=== PATIENT | female | born 1965 | race Caucasian/White ===

== ENCOUNTER 2018-09-16 21:00 | Outpatient (REF) | payer OTHER, MEDICAID, SELFPAY ==
[2018-09-16 22:08] LABS: Cholesterol 158 mg/dL (50-200); HDL Cholesterol 50 mg/dL (40-60); LDL CHOLESTEROL 73 mg/dL (<100); TSH 0.13 uIU/mL (0.358-3.74); Triglyceride 88 mg/dL (30-150)
== END 2018-09-16 21:20 ==
LOC: NCHCN 21:00
PROVIDERS: Visit Provider Nurse Practitioner Family
DX: M75.110 Incomplete rotator cuff tear or rupture of unspecified shoulder, not specified as traumatic (principal); E11.65 Type 2 diabetes mellitus with hyperglycemia; E03.9 Hypothyroidism, unspecified
CPT/HCPCS: 80061; 83721; 84443

== ENCOUNTER 2018-11-01 12:07 | Outpatient (REF) | payer OTHER, MEDICAID, SELFPAY ==
--- NOTE | 2018-11-01 10:15 | PAPFT_PTH ---
PATIENT: Karoline Moseley LOC: [facility] U#:[id number] AGE/SX: 53/F ROOM: RE11/01/[address]: Anusha [place] : 1965 BED: DIS: 11/01/2018 SPEC #: [id number] RECD: 11/02/18 12:53 STATUS: FRANCO REQ #: [id number] KENROY: 11/01/18 10:[address]: Anusha [place] DEPT: [facility] Cytology RECD BY: Elly Hoffman Tissues: 1 - CX/ENDOCX FOR PAP SMEARS Procedures: PAP THIN PREP/UVM Screening HPV DNA PROBE Comments: [id number]
[2018-11-01 21:28] LABS: TSH (W/Ref FT4) 9.05 uIU/mL (0.358-3.74)
[2018-11-01 21:55] LABS: FREE T4 0.76 ng/dL (0.76-1.46)
== END 2018-11-01 12:27 ==
LOC: NCHCN 12:07
PROVIDERS: PCP Nurse Practitioner Family; Visit Provider Nurse Practitioner Family
DX: Z00.00 Encounter for general adult medical examination without abnormal findings (principal); Z12.4 Encounter for screening for malignant neoplasm of cervix; Z11.51 Encounter for screening for human papillomavirus (HPV); Z01.419 Encounter for gynecological examination (general) (routine) without abnormal findings
CPT/HCPCS: 88142; 84439; 84443; 87624

== ENCOUNTER 2019-01-04 10:10 | Outpatient (REF) | payer OTHER, MEDICAID, SELFPAY ==
[2019-01-04 23:09] LABS: TSH (W/Ref FT4) 0.11 uIU/mL (0.358-3.74)
[2019-01-04 23:28] LABS: FREE T4 1.55 ng/dL (0.76-1.46)
== END 2019-01-04 10:30 ==
LOC: NCHCN 10:10
PROVIDERS: PCP Nurse Practitioner Family; Visit Provider Nurse Practitioner Family
DX: E03.9 Hypothyroidism, unspecified (principal); F43.10 Post-traumatic stress disorder, unspecified; J45.991 Cough variant asthma; M54.5 Low back pain
CPT/HCPCS: 84439; 84443

== ENCOUNTER 2019-02-06 03:59 | Emergency (ER) | payer OTHER, MEDICAID, SELFPAY ==
[2019-02-06 04:03] VITALS: BP 153/86; PULSE 101; RESP 22; TEMP 38; O2SAT 99
--- NOTE | 2019-02-06 04:16 | W.ED.GENAD ---
Discharge Plan Disposition Patient Disposition: HOME Condition: Improving Discharge Details Chief Complaint: EarProblem Clinical Impression: Acute swimmer's ear Primary Care Provider: Anusha [place] ED Provider: Jordon Talavera Home Meds and New Rx's Prescriptions: Continued multivitamin [Daily Multi-Vitamin] 1 EACH tablet 1 ea PO DAILY RF: 0 polyethylene glycol 3350 17 GM powder in packet 17 gm PO DAILY PRN PRNRF: 0 ibuprofen 800 MG tablet 800 mg PO PRN PRNRF: 0 levothyroxine [Levoxyl] 125 MCG tablet 150 mcg PO DAILY RF: 0 epinephrine 0.3 MG/SYR auto-injector 0.3 mg IJ PRN PRNRF: 0 tramadol 50 MG tablet 50 mg PO PRN PRNRF: 0 montelukast [Singulair] 10 MG tablet 10 mg PO HS PRN PRNRF: 0 furosemide 20 MG tablet 20 mg PO PRN PRNRF: 0 ergocalciferol (vitamin D2) [Vitamin D2] 50,000 UNIT capsule 50,000 unit PO DIRECTED RF: 0 Discharge Instructions Instructions: Otitis Externa (ED) Additional Instructions: Please use Ciprodex otic drops twice daily for 5 to 7 days time. Follow-up with Anusha [place] if not improving in 5 days. May use Tylenol and/or ibuprofen as needed for pain. Continue regular medications. Return for any acute concern Medical Decision Making 53-year-old female with right otitis externa, question of early onset of left otitis externa. No other acute findings on exam. Will treat with some Ciprodex otic drops twice daily. She understands homecare and return precautions. HPI General Mode of arrival: ambulatory. Date/Time Provider Initiated Documentation: 02/06/19 04:13. Limitations to Documentation: no limitations. Information obtained by: patient. History of Present Illness 53 year old F presents to the emergency department with the chief complaint of Right greater than left ear pain, described as moderate, Quality is described as dull and constant, and is localized to the head and right. Patient started experiencing this hour(s) and it has been constant. No relieving factors improve symptom(s), No exacerbating factors reported . Patient notes no other symptoms.. Patient did receive the following treatments prior to arrival, none Related Data Home Medications Medication Instructions Recorded Confirmed epinephrine 0.3 mg IJ PRN PRN 01/11/13 05/30/17 ibuprofen 800 mg PO PRN PRN 01/11/13 05/30/17 levothyroxine [Levoxyl] 150 mcg PO DAILY 01/11/13 05/30/17 multivitamin [Daily Multi-Vitamin] 1 ea PO DAILY 01/11/13 05/30/17 polyethylene glycol 3350 17 gm PO DAILY PRN PRN 01/11/13 05/30/17 ergocalciferol (vitamin D2) 50,000 unit PO DIRECTED 03/27/15 05/30/17 [Vitamin D2] furosemide 20 mg PO PRN PRN 03/27/15 05/30/17 montelukast [Singulair] 10 mg PO HS PRN PRN 03/27/15 05/30/17 tramadol 50 mg PO PRN PRN 03/27/15 05/30/17 Allergies Allergy/AdvReac Type Severity Reaction Status Date / Time Insulins AdvReac Unverified 02/06/19 04:07 metformin AdvReac LEG Unverified 02/06/19 04:07 SWELLING MOST FOODS AdvReac Uncoded 02/06/19 04:07 DECONGESTANTS AdvReac Uncoded 02/06/19 04:07 General Stated Complaint: EarProblem LULU: 4 Review of Systems Review of Systems No fall. She is otherwise been well. Has had similar infections in the past. 6 systems reviewed and otherwise neg [facility] Social History Smoking/Tobacco Use Status: Former Tobacco Use Drug use: Never Do you feel safe in your relationship?: Yes Exam Narrative Exam Narrative: GEN: awake, alert, oriented 3. Pleasant, well groomed, interactive. HEAD: Normocephalic, atraumatic ENT: Mucous membranes moist, oropharynx unremarkable, the right external ear canal is swollen, cobblestoned with 6 white white exudate. There is discrete erythema and cobblestoning of the left external ear canal EYES: PERRL, EOMI NECK: Full ROM, no WILL, no menigismus CHEST/RESP: Nontender, clear to auscultation bilateral, no wheeze/rhonchi/rales CARDIOVASCULAR: RRR, no murmur, rub marlyou. 2+ Rad pulse bilateral EXT: Full ROM, no edema, no rash Neuro: Grossly normal neurologic exam, conversant, interactive. Psych: Speech fluent, thoughts congruent, affect normal M Course Vital Signs Temperature 38.0 C H 02/06/19 04:03 Pulse 101 H 02/06/19 04:03 Respiratory Rate 22 02/06/19 04:03 Blood Pressure 153/86 H 02/06/19 04:03 Pulse Oximetry 99 02/06/19 04:03 Temperature 38.0 C H 02/06/19 04:03 Temperature Source Temporal Artery Scan 02/06/19 04:03 Pulse 101 H 02/06/19 04:03 Respiratory Rate 22 02/06/19 04:03 Respiratory Effort Non-Labored 02/06/19 04:03 Blood Pressure 153/86 H 02/06/19 04:03 Blood Pressure Position Sitting 02/06/19 04:03 Pulse Oximetry 99 02/06/19 04:03 Oxygen Delivery Method Room Air 02/06/19 04:03 Oxygen Flow Rate 0 02/06/19 04:03 Pain Level 8 02/06/19 04:07
--- NOTE | 2019-02-06 04:19 | ED.GENADUL_ITS ---
Discharge Plan Disposition Patient Disposition: HOME Condition: Improving Discharge Details Chief Complaint: EarProblem Clinical Impression: Acute swimmer's ear Primary Care Provider: Anusha [place] ED Provider: Jordon Talavera Home Meds and New Rx's Prescriptions: Continued multivitamin [Daily Multi-Vitamin] 1 EACH tablet 1 ea PO DAILY RF: 0 polyethylene glycol 3350 17 GM powder in packet 17 gm PO DAILY PRN PRNRF: 0 ibuprofen 800 MG tablet 800 mg PO PRN PRNRF: 0 levothyroxine [Levoxyl] 125 MCG tablet 150 mcg PO DAILY RF: 0 epinephrine 0.3 MG/SYR auto-injector 0.3 mg IJ PRN PRNRF: 0 tramadol 50 MG tablet 50 mg PO PRN PRNRF: 0 montelukast [Singulair] 10 MG tablet 10 mg PO HS PRN PRNRF: 0 furosemide 20 MG tablet 20 mg PO PRN PRNRF: 0 ergocalciferol (vitamin D2) [Vitamin D2] 50,000 UNIT capsule 50,000 unit PO DIRECTED RF: 0 Discharge Instructions Instructions: Otitis Externa (ED) Additional Instructions: Please use Ciprodex otic drops twice daily for 5 to 7 days time. Follow-up with Anusha [place] if not improving in 5 days. May use Tylenol and/or ibuprofen as needed for pain. Continue regular medications. Return for any acute concern Medical Decision Making 53-year-old female with right otitis externa, question of early onset of left otitis externa. No other acute findings on exam. Will treat with some Ciprodex otic drops twice daily. She understands homecare and return precautions. HPI General Mode of arrival: ambulatory . Date/Time Provider Initiated Documentation: 02/06/19 04:13 . Limitations to Documentation: no limitations . Information obtained by: patient . History of Present Illness 53 year old F presents to the emergency department with the chief complaint of Right greater than left ear pain, described as moderate, Quality is described as dull and constant, and is localized to the head and right. Patient started experiencing this hour(s) and it has been constant. No relieving factors improve symptom(s), No exacerbating factors reported . Patient notes no other symptoms.. Patient did receive the following treatments prior to arrival, none Related Data Home Medications Medication Instructions Recorded Confirmed epinephrine 0.3 mg IJ PRN PRN 01/11/13 05/30/17 ibuprofen 800 mg PO PRN PRN 01/11/13 05/30/17 levothyroxine [Levoxyl] 150 mcg PO DAILY 01/11/13 05/30/17 multivitamin [Daily Multi-Vitamin] 1 ea PO DAILY 01/11/13 05/30/17 polyethylene glycol 3350 17 gm PO DAILY PRN PRN 01/11/13 05/30/17 ergocalciferol (vitamin D2) 50,000 unit PO DIRECTED 03/27/15 05/30/17 [Vitamin D2] furosemide 20 mg PO PRN PRN 03/27/15 05/30/17 montelukast [Singulair] 10 mg PO HS PRN PRN 03/27/15 05/30/17 tramadol 50 mg PO PRN PRN 03/27/15 05/30/17 Allergies Allergy/AdvReac Type Severity Reaction Status Date / Time Insulins AdvReac Unverified 02/06/19 04:07 metformin AdvReac LEG Unverified 02/06/19 04:07 SWELLING MOST FOODS AdvReac Uncoded 02/06/19 04:07 DECONGESTANTS AdvReac Uncoded 02/06/19 04:07 General Stated Complaint: EarProblem LULU: 4 Review of Systems Review of Systems No fall. She is otherwise been well. Has had similar infections in the past. 6 systems reviewed and otherwise neg [facility] Social History Smoking/Tobacco Use Status: Former Tobacco Use Drug use: Never Do you feel safe in your relationship?: Yes Exam Narrative Exam Narrative: GEN: awake, alert, oriented 3. Pleasant, well groomed, intera ctive. HEAD: Normocephalic, atraumatic ENT: Mucous membranes moist, oropharynx unremarkable, the right external ear canal is swollen, cobblestoned with 6 white white exudate. There is discrete erythema and cobblestoning of the left external ear canal EYES: PERRL, EOMI NECK: Full ROM, no WILL, no menigismus CHEST/RESP: Nontender, clear to auscultation bilateral, no wheeze/rhonchi/rales CARDIOVASCULAR: RRR, no murmur, rub marylou. 2+ Rad pulse bilateral EXT: Full ROM, no edema, no rash Neuro: Grossly normal neurologic exam, conversant, interactive. Psych: Speech fluent, thoughts congruent, affect normal M Course Vital Signs Temperature 38.0 C H 02/06/19 04:03 Pulse 101 H 02/06/19 04:03 Respiratory Rate 22 02/06/19 04:03 Blood Pressure 153/86 H 02/06/19 04:03 Pulse Oximetry 99 02/06/19 04:03 Temperature 38.0 C H 02/06/19 04:03 Temperature Source Temporal Artery Scan 02/06/19 04:03 Pulse 101 H 02/06/19 04:03 Respiratory Rate 22 02/06/19 04:03 Respiratory Effort Non-Labored 02/06/19 04:03 Blood Pressure 153/86 H 02/06/19 04:03 Blood Pressure Position Sitting 02/06/19 04:03 Pulse Oximetry 99 02/06/19 04:03 Oxygen Delivery Method Room Air 02/06/19 04:03 Oxygen Flow Rate 0 02/06/19 04:03 Pain Level 8 02/06/19 04:07
[2019-02-06] MEDS: Ciprofloxacin/Dexameth. 7.5 ML BTL AU (04:27)
== END 2019-02-06 04:34 | disposition home or self-care (01) ==
PROVIDERS: Emergency Provider Emergency Medicine; PCP Nurse Practitioner Family
DX: H60.332 Swimmer's ear, left ear (principal)
CPT/HCPCS: 99283

== ENCOUNTER 2019-02-09 10:56 | Outpatient (REF) | payer OTHER, MEDICAID, SELFPAY ==
[2019-02-11 10:55] LABS: Lyme Ab w Rflx to Lyme Confirm Negative
== END 2019-02-09 11:16 ==
LOC: NCHCN 10:56
PROVIDERS: PCP Nurse Practitioner Family; Visit Provider Nurse Practitioner Family
DX: H92.03 Otalgia, bilateral (principal); W57.XXXA Bitten or stung by nonvenomous insect and other nonvenomous arthropods, initial encounter
CPT/HCPCS: 86618

== ENCOUNTER 2019-04-20 01:00 | Outpatient (CLI) | payer OTHER, MEDICAID, SELFPAY ==
--- NOTE | 2019-04-20 11:07 | DI.MRI_ITS ---
EXAM: MR LUMBAR SPINE WO CLINICAL HISTORY: LOW BACK PAIN, M54.5, WORSENING W/ RADICULOPATHY, PT MADE SYMPTOMS WORSE. TECHNIQUE: Multiplanar multisequence MRI was performed. MRI of the lumbar spine was performed accor ding to the usual protocol. COMPARISON: No exams were available for comparison FINDINGS: There are multiple of high-signal vertebral body rounded masses seen on T1 and T2 weighted imaging co nsistent with multiple vertebral hemangiomas, the largest in L2 vertebra. No other significant bony abnormality seen. The conus medullaris appears intact. There is very prominent hypertrophic degenerative facet change particularly at L4-5 bilaterally. There is a moderate to severe central canal spinal stenosis at L4- 5. No central canal spinal stenosis identified at the other levels examined. Mild bilateral neural foraminal narrowing also noted at L4-5. There is moderate-sized predominantly central broad-based disc herniation at L5-S1. Right S1 nerve r oot may be impinged by this disc herniation. No additional disc herniation identified in the lumbar region. IMPRESSION: 1. Moderate to severe central canal spinal stenosis and mild bilateral neural foraminal stenosis at L4-5 secondary to facet hypertrophy. 2. Moderate-sized predominantly central disc herniation slightly more prominent to the right at L5-S1 , question right S1 nerve root impingement.
== END 2019-04-20 01:20 ==
PROVIDERS: PCP Nurse Practitioner Family; Visit Provider Nurse Practitioner Family
DX: M54.5 Low back pain (principal); M54.16 Radiculopathy, lumbar region; M48.061 Spinal stenosis, lumbar region without neurogenic claudication; M51.17 Intervertebral disc disorders with radiculopathy, lumbosacral region; M47.26 Other spondylosis with radiculopathy, lumbar region
CPT/HCPCS: 72148

== ENCOUNTER 2019-05-25 14:41 | Outpatient (REF) | payer OTHER, MEDICAID, SELFPAY ==
[2019-05-25 20:14] LABS: HCT 41.7 % (36.0-46.0); Mean Corp. HGB Concentration 33.6 g/dL (32.0-36.0); Mean Corpuscular Hemoglobin 28.7 pg (27.0-33.0); Mean Corpuscular Volume 85.5 fL (80-95); Mean Platelet Volume 11.6 fL (8.0-11.0); Platelet Count 282 x1000/uL (130-400); RBC 4.88 m/cumm (4.00-5.20); RBC Distribution Width 14.6 % (11.7-14.6); White Blood Cell Count 8.45 k/cumm (4.4-10.8)
[2019-05-25 20:25] LABS: ALT 28 U/L (14-59); AST 19 U/L (15-37); Albumin 3.8 g/dL (3.4-5.0); Alkaline Phosphatase 108 U/L (46-116); Anion Gap 9.6 mmol/L (3-11); BUN 18 mg/dL (7-18); Bilirubin, Direct 0.15 mg/dL (0.00-0.20); Bilirubin, Total 0.9 mg/dL (0.2-1.0); CO2 27.4 mmol/L (21.0-32.0); CREATININE 0.85 mg/dL (0.55-1.02); Calcium 9.3 mg/dL (8.5-10.1); Chloride 103 mmol/L (98-107); Glucose 127 mg/dL (70-100); Potassium 4.3 mmol/L (3.5-5.1); Sodium 140 mmol/L (136-145); Total Protein 7.2 g/dL (6.4-8.2)
== END 2019-05-25 15:01 ==
LOC: NCHCN 14:41
PROVIDERS: PCP Nurse Practitioner Family; Visit Provider Nurse Practitioner Family
DX: M51.16 Intervertebral disc disorders with radiculopathy, lumbar region (principal); Z01.818 Encounter for other preprocedural examination
CPT/HCPCS: 80053; 80076; 85027

== ENCOUNTER 2020-03-20 11:28 | Outpatient (REF) | payer OTHER, MEDICAID, SELFPAY ==
[2020-03-20 20:32] LABS: TSH (W/Ref FT4) 1.15 uIU/mL (0.36-3.74)
== END 2020-03-20 11:48 ==
LOC: NCHCN 11:28
PROVIDERS: PCP Nurse Practitioner Family; Visit Provider Nurse Practitioner Family
DX: E03.9 Hypothyroidism, unspecified (principal)
CPT/HCPCS: 84443

== ENCOUNTER 2020-05-14 10:52 | Outpatient (CLI) | payer OTHER, MEDICAID, SELFPAY ==
--- NOTE | 2020-05-14 | DI.RAD_ITS ---
EXAM: XR FOOT LT COMPLETE CLINICAL HISTORY: LT FOOT PAIN, M79.672. TECHNIQUE: 2D digital imaging was performed. COMPARISON: No exams were available for comparison FINDINGS: BONES: There is an acute nondisplaced fracture of the midshaft of the 1st metatarsal. No bony destru ctive lesion is seen. There is a small calcaneal spur. There is an enthesophyte at the Achilles inse rtion site. JOINTS: No dislocation present. SOFT TISSUE: There is soft tissue swelling associated with the fracture. IMPRESSION: Nondisplaced fracture of the midshaft of the 1st metatarsal with associated soft tissue swelling of t he forefoot. DATA REPOSITORY: RADIATION DOSE DELIVERED:
== END 2020-05-14 11:12 ==
PROVIDERS: PCP Nurse Practitioner Family; Visit Provider Nurse Practitioner Family
DX: S92.315A Nondisplaced fracture of first metatarsal bone, left foot, initial encounter for closed fracture (principal)
CPT/HCPCS: 73630

== ENCOUNTER 2020-05-25 04:07 | Outpatient (CLI) | payer OTHER, MEDICAID, SELFPAY ==
--- NOTE | 2020-05-25 | DI.RAD_ITS ---
EXAM: XR LUMBAR SPINE COMPLETE CLINICAL HISTORY: 1 YEAR S/P LUMBAR FUSION,Z98.1. TECHNIQUE: 2D digital imaging was performed. COMPARISON: No exams were available for comparison FINDINGS: Posterior fusion hardware is noted at L4-5. A disc spacer is present at this level. There are endpl ate osteophytes, greatest in the lower thoracic spine. The disc spaces are well maintained. Flexion and extension lateral views were performed in addition to the neutral lateral view. There is no sub luxation with flexion or extension. There is no scoliosis. There is mild spurring at the SI joints. Surgical clips are seen in the right upper quadrant. IMPRESSION: Status post posterior fusion at L4-5. Mild degenerative disc changes are seen. DATA REPOSITORY: RADIATION DOSE DELIVERED:
== END 2020-05-25 04:27 ==
PROVIDERS: PCP Nurse Practitioner Family; Visit Provider Nurse Practitioner Family
DX: Z98.1 Arthrodesis status (principal); M47.816 Spondylosis without myelopathy or radiculopathy, lumbar region
CPT/HCPCS: 72110

== ENCOUNTER 2020-06-05 12:02 | Outpatient (CLI) | payer OTHER, MEDICAID, SELFPAY ==
--- NOTE | 2020-06-05 11:45 | DI.RAD_ITS ---
EXAM: XR FOOT LT LIMITED CLINICAL HISTORY: f/u fx. TECHNIQUE: 2D digital imaging was performed. COMPARISON: CR XR FOOT LT COMPLETE from 05/14/2020 FINDINGS: BONES: There is no change in alignment of the fracture involving the 1st metatarsal. No new fracture or dislocation is present. No bony destructive lesion is seen. JOINTS: No dislocation present. SOFT TISSUE: Normal. IMPRESSION: Stable 1st metatarsal fracture. DATA REPOSITORY: RADIATION DOSE DELIVERED:
== END 2020-06-05 12:22 ==
PROVIDERS: PCP Nurse Practitioner Family; Referring Provider Nurse Practitioner Family; Visit Provider Orthopaedic Surgery
DX: S92.312A Displaced fracture of first metatarsal bone, left foot, initial encounter for closed fracture (principal); W20.8XXA Other cause of strike by thrown, projected or falling object, initial encounter
CPT/HCPCS: 99203; 99214; 73620

== ENCOUNTER 2020-07-03 11:23 | Outpatient (CLI) | payer OTHER, MEDICAID, SELFPAY ==
--- NOTE | 2020-07-03 09:15 | DI.RAD_ITS ---
EXAM: XR FOOT LT LIMITED CLINICAL HISTORY: f/u fracture TECHNIQUE: COMPARISON: CR XR FOOT LT LIMITED from 06/05/2020 FINDINGS: Two views were obtained. Previously described fracture of the 1st metatarsal is again noted no inter hue change in alignment of the fracture fragments comparison previous examination June 05. IMPRESSION: RADIATION DOSE DELIVERED: Total DLP Total DLP
== END 2020-07-03 11:43 ==
PROVIDERS: PCP Nurse Practitioner Family; Referring Provider Nurse Practitioner Family; Visit Provider Orthopaedic Surgery
DX: S92.312D Displaced fracture of first metatarsal bone, left foot, subsequent encounter for fracture with routine healing (principal); W20.8XXD Other cause of strike by thrown, projected or falling object, subsequent encounter
CPT/HCPCS: 99213; 73620

== ENCOUNTER 2020-07-16 00:49 | Outpatient (CLI) | payer OTHER, MEDICAID, SELFPAY ==
--- NOTE | 2020-07-16 07:00 | DI.MRI_ITS ---
EXAM: MR LOWER EXTREMITY LT WO CLINICAL HISTORY: PAIN,FX 1ST METATARSAL,S92.313A TECHNIQUE: Multiplanar multisequence MRI was performed without intravenous contrast. COMPARISON: MR MR LUMBAR SPINE WO from 04/20/2019 CR XR FOOT LT LIMITED from 07/03/2020 FINDINGS: SKIN: No evidence of ulcer nor subcutaneous tract. BONES/JOINTS: There is an incompletely healed nondisplaced transverse fracture at the midshaft level of the great toe metatarsal. Intraosseous bone edema extends throughout the diaphysis of the great t oe metatarsal. There is no significant joint effusion at the metatarsophalangeal joint but there is abnormal signal seen within the more medial of the 2 sesamoid bones subjacent to the great toe metata rsal head. This sesamoid appears fractured. The more lateral of the 2 sesamoids exhibits normal sig nal. No flexor tendon tear nor prominent tenosynovitis at this level. The other metatarsal bones appear unremarkable with the exception of some degenerative changes at the articulation between the base of the 3rd metatarsal and the lateral cuneiform bone. LISFRANC JOINT: Some increased signal is seen within the main Lisfranc ligament but no cortical offse t. Probable partial tearing. LIGAMENTS: No obvious tears evident. MUSCULOTENDINOUS STRUCTURES: On the dorsal aspect of the foot above the 2nd metatarsal midshaft level there is an abnormal 1.2 by 1.0 by 0.9 centimeter T2 bright well-defined collection which is not in proximity to a joint and appears to be within extensor or musculature-tendon at this level. This is probably posttraumatic. There is no abnormal intraosseous signal in the subjacent 2nd metatarsal. T here are no septations evident within this finding. SOFT TISSUES: As above OTHER FINDINGS: None. IMPRESSION: 1. Partial healing of nondisplaced transverse fracture of the midshaft of the great toe metatarsal. Still prominent bone edema extending throughout the length of the diaphysis but not into the head of the great toe metatarsal. 2. There is a fracture of the more medial of the 2 sesamoid bones subjacent to the great toe metatars al head. No displacement. No joint joint effusion in the great toe metatarsophalangeal joint. 3. Some attenuation of the main Lisfranc ligament is noted but without complete tear. Also no cortic al offset at this level. 4. There is a 12 x 10 x 9 millimeter abnormal focal finding within the soft tissues just dorsal to t he midshaft of the 2nd metatarsal which exhibits increased signal on both T1 and T2 weighted images a nd is probably posttraumatic hematoma within the extensor musculature at this level. Correlation wit h mechanism of injury is recommended. DATA REPOSITORY:
== END 2020-07-16 01:09 ==
PROVIDERS: PCP Nurse Practitioner Family; Visit Provider Orthopaedic Surgery
DX: S92.315A Nondisplaced fracture of first metatarsal bone, left foot, initial encounter for closed fracture (principal); S92.812A Other fracture of left foot, initial encounter for closed fracture; M79.89 Other specified soft tissue disorders
CPT/HCPCS: 73718

== ENCOUNTER → 2020-07-23 08:48 | Outpatient (BNVA) | payer OTHER, MEDICAID, SELFPAY | PROVIDERS: PCP Nurse Practitioner Family; Referring Provider Nurse Practitioner Family; Visit Provider Student in an Organized Health Care Education/Training Program | DX: S92.312D Displaced fracture of first metatarsal bone, left foot, subsequent encounter for fracture with routine healing (principal); W20.8XXD Other cause of strike by thrown, projected or falling object, subsequent encounter | CPT/HCPCS: 99213; L3260 ==

== ENCOUNTER 2020-08-20 11:29 | Outpatient (CLI) | payer OTHER, MEDICAID, SELFPAY ==
--- NOTE | 2020-08-20 11:15 | DI.RAD_ITS ---
EXAM: XR FOOT LT COMPLETE CLINICAL HISTORY: L foot fx. TECHNIQUE: 2D digital imaging was performed. COMPARISON: CR XR FOOT LT COMPLETE from 05/14/2020 CR XR FOOT LT LIMITED from 07/03/2020 MR MR LOWER EXTREMITY LT WO from 07/16/2020 FINDINGS: BONES: There has been continued healing of the 1st metatarsal fracture. No bony destructive lesion i s seen. No new fracture or dislocation. JOINTS: No dislocation present. SOFT TISSUE: Normal. IMPRESSION: Healing 1st metatarsal fracture. DATA REPOSITORY: RADIATION DOSE DELIVERED:
== END 2020-08-20 11:49 ==
PROVIDERS: PCP Nurse Practitioner Family; Referring Provider Nurse Practitioner Family; Visit Provider Student in an Organized Health Care Education/Training Program
DX: S92.312D Displaced fracture of first metatarsal bone, left foot, subsequent encounter for fracture with routine healing (principal); X58.XXXD Exposure to other specified factors, subsequent encounter
CPT/HCPCS: 99213; 99214; 73630

== ENCOUNTER → 2020-09-17 10:14 | Outpatient (BNVA) | payer OTHER, MEDICAID, SELFPAY | PROVIDERS: PCP Nurse Practitioner Family; Referring Provider Nurse Practitioner Family; Visit Provider Physician Assistant | DX: S92.312D Displaced fracture of first metatarsal bone, left foot, subsequent encounter for fracture with routine healing (principal); X58.XXXD Exposure to other specified factors, subsequent encounter | CPT/HCPCS: 99212; 99213 ==

== ENCOUNTER 2020-11-12 10:02 | Outpatient (CLI) | payer OTHER, MEDICAID, SELFPAY ==
--- NOTE | 2020-11-12 10:00 | DI.RAD_ITS ---
EXAM: XR FOOT LT COMPLETE CLINICAL HISTORY: pain at fracture site. TECHNIQUE: 2D digital imaging was performed. COMPARISON: CR XR FOOT LT COMPLETE from 08/20/2020 FINDINGS: Healing fracture site at the midshaft level of the great toe metatarsal is again noted. There has be en from further healing. Fracture line is still faintly visible. No displacement. No new additiona l fractures identified. No widening of the Lisfranc joint. Moderate size inferior calcaneal spur is noted. Also calcification at the insertion of the Achilles on the posterior calcaneus. IMPRESSION: Healing nondisplaced midshaft fracture of the great toe metatarsal. DATA REPOSITORY: RADIATION DOSE DELIVERED:
== END 2020-11-12 10:03 | disposition home or self-care (01) ==
LOC: DIORS 10:02
PROVIDERS: PCP Nurse Practitioner Family; Referring Provider Nurse Practitioner Family; Visit Provider Student in an Organized Health Care Education/Training Program
DX: S92.315D Nondisplaced fracture of first metatarsal bone, left foot, subsequent encounter for fracture with routine healing (principal)
CPT/HCPCS: 99213; 73630

== ENCOUNTER 2020-11-21 10:59 | Outpatient (REF) | payer OTHER, MEDICAID, SELFPAY ==
[2020-11-21 16:37] LABS: Anion Gap 12.6 mmol/L (3-11); BUN 16 mg/dL (7-18); CO2 23.4 mmol/L (21.0-32.0); CREATININE 0.9 mg/dL (0.55-1.02); Calcium 9.7 mg/dL (8.5-10.1); Calculated LDL 168 mg/dL (<100); Chloride 103 mmol/L (98-107); Cholesterol 281 mg/dL (<200); Glucose 333 mg/dL (74-106); HDL Cholesterol 59 mg/dL (40-60); Potassium 4.7 mmol/L (3.5-5.1); Sodium 139 mmol/L (136-145); TSH 0.86 uIU/mL (0.36-3.74); Triglyceride 271 mg/dL (<150)
[2020-11-21 17:41] LABS: FREE T4 1.44 ng/dL (0.76-1.46)
[2020-11-22 04:55] LABS: Vitamin D 25 Total 63.1 ng/mL (30-100)
== END 2020-11-21 11:00 | disposition home or self-care (01) ==
LOC: NCHCN 10:59
PROVIDERS: PCP Nurse Practitioner Family; Visit Provider Nurse Practitioner Family
DX: E11.65 Type 2 diabetes mellitus with hyperglycemia (principal); E03.9 Hypothyroidism, unspecified; N28.9 Disorder of kidney and ureter, unspecified
CPT/HCPCS: 80048; 80061; 82306; 84439; 84443

== ENCOUNTER 2021-01-14 09:48 | Outpatient (CLI) | payer OTHER, MEDICAID, SELFPAY ==
--- NOTE | 2021-01-14 09:30 | DI.RAD_ITS ---
Exam(s) XR FOOT LT COMPLETE EXAM: XR FOOT LT COMPLETE CLINICAL HISTORY: eval L 2nd MT pain, h/o 1st frx. TECHNIQUE: 2D digital imaging was performed. COMPARISON: CR XR FOOT LT COMPLETE from 11/12/2020 FINDINGS: There is some further healing at the midshaft transverse fracture site of the great toe. Fracture li ne is still visible but there is no displacement. No new fractures identified. Lisfranc joint is no t widened. No other fractures identified. Moderate size inferior calcaneal spur is again noted as is calcification at the insertion of the Achi lles tendon on the posterior calcaneus. IMPRESSION: Further healing nondisplaced midshaft fracture of the great toe metatarsal. Fracture line is still v isible. DATA REPOSITORY: RADIATION DOSE DELIVERED:
== END 2021-01-14 09:49 | disposition home or self-care (01) ==
LOC: DIORS 09:50
PROVIDERS: PCP Nurse Practitioner Family; Referring Provider Nurse Practitioner Family; Visit Provider Student in an Organized Health Care Education/Training Program
DX: S97.82XD Crushing injury of left foot, subsequent encounter (principal); S92.312D Displaced fracture of first metatarsal bone, left foot, subsequent encounter for fracture with routine healing; X58.XXXD Exposure to other specified factors, subsequent encounter
CPT/HCPCS: 99213; 73630

== ENCOUNTER 2021-02-07 15:06 | Outpatient (REF) | payer OTHER, MEDICAID, SELFPAY ==
[2021-02-07 19:59] LABS: Calcium 9.6 mg/dL (8.5-10.1); PHOSPHORUS 4.4 mg/dL (2.6-4.7)
[2021-02-07 20:15] LABS: Vitamin D 25 Total 64.1 ng/mL (30-100)
== END 2021-02-07 15:07 | disposition home or self-care (01) ==
LOC: NCHCN 15:06
PROVIDERS: PCP Nurse Practitioner Family; Visit Provider Nurse Practitioner Family
DX: E55.9 Vitamin D deficiency, unspecified (principal)
CPT/HCPCS: 82306; 82310; 84100

== ENCOUNTER 2022-02-11 16:51 | Outpatient (REF) | payer OTHER, MEDICAID, SELFPAY ==
[2022-02-11 16:50] LABS: Anion Gap 13.4 mmol/L (3-11); BUN 26 mg/dL (7-18); CO2 24.6 mmol/L (21.0-32.0); Chloride 100 mmol/L (98-107); Estimated GFR 57.15 (mL/min/1.73m2); Glucose 314 mg/dL (74-106); HDL Cholesterol 56 mg/dL (40-60); LDL CHOLESTEROL 116 mg/dL (<100); Potassium 4.2 mmol/L (3.5-5.1); Sodium 138 mmol/L (136-145); TSH 7.88 uIU/mL (0.36-3.74)
--- OUTSIDE RECORDS SUMMARY | 2022-02-11 16:55 | XMS_ITS | Encounter Summary ---
:1965 Author Organization [facility] Address [address] [place] [address] Care Team Providers Name Role Phone Unavailable Primary Care Provider Unavailable Encounter Details Date Type Department Care Team Description 06/05/2005 Results Only [facility] Teja Lowe MD conversion [address] [place] [id number] Social History Tobacco Use Types Packs/Day Years Used Date Never Assessed Sex Assigned at Date Recorded Not on file documented as of this encounter Plan of Treatment Not on filedocumented as of this encounter Procedures Procedure Name Priority Date/Time Associated Diagnosis Comme [facility] SURGICAL PATHOLOGY Routine 06/05/2005 0:00 EST Re sults for this procedure are i n the results section. documented in this encounter Results SURGICAL PATHOLOGY (06/05/2005 0:00 EST) Pathology Report: SURGICAL PATHOLOGY REPORT GIBSON A DAVICARLOS Reports generated via electronic interface contain jennifer ginal data; LAB however they are lacking the format of the original re port. Caution should be taken when reading/interpreting unfo rmatted reports. Name: ? KAROLINE MOSELEY ? Accession #: ? [id number] ? : ? 1965 (Age: 40) ??F ? Collect Date: ? 06/05/2005 ? Location: ? [facility] ? Receive Date: ? 005 ? Provider: JERE MUNOZ MD Copy to: TAY PIPER CAMPAIGN MANAGER ? Final Pathologic Diagnosis: ? Stomach, body, biopsies: 1. ?No specific pathologic features. 2. ?No Helicoba cter pylori-like organisms identified on H&E stain. ?? Document reviewed and electronically signed by: FABI OLIVEIRA MD Report ??Date: 06/10/2005 11:11 By the signature above, the attending physician certif ies that he/she has personally conducted a gross and/or microscopic examin ation of the described specimens and rendered or confirmed the above diagnosi s. Specimen(s) Received: ? Bx body of stomach Clinical History: ? Heartburn, RUQ pain, change in bowel habits; ga stritis Gross Description: ? Received in Hollande's fixative labelled Drown and 1 ??bx body of stomach are two pieces of tissue each of which measur e 0.2 x 0.2 x 0.2 cm. Submitted intact in one cassette. ??[facility] End of Report Specimen Performing Organization Address City/State/ZIP Code Phon e Number [facility] [address] [place] [address] SERVICES [facility] [address] [place] [address] documented in this encounter Visit Diagnoses Not on filedocumented in this encounter
--- OUTSIDE RECORDS SUMMARY | 2022-02-11 16:55 | XMS_ITS | Encounter Summary ---
:1965 Author Organization [facility] Address [address] [place] [address] Care Team Providers Name Role Phone None Primary Care Provider Unavailable Encounter Details Date Type Department Care Team Description 05/25/2020 Ancillary Procedure Radiology at [facility] Annamarie Jennings [address] [place] [phone] [address] [phone] [facility] [place], [place] [address] Social History Tobacco Use Types Packs/Day Years Used Date Former Smoker Cigarettes 1.5 10 Quit: 02/11/19 86 Smokeless Tobacco: Never Used Alcohol Use Standard Drinks/Week Comments No 0 (1 standard drink = 0.6 oz pure alcoho l) 1-2 year Alcohol Habits Answer Date Recorded How often do you have a drink containing alcohol? Not asked How many drinks containing alcohol do you have on a typical Not asked day when you are drinking? How often do you have six or more drinks on one occasion? No t asked Comment: 1-2 year 02/14/2011 Sex Assigned at Date Recorded Not on file documented as of this encounter Plan of Treatment Not on filedocumented as of this encounter Procedures Procedure Name Priority Date/Time Associated Diagnosis Comme nts FILM LIBRARY Routine 05/25/2020 12:00 AM Results for this STORAGE ONLY DX EDT procedure ar e in SPINE the results section. documented in this encounter Results Film Library- Storage Only DX Spine (05/25/2020 12:00 AM EDT) Specimen (Source) Anatomical Location Collection Method / Collectio n Time Received Time / Laterality Volume Narrative RAD - 05/28/2020 2:01 PM EDT This exam is auto-finalizing. It's purpo se is for storage only. Annamarie Jennings MD IMG FILM LIBRARY ORDERABLES Performing Organization Address City/State/ZIP Code Phon e Number [facility] [place], [place] documented in this encounter Visit Diagnoses Not on filedocumented in this encounter Care Teams Backup Operator Relationship Specialty Start Date End Date None PCP - General 05/31/19 02/17/21 None documented as of this encounter
--- OUTSIDE RECORDS SUMMARY | 2022-02-11 16:55 | XMS_ITS | Encounter Summary ---
:1965 Author Organization [facility] [place] [address] Care Team Providers Name Role Phone Sejal Piper Katerina SMITH Primary Care Provider Reason for Visit Reason Comments Hypothyroidism Encounter Details Date Type Department Care Team Description 03/12/2015 Office Visit Endocrinology at [facility] Elaine Alves, Osteopenia; [facility] Raj Burroughs MD Other abnormal glucose; Drive [facility] [place]specified [place] [phone] [place] [address] END[address] DEPT[address] [place] [address] Social History Tobacco Use Types Packs/Day Years [...] on file documented as of this encounter Last Filed Vital Signs Vital Sign Reading Time Taken Comments Blood Pressure 187/113 03/12/2015 11:28 AM has coffee, white EDT coat syndrome. Pulse 74 03/12/2015 11:28 AM EDT Temperature - - Respiratory Rate - - Oxygen Saturation - - Inhaled Oxygen - - Concentration Weight 126.6 kg (279 lb) 03/12/2015 11:28 AM EDT Height 165.1 cm (5' 5) 03/12/2015 11:28 AM EDT Body Mass Index 46.43 03/12/2015 11:28 AM EDT documented in this encounter Patient Instructions Patient InstructionsRaj Alves MD - 03/12/2015 12:08 PM EDT Plan: 1. Medication: Pt will cont to take LT4 137 mcg Thu-Thu and 1.5 tab on Thursday, vitamin D 50,000 iu weekly and MVI (plus pain med p.r.n). To start lisinopril 10 mg daily plus furosemide 10-20 mg daily for severe HTN. Target BP <140/90 & will monitor BP 1-2x/day at home. To try low dose allopurinol 100 mg qd for high uric & cut back on red meats or egg yolk (could not tolerate high dose allopurinol Info on possible side effects and how to take the medication properly was discussed at visit today. To continue all other medications, low fat/controlled car and low uric diet & exercise as tolerated to keep weight down or at least stable. 2. Lab: Already checked lab today and will let pt know all test results soon for 25- vitamin D. 3. RTC: Next visit in 6 months or earlier if needed. Will check TSH, A1c, uric, BMP at the time (Quick draw lab before visit with us on the same day). documented in this encounter Progress Notes Raj Alves MD - 03/12/2015 11:57 AM EDT Endocrine Clinic Name: Karoline Moseley : 1965 PCP: SEJAL PIPER APRN (General) Provided by: Raj Alves MD, PhD, FACE Date: 03/12/2015 Reason for visit: Endocrine visit for the following problem list: Patient Active Problem List Diagnosis Code ??? Asthma 493.90 ??? Diabetes mellitus type II 250.00 ??? Fibromyalgia 729.1 ??? HTN (hypertension) 401.9 ??? Adam's thyroiditis 244.9 ??? IBS (irritable bowel syndrome) 564.1 ??? PCOS (polycystic ovarian syndrome) 256.4 ??? Hypothyroidism, acquired, autoimmune 244.8 ??? Hyperuricemia 790.6 ??? Vitamin D deficiency with chronic fatigue and fibromyalgia 268.9 Recent Results (from the past 72 hour(s)) Hemoglobin A1c Result Value Ref Range Hemoglobin A1C 7.4 (H) 4.3 - 5.6 % Est Avg Gluc 166 mg/dL TSH Result Value Ref Range TSH 0.49 0.27 - 4.20 mcIU/mL Uric acid Result Value Ref Range Uric Acid 9.9 (H) 2.5 - 6.5 mg/dL Karoline Moseley is not doing well during the interim, still having lots of body aches and pain all over, and also DOWD with some chronic blurry vision. She could not tolerate allopurinol in the past and used to get uric acid down by taking baking soda but did not do it lately. Also, stress and busy with her 16 yo daughter with Sz (h/o encephalitis at age 5). We noted high BP 187/113 today and on repeat still high at 162/119 with normal HR 81. She is not on any HTN meds and used to take lasix p.r.n. We will start her on lisinopril 10 mg qd plus lasix 10-20 mg qd from today and she will supervisor opening and picking lisinopril from our pharmacy and take one right away. Her weight has been fluctuating between 275-279 lbs. No palpitations, CP, SOB, GI issues, changes ofskin or hairs and no heat or cold intolerance. + DOWD and visual changes with mild swelling in LEs ROS: Please see HPI, all others negative Patient Active Problem List Diagnosis Code ??? Asthma 493.90 ??? Diabetes mellitus type II 250.00 ??? Fibromyalgia 729.1 ??? HTN (hypertension) 401.9 ??? Adam's thyroiditis 244.9 ??? IBS (irritable bowel syndrome) 564.1 ??? PCOS (polycystic ovarian syndrome) 256.4 ??? Hypothyroidism, acquired, autoimmune 244.8 ??? Hyperuricemia 790.6 ??? Vitamin D deficiency with chronic fatigue and fibromyalgia 268.9 Current Outpatient Prescriptions on File Prior to Visit Medication Sig Dispense Refill ??? ergocalciferol (ERGOCALCIFEROL) 50,000 unit Capsule take 1 capsule by mouth every week 12 capsule 3 ??? levothyroxine (LEVOTHROID) 137 mcg tablet 1 tablet mon-sat 1.5 tablet on sun 96 tablet 4 ??? MULTIVITAMIN ORAL Take by mouth. ??? traMADol (ULTRAM) 50 mg tablet Take 50 mg by mouth every 6 hours as needed. ??? hydroCODone-acetaminophen (VICODIN) 5-500 mg per tablet Take 1 tablet by mouth every 6 hours as needed. ??? NEBULIZER ACCESSORIES (NEBULIZER MISC) by [facility].(Non-Drug; Combo Route) route. ??? OXYcodone 10 mg Tab Take 10 mg by mouth every 4 hours. ??? allopurinol (ZYLOPRIM) 100 mg tablet Take 1 tablet by mouth daily. 90 tablet 4 ??? ALBUTEROL INHL Inhale into the lungs as needed. No current facility-administered medications on file prior to visit. Allergies Allergen Reactions ??? [place] Other (See Comments) pain ??? Wheat Other (See Comments) Pain History Social History ??? Marital Status: Spouse Name: N/A Number of Children: N/A ??? Years of Education: N/A Social History Main Topics ??? Smoking status: Former Smoker -- 1.50 packs/day for 10 years Types: Cigarettes Quit date: 02/11/1986 ??? Smokeless tobacco: Never Used ??? Alcohol Use: No Comment: 1-2 year ??? Drug Use: 7.00 per week Special: Pain Pills (oxycontin, oxycodone, morphine, etc) ??? Sexual Activity: Partners: Male Control/ Protection: Surgical, Abstinence Comment: Last sexual encounter years ago Other Topics Concern ??? None Social History Narrative FAMILY HISTORY Family History Problem Relation Age of Onset ??? Colorectal Cancer Mother 58 of colon ca ??? Bipolar Disorder Mother Physical exam BP 187/113 mmHg Pulse 74 Ht 165.1 cm (5' 5) Wt 126.554 kg (279 lb) BMI 46.43 kg/m2 Appearance: [] Obese, pleasant, NAD HEENT: PERRLA, EOMI, no lid lag or exophthalmos Neck: supple, no goiter or lymphadenopathy Chest: CTA bilaterally, no wheeze or crackles Heart: normal S1, S2, no murmur Abd: benign, ND, NT Ext: normal skin texture and temperature no pitting edema Neuro: no weakness, normal reflexes Assessment: Reasonable control of hypothyroid due to Adam's thyroiditis on LT4 replacement with good TSH 0.5-3.1 over the past years with mild fluctuation. Her weight has been stable over the past year on diet control. Her uric acid is high 9.9 today and she lately has not been taking baking soda (1tsp 1-2x/week for urine alkalinization for hyperuricemia, which in the past seemed to help her body aches and depressed mood from fibromyalgia and neuropathy). She also has PCOS, mild diabetes type 2 with metabolic syndrome (obesity, HTN, high TG and high uricacid) but could not tolerate metformin even at a low dose and had to quit it during the interim causing higher A1c at 7.3->7.4% today, not too far off. She has improvement of vitamin D deficiency after taking vitamin-D 50,000 iu weekly replacement chronically with stable 25vitamin D in 40s range. Plan: 1. Medication: Pt will cont to take LT4 137 mcg Thu-Thu and 1.5 tab on Thursday, vitamin D 50,000 iu weekly and MVI (plus pain med p.r.n). To start lisinopril 10 mg daily plus furosemide 10-20 mg daily for severe HTN. Target BP <140/90 & will monitor BP 1-2x/day at home. To try low dose allopurinol 100 mg qd for high uric & cut back on red meats or egg yolk (could not tolerate high dose allopurinol Info on possible side effects and how to take the medication properly was discussed at visit today. To continue all other medications, low fat/controlled car and low uric diet & exercise as tolerated to keep weight down or at least stable. 2. Lab: Already checked lab today and will let pt know all test results soon for 25- vitamin D. 3. RTC: Next visit in 6 months or earlier if needed. Will check TSH, A1c, uric, BMP at the time (Quick draw lab before visit with us on the same day). We have reviewed our plan outlined above with the patient and patient verbalized understanding. All questions were answered and most of the time was spent on counseling about medication adjustment, thediagnostic and therapeutic decisions, and coordination of care. Raj Alves MD, PhD, FACE CC: SEJAL PIPER APRN (General) Raj Alves MD - 03/12/2015 11:56 AM EDT documented in this encounter Plan of Treatment Not on filedocumented as of this encounter Procedures Procedure Name Priority Date/Time Associated Comments Diagnosis VITAMIN D, Routine 03/12/2015 10:42 AM Osteopenia Results for this 25-HYDROXY EDT Other abnormal procedure are in glucose the results Unspecified vitamin section. D deficiency URIC ACID Routine 03/12/2015 10:42 AM Osteopenia Results for this EDT Other abnormal procedure are in glucose the results Unspecified vitamin section. D deficiency TSH STAT 03/12/2015 10:42 AM Osteopenia Results for this EDT Other abnormal procedure are in glucose the results Unspecified vitamin section. D deficiency HEMOGLOBIN A1C STAT 03/12/2015 10:42 AM Osteopenia Results for this EDT Other abnormal procedure are in glucose the results Unspecified vitamin section. D deficiency documented in this encounter Results (ABNORMAL) Uric acid (03/12/2015 10:42 AM EDT) P athologist Signature Uric Acid 9.9 (H) 2.5 - 6.5 [facility] mg/dL [facility] Specimen Anatomical Collection Method Collection Time Receive d Time (Source) Location / / Volume Laterality Blood specimen 03/12/2015 10:42 5 (specimen) AM EDT 10:49 AM EDT Resulting Agency Comment Spec In Lab Raj Alves MD CHEMISTRY ORDERABLES Performing Organization Address City/State/ZIP Code Phon e Number [place] [id number] [facility] VIT D Total Evaluation (03/12/2015 10:42 AM EDT) P athologist Signature 25-OH Vit D 50 30 - 100 C[facility]ER Total ng/mL [facility] Comment: Deficient <10 ng/mL Insufficient 10 to 29 ng/mL Sufficient 30 to 100 ng/mL Potential Intoxication >100 ng/mL According to the [place] National Osteoporosi s Foundation, Vitamin D concentrations >30 ng/mL are sufficient to protect bone health. ??The National Kidney Foundation has similarly stated that pat ients with Vitamin D concentrations <30ng/mL should be considered to be insu fficient or deficient. http://[employer]DHMCnatlkidneyfoundat ion http://[employer]DHMCVitD The [employer] Vitamin D Immunoassay detec ts both 25-OH Vitamin D2 and 25-OH Vitamin D3, but only a total Vitamin D c oncentration is reported. Specimen Anatomical Collection Method Collection Time Receive d Time (Source) Location / / Volume Laterality Blood specimen 03/12/2015 10:42 5 (specimen) AM EDT 10:49 AM EDT Resulting Agency Comment Spec In Lab Raj Alves MD CHEMISTRY ORDERABLES Performing Organization Address City/State/ZIP Code Phon e Number [address] [facility] TSH (03/12/2015 10:42 AM EDT) athologist Signature TSH 0.49 0.27 - 4.20 [facility] mcIU/mL [facility] Specimen Anatomical Collection Method Collection Time Receive d Time (Source) Location / / Volume Laterality Blood specimen 03/12/2015 10:42 5 (specimen) AM EDT 10:49 AM EDT Resulting Agency Comment Spec In Lab Raj Alves MD CHEMISTRY ORDERABLES Performing Organization Address City/[facility]/ZIP Code Phon e Number [address] [facility] (ABNORMAL) Hemoglobin A1c (03/12/2015 10:42 AM EDT) Analysis Performed At Patho logist Time Signature Hemoglobin A1C 7.4 (H) 4.3 - 5.6 C[facility] % [facility] Comment: Reference Range: 4.3 - 5.6% 5.7 - 6.4% - Increased Risk of Developin g Diabetes Mellitus >= 6.5% - Consistent with diagnosis of D iabetes Mellitus In the absence of hyperglycemia (i.e. pl asma glucose > 200 mg/dL) or classic symptoms of hyperglycemia a repeat measu rement of HbA1c should be performed on a separate sample to confirm the diagnos is. Diagnosis and Classification of Diabetes Mellitus, Diabetes Care 2013; 36: Suppl. 1, S67-74 Est Avg Gluc 166 mg/dL [facility] Comment: eAG equivalents for HbA1c percentages: HbA1c(%) ?eAG(mg/dL) 6.0 ?126 6.5 ?140 7.0 ?154 7.5 ?169 8.0 ?183 8.5 ?197 9.0 ?212 9.5 ?226 10.0 ? 240 Limitations: The eAG calculation has not been validated on women, individuals below 18 years old and above 70 years old, and individuals with hemoglobinopathies. Additional resources are available on [facility] ADA website: [email or web address]/DHMCadacalc Bret RIVER, Heike J, Promise R, et al. ??Tr anslating the A1C assay into estimated average glucose values. ??Diabetes Care 2008:31(8):5597-5223. Specimen Anatomical Collection Method Collection Time Receive d Time (Source) Location / / Volume Laterality Blood specimen 03/12/2015 10:42 5 (specimen) AM EDT 10:49 AM EDT Resulting Agency Comment Spec In Lab Raj Alves MD CHEMISTRY ORDERABLES Performing Organization Address City/State/[place] [address] [facility] documented in this encounter Visit Diagnoses Diagnosis Osteopenia Disorder of bone and cartilage, unspecif ied Other abnormal glucose Unspecified vitamin D deficiency documented in this encounter Care Teams Manager Financial Relationship Specialty Start Date End Date Sejal Piper, SARAH PCP - General 08/10/14 05/30/19 [address] [place] [address] documented as of this encounter
--- OUTSIDE RECORDS SUMMARY | 2022-02-11 16:55 | XMS_ITS | Encounter Summary ---
:1965 Author Organization [facility] [place] [address] Care Team Providers Name Role Phone Sejal Davis APRN Primary Care Provider Encounter Details Date Type Department Care Team Description 03/13/2015 Telephone Endocrinology at [facility] [place] [phone] Social History Tobacco Use Types Packs/Day Years [...] on file documented as of this encounter Miscellaneous Notes Telephone Encounter - Tomasa Santos LPN - 03/13/2015 3:07 PM EDT Called patient at which time following message from Dr Alves was read to her. Patient agrees with plan of care. Karoline Moseley - 03/12/15 - Good vit D >','<< Less Detail',event) href=javascript:;><< Less Detail Good Raj Van MD Sent: ThuMarch 13, 2015 8:22 AM To: Lakeisha Vera Endocrinology Nurse Message Bijan Randolph, please tell pt that the pending lab for vitamin D at recent visit was entirely normal at 50, was 44-48 range after Rx (normal 30-100). So, pt should cont to take vitamin-D weekly as prescribed. Thanks, Raj documented in this encounter Plan of Treatment Not on filedocumented as of this encounter Visit Diagnoses Not on filedocumented in this encounter Care Teams Manager Inventory Management Relationship Specialty Start Date End Date Sejal Davis APRN PCP - General 08/10/14 05/30/19 [address] [place] [address] documented as of this encounter
--- OUTSIDE RECORDS SUMMARY | 2022-02-11 16:55 | XMS_ITS | Encounter Summary ---
:1965 Author Organization [facility] [place] [address] Care Team Providers Name Role Phone None Primary Care Provider Unavailable Encounter Details Date Type Department Care Team Description 07/08/2019 Ancillary Procedure Radiology XRay at [facility], S/P lumbar spinal the [facility] at [address] [phone] Social History Tobacco Use Types Packs/Day Years [...] Name Priority Date/Time Associated Diagnosis Comme nts XR LUMBAR SPINE 2 Routine 07/08/2019 9:40 AM S/P lumbar spinal Results for this OR 3 VIEWS EST fusion procedure are i n the results section. documented in this encounter Results XR Lumbar Spine 2 Or 3 Views (Generic) (07/08/2019 9:40 AM EST) Anatomical Region Laterality Modality L-spine N/A Digital Radiography Specimen (Source) Anatomical Location Collection Method / Collectio n Time Received Time / Laterality Volume Impressions 07/08/2019 10:11 AM EST Status post PLIF at L4/L5. No movement with flexion or extension. Thank you for letting us participate in the care of this patient. For questions regarding this report, please contact e number below. ? Narrative 07/08/2019 10:11 AM EST EXAMINATION: XR LUMBAR SPINE 2 OR 3 VIEWS (GENERIC) CLINICAL HISTORY: s/p lumbar fusion, on 06/02 L 4-5 PLIF, Lumbar w/ Flexion Ext. TECHNIQUE: 3 views of the lumbar spine COMPARISON: None FINDINGS: Status post PLIF at L4/L5 with pedicle s crews, posterior fixation rods and a metallic interbody spacer at the disc sp tevin. There is no movement with flexion or extension. There is no evidence of jose rdware complication. Degenerative spondylosis with subchondra l sclerosis and bridging osteophytes are identified at T11/T12, T12/L1 and L1/L2. Procedure Note Juan Khan MD - 07/08/2019Forma tting of this note might be different from the original. EXAMINATION: XR LUMBAR SPINE 2 OR 3 VIEW S (GENERIC) CLINICAL HISTORY: s/p lumbar fusion, on 06/02 L 4-5 PLIF, Lumbar w/ Flexion Ext. TECHNIQUE: 3 views of the lumbar spine COMPARISON: None FINDINGS: Status post PLIF at L4/L5 with pedicle s crews, posterior fixation rods and a metallic interbody spacer at the disc sp tevin. There is no movement with flexion or extension. There is no evidence of jose rdware complication. Degenerative spondylosis with subchondra l sclerosis and bridging osteophytes are identified at T11/T12, T12/L1 and L1/L2. IMPRESSION Status post PLIF at L4/L5. No movement w ith flexion or extension. Thank you for letting us participate in the care of this patient. For questions regarding this report, please contact e number below. Annamarie Jennings MD IMG DX ORDERABLES documented in this encounter Visit Diagnoses Diagnosis S/P lumbar spinal fusion Arthrodesis status documented in this encounter Care Teams [employer] Relationship Specialty Start Date End Date None PCP - General 05/31/19 02/17/21 None documented as of this encounter
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
--- OUTSIDE RECORDS SUMMARY | 2022-02-11 16:55 | XMS_ITS | Encounter Summary ---
:1965 Author Organization [facility] [place] [address] Care Team Providers Name Role Phone Beth Golden MD Primary Care Provider Reason for Visit Reason Onset Date Comments Medication Refill 05/05/2013 Encounter Details Date Type Department Care Team Description 05/05/2013 Refill Endocrinology at [facility] Raj Yancey MD [place] [address] ENDOCRINOLOGY DEPT. [phone] [place] [address] (Wo rk) Social History Tobacco Use Types Packs/Day Years [...] on filedocumented in this encounter Care Teams Litigation Support Analyst Relationship Specialty Start Date End Date Beth Golden MD PCP - General 06/25/10 08/09/14 [address] [place] [address] documented as of this encounter
--- OUTSIDE RECORDS SUMMARY | 2022-02-11 16:55 | XMS_ITS | Encounter Summary ---
:1965 [place] [address] Care Team Providers Name Role Phone Sejal Davis APRN Primary Care Provider Reason for Visit Reason Comments Medication Refill Encounter Details Date Type Department Care Team Description 12/19/2015 Refill Endocrinology at [facility] aRj Yancey MD [facility] [place] [address] ENDOCRINOLOGY DEPT. [phone] [place] [address] (Wo rk) Social History Tobacco Use Types [...] on filedocumented in this encounter Care Teams Senior Principal Relationship Specialty Start Date End Date Sejal Davis APRN PCP - General 08/10/14 05/30/19 [address] [place] [address] documented as of this encounter
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
--- OUTSIDE RECORDS SUMMARY | 2022-02-11 16:55 | XMS_ITS | Encounter Summary ---
:1965 Author Organization [facility] Address [address] [place] [address] Care Team Providers Name Role Phone Unavailable Primary Care Provider Unavailable Encounter Details Date Type Department Care Team Description 02/27/2004 Results Only [facility] - Fernie Schuler MD conversion [address] [place] [address] Social History Tobacco Use Types Packs/Day Years Used Date Never Assessed Sex Assigned at Date Recorded Not on file documented as of this encounter Plan of Treatment Not on filedocumented as of this encounter Procedures Procedure Name Priority Date/Time Associated Diagnosis Comme nts CYTOPATHOLOGY Routine 02/27/2004 0:00 EDT Results for this procedure are i n the results section . documented in this encounter Results CYTOPATHOLOGY (02/27/2004 0:00 EDT) Pathology Report: CYTOPATHOLOGY REPORT [facility] Reports generated via electronic interface contain jennifer ginal data; however they are lacking the format of the original re port. Caution should be taken when reading/interpreting unfo rmatted reports. Name: ? KAROLINE MOSELEY ? Accession #: ? [id number] : ? 1965 (Age: 38) ??F ?Collect Date: ? 02/01 Location: ? [facility] ? Receive Date : ? 02/28/2004 Provider: ?FERNIE MARTINO MD Copy to: ? Specimen/Source: ?ThinPrep Pap Test, Cervix/ Endocervix Last Menstrual Period: ? 02/19/04 Previous Gynecologic Pathology: ? PRICILLA: 1985 Treatment History: ? Cryotherapy: 1985 ? SPECIMEN ADEQUACY ? Satisfactory for Evaluation - transformation zone component present GENERAL CATEGORIZATION ? Negative for Intraepithelial Lesion or Malignan cy ? Document reviewed and electronically signed by: ? HA Fung(ASCP) ? Report Date: ??03/05/2004 12:13 End of Report Specimen Performing Organization Address City/State/ZIP Code Phon e Number [facility] [address] [place] [address] SERVICES [facility] [address] [place] [address] documented in this encounter Visit Diagnoses Not on filedocumented in this encounter
--- OUTSIDE RECORDS SUMMARY | 2022-02-11 16:55 | XMS_ITS | Encounter Summary ---
:1965 Author Organization [facility] Address [address] [place] [address] Care Team Providers Name Role Phone Unavailable Primary Care Provider Unavailable Encounter Details Date Type Department Care Team Description 12/31/2001 Results Only [facility] - Sejal Solorzano, [place] conversion [facility] [address] [place] [address] [place], [place] [id number] [phone] Social History Tobacco Use Types Packs/Day Years Used Date Never Assessed Sex Assigned at Date Recorded Not on file documented as of this encounter Plan of Treatment Not on filedocumented as of this encounter Procedures Procedure Name Priority Date/Time Associated Comments Diagnosis HPV DETECTION, HIGH Routine 12/31/2001 13:17 Resu lts for this RISK TYPES EDT procedure are i n the results section. CYTOPATHOLOGY Routine 12/31/2001 0:00 Results for this EDT procedure are i n the results section. documented in this encounter Results HUMAN PAPILLOMA VIRUS DNA TEST (12/31/2001 13:17 EDT) Specimen Description Cervix, ThinPrep [facility] vial Result Negative for HPV [facility] types 16, 18, 31, 33, 35, 39, 45, 51, 52, 56, 58, 59, and 68. Report Status Final [facility] [id number] Specimen Performing Organization Address City/State/ZIP Code Phon e Number [facility] [address] [place] [address] SERVICES [facility] [address] [place] [address] CYTOPATHOLOGY (12/31/2001 0:00 EDT) Pathology Report: CYTOPATHOLOGY REPORT [facility] Reports generated via electronic interface contain jennifer ginal data; however they are lacking the format of the original re port. Caution should be taken when reading/interpreting unfo rmatted reports. Name: ? KAROLINE MOSELEY ? Accession #: ? [id number] : ? 1965 (Age: 36) ??F ?Collect Date: ? 12/03 Location: ? [facility] ? Receive Date : ? 01/04/2002 Provider: ?SEJAL PIPER CAN FILLING MACHINE OPERATOR Copy to: ? Specimen/Source: ?ThinPrep Pap Test, Cervix/ Endocervix Last Menstrual Period: ? Previous Gynecologic Pathology: ? Yes: (Class IV) Treatment History: ? Cryotherapy Other: ? HPVDX - HPV testing requested regardless of diag nosis on current ThinPrep Pap test. Additional clinical information: told warts on genita ls ? SPECIMEN ADEQUACY ? Satisfactory for Evaluation - transformation zone component present - scant squamous epithelial component secondary to exc essive blood GENERAL CATEGORIZATION ? Negative for Intraepithelial Lesion or Malignan cy ? Document reviewed and electronically signed by: ? HA Woodward(ASCP) ? Report Date: ??01/05/2002 10:44 End of Report Specimen Performing Organization Address City/State/ZIP Code Phon e Number [facility] [address] [place] [address] SERVICES [facility] [address] [place] [address] documented in this encounter Visit Diagnoses Not on filedocumented in this encounter
--- OUTSIDE RECORDS SUMMARY | 2022-02-11 16:55 | XMS_ITS | Encounter Summary ---
:1965 Author Organization [facility] [place] [address] [place] [address] Care Team Providers Name Role Phone Izabela Piperbarney Borges APRN Primary Care Provider Reason for Visit Reason Comments Hypothyroidism Encounter Details Date Type Department Care Team Description 08/28/2014 Office Visit Endocrinology at [facility] Elaine Alves, Osteopenia; [facility] Raj Burroughs MD Other abnormal glucose; Drive [facility] [place] [address] [place] [address] ENDOCRINOLOGY DEPT. [place] [address] Social History Tobacco Use Types Packs/Day Years [...] Sign Reading Time Taken Comments Blood Pressure 136/78 08/28/2014 11:24 AM EST Pulse 74 08/28/2014 11:24 AM EST Temperature - - Respiratory Rate - - Oxygen Saturation - - Inhaled Oxygen Concentration - - Weight 125 kg (275 lb 9.6 oz) 08/28/2014 11:24 AM EST Height 165.1 cm (5' 5) 08/28/2014 11:24 AM EST Body Mass Index 45.86 08/28/2014 11:24 AM EST documented in this encounter Patient Instructions Patient InstructionsRaj Alves MD - 08/28/2014 12:01 PM EST Recent Results (from the past 24 hour(s)) HEMOGLOBIN A1C Result Value Ref Range Hemoglobin A1C 7.3 (*) <=5.6 % Est Avg Gluc 163 TSH Result Value Ref Range TSH 0.52 0.27 - 4.20 mcIU/mL URIC ACID Result Value Ref Range Uric Acid 9.1 (*) 2.5 - 6.5 mg/dL BASIC METABOLIC PANEL (NON-FASTING) Result Value Ref Range Glucose Lvl 171 60 - 199 mg/dL BUN 19 (*) 8 - 18 mg/dL Creatinine 1.02 0.70 - 1.20 mg/dL Sodium 142 135 - 145 mmol/L Potassium 4.2 3.5 - 5.0 mmol/L Chloride 99 98 - 107 mmol/L CO2 27 22 - 31 mmol/L Anion Gap 16 (*) 5 - 15 mmol/L Calcium 10.0 8.5 - 10.5 mg/dL Estimated GFR 57 (*) >=60 Assessment: Reasonable control of 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 Her weight has been down 6 lbs over the past year on diet and additional baking soda 1tsp 1-2x/week for urine alkalinization for hyperuricemia (which seems to help her body aches and depressed mood from fibromyalgia and neuropathy). She also has PCOS, mild diabetes type 2 with metabolic syndrome (obesity, HTN, high TG and high uricacid) but lately could not tolerate metformin any more even at a low dose and had to quit it during the interim causing higher A1c at 7.3% today. She has improvement of vitamin D deficiency after taking vitamin-D 50,000 iu weekly replacement. She is still having no periods and stated that she had severe post- hemorrhage after her 2nd delivery in 2002 but had normal breast feeding for 6 mo. Initial labs at our clinic on 11/14/09 showed normal cortisol, ACTH, FT4, PRL, FSH without evidence of hypopituitarism and lab in 2012 showed that she was in menopause with higher FSH at 27.7 and low estradiol at 21 (no periods for 2 yrs). Plan: 1. Medication: Pt will cont to take LT4 137 mcg daily (no need to take extra 1.5 tab on Thursday), vitamin D 50,000 iu weekly and MVI (plus pain med p.r.n). To cont vitamin D 50,000 iu weekly to keep the level in mid range To cut back on red meat and egg yolk for her high uric acid (could not tolerate allopurinol) Info on possible side effects and how [...] earlier if needed. Will check TSH, A1c, uric and 25-vitamin D at the time (Quick draw lab before visit with us on the same day). documented in this encounter Progress Notes Raj Alves MD - 08/28/2014 10:50 AM EST Endocrine Clinic Name: Karoline Goetzstaci : 1965 PCP: SEJAL PIPER APRN Provided by: Raj Alves MD, PhD, FACE Date: 08/28/2014 Reason for visit: Endocrine visit for the [...] deficiency with chronic fatigue and fibromyalgia 268.9 Karoline Moseley is not doing well during the interim with pain in the Rt hip without any injury, likely due to DJD. She had cardiac check-up with no abnormalities. Still feels fatigue same as before. She is having bad cold along with the whole family with low grade fever, diarrhea, DOWD and sore throat. Her daughters also started to have body pain and GI issues nicole her. She could not tolerate lots ofmedications even a lowered dose of metformin, Lyrica, allopurinol, estradiol, so she stopped all meds except for LT4 137 mcg Thu-Thu and 1/5 tab on Thursday, vitamin D 50,000 iu weekly and MVI (plus painmed p.r.n). Her weight has been stable (down 6 lb since last year). No palpitations, CP, SOB, GI issues, changesof skin or hairs and having both heat and cold intolerance. No DOWD or visual changes but sometimes hearing some noise inside her head. Still having no periods and her mood is low with some depression and anxiety. ROS: Please see HPI, all others negative [...] to Visit Medication Sig Dispense Refill ??? VITAMIN D 50,000 unit capsule take 1 capsule by mouth every week 12 capsule 3 ??? levothyroxine (LEVOTHROID) 137 mcg tablet 1 tablet mon-thu 1.5 tablet on sun 96 tablet 4 ??? hydroCODone-acetaminophen (VICODIN) 5-500 mg per tablet Take 1 tablet by mouth every 6 hours as needed. ??? NEBULIZER ACCESSORIES (NEBULIZER MISC) by [facility].(Non-Drug; Combo Route) route. ??? MULTIVITAMIN ORAL Take by mouth. ??? OXYcodone 10 mg Tab Take 10 mg by mouth every 4 hours. ??? traMADol (ULTRAM) 50 mg tablet Take 50 mg by mouth every 6 hours as needed. ??? allopurinol (ZYLOPRIM) 100 mg tablet Take 1 tablet by mouth daily. 90 tablet 4 ??? ALBUTEROL INHL Inhale into the lungs as needed. No current facility-administered medications on file prior to visit. Allergies Allergen Reactions ??? [place] Other (See Comments) pain ??? Wheat Other [...] ??? Bipolar Disorder Mother Physical exam BP 136/78 Pulse 74 Ht 165.1 cm (5' 5) Wt 125.011 kg (275 lb 9.6 oz) BMI 45.86 kg/m2 Appearance: Obese, pleasant, NAD HEENT: PERRLA, EOMI, no lid lag or exophthalmos Neck: supple, no goiter or lymphadenopathy Chest: CTA bilaterally, no wheeze or crackles Heart: normal S1, S2, no murmur Abd: benign, ND, NT Ext: normal skin texture and temperature no pitting edema Neuro: no weakness, normal reflexes Recent Results (from the past 24 hour(s)) HEMOGLOBIN A1C Result Value Ref Range Hemoglobin A1C 7.3 (*) <=5.6 % Est Avg Gluc 163 TSH Result Value Ref Range TSH 0.52 0.27 - 4.20 mcIU/mL URIC ACID Result Value Ref Range Uric Acid 9.1 (*) 2.5 - 6.5 mg/dL BASIC METABOLIC PANEL (NON-FASTING) Result Value Ref Range Glucose Lvl 171 60 - 199 mg/dL BUN 19 (*) 8 - 18 mg/dL Creatinine 1.02 0.70 - 1.20 mg/dL Sodium 142 135 - 145 mmol/L Potassium 4.2 3.5 - 5.0 mmol/L Chloride 99 98 - 107 mmol/L CO2 27 22 - 31 mmol/L Anion Gap 16 (*) 5 - 15 mmol/L Calcium 10.0 8.5 - 10.5 mg/dL Estimated GFR 57 (*) >=60 Assessment: Reasonable control of 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 Her weight has been down 6 lbs over the past year on diet and additional baking soda 1tsp 1-2x/week for urine alkalinization for hyperuricemia (which seems to help her body aches and depressed mood from fibromyalgia and neuropathy). She also has PCOS, mild diabetes type 2 with metabolic syndrome (obesity, HTN, high TG and high uricacid) but lately could not tolerate metformin any more even at a low dose and had to quit it during the interim causing higher A1c at 7.3% today. She has improvement of vitamin D deficiency after taking vitamin-D 50,000 iu weekly replacement. She is still having no periods and stated that she had severe post- hemorrhage after her 2nd delivery in 2002 but had normal breast feeding for 6 mo. Initial labs at our clinic on 11/14/09 showed normal cortisol, ACTH, FT4, PRL, FSH without evidence of hypopituitarism and lab in 2012 showed that she was in menopause with higher FSH at 27.7 and low estradiol at 21 (no periods for 2 yrs). Plan: 1. Medication: Pt will cont to take LT4 137 mcg daily (no need to take extra 1.5 tab on Thursday), vitamin D 50,000 iu weekly and MVI (plus pain med p.r.n). To cont vitamin D 50,000 iu weekly to keep the level in mid range To cut back on red meat and egg yolk for her high uric acid (could not tolerate allopurinol) Info on possible side effects and how [...] earlier if needed. Will check TSH, A1c, uric and 25-vitamin D at the time (Quick draw lab before [...] Date/Time Associated Comments Diagnosis VITAMIN D, Routine 08/28/2014 10:40 AM Osteopenia Results for this 25-HYDROXY EST Other abnormal procedure are in glucose the results Unspecified vitamin section. D deficiency URIC ACID Routine 08/28/2014 10:40 AM Osteopenia Results for this EST Other abnormal procedure are in glucose the results Unspecified vitamin section. D deficiency TSH Routine 08/28/2014 10:40 AM Osteopenia Results for this EST Other abnormal procedure are in glucose the results Unspecified vitamin section. D deficiency HEMOGLOBIN A1C Routine 08/28/2014 10:40 AM Osteopenia Results for this EST Other abnormal procedure are in glucose the results Unspecified vitamin section. D deficiency BASIC METABOLIC Routine 08/28/2014 10:40 AM Osteopenia Results for this PANEL (NON-FASTING) EST Other abnormal proced ure are in glucose the results Unspecified vitamin section. D deficiency documented in this encounter Results (ABNORMAL) Uric acid (03/12/2015 10:42 AM EDT) P athologist Signature Uric Acid 9.9 (H) 2.5 - 6.5 CERNER mg/dL [facility] Specimen Anatomical Collection Method Collection Time Receive d Time (Source) Location / / Volume Laterality Blood specimen 03/12/2015 10:42 5 (specimen) AM EDT 10:49 AM EDT Resulting Agency Comment Spec In Lab Raj Alves MD CHEMISTRY ORDERABLES Performing Organization Address City/State/ZIP Code Phon e Number [address] CERNER MILLENNIUM VIT D Total Evaluation (03/12/2015 10:42 AM EDT) P athologist Signature 25-OH Vit D 50 30 - 100 CERNER Total ng/mL [facility] Comment: Deficient <10 ng/mL Insufficient 10 to 29 ng/mL Sufficient 30 to 100 ng/mL Potential Intoxication >100 ng/mL According to the US National Osteoporosi s Foundation, Vitamin D concentrations >30 ng/mL are sufficient to protect bone health. ??The National Kidney Foundation has similarly stated that pat ients with Vitamin D concentrations <30ng/mL should be considered to be insu fficient or deficient. http://Atmosferiq/DHMCnatlkidneyfoundat ion http://Atmosferiq/DHMCVitD The IDS iSYS Vitamin D Immunoassay detec [...] Alves MD CHEMISTRY ORDERABLES Performing Organization Address City/[facility] [address]/ZIP Code Phon e Number [address] CERNER MILLENNIUM TSH (03/12/2015 10:42 AM EDT) P athologist Signature TSH 0.49 0.27 - 4.20 C[facility] mcIU/mL [facility] Specimen Anatomical Collection Method Collection Time Receive d Time (Source) Location / / Volume Laterality Blood specimen 03/12/2015 10:42 5 (specimen) AM EDT 10:49 AM EDT Resulting Agency Comment Spec In Lab Raj Alves MD CHEMISTRY ORDERABLES Performing Organization Address City/State/ZIP Code Phon e Number [address] [facility] (ABNORMAL) Hemoglobin A1c (03/12/2015 10:42 AM EDT) Analysis Performed At [facility] Time Signature Hemoglobin A1C 7.4 (H) 4.3 - 5.6 [facility] Comment: Reference Range: 4.3 - 5.6% 5.7 [...] 1, S67-74 Est Avg Gluc 166 mg/dL [facility] Comment: eAG equivalents for HbA1c percentages: HbA1c(%) ?eAG(mg/dL) 6.0 ?126 6.5 ?140 7.0 ?154 7.5 ?169 8.0 ?183 8.5 ?197 9.0 ?212 9.5 ?226 10.0 ? 240 Limitations: The eAG calculation has not been validated on women, individuals below 18 years old and above 70 years old, and individuals with hemoglobinopathies. Additional resources are available on e [place] website: http://Imperator.ScribeStorm/DHMCadacalc Bret RIVER, Heike J, Promise R, et al. ??Tr anslating the A1C assay into estimated average glucose values. ??Diabetes Care 2008:31(8):9919-5822. Specimen Anatomical Collection Method Collection Time Receive d Time (Source) Location / / Volume Laterality Blood specimen 03/12/2015 10:42 5 (specimen) AM EDT 10:49 AM EDT Resulting Agency Comment Spec In Lab Raj Alves MD CHEMISTRY ORDERABLES Performing Organization Address City/State/ZIP Code Phon e Number [place] [id number] CERNER MILLENNIUM (ABNORMAL) Basic Metabolic Panel (non-fasting) (08/28/2014 10:40 AM EST) athologist Signature Glucose Lvl 171 60 - 199 CERNER mg/dL [facility] Comment: Diabetes: >=200 mg/dL plus symp toms BUN 19 (H) 8 - 18 mg/dL CERNER MILLENNIUM Creatinine 1.02 0.70 - 1.20 mg/dL CERNER MILL ENNI[facility] Comment: Please note that the pediatric reference intervals supplied above were not validated at [facility]. Results from pediatri c patients should be interpreted in conjunction to the patient's age, height and muscle mass. Sodium 142 135 - 145 mmol/L CERNER JEFF NIUM Potassium 4.2 3.5 - 5.0 mmol/L C[facility] JEFF NIUM Comment: Please note: ??Patients with WBC >100,00 0 may have falsely elevated Potassium levels. ??For accurate Potassium quantif ication in these patients send serum separator tube (gold top) for subsequent determinations. ??Contact the Clinical Chemistry Laboratory if there are any qu estions. Chloride 99 98 - 107 mmol/L CERNER MILLENN IUM CO2 27 22 - 31 mmol/L CERNER MILLENNI UM Anion Gap 16 (H) 5 - 15 mmol/L CERNER MILLENNIU M Calcium 10.0 8.5 - 10.5 mg/dL CERNER JEFF NIUM Estimated GFR 57 (L) >=60 CERNER MILLENNIU M Comment: This estimated GFR (eGFR) value was calc ulated using the MDRD equation which has been validated on patients between t he ages of 18 and 70. The MDRD should not be used to assess kidney function in patients < 18 years of age or in patients with extremes of body mass, or in patients with acute kidney failure. This value should be multiplied by 1.2 f or patients. For further information please copy and past e the following links into your internet browser. http://Atmosferiq/DHnkdep http://Atmosferiq/DHMCnkf Specimen Anatomical Collection Method Collection Time Receive d Time (Source) Location / / Volume Laterality Blood specimen 08/28/2014 10:40 5 (specimen) AM EST 10:57 AM EST Resulting Agency Comment Spec In Lab Raj Alves MD CHEMISTRY ORDERABLES Performing Organization Address City/[facility] [address]/ZIP Code Phon e Number [address] CERNER MILLENNIUM (ABNORMAL) Uric acid (08/28/2014 10:40 AM EST) P athologist Signature Uric Acid 9.1 (H) 2.5 - 6.5 CERNER mg/dL [facility] Specimen Anatomical Collection Method Collection Time Receive d Time (Source) Location / / Volume Laterality Blood specimen 08/28/2014 10:40 5 (specimen) AM EST 10:57 AM EST Resulting Agency Comment Spec In Lab Raj Alves MD CHEMISTRY ORDERABLES Performing Organization Address City/[facility] [address]/ZIP Code Phon e Number [address] CERNER MILLENNIUM VIT D Total Evaluation (08/28/2014 10:40 AM EST) P athologist Signature 25-OH Vit D 48 30 - 100 CERNER Total ng/mL [facility] Comment: Deficient <10 ng/mL Insufficient 10 to 29 ng/mL Sufficient 30 to 100 ng/mL Potential Intoxication >100 ng/mL According to the US National Osteoporosi s Foundation, Vitamin D concentrations >30 ng/mL are sufficient to protect bone health. ??The National Kidney Foundation has similarly stated that pat ients with Vitamin D concentrations <30ng/mL should be considered to be insu fficient or deficient. http://Atmosferiq/DHMCnatlkidneyfoundat ion http://Atmosferiq/DHMCVitD The IDS i[employer] Vitamin D Immunoassay detec ts both 25-OH Vitamin D2 and 25-OH Vitamin D3, but only a total Vitamin D c oncentration is reported. Specimen Anatomical Collection Method Collection Time Receive d Time (Source) Location / / Volume Laterality Blood specimen 08/28/2014 10:40 5 (specimen) AM EST 10:57 AM EST Resulting Agency Comment Spec In Lab Raj Alves MD CHEMISTRY ORDERABLES Performing Organization Address City/[facility] [address]/ZIP Code Phon e Number [address] [facility] TSH (08/28/2014 10:40 AM EST) P athologist Signature TSH 0.52 0.27 - 4.20 [facility] mcIU/mL [facility] Specimen Anatomical Collection Method Collection Time Receive d Time (Source) Location / / Volume Laterality Blood specimen 08/28/2014 10:40 5 (specimen) AM EST 10:57 AM EST Resulting Agency Comment Spec In Lab Raj Alves MD CHEMISTRY ORDERABLES Performing Organization Address City/[facility] [address]/ZIP Code Phon e Number [address] [facility] (ABNORMAL) Hemoglobin A1c (08/28/2014 10:40 AM EST) Analysis Performed At Patho logist Time Signature Hemoglobin A1C 7.3 (H) <=5.6 % [facility] Comment: Reference Range: 4.3 - 5.6% 5.7 [...] 36: Suppl. 1, S67-74 Est Avg Gluc 163 mg/dL [facility] Comment: eAG equivalents for HbA1c percentages: HbA1c(%) ?eAG(mg/dL) 6.0 ?126 6.5 ?140 7.0 ?154 7.5 ?169 8.0 ?183 8.5 ?197 9.0 ?212 9.5 ?226 10.0 ? 240 Limitations: The eAG calculation has not been validated on women, individuals below 18 years old and above 70 years old, and individuals with hemoglobinopathies. Additional resources are available on [facility] website: http://Atmosferiq/Spotlight At Nightadacalc Bret RIVER, Heike J, Promise R, et al. ??Tr anslating the A1C assay into estimated average glucose values. ??Diabetes Care 2008:31(8):9576-7812. Specimen Anatomical Collection Method Collection Time Receive d Time (Source) Location / / Volume Laterality Blood specimen 08/28/2014 10:40 5 (specimen) AM EST 10:57 AM EST Resulting Agency Comment Spec In Lab Raj Alves MD CHEMISTRY ORDERABLES Performing Organization Address City/State/[place] [address] HOSPITAL LABORATORY [facility] documented in this encounter Visit Diagnoses Diagnosis Osteopenia Disorder of bone and cartilage, unspecif ied Other abnormal glucose Unspecified vitamin D deficiency documented in this encounter Care Teams Senior Design Engineering Specialist Relationship Specialty Start Date End Date Sejal Piper APRN PCP - General 08/10/14 05/30/19 [address] [place] [address] documented as of this encounter
--- OUTSIDE RECORDS SUMMARY | 2022-02-11 16:55 | XMS_ITS | Encounter Summary ---
:1965 Author Organization [facility] [place] [address] Care Team Providers Name Role Phone None Primary Care Provider Unavailable Reason for Visit Auth/Cert Specialty Diagnoses / Procedures Referred By Contact Refer red To Contact Diagnoses STENOSIS WITH CLAUDICATION Procedures PRO LUMBAR SPINE FUSN, POST INTRBDY PRO POSTERIOR NON-SEGMENTAL INSTRUMENTATION PRO INSERT BIOMCHN DEV INTERVERTEBRAL DSC SPC W/ARTHRD PRO AUTOGRAFT SPINE SURGERY LOCAL FROM SAME INCISION @ARTHRODESIS, POST. LUMBAR, SINGLE INTERSPACE (WRVU 22.09) POSTERIOR SPINAL NON-SEGMENTAL INST.(ONE SPACE) (WRVU 12.52) INSERTION INTERBODY BIOMECH DEV TO INTERVEBRAL DISC SPACE, EA INTERSPACE (WRVU 4.25) AUTOGRAFT FOR SPINE SURGERY ONLY, SAME INCISION (WRVU *) MODIFIER [employer] - SOLERA MODIFIER K2 [employer] - MOJAVE MODIFIER [employer] - NAVIGATION / STEALTH Referral ID Status Reason Start Date Expiration Date Visits Requ ested Visits Authorized [id number] 1 1 Encounter Details Date Type Department Care Team Description 06/02/2019 Ancillary Procedure Radiology Xray at [facility] [place] [address] Social History Tobacco Use Types Packs/Day Years [...] Priority Date/Time Associated Diagnosis Comme nts XR FLUORO NO RAD Routine 06/02/2019 3:58 PM Resul ts for this <1HR - OR USE EDT procedure are in the results section. XR O-ARM NO RAD - Routine 06/02/2019 3:58 PM Resu lts for this OR USE EDT procedure are i n the results section. documented in this encounter Results XR Fluoro No Rad <1Hr - OR Use (06/02/2019 3:58 PM EDT) Specimen (Source) Anatomical Location Collection Method / Collectio n Time Received Time / Laterality Volume Narrative RAD - 06/02/2019 4:00 PM EDT This exam is auto-finalizing. No interpr etation was done. Annamarie Jennings MD IMG FLUORO ORDERABLES Performing Organization Address City/State/ZIP Code Phon e Number [place], [place] XR O-Arm No Rad <1Hr - OR Use (06/02/2019 3:58 PM EDT) Anatomical Region Laterality Modality N/A Radio Fluoroscopy Specimen (Source) Anatomical Location Collection Method / Collectio n Time Received Time / Laterality Volume Impressions 06/02/2019 4:17 PM EDT Intraoperative images show a clamp along the L3 spinous process and evidence of initial stages of instrumented fusion at L4-5 This study was interpreted and the final report dictated in SHARON Mckeon. Thank you for letting us participate in the care of this patient. For questions regarding this report, please contact e number below. ? Narrative 06/02/2019 4:17 PM EDT EXAMINATION: XR O-ARM NO RAD - OR USE CLINICAL HISTORY: surgery TECHNIQUE: Series: The submitted images consist of axial CT like images through the area of surgery in the lumbar spine Total dose: 54 ??mGy Procedure Note David Napoles MD - 06/02/2019Format ting of this note might be different from the original. EXAMINATION: XR O-ARM NO RAD - OR USE CLINICAL HISTORY: surgery TECHNIQUE: Series: The submitted images consist of axial CT like images through the area of surgery in the lumbar spine Total dose: 54 mGy IMPRESSION Intraoperative images show a clamp along the L3 spinous process and evidence of initial stages of instrumented fusion at L4-5 This study was interpreted and the final report dictated in SHARON Mckeon. Thank you for letting us participate in the care of this patient. For questions regarding this report, please contact e number below. Annamarie Jennings MD IMG FLUORO ORDERABLES documented in this encounter Visit Diagnoses Not on filedocumented in this encounter Care Teams Teleprinter Installer Relationship Specialty Start Date End Date None PCP - General 05/31/19 02/17/21 None documented as of this encounter
--- OUTSIDE RECORDS SUMMARY | 2022-02-11 16:55 | XMS_ITS | Encounter Summary ---
:1965 Author Organization [facility] Address [address] [place] [address] Care Team Providers Name Role Phone Unknown, Provider Primary Care Provider Encounter Details Date Type Department Care Team Description 11/01/2018 Results Only [facility] Anusha Peralta NP [phone] [address] [place] [address] (Wo rk) Social History Tobacco Use Types Packs/Day Years Used Date Never Assessed Sex Assigned at Date Recorded Not on file documented as of this encounter Plan of Treatment Not on filedocumented as of this encounter Procedures Procedure Name Priority Date/Time Associated Diagnosis Comme nts PAP TEST- RESULT Routine 11/01/2018 0:00 EDT Resu lts for this ONLY procedure are i n the results section. documented in this encounter Results PAP TEST- RESULT ONLY (11/01/2018 0:00 EDT) Pathology Report: CYTOPATHOLOGY REPORT [facility] Reports generated via electronic interface contain jennifer ginal data; SERVICES however they are lacking the format of the original re port. Caution should be taken when reading/interpreting unfo rmatted reports. Name: ? KAROLINE MOSELEY ? Accession #: ? [id number] ? : ? 1965 (Age: 53 ) ??F ?Collect Date: ? 2018 ? Location: ? [facility] ? Receive Date: ? 9 ? Provider: ANUSHA PERALTA COIL FORMER Copy to: ? Final Report SPECIMEN ADEQUACY ? Satisfactory for Evaluation - transformation zone component present GENERAL CATEGORIZATION ? Negative for Intraepithelial Lesion or Malignan cy ?? Last Menstrual Period: 5YRS Other: Additional clinical information: Z01.419 Additional clinical information: 1 Ovary removed 15yrs ago Specimen/Source: ??Pap Test, Cervix/Endocervix, ThinPr ep Imaging System with manual evaluation Document reviewed and electronically signed by: ? Torri Peterson, CT(ASCP)(IAC) ? Report ??Date: 11/05/2018 14:19 HPV with Pap Test ? Date Ordered: ? 11/05/2018 ? Status: ?? S igned Out ?Date Complete: ? 11/09/2018 ? By: ??Sys tem Interface ? Date Reported: ? 11/09/2018 ? Interpretation RESULT: Negative for HPV. No E6 or E7 mRNA is detected from HPV types 16,18,31,3 3,35, 39,45,51,52,56,58,59,66, and 68 by dividing machine operator media eduardo amplification. Comments Document reviewed and electronically signed by: ? System Interface ? Report date: 11/09/2018 By the signature above, the attending physician certif ies that he/she has personally conducted a gross and/or microscopic examin ation of the described specimens and rendered or confirmed the above diagnosi s. End of Report Specimen Performing Organization Address City/State/ZIP Code Phon e Number [facility] [address] [place] [address] SERVICES documented in this encounter Visit Diagnoses Not on filedocumented in this encounter Care Teams Analytics Analyst Relationship Specialty Start Date End Date Unknown, Provider, PCP - General 03/27/11 documented as of this encounter
--- OUTSIDE RECORDS SUMMARY | 2022-02-11 16:55 | XMS_ITS | Encounter Summary ---
:1965 Author Organization [facility] [place] [address] Care Team Providers Name Role Phone None [...] Expiration Date Visits Requ ested Visits Authorized [id number] 1 1 Encounter Details Date Type Department Care Team Description 06/02/2019 Surgery Operating Room Annamarie Horton RTHRODESIS, POST. Govea Day MD Silvestre LUMBAR, SINGLE 10 Yaritza Govea Day 10 YARITZA GOVEA DAY INTERSPACE (WRVU 22.09) [place] [address] NEUROSURGERY-[facility] [place], [place] [address] Social History Tobacco Use Types [...] Sign Reading Time Taken Comments Blood Pressure 156/82 06/02/2019 4:34 PM EDT Pulse 86 06/02/2019 4:34 PM EDT Temperature 36.5 ??C (97.7 ??F) 06/02/2019 4:14 PM EDT Respiratory Rate 11 06/02/2019 4:34 PM EDT Oxygen Saturation 98% 06/02/2019 4:34 PM EDT Inhaled Oxygen Concentration - - Weight 103 kg (227 lb) 06/02/2019 11:50 AM EDT Height - - Body Mass Index 37.82 06/02/2019 6:10 PM EDT documented in this encounter Discharge Instructions Patient InstructionsJennifer Jack PA - 06/02/2019 1:01 PM EDT Full recovery will depend on your having a strong, positive attitude, setting small goals for improvement and working steadily to accomplish each goal. FOLLOW UP APPOINTMENTS: You will be scheduled for a follow-up appointment four to six weeks after surgery with a Physician???s Order Entry at the surgeon???s office. You will have a follow up appointment with the neurosurgeon in three months. If you have sutures that need to be removed, a suture removal appointment will be made for 10-14 days after surgery. MEDICATIONS: ??? Take your medicine at the time your doctor ordered. ??? Keep a list of your medicines, vitamins, and herbal supplement you take. Keep this list with youat all times. Show it to your caregiver at every visit. Keep the list up-to-date. ??? Ask your caregiver or pharmacist to write an explanation of each medicine you are taking. This should include: why you are taking it, possible side effects, best time of day to take it, what foods to take the medication with or foods to avoid, and when to stop taking it. ??? Only take uqlt-lne-[id number] or prescription medicine for pain, discomfort or fever as directed byyour caregiver. ??? Consult your doctor or pharmacist with any questions. NEW MEDICATIONS AT DISCHARGE: []None []Given prescriptions in office preoperatively OR: Medication Dose/Route/ Frequency Prescription given? Reason for medication Medscape monograph discussed []Yes []No []Yes []No []Yes []No []Yes []No []Yes []No []Yes []No PAIN: ??? It is normal to have pain after your surgery; especially in the lower back. ??? This does not mean that the procedure was unsuccessful or that your recovery will be delayed. ??? Leg aching is also not uncommon. o This is primarily caused by inflammation of the previously compressed nerve. o The discomfort will gradually decrease as the nerve continues to heal. ??? You may also experience muscle spasms across your back and into your legs. ??? Medications will be given to control pain and decrease spasm intensity. ??? Moist heat and/or ice and frequent repositioning may also be helpful. DIET: ??? You may adjust your diet back to normal as your appetite returns. ??? Be sure to drink plenty of fluids, particularly water, and eat whole grain cereals, fruits and fruit juices to combat constipation that is sometimes caused by pain medications. ??? If constipation does occur, an over the counter laxative is acceptable. ??? Call your surgeon if you experience persistent nausea and vomiting. ACTIVITY: ??? Increase your activity slowly. Daily walking is the best exercise. Try to increase your distancea little each day. Go at a pace that doesn???t make you too tired or cause too much pain. ??? It is normal to tire easily for the first week or so after you return home. ??? Swimming after ten to fourteen days is encouraged, if feasible. ??? DO NOT sit for prolonged periods of time for six weeks following your surgery. o Brief periods of time, not to exceed thirty minutes are acceptable (meals or using the bathroom). o Change positions frequently to help eliminate muscle spasm and aching. o When sitting, choose a firm chair that will provide plenty of support. ??? DO NOT lift anything over five pounds. Keep in mind a gallon of milk weighs eight pounds. Do notlift anything that you cannot easily lift with one hand. ??? If you drop something on the floor, pick it up by bending at the knees to lower yourself. DO NOTbend at the waist. ACTIVITY (continued): ??? Sexual relations may be resumed during the recovery period, but positions that strain the back or cause pain should be avoided. ??? Consult your surgeon in regards to your driving status. There are no set time restrictions. Use common sense and do not attempt to resume driving until you feel completely comfortable to drive in an uninhibited manner. ??? It is recommended that you do not drive for the first 1-2 weeks or while taking narcotic pain relievers. ??? You may resume other physical activities including work only after consulting with your treatingphysician. POST ANESTHESIA/SEDATION: ??? You have received medication for sedation and comfort during your procedure. Because these have not completely left your system, please observe the following precautions: o Plan to relax for the next several hours. o DO NOT drive or operate machinery until the day after your procedure, longer as recommended by your surgeon. o Avoid alcohol for the next 24 hours. o Do not make any important personal or business decisions today. BANDAGE/SHOWERING: ??? You will have Dermabond over the incision (typically a purple glue like substance), with inner sutures that do not need to be removed. The Dermabond will gradually fall off. ??? You may have sutures that require removal. If these are used you will be scheduled for a suture removal appointment within 10 to 14 days of the procedure. ??? You may shower after three to five days. ??? Do NOT scrub the incision. ??? Pat the area dry with a towel after showering. ??? Avoid soaking (baths, hot tubs, swimming, etc) until approximately two weeks after your surgery,when your wound is all the way healed. SEEK IMMEDIATE MEDICAL CARE/CALL YOUR SURGEON IF: ??? There is redness, swelling or increasing pain at the wound. SEEK IMMEDIATE MEDICAL CARE/CALL YOUR SURGEON IF (continued): ??? You notice purulent (colored, pus-like) drainage coming from the wound. ??? You notice a foul smell coming from the wound or bandage. ??? You experience urinary problems. ??? You experience any NEW weakness or numbness in your arms or legs. ??? You develop an oral temperature above 101 degrees F. ??? There is a breaking open of the wound. The edges do not stay together after the sutures or tape has been removed. ??? There is persistent bleeding from an incision. If you have any questions, please call [facility] Neurology and Neurosurgery at [phone], during business hours of Thursday through Thursday from 8:00 a.m. until 4:00 p.m. In case of emergency duringnon-business hours, please call the same main number and follow the prompts to page the neurosurgeonon call. SMOKING CESSATION INFORMATION: ??? [place] QUITLINE: ??? [place] QUITLINE: ??? [email or web address] If you smoke, stop now! Smoking may impede healing. MAKE SURE YOU: ??? Understand these instructions. ??? Will seek medical care if you are feeling poor, or get worse. ??? Will call the surgeon???s office with any questions or concerns at : [phone] The above information has been presented or demonstrated. I/we have had the opportunity to ask questions. I/we fully understand the instructions given. I/we have received a copy of this form. AttachmentsThe following attachments cannot be sent through Care Everywhere. Lumbar Laminectomy: Post-op (Croatian)Post-op Infection (Croatian)documented in this encounter Medications at Time of Discharge Medication Sig Dispensed Refills Start Date End Date cyclobenzaprine (FLEXERIL) Take 0.5 tablets by 20 tablet 0 06/03/2019 10 mg Tablet mouth 3 times daily as needed for Muscle spasms. cholecalciferol, Vitamin TAKE 1 CAPSULE BY 2 05/04 D3, 50,000 unit Capsule MOUTH ONCE A WEEK albuterol 90 mcg/actuation Inhale 2 puffs into 0 HFA Aerosol Inhaler the lungs every 4 hours as needed for Wheezing. Use with spacer lancets (FREESTYLE FreeStyle Lancets MISC 0 LANCETS) 28 gauge Misc Active ibuprofen (ADVIL;MOTRIN) Take 1 tablet by 0 05/10 800 mg Tablet mouth 3 times daily as needed for Pain. levothyroxine (SYNTHROID) Take 1 tablet by 0 01/02 137 mcg Tablet mouth daily. atenolol (TENORMIN) 25 mg Take by mouth. 0 Tablet EPINEPHrine 0.3 mg/0.3 mL EpiPen 0.3 MG/0.3ML EDEN 0 Auto-Injector Active nystatin (MYCOSTATIN) Indications: PT 0 CreamIndications: PT TAKES TAKES PRN PRN furosemide (LASIX) 20 mg Take 1 tablet by 180 tablet 3 08/22 Tablet mouth 2 times daily. montelukast (SINGULAIR) 10 Take 10 mg by mouth 0 02/19/2015 mg TabletIndications: PT nightly. TAKES PRN ONLY Indications: PT TAKES PRN ONLY MULTIVITAMIN ORAL Take 1 tablet by 0 mouth daily. traMADol (ULTRAM) 50 mg Take 50 mg by mouth 0 tablet every 6 hours as needed. ALBUTEROL INHL Inhale 1 ampule into 0 02/11/2011 the lungs every 4 hours as needed (WHEEZING). documented as of this encounter Progress Notes Silvana Echeverria RN - 06/03/2019 5:36 PM EDT Karoline Moseley discharged per provider order to home. All IV???s removed. Discharge instructions reviewed with patient. All questions or concerns answered at this time. Patient encouraged to call with any further questions or concerns. Copy of After Visit Summary given to patient at time of discharge.All personal belongings returned to patient, including prescription medications. Patient assisted topersonal vehicle via staff member and wheelchair. Silvana Echeverria RN, 06/03/[address] - 06/03/2019 11:52 AM EDT Nutritional intervention;I visited patient who has many food intolerances; she has a gluten free menu for wheat intolerance; she is unsure if has celiac DZ. She has been doing keto diet and intermittent fasting and she sees a dietitian. She has brought her weight from 275 6 months ago and is now 227#.FS yesterday was 138. She is encouraged to consume adequate nutrition for wound healing. Will continue to follow . 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 She declined any information for food intolerances.Tawny Hughes RDN,LD Sejal Rebollar RN - 06/03/2019 5:00 AM EDT Medicated with morphine for 05/12pain and when asked what her pain goal is she refused to answer, this nurse questioned her 3 times about her pain goal and she just refused to answer and after the third query she said she was mad but would not respond beyond that statement. Sejal Rebollar RN - 06/03/2019 2:30 AM EDT Medicated with tramadol per pt request for 05/12 pain, she continues to practice her breathing exercises to help with her pain. Sejal Rebollar RN - 06/02/2019 11:50 PM EDT The pt continues to have seizures and spasms, medicated with valium 5mg po. No LOC with any seizures, no post ictal phase noted, no incontinence and the pt is able to converse with this nurse during her seizures. SEAT Sejal Rebollar RN - 06/02/2019 11:[address] Jennings notified of the pt's seizures and refusal to take norco for pain. New orders received for tramadol for pain and valium for spasms. Sejal Rebollar RN - 06/02/2019 10:15 PM EDT The pt called this nurse to inform of a seizure that she just had. The pt proceeded to have another seizure witnessed by this nurse; the pt turned her head to the left side, pulled up the upper corner of her lip and proceeded to make loud grunting noises and had full body tremors. The pt was able tospeak with this nurse during any of the seizures she had. The pt also refused o take any more norco because she feels the med is what brought on the seizures. The pt is also c/o 9/10 back pain and the seizures caused her to have spasms. The pt was medicated with morphine 5mg IV. Sejal Rebollar RN - 06/02/2019 9:30 PM EDT The pt is c/o 7/10 back pain with some spasms but is hesitant to take painn medication due to reactions she has had in the past. The pt was medicated with 1 norco for pain and is doing her breathing exercises. 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 Patient is alert and oriented x 4. See Adult Patient Care Summary for focused assessment upon admission. . Patient rates their pain as 3/10 at this time. Patient oriented to room and the units practice of purposeful rounding. Call dillard within reach and all questions/concerns answered at this time.Will continue to monitor patient as necessary. Silvana Echeverria RN, 06/02/2019 documented in this encounter H&P Notes Jennifer Jack PA - 06/02/2019 1:01 PM EDT Patient Name: Karoline Moseley Patient Age: 54 y.o. Birthdate: 1965 Admit date: 06/02/2019 Attending Physician: Annamarie Jennings MD The patient's history and physical exam have been reviewed and completed. There has been no intervalchange from that of the pre-operative history and physical exam done within the last 30 days. documented in this encounter Miscellaneous Notes Care Management - Akbar Centeno - 06/03/2019 4:25 PM EDT Chart reviewed, attmepted to meet with pt to complete Intake, pt receiving care or sleeping, will follow on Thursday. Op Note - Annamarie Jennings MD - 06/02/2019 1:40 PM EDT [facility] [address] Patient Name: Karoline Moseley : [id number] MR#: [id number] Case Date: 06/02/2019 Case Scheduled Time: 1329 Surgeon: Surgeon(s) and Role: * Annamarie Jennings MD - Primary * Jennifer Jack PA - Physician Order Entry Preoperative diagnosis: STENOSIS WITH CLAUDICATION Postoperative diagnosis: * No post-op diagnosis entered * Procedure(s) (LRB): @ARTHRODESIS, POST. LUMBAR, SINGLE INTERSPACE (WRVU 22.09) (N/A) POSTERIOR SPINAL NON-SEGMENTAL INST.(ONE SPACE) (WRVU 12.52) (N/A) INSERTION INTERBODY BIOMECH DEV TO INTERVEBRAL DISC SPACE, EA INTERSPACE (WRVU 4.25) (N/A) AUTOGRAFT FOR SPINE SURGERY ONLY, SAME INCISION (WRVU *) (N/A) MODIFIER MEDTRONIC - SOLERA (N/A) MODIFIER MEDICAL - MOJAVE (N/A) MODIFIER MEDTRONIC - NAVIGATION / STEALTH (N/A) Bilateral L4-5 decompression microscopic. L4-5 Posterior Lumbar Interbody Fusion Device autograft segmental instrumented fusion O arm neuro navigation. Anesthesia: General Findings: Severe stenosis at the L4-5 level especially severe lateral recess stenosis bilaterally. There was significant facet hypertrophy some ligamentous hypertrophy. The grade 1 anterolisthesis was noted and was partially reduced. A 9 mm Williamson Posterior Lumbar Interbody Fusion Device was placed elevated accordingly. Copious amounts of autograft placed into the disc space. No CSF leak nerves intact. At 80 cc blood loss for 4.5 x 35 mm Solera screws were placed in the to the cortical trajectory 35mm nan on the right 30 mm nan on the left secured with set screws Complications: None Intake: Intraprocedure Crystalloid Total None Transfusion No data found in the last 1 encounters. Output: Estimated Blood Loss: * No values recorded between 06/02/2019 12:00 AM and 06/02/2019 1:41 PM * Urine Output:: (no urine output recorded) Other Output: (no other output recorded) Drains: None Specimens removed during surgery: None Disposition: awakened from anesthesia, extubated and taken to the recovery room in a stable condition, having suffered no apparent untoward event. Condition: doing well without problems Indications: Karoline Moseley is a 54 y.o. female with a severe leg pain and progressive spinal claudicatory symptoms into both lower extremities her MRI scan has shown an anterolisthesis of the L4-5 level with severe facet hypertrophy central lateral recess stenosis. Risks of surgery were discussed in detail including but not excluding infection, bleeding, spinal fluid leak, failure to improve, recurrence, hardware failure, failure to fuse or adjacent segment degeneration. Description of procedure: Patient was taken to the operating room and underwent general endotracheal anesthesia. Rotated to the prone position on the Sammy frame. Care is taken to maintain the patient in a lordotic position. At the posterior lumbar region is prepped and draped in usual sterile fashion and injected with a 10 cc of local anesthetic over the proposed incision area. Fluoroscopic guidance is used for correct position. An incision was made sharply with a 10 blade approximately 6 long taken down to the dorsal muscle fascia. The dorsal muscle fascia is opened bilaterally and subperiosteal dissection is carried outalong the spinous processes and laminas of L4-5. Cerebellar retractors are placed and fluoroscopic guidance again used. The microscope is taken into the field. The microscopic decompression is then performed of the L4-5 levels using Leksell rongeurs, Kerrison rongeurs and the high-speed drill, in thisfashion decompressing the central canal and lateral recesses generously. Partial facetectomy of the L4-5 level performed for further decompression and placement of the Posterior Lumbar Interbody FusionDevice. The disc space is identified and the disc is entered with a 15 blade and root retraction of obtained. The disc was removed with pituitary rongeurs of various disc scrapers and curettes preparing the endplates. Copious amounts of autograft that had been harvested from the decompression are run through bone mill and tapped into the disc space through a funnel. The Williamson Posterior Lumbar Interbody Fusion Device is then tapped into the disc space under fluoroscopic guidance and to elevated accordingly. The O arm is then taken into use and under live navigation guidance the cortical trajectory is chosen and holes are drilled felt tapped felt again and screws placed into the pedicles in a cortical trajectory under live navigation. Four 4.5 x 35 mm screws screws are placed in this fashion. The O arm was then spun again confirming good position of the PLIF and screws. The rods are then placed across the tulip heads and secured accordingly with set screws. Further bone graft is placed over the facets. Copious irrigation using saline containing bacitracin, bipolar cautery was used for hemostasis of muscular veins. Full hemostasis was obtained prior to closure. Closure was then performed with 2-0 Vicryl and dorsal muscle fascia, inverted 3-0 vicryl in the and subcutaneous tissue and Dermabond was used to seal the skin. The patient was then awakened from anesthesia and taken in stable condition to the PACU unit having tolerated the procedure well. Counts were correct at the end of the procedure. The surgical tech, Jennifer Jack (), worked under my direction for the duration of the operativesession. The chef's assistant adequately prepped the operative site and maintained the best possible exposure of anatomy incident to the procedure. (Please see the Surgical Encounter Summary for any Implant and Specimen details pertinent to this patient.) () Jennifer Jack worked under my direction for the duration of the operative session. The chef's assistant adequately prepped the operative site and maintained the best possible exposure of anatomy incident to the procedure. Annamarie Jennings MD 06/02/2019 documented in this encounter Plan of Treatment Not on filedocumented as of this encounter Procedures Procedure Name Priority Date/Time Associated Diagnosis Comme nts POCT GLUCOSE Routine 06/02/2019 4:52 PM Results f or this EDT procedure are i n the results section. XR O-ARM NO RAD - OR Routine 06/02/2019 3:58 PM R esults for this USE EDT procedure are i n the results section. XR FLUORO NO RAD Routine 06/02/2019 3:58 PM Resul ts for this <1HR - OR USE EDT procedure are in the results section. MODIFIER MEDTRONIC - 06/02/2019 1:37 PM STENOSIS WITH NAVIGATION / STEALTH EDT CLAUDICATION MODIFIER K2 MEDICAL 06/02/2019 1:37 PM STENOSIS WITH - MOJAVE EDT CLAUDICATION MODIFIER MEDTRONIC - 06/02/2019 1:37 PM STENOSIS WITH SOLERA EDT CLAUDICATION AUTOGRAFT FOR SPINE 06/02/2019 1:37 PM STENOSIS WITH SURGERY ONLY, SAME EDT CLAUDICATION INCISION (WRVU *) INSERTION INTERBODY 06/02/2019 1:37 PM STENOSIS WITH BIOMECH DEV TO EDT CLAUDICATION INTERVEBRAL DISC SPACE, EA INTERSPACE (WRVU 4.25) POSTERIOR SPINAL 06/02/2019 1:37 PM STENOSIS WITH NON-SEGMENTAL EDT CLAUDICATION INST.(ONE SPACE) (WRVU 12.52) ARTHRODESIS, POST. 06/02/2019 1:37 PM STENOSIS WITH LUMBAR, SINGLE EDT CLAUDICATION INTERSPACE (WRVU 22.09) documented in this encounter Results POCT Glucose (06/02/2019 4:52 PM EDT) P athologist Signature POC Glucose 130 65 - 199 YARITZA GOVEA DAY mg/dL LABORATORY Comment: Supplemental ranges: <140 mg/dL before meals <180 mg/dL all other times of the day Specimen Anatomical Collection Method Collection Time Receive d Time (Source) Location / / Volume Laterality Blood specimen 06/02/2019 4:52 PM 019 4:52 (specimen) EDT PM EDT Resulting Agency Comment Spec In Lab / APD Annamarie Jennings MD POINT OF CARE TEST ORDERABLE S Performing Organization Address City/[facility]/ZIP [facility] [place] [facility] [address] [place], [place] [address] XR Fluoro No Rad <1Hr - OR Use (06/02/2019 3:58 PM EDT) Specimen (Source) Anatomical Location Collection Method / Collectio n Time Received Time / Laterality Volume Narrative RAD - 06/02/2019 4:00 PM EDT This exam is auto-finalizing. No interpr etation was done. Annamarie Jennings MD IMG FLUORO ORDERABLES Performing Organization Address [facility] Phon e Number RAD [place], [place] XR O-Arm No Rad <1Hr - [...] report, please contact e number below. ? Electronically signed by: David Napoles [facility] ([phone]), at 06/02/2019 4:17 PM Narrative 06/02/2019 4:17 PM EDT EXAMINATION: XR [...] For questions regarding this report, please contact [facility] number below. Electronically signed by: DIANA Belcher [facility] ([phone]), at 06/02/2019 4:17 PM Annamarie Jennings MD IMG FLUORO ORDERABLES documented in this encounter Visit Diagnoses Not on filedocumented in this encounter Admitting Diagnoses Diagnosis Pseudoclaudication syndrome Spinal stenosis, lumbar region, with herbert rogenic claudication documented in this encounter Administered Medications Inactive Administered Medications - up to 3 most recent administrations Medication Order MAR Action Action Date Dose Rate Site bacitracin injection Given 06/02/2019 2:14 50,000 Units 19- Surgical Site ONCE PRN, Starting on PM EDT Bonny 06/02/19 at 1414, Until Bonny 06/02/19 at 1749, Intra-Operative (Intra-Procedure), Routine BUpivacaine (PF) (MARCAINE) 0.5 Given 06/02/2019 2:14 PM EDT 5 m Ls 19- Surgical Site % (5 mg/mL) injection ONCE PRN, Starting on Bonny 06/02/19 at 1414, Until Bonny 06/02/19 at 1749, Intra-Operative (Intra-Procedure), Routine BUpivacaine liposome (PF) Given 06/02/2019 2:15 PM EDT 20 mLs 19- Surgical Site (EXPAREL) 1.3 % (13.3 mg/mL) injection for infiltration ONCE PRN, Starting on Bonny 06/02/19 at 1415, Until Bonny 06/02/19 at 1749, Intra-Operative (Intra-Procedure) cyclobenzaprine (FLEXERIL) tablet 10 mg Given 06/03/2019 11:39 AM EDT 10 mg 10 mg, Oral, 3 TIMES DAILY PRN, Starting on Thu06/03/19 at 0814, Until Thu06/03/19 at 1950, Muscle spasms, Routine diazePAM (VALIUM) tablet 5 mg Given 06/03/2019 4:35 PM EDT 5 mg 5 mg, Oral, EVERY 8 HOURS PRN, Starting on Thu06/02/19 at 2313, Until Thu06/03/19 at 1950, Anxiety, spsms, tremors, Routine Given 06/02/2019 11:48 PM EDT 5 mg HYDROcodone-acetaminophen (NORCO) 5-325 mg Given 06/02 9:28 PM EDT 1 tablet per tablet 1 tablet 1 tablet, Oral, EVERY 4 HOURS PRN, Starting on Thu06/02/19 at 1746, Until Thu06/03/19 at 1950, Pain, for MILD pain (1 - 3), Routine HYDROcodone-acetaminophen (NORCO) 5-325 mg per tablet 2 tablet 2 tablet, Oral, EVERY 4 HOURS PRN, Starting on Thu at 1746, Until Thu06/03/19 at 1950, Pain, For MODERATE Pain (4 - 6), Rout ine levothyroxine (SYNTHROID) tablet 137 mcg Given 06/03/2019 5:58 AM EDT 137 mcg 137 mcg, Oral, DAILY, First dose on Thu06/03/19 at 0630, Until Discontinued, Routine lidocaine-EPINEPHrine 2 Given 06/02/2019 2:15 PM 5 mLs 19- Surgical Site %-1:200,000 injection EDT ONCE PRN, Starting on Thu06/02/19 at 1415, Until Thu06/02/19 at 1749, Intra-Operative (Intra-Procedure), Routine ondansetron (ZOFRAN) injection 4-8 mg 4-8 mg, Intravenous, EVERY 8 HOURS PRN, Starting on Thu06/02/19 at 1746, Until Thu06/03/19 at 1950, Nausea, Vomiting, 4 mg, Oral, EVERY 8 HOURS PRN, Nausea, Vomiting If multiple antiemetics are ordered, use ondansetron first. Start with 4mg and if ineffective in 30 minutes, give an additional 4mg., Routine ondansetron (ZOFRAN) tablet 4-8 mg 4-8 mg, Oral, EVERY 8 HOURS PRN, Starting on Bonny 06/02 at 1746, Until Thu06/03/19 at 1950, Nausea, Vomiting, If multiple antie metics are ordered, use ondansetron first. PO Preferred. If patient unable t o take PO, may give IV if ordered. Start with 4mg and if ineffecti ve in 45 minutes, give an additional 4mg. If unable to take PO, may give IV., Routine sodium chloride 0.9 % (flush) flush 3 mL Given 06/03/2019 9:18 AM EDT 3 mLs 3 mL, Intravenous, EVERY 12 HOURS SCHEDULED (2 times per day), First dose on Bonny 06/02/19 at 2100, Until Discontinued, Routine traMADol (ULTRAM) tablet 50 mg Given 06/03/2019 1:50 PM EDT 50 mg 50 mg, Oral, EVERY 6 HOURS PRN, Starting on Bonny 06/02/19 at 2316, Until Thu06/03/19 at 1950, Pain, Routine Given 06/03/2019 2:36 AM EDT 50 mg documented in this encounter Active and Recently Administered Medications Times are shown in EDT. Scheduled Medication Order 06/01/2019 06/02/2019 06/03/2019 atenolol (TENORMIN) tablet 25 mg 1815 (N ot Given - Provider: Silvana Echeverria RN - Reason: Patient/family refused) 0900 (Not Given - Provider: Silvana Echeverria RN - Reason: Patient/family refused - Comment: patient reports she had an allergic reaction to it) 25 mg, Oral, DAILY, First dose on Bonny at 1815, Until Discontinued, Routine furosemide (LASIX) tablet 20 mg 1815 (No t Given - Provider: Silvana Echeverria RN - Reason: Patient/family refused) 0900 (Not Given - Provider: Silvana Echeverria RN - Reason: Patient/family refused - Comment: patient states I haven't taken that in a while)1600 (Not Given - Provider: Silvana Echeverria RN - Reason: Patient/family refused) 20 mg, Oral, 2 TIMES DAILY, First dose o n Bonny 06/02/19 at 1815, Until Discontinued, Routine levothyroxine (SYNTHROID) tablet 137 mcg 0558 (Given - Provider: Sejal Rebollar, TESHA) 137 mcg, Oral, DAILY, First dose on Thu06/03/19 at 0630, Until Discontinued, Routine montelukast (SINGULAIR) tablet 10 mg 210 0 (Not Given - Provider: Sejal Rebollar, TESHA - Reason: Patient/family refused) 10 mg, Oral, NIGHTLY, First dose on Thu06/02/19 at 2100, Until Discontinued, Routine sodium chloride 0.9 % (flush) flush 3 mL 2100 (Not Given - Provider: Sejal Rebollar, TESHA - Reason: See comment - Comment: continuous IVF) 0918 (Given - Provider: Silvana Echeverria RN) 3 mL, Intravenous, EVERY 12 HOURS SCHEDU LED (2 times per day), First dose on Thu06/02/19 at 2100, Until Discontinued, Routine Continuous Medication Order 06/01/2019 06/02/2019 06/03/2019 sodium chloride 0.9% infusion 1815 (Due) 1,000 mL, at 100 mL/hr, Intravenous, CON TINUOUS, Starting Bonny 06/02/19 at 1815, Until Thu06/03/19 at 1950 PRN Medication Order 06/01/2019 06/02/2019 06/03/2019 albuterol 90 mcg/actuation inhaler 2 puff 2 puff, Inhalation, EVERY 4 HOURS PRN, S tarting Bonny 06/02/19 at 1746, Until Thu06/03/19 at 1950, Wheezing, Routine bacitracin injection (CANCELED) 1414 (Gi amalia - Provider: Annamarie Jennings MD) ONCE PRN, Starting Bonny 06/02/19 at 1414, Until Bonny 06/02/19 at 1749, Intra- Operative (Intra-Procedure), Routine BUpivacaine (PF) (MARCAINE) 0.5 % (5 mg/mL) injection (CANCE LED) 1414 (Given - Provider: Annamarie Jennings MD) ONCE PRN, Starting Bonny 06/02/19 at 1414, Until Bonny 06/02/19 at 1749, Intra- Operative (Intra-Procedure), Routine BUpivacaine liposome (PF) (EXPAREL) 1.3 % (13.3 mg/mL) injection for infiltration (CANCELED) 1415 (Given - Provider: Annamarie augustin MD) ONCE PRN, Starting Bonny 06/02/19 at 1415, Until Thu06/02/19 at 1749, Intra- Operative (Intra-Procedure), Routine cyclobenzaprine (FLEXERIL) tablet 10 mg 1139 (Given - Provider: Silvana Echeverria RN) 10 mg, Oral, 3 TIMES DAILY PRN, Starting Thu06/03/19 at 0814, Until Thu06/03/19 at 1950, Muscle spasms, Routine diazePAM (VALIUM) tablet 5 mg 2348 (Given - Prov ider: Sejal Rebollar RN) 163 (Given - Provider: Silvana Echeverria RN) 5 mg, Oral, EVERY 8 HOURS PRN, Starting Bonny 06/02/19 at 2313, Until Thu06/03/19 at 1950, Anxiety, spsms, tremors, Routine fentaNYL 50 mcg/mL multi-dose injection (CANCELED) 163 (Given - Provider: Maureen Sebastian RN)1645 (Given - Provider: Maureen Sebastian RN) 12.5-25 mcg, Intravenous, EVERY 5 MIN RI N, Starting Bonny 06/02/19 at 1625, Until Bonny 06/02/19 at 1737, Pain, Give 12.5 mcg every 5 minutes PRN for mild to moderate pain (1-5) Give 25 mcg every 5 minutes PRN for moderate to severe pain (6-10). Hold for respiratory rate less than 10 per minute. Maximum dose 250 mcg over one hour. If ordered with hydromorphone or morphine, give hydromorphone or morphine f irst and use fentanyl for breakthrough pain., PACU Recovery, Rou aleksey HYDROcodone-acetaminophen (NORCO) 5-325 mg per tablet 1 tabl et(Linked Group 1) 2127 (Given - Provider: Sejal Rebollar, TESHA) 1 tablet, Oral, EVERY 4 HOURS PRN, Start ing Thu06/02/19 at 1746, Until Thu06/03/19 at 1950, Pain, for MILD pain (1 - 3), Routine HYDROcodone-acetaminophen (NORCO) 5-325 mg per tablet 2 tabl et(Linked Group 1) 2128 (See Alternative - Provider: Sejal Rebollar RN) 2 tablet, Oral, EVERY 4 HOURS PRN, Start ing Bonny 06/02/19 at 1746, Until Thu06/03/19 at 1950, Pain, For MODERATE Pain (4 - 6), Routine HYDROmorphone (DILAUDID) injection 0.2-0.4 mg (CANCELED) 1631 (Given - Provider: Maureen Sebastian, TESHA)1644 (Given - Provider: Maureen Sebastian, TESHA) 0.2-0.4 mg, Intravenous, EVERY 5 MIN PRN , Starting Bonny 06/02/19 at 1625, Until Bonny 06/02/19 at 1737, Pain, Give 0.2 mg every 5 minutes PRN for mild to moderate pain (1-5) Give 0.4 mg every 5 minutes PRN for moderate to severe pain (6-10). Hol d for respiratory rate less than 10 per minute. Maximum dose 4 mg over one hour. If multiple pain medications are ordered, start with hydromorphone or morphine an d use fentanyl for breakthrough pain., PACU Recovery, Routine lidocaine-EPINEPHrine 2 %-1:200,000 injection (CANCELED) 1415 (Given - Provider: Annamarie Jennings MD) ONCE PRN, Starting Bonny 06/02/19 at 1415, Until Bonny 06/02/19 at 1749, Intra- Operative (Intra-Procedure), Routine morphine 10 mg/mL injection 5 mg (CANCELED) 2223 (Given - Provider: Sejal Rebollar, TESHA) 0031 (Given - Provider: Sejal Rebollar, TESHA)0455 (Given - Provider: Sejal Rebollar, TESHA)0730 (Given - Provider: Silvana Echeverria RN) 5 mg, Intravenous, EVERY 2 HOURS PRN, St arting Bonny 06/02/19 at 1746, Until Thu06/03/19 at 0814, Pain, For SEVERE pain (7 - 10), Routine ondansetron (ZOFRAN) injection 4 mg (CANCELED) 165 (Given - Provider: Maureen Sebastian, TESHA) 4 mg, Intravenous, EVERY 30 MIN PRN, Sta rting Bonny 06/02/19 at 1625, Until Bonny 06/02/19 at 1737, Nausea, May repeat 4 mg once in 30 minutes. If multiple antiemetics ordered, use ondansetron first and i f ineffective use prochlorperazine secon d and if ineffective use promethazine, PACU Recovery, Routine ondansetron (ZOFRAN) injection 4-8 mg(Linked Group 2) 4-8 mg, Intravenous, EVERY 8 HOURS PRN, Starting Bonny 06/02/19 at 1746, Until Thu06/03/19 at 1950, Nausea, Vomiting, 4 mg, Oral, EVERY 8 HOURS PRN, Nausea, Vomiting If multiple antiemetics are ordered , use ondansetron first. Start with 4m g and if ineffective in 30 minutes, give an additional 4mg., Routine ondansetron (ZOFRAN) tablet 4-8 mg(Linked Group 2) 4-8 mg, Oral, EVERY 8 HOURS PRN, Startin g Bonny 06/02/19 at 1746, Until Thu06/03/19 at 1950, Nausea, Vomiting, If multiple antiemetics are ordered, use ondansetron first. PO Preferred. If patient unab le to take PO, may give IV if ordered. S tart with 4mg and if ineffective in 45 minutes, give an additional 4mg. If unable to take PO, may give IV., Routine sodium chloride 0.9 % (flush) flush 5-20 mL 5-20 mL, Intravenous, EVERY 1 MIN PRN, S tarting Bonny 06/02/19 at 1745, Until Thu06/03/19 at 1950, flush, Flush pertains to all indwelling lines. Flush per protocol found in the job aid using the link provided on this medication record., Routine traMADol (ULTRAM) tablet 50 mg 0 236 (Given - Provider: Sejal Rebollar, TESHA)1350 (Given - Provider: Silvana Echeverria RN) 50 mg, Oral, EVERY 6 HOURS PRN, Starting Bonny 06/02/19 at 2316, Until Thu06/03/19 at 1950, Pain, Routine Linked Groups Order Group 1: HYDROcodone-acetaminophen (NORCO) 5-325 mg per tablet 1 tabletJump to med 1 tablet, Oral, EVERY 4 HOURS PRN, Start ing Bonny 06/02/19 at 1746, Until Thu06/03/19 at 1950, Pain
for MILD pain (1 - 3)
Routine Or HYDROcodone-acetaminophen (NORCO) 5-325 mg per tablet 2 tabletJump to med 2 tablet, Oral, EVERY 4 HOURS PRN, Start ing Bonny 06/02/19 at 1746, Until Thu06/03/19 at 1950, Pain
For MODERATE Pain (4 - 6)
Routine Group 2: ondansetron (ZOFRAN) tablet 4-8 mgJump to med 4-8 mg, Oral, EVERY 8 HOURS PRN, Startin g Bonny 06/02/19 at 1746, Until Thu06/03/19 at 1950, Nausea, Vomiting
If multiple antiemetics are ordered, use ondansetron first. PO Preferred. If kevon ent unable to take PO, may give IV if or dered. Start with 4mg and if ineffective in 45 minutes, give an additional 4mg. If unable to take PO, may give IV.
Routine Or ondansetron (ZOFRAN) injection 4-8 mgJump to med 4-8 mg, Intravenous, EVERY 8 HOURS PRN, Starting Bonny 06/02/19 at 1746, Until Thu06/03/19 at 1950, Nausea, Vomiting
4 mg, Oral, EVERY 8 HOURS PRN, Nausea, Vomiting If multiple antie metics are ordered, use ondansetron firs t. Start with 4mg and if ineffective in 30 minutes, give an additional 4mg.
Routine documented in this encounter Care Teams Machine Assembler For Puller Over Relationship Specialty Start Date End Date None PCP - General 05/31/19 02/17/21 None documented as of this encounter
--- OUTSIDE RECORDS SUMMARY | 2022-02-11 16:55 | XMS_ITS | Encounter Summary ---
:1965 [place] [address] Care Team Providers Name Role Phone Sejal Davis APRN Primary Care Provider Reason for Visit Reason Comments Medication Refill Encounter Details Date Type Department Care Team Description 08/11/2015 Refill Endocrinology at [facility] Raj Yancey MD [facility] [place] [address] ENDOCRINOLOGY DEPT. [phone] [place] [address] (Wo rk) Social History Tobacco Use Types [...] on filedocumented in this encounter Care Teams Underground Production Foreperson Relationship Specialty Start Date End Date Sejal Davis APRN PCP - General 08/10/14 05/30/19 [address] [place] [address] documented as of this encounter
--- OUTSIDE RECORDS SUMMARY | 2022-02-11 16:55 | XMS_ITS | Encounter Summary ---
:1965 Author Organization Address [address] [place] [address] Care Team Providers Name Role Phone Unavailable Primary Care Provider Unavailable Encounter Details Date Type Department Care Team Description 03/24/2011 Results Only [facility] Medardo Jenkins MD Laboratory Services - [address] [facility] [address] [place] [phone] (Wo rk) Social History Tobacco Use Types Packs/Day Years Used Date Never Assessed Sex Assigned at Date Recorded Not on file documented as of this encounter Plan of Treatment Not on filedocumented as of this encounter Procedures Procedure Name Priority Date/Time Associated Diagnosis Comme nts PAP TEST- RESULT Routine 03/24/2011 0:00 EDT Resu lts for this ONLY procedure are i n the results section. SURGICAL PATHOLOGY Routine 03/24/2011 0:00 EDT Re sults for this procedure are i n the results section. documented in this encounter Results PAP TEST- RESULT ONLY (03/24/2011 0:00 EDT) Pathology Report: CYTOPATHOLOGY REPORT ? [facility] ? LAB Reports generated via electr onic interface contain original data; ? however they are lacking the format of the original report. ? Caution should be taken when reading/interpreting unformatted reports. ? Name: ? KAROLINE MOSELEY ? Accession #: ? [id number] ? : ? 1965 (Age: 46) ??F ?Collect Date: ? 03/24/2011 ? Location: ? [facility] ? Receive Date: ? 03/25/2011 ? Provider: ?JEAN MARIE B T KENN MD ? Copy to: ? Specimen/Source: ? Pap Test, Cervix/Endocervix, ThinPrep Imaging System ? with manual evaluation ? Last Menstrual Period: ? 03/04/2011 ? Treatment History: ? Miscellaneous treatment: Hx of crysurgery for class 4 pap ? SPECIMEN ADEQUACY ? Satisfactory for Eval uation ? - transformation zone compon ent present ? GENERAL CATEGORIZATION ? Negative for Intraepi thelial Lesion or Malignancy ? Document reviewed and electr onically signed by: ? [place], [place]( CP) ? Report Date: ??08/30/ 2011 08:39 ? End of Report ? Specimen Performing Organization Address City/State/ZIP Code Phon e Number [facility] [address] [place] [address] SERVICES [facility] [address] [place] [address] SURGICAL PATHOLOGY (03/24/2011 0:00 EDT) Pathology Report: SURGICAL PATHOLOGY REPORT ? [facility] Reports generated via electr meQuilibrium interface contain original data; ? LAB however they are lacking the format of the original report. ? Caution should be taken when reading/interpreting unformatted reports. ? Name: ? DROWN, KAROLINE ? Accession #: ? [id number] ? : ? 1965 (Age: 46) ??F ? Collec t Date: ? 03/24/2011 ? Location: ? [facility] ? R eceive Date: ? 03/24/2011 ? Provider: GAILYN B SEBAS MD ? Copy to: TAY G TANEY SWEDGER ? Final Pathologic Diagnosis: ? Endometrium, biopsy: ? 1. ??Fragments of proliferat javier endometrium with disordered growth pattern. ?- Negative fo r cytologic atypia. ? 2. ?? Tubal metaplasi a. ? Document reviewed and electr onically signed by: ? HE WOLF MD ? Report ??Date: 03/28/2011 11 :48 ? By the signature above, the attending physician certifies that he/she has ? personally conducted a gross and/or microscopic examination of the described ? specimens and rendered or co nfirmed the above diagnosis. ? Specimen(s) Received: ? Endometrial biopsy ? Clinical History: ? DUB; LMP: 03/04/2011 ? Gross Description: ? Received in formalin labelled Drown, Karoline and endometrium is 1 cc of light israel and red-brown tiss ue fragments. ??The specimen is submitted entirely in one cassette following filtr ation. ??(ABRIL Tessitore)/ljn ? End of Report ? Specimen Performing Organization Address City/State/ZIP Code Phon e Number [facility] [address] [place] [address] [facility] [address] [place] [address] documented in this encounter Visit Diagnoses Not on filedocumented in this encounter
--- OUTSIDE RECORDS SUMMARY | 2022-02-11 16:55 | XMS_ITS | Encounter Summary ---
:1965 Author Organization [facility] Address [address] [place] [address] Care Team Providers Name Role Phone Unavailable Primary Care Provider Unavailable Encounter Details Date Type Department Care Team Description 08/28/2006 Results Only [facility] - Florina Roberto od, Consuelo Doll, FUSE SPOOLER conversion [address] [place] [phone] (Wo rk) Social History Tobacco Use Types Packs/Day Years Used Date Never Assessed Sex Assigned at Date Recorded Not on file documented as of this encounter Plan of Treatment Not on filedocumented as of this encounter Procedures Procedure Name Priority Date/Time Associated Diagnosis Comme nts CYTOPATHOLOGY Routine 08/28/2006 0:00 EST Results for this procedure are i n the results section . documented in this encounter Results CYTOPATHOLOGY (08/28/2006 0:00 EST) Pathology Report: CYTOPATHOLOGY REPORT [facility] Reports generated via electronic interface contain jennifer ginal data; however they are lacking the format of the original re port. Caution should be taken when reading/interpreting unfo rmatted reports. Name: ? KAROLINE MOSELEY ? Accession #: ? [id number] : ? 1965 (Age: 41) ??F ?Collect Date: ? 08/04 Location: ? [facility] ? Receive Date : ? 08/31/2006 Provider: ?CONSUELO MCDONALD FUSE SPOOLER Copy to: ? Specimen/Source: ? ThinPrep Pap Test, Cervix/Endocervix, processed on [employer]ium ThinPrep Imaging System, with manual evaluation Last Menstrual Period: ? 08/14/06 Hormonal/Contraceptive Status: ? Oral contraceptives Previous Gynecologic Pathology: ? PRICILLA: 1985 Treatment History: ? Cryotherapy: 1985 Other: ? HPVA - HPV testing requested if ASC-US on the current ThinPrep Pap test. ? SPECIMEN ADEQUACY ? Satisfactory for Evaluation - transformation zone component present GENERAL CATEGORIZATION ? Negative for Intraepithelial Lesion or Malignan cy ? Document reviewed and electronically signed by: ? HA Doe(ASCP) ? Report Date: ??09/01/2006 13:19 End of Report Specimen Performing Organization Address City/State/ZIP Code Phon e Number [facility] [address] [place] [address] SERVICES [facility] [address] [place] [address] documented in this encounter Visit Diagnoses Not on filedocumented in this encounter
--- OUTSIDE RECORDS SUMMARY | 2022-02-11 16:55 | XMS_ITS | Encounter Summary ---
:1965 [place] [address] Care Team Providers Name Role Phone Sejal Davis APRN Primary Care Provider Reason for Visit Reason Comments Medication Refill Encounter Details Date Type Department Care Team Description 11/03/2014 Refill Endocrinology at [facility] Raj Yancey MD [facility] [place] [address] ENDOCRINOLOGY DEPT. [phone] [place] [phone] (Wo rk) Social History Tobacco Use Types [...] on filedocumented in this encounter Care Teams Hooker On Relationship Specialty Start Date End Date Sejal Davis APRN PCP - General 08/10/14 05/30/19 [address] [place] [address] documented as of this encounter
--- OUTSIDE RECORDS SUMMARY | 2022-02-11 16:55 | XMS_ITS | Encounter Summary ---
:1965 Author Organization [facility] [address] Care Team Providers Name Role Phone None Primary Care Provider Unavailable Encounter Details Date Type Department Care Team Description 05/31/2019 Telephone Pre-Admission Sam [place]z [place] [place] [address] Social History Tobacco Use Types Packs/Day [...] on filedocumented in this encounter Care Teams Conductor Sleeping Car Relationship Specialty Start Date End Date None PCP - General 05/31/19 02/17/21 None documented as of this encounter
--- OUTSIDE RECORDS SUMMARY | 2022-02-11 16:55 | XMS_ITS | Encounter Summary ---
:1965 Author Organization [facility] Address [address] [place] [address] Care Team Providers Name Role Phone None [...] Expiration Date Visits Requ ested Visits Authorized [id number] 1 1 Encounter Details Date Type Department Care Team Description 06/02/2019 - Hospital Encounter Med Surg Unit at [facility], Spina l stenosis, 06/03/2019 CAROLA Rivers MD lumbar region, with [address] neurogenic [place] claudication [id number] NEUROSURGERY- [phone] [place] [address] Social History Tobacco Use Types Packs/Day Years [...] Sign Reading Time Taken Comments Blood Pressure 118/70 06/03/2019 12:48 PM EDT Pulse 91 06/03/2019 12:48 PM EDT Temperature 37.2 ??C (99 ??F) 06/03/2019 12:48 PM EDT Respiratory Rate 18 06/03/2019 12:48 PM EDT Oxygen Saturation 82% 06/03/2019 12:48 PM pt.placed on NC @ 1 EDT lpm; TESHA Alvarado Adv ised Inhaled Oxygen - - Concentration Weight 103 kg (227 lb) 06/02/2019 6:10 PM EDT Height 165 cm (5' 4.96) 06/02/2019 6:10 PM EDT Body Mass Index 37.82 06/02/2019 6:10 PM [...] six weeks after surgery with a Physician???s Chief Green Officer at the surgeon???s office. You will have [...] to stop taking it. ??? Only take qwwp-auu-prrsuic or prescription medicine for pain, discomfort or [...] If you have any questions, please call [facility] Neurology and Neurosurgery at [phone], during business hours of Thursday through Thursday from 8:00 a.m. until 4:00 p.m. In case of emergency duringnon-business hours, please call the same main number and follow the prompts to page the neurosurgeonon call. SMOKING CESSATION INFORMATION: ??? [place] QUITLINE: ??? [place] QUITLINE: ??? [email or web address] If you smoke, stop now! Smoking may impede healing. MAKE SURE YOU: ??? Understand these instructions. ??? Will seek medical care if you are feeling poor, or get worse. ??? Will call the surgeon???s office with any questions or concerns at : [phone] The above information has been presented or demonstrated. I/we have had the opportunity to ask questions. I/we fully understand the instructions given. I/we have received a copy of this form. AttachmentsThe following attachments cannot be sent through Care Everywhere. Lumbar Laminectomy: Post-op (Rwandan)Post-op Infection (Rwandan)documented in this encounter Medications at Time of [...] levothyroxine (SYNTHROID) Take 1 tablet by 0 /01/2019 137 mcg Tablet mouth daily. atenolol (TENORMIN) [...] 5:00 AM EDT Medicated with morphine for 10pain and when asked what her pain goal is she refused to answer, this nurse questioned her 3 times about her pain goal and she just refused to answer and after the third query she said she was mad but would not respond beyond that statement. Sejal Rebollar RN - 06/03/2019 2:30 AM EDT Medicated with tramadol per pt request for 10 pain, she continues to practice her breathing exercises to help with her pain. Sejal Rebollar RN - 06/02/2019 11:50 PM EDT The pt continues to have seizures and spasms, medicated with valium 5mg po. No LOC with any seizures, no post ictal phase noted, no incontinence and the pt is able to converse with this nurse during her seizures. Sejal Duenas RN - 06/02/2019 11:[address] [...] Jennings MD - 06/02/2019 1:40 PM EDT [facility] [place] [address] Patient Name: Karoline Moseley : [id number] MR#: [id number] Case Date: 06/02/2019 Case Scheduled Time: 1329 Surgeon: Surgeon(s) and Role: * Annamarie Jennings MD - Primary * Jennifer Jack PA - Physician Chief Green Officer Preoperative diagnosis: STENOSIS WITH CLAUDICATION Postoperative diagnosis: [...] and was partially reduced. A 9 mm Montgomery Posterior Lumbar Interbody Fusion Device was placed [...] the disc space through a funnel. The Montgomery Posterior Lumbar Interbody Fusion Device is then [...] at the end of the procedure. The medical or surgical instrument maker, Jennifer Jack (), worked under my direction for the duration of the operativesession. The medication assistant adequately prepped the operative site and maintained the best possible exposure of anatomy incident to the procedure. (Please see the Surgical Encounter Summary for any Implant and Specimen details pertinent to this patient.) () Jennifer Jack worked under my direction for the duration of the operative session. The medication assistant adequately prepped the operative site and [...] CARE TEST ORDERABLE S Performing Organization Address City/State/ZIP [facility] Phon e Number [facility] [address] [place], [place] [address] XR Fluoro No Rad <1Hr - OR Use (06/02/2019 3:58 PM EDT) Specimen (Source) Anatomical Location Collection Method / Collectio n Time Received Time / Laterality Volume Narrative RAD - 06/02/2019 4:00 PM EDT This exam is auto-finalizing. No interpr etation was done. Annamarie Jennings MD IMG FLUORO ORDERABLES Performing Organization Address [facility] [address]/[facility] Phon e Number RAD RAD [place], [place] XR O-Arm No Rad <1Hr - [...] For questions regarding this report, please contact [facility] number below. Electronically signed by: David Napoles [facility] ([phone]), at 06/02/2019 4:17 PM Annamarie Jennings MD IMG FLUORO ORDERABLES documented in this encounter Visit Diagnoses Diagnosis Spinal stenosis, lumbar region, with herbert rogenic claudication Pseudoclaudication syndrome Spinal stenosis, lumbar region, with herbert rogenic claudication documented in this encounter Admitting Diagnoses Diagnosis Pseudoclaudication syndrome Spinal stenosis, lumbar region, with herbert rogenic claudication documented in this encounter Administered Medications Inactive Administered Medications - up to 3 most recent administrations Medication Order MAR Action Action Date Dose Rate Site cyclobenzaprine (FLEXERIL) tablet Given 06/03/2019 11:39 AM EDT 10 mg 10 mg 10 mg, Oral, 3 TIMES DAILY PRN, Starting on Thu06/03/19 at 0814, Until Thu06/03/19 at 1950, Muscle spasms, Routine diazePAM (VALIUM) tablet 5 mg Given 06/03/2019 4:35 PM EDT 5 mg 5 mg, Oral, EVERY 8 HOURS PRN, Starting on Bonny 06/02/19 at 2313, Until Thu06/03/19 at 1950, Anxiety, spsms, tremors, Routine Given 06/02/2019 11:48 PM EDT 5 mg fentaNYL 50 mcg/mL multi-dose injection Given 06/02/2019 4:45 PM EDT 25 mcg 12.5-25 mcg, Intravenous, EVERY 5 MIN PRN, Starting on Bonny 06/02/19 at 1625, Until Bonny 06/02/19 at 1737, Pain, Give 12.5 mcg every 5 minutes PRN for mild to moderate pain (1-5) Give 25 mcg every 5 minutes PRN for moderate to severe pain (6-10). Hold for respiratory rate less than 10 per minute. Maximum dose 250 mcg over one hour. If ordered with hydromorphone or morphine, give hydromorphone or morphine first and use fentanyl for breakthrough pain., PACU Recovery, Routine Given 06/02/2019 4:39 PM EDT 25 mcg HYDROcodone-acetaminophen (NORCO) 5-325 mg Given 06/02 9:28 PM EDT 1 tablet per tablet 1 tablet 1 tablet, Oral, EVERY 4 HOURS PRN, Starting on Bonny 06/02/19 at 1746, Until Thu06/03/19 at 1950, Pain, for MILD pain (1 - 3), Routine HYDROcodone-acetaminophen (NORCO) 5-325 mg per tablet 2 tablet 2 tablet, Oral, EVERY 4 HOURS PRN, Starting on Bonny at 1746, Until Thu06/03/19 at 1950, Pain, For MODERATE Pain (4 - 6), Rout ine HYDROmorphone (DILAUDID) 2 mg/mL injecti on 1 dose, Starting on Bonny 06/02/19 at 1631, Until Bonny at 1631, Maureen Sebastian : cabinet override HYDROmorphone (DILAUDID) injection 0.2-0 .4 mg Given 06/02/2019 4:44 PM EDT 0.2 mg 0.2-0.4 mg, Intravenous, EVERY 5 MIN PRN, Starting on Bonny 06/02/19 at 1625, Until Bonny 06/02/19 at 1737, Pain, Give 0.2 mg every 5 minutes PRN for mild to moderate pain (1-5) Give 0.4 mg every 5 minutes PRN for moderate to severe pain (6-10). Hold for respiratory rate less than 10 per minute. Maximum dose 4 mg over one hour. If multiple pain medications are ordered, start with hydromorphone or morphine and use fentanyl for breakthrough pain., PACU Recovery, Routine Given 06/02/2019 4:31 PM EDT 0.4 mg levothyroxine (SYNTHROID) tablet 137 mcg Given 06/03/2019 5:58 AM EDT 137 mcg 137 mcg, Oral, DAILY, First dose on Thu06/03/19 at 0630, Until Discontinued, Routine morphine 10 mg/mL injection 5 mg Given 06/03/2019 7:30 AM EDT 5 mg 5 mg, Intravenous, EVERY 2 HOURS PRN, Starting on Bonny 06/02/19 at 1746, Until Thu06/03/19 at 0814, Pain, For SEVERE pain (7 - 10), Routine Given 06/03/2019 4:55 AM EDT 5 mg Given 06/03/2019 12:31 AM EDT 5 mg ondansetron (ZOFRAN) injection 4 mg Given 06/02/2019 4:52 PM EDT 4 mg 4 mg, Intravenous, EVERY 30 MIN PRN, Starting on Bonny 06/02/19 at 1625, Until Bonny 06/02/19 at 1737, Nausea, May repeat 4 mg once in 30 minutes. If multiple antiemetics ordered, use ondansetron first and if ineffective use prochlorperazine second and if ineffective use promethazine, PACU Recovery, Routine ondansetron (ZOFRAN) injection 4-8 mg 4-8 mg, Intravenous, EVERY 8 HOURS PRN, Starting on Bonny 06/02/19 at 1746, Until Thu06/03/19 at [...] on Thu06/02/19 at 2100, Until Discontinued, Routine traMADol (ULTRAM) tablet 50 mg Given 06/03/2019 1:50 PM EDT 50 mg 50 mg, Oral, EVERY 6 HOURS PRN, Starting on Thu06/02/19 at 2316, Until Thu06/03/19 at 1950, Pain, [...] 25 mg, Oral, DAILY, First dose on Thu at 1815, Until Discontinued, Routine furosemide (LASIX) [...] 2 TIMES DAILY, First dose o n Thu06/02/19 at 1815, Until Discontinued, Routine levothyroxine (SYNTHROID) tablet 137 mcg 0558 (Given - Provider: Sejal Rebollar RN) 137 mcg, Oral, DAILY, First dose on Thu06/03/19 at 0630, Until Discontinued, Routine montelukast (SINGULAIR) tablet 10 mg 210 0 (Not Given - Provider: Sejal Rebollar RN - Reason: Patient/family refused) 10 mg, Oral, NIGHTLY, First dose on Thu06/02/19 at 2100, Until Discontinued, Routine sodium chloride 0.9 % (flush) flush 3 mL 2100 (Not Given - Provider: Sejal Rebollar RN - Reason: See comment - Comment: continuous IVF) 09 (Given - Provider: Silvana Echeverria RN) 3 mL, Intravenous, EVERY 12 HOURS SCHEDU LED (2 times per day), First dose on Bonny 06/02/19 at 2100, Until Discontinued, Routine Continuous Medication Order 06/01/2019 06/02/2019 06/03/2019 sodium chloride 0.9% infusion 181 (Due) 1,000 mL, at 100 mL/hr, Intravenous, CON TINUOUS, Starting Bonny 06/02/19 at 1815, Until Thu06/03/19 at 1950 PRN Medication Order 06/01/2019 06/02/2019 06/03/2019 albuterol 90 mcg/actuation inhaler 2 puff 2 puff, Inhalation, EVERY 4 HOURS PRN, S tarting Bonny 06/02/19 at 1746, Until Thu06/03/19 at 1950, Wheezing, Routine bacitracin injection (CANCELED) 141 (Gi amalia - Provider: Annamarie Jennings MD) [...] 06/02/19 at 1749, Intra- Operative (Intra-Procedure), Routine cyclobenzaprine [...] injection (CANCELED) 163 (Given - Provider: Maureen Sebastian, TESHA)164 (Given - Provider: Maureen Sebastian, TESHA) 12.5-25 mcg, Intravenous, EVERY 5 MIN GA N, Starting Bonny 06/02/19 at 1625, Until Thu06/02/19 at 1737, Pain, Give 12.5 mcg every [...] Group 1) 2127 (Given - Provider: Sejal Rebollar RN) 1 tablet, Oral, EVERY 4 HOURS PRN, Start ing Bonny 06/02/19 at 1746, Until Thu06/03/19 at 1950, Pain, for MILD pain (1 - 3), Routine HYDROcodone-acetaminophen (NORCO) 5-325 mg per tablet 2 tabl et(Linked Group 1) 2127 (See Alternative - Provider: Sejal Rebollar RN) 2 tablet, Oral, EVERY 4 HOURS PRN, Start ing Bonny 06/02/19 at 1746, Until Thu06/03/19 at 1950, Pain, For MODERATE Pain (4 - 6), Routine HYDROmorphone (DILAUDID) injection 0.2-0.4 mg (CANCELED) 1630 (Given - Provider: Maureen Sebastian, TESHA)1644 (Given [...] Sejal Rebollar, TESHA)0455 (Given - Provider: Sejal Rebollar RN)0730 (Given - Provider: Silvana Echeverria RN) 5 mg, Intravenous, EVERY 2 HOURS PRN, St arting Bonny 06/02/19 at 1746, Until Thu06/03/19 at 0814, Pain, For SEVERE pain (7 - 10), Routine ondansetron (ZOFRAN) injection 4 mg (CANCELED) 1651 (Given - Provider: Maureen Sebastian, TESHA) 4 [...] mg 0 236 (Given - Provider: Sejal Rebollar RN)1350 (Given - Provider: Silvana Echeverria RN) 50 [...]
Routine documented in this encounter Care Teams Spinning Supervisor Relationship Specialty Start Date End Date None PCP - General 05/31/19 02/17/21 None documented as of this encounter
--- OUTSIDE RECORDS SUMMARY | 2022-02-11 16:55 | XMS_ITS | Encounter Summary ---
:1965 Author Organization [facility] [place] [address] Care Team Providers Name Role Phone Sejal Davis APRN Primary Care Provider Encounter Details Date Type Department Care Team Description 12/24/2015 Laboratory Lab 3L Edyta Type 2 diabetes , controlled, with neuropathy; Appointment [facility] Hypothyro idism, unspecified type; [facility] Vitamin D deficiency; [facility] [place] [address] Social History Tobacco Use Types Packs/Day Years [...] Name Priority Date/Time Associated Diagnosis Comme nts VITAMIN D, Routine 12/24/2015 9:49 AM Type 2 diabetes, Resul ts for this 25-HYDROXY EDT controlled, with procedure a re in neuropathy the results Hypothyroidism, section. unspecified type Vitamin D defici ency Hyperuricemia URIC ACID Routine 12/24/2015 9:49 AM Type 2 diabetes, Resul ts for this EDT controlled, with procedure a re in neuropathy the results Hypothyroidism, section. unspecified type Vitamin D defici ency Hyperuricemia TSH Routine 12/24/2015 9:49 AM Type 2 diabetes, Resul ts for this EDT controlled, with procedure a re in neuropathy the results Hypothyroidism, section. unspecified type Vitamin D defici ency Hyperuricemia HEMOGLOBIN A1C Routine 12/24/2015 9:49 AM Type 2 diabetes, Res ults for this EDT controlled, with procedure a re in neuropathy the results Hypothyroidism, section. unspecified type Vitamin D defici ency Hyperuricemia documented in this encounter Results (ABNORMAL) VIT D Total Evaluation (12/24/2015 9:49 AM EDT) P athologist Signature 25-OH Vit D 29 (L) 30 - 100 [facility] Total ng/mL [facility] Comment: Deficient <10 ng/mL Insufficient 10 to 29 ng/mL Sufficient 30 to 100 ng/mL Potential Intoxication >100 ng/mL According to the [place] National Osteoporosi s Foundation, Vitamin D concentrations >30 ng/mL are sufficient to protect bone health. ??The National Kidney Foundation has similarly stated that pat ients with Vitamin D concentrations <30ng/mL should be considered to be insu fficient or deficient. http://numberFire/DHnatlkidneyfoundat ion http://[employer]Fire/DHMCVitD The [employer] Vitamin D Immunoassay detec [...] Organization Address City/State/[place] [address] (ABNORMAL) Uric acid (12/24/2015 9:49 AM EDT) P athologist Signature Uric Acid 8.2 (H) 2.5 - 6.5 [facility] mg/dL [facility] Specimen Anatomical Collection Method Collection Time Receive d Time (Source) Location / / Volume Laterality Blood specimen 12/24/2015 9:49 AM 016 9:54 (specimen) EDT AM EDT Resulting Agency Comment Spec In Lab Raj Alves MD CHEMISTRY ORDERABLES Performing Organization Address City/[facility]/ZIP Code Phon e Number [address] TSH (12/24/2015 9:49 AM EDT) P athologist Signature TSH 1.11 0.27 - 4.20 [facility] mcIU/mL [facility] Specimen Anatomical Collection Method Collection Time Receive d Time (Source) Location / / Volume Laterality Blood specimen 12/24/2015 9:49 AM 016 9:54 (specimen) EDT AM EDT Resulting Agency Comment Spec In Lab Raj Alves MD CHEMISTRY ORDERABLES Performing Organization Address City/[facility]/[place] [address] (ABNORMAL) Hemoglobin A1c (12/24/2015 9:49 AM EDT) Analysis Performed At Patho logist Time Signature Hemoglobin A1C 8.3 (H) 4.3 - 5.6 [facility] Comment: Reference Range: 4.3 - [...] Mellitus, Diabetes Care 2013; 36: Suppl. 1, S67-06 Est Avg Gluc 192 mg/dL [facility] Comment: eAG equivalents for HbA1c percentages: HbA1c(%) ?eAG(mg/dL) 6.0 ?126 6.5 ?140 7.0 ?154 7.5 ?169 8.0 ?183 8.5 ?197 9.0 ?212 9.5 ?226 10.0 ? 240 Limitations: The eAG calculation has not been validated on women, individuals below 18 years old and above 70 years old, and individuals with hemoglobinopathies. Additional resources are available on [place] website: http://numberFire/Horizon Studiosadacalc Bret RIVER, Heike J, Promise R, et al. ??Tr anslating the A1C assay into estimated average glucose values. ??Diabetes Care 2008:31(8):9574-0842. Specimen Anatomical Collection Method Collection Time Receive d Time (Source) Location / / Volume Laterality Blood specimen 12/24/2015 9:49 AM 016 9:54 (specimen) EDT AM EDT Resulting Agency Comment Spec In Lab Raj Alves MD CHEMISTRY ORDERABLES Performing Organization Address City/State/[place] [address] documented in this encounter Visit Diagnoses Diagnosis Type 2 diabetes, controlled, with neurop athy Type II or unspecified type diabetes jarvis litus with neurological manifestations, not stated as uncontrolled Hypothyroidism, unspecified type Vitamin D deficiency Unspecified vitamin D deficiency Hyperuricemia Other abnormal blood chemistry documented in this encounter Care Teams Animal Care Technician Relationship Specialty Start Date End Date Sejal Davis APRN PCP - General 08/10/14 05/30/19 [address] [place] [address] documented as of this encounter
--- OUTSIDE RECORDS SUMMARY | 2022-02-11 16:55 | XMS_ITS | Clinical Summary ---
:1965 Author Organization [facility] Address [address] [place] [address] Care Team Providers Name Role Phone Unknown, Provider Primary Care Provider Social History Tobacco Use Types Packs/Day Years Used Date Never Assessed Sex Assigned at Date Recorded Not on file Plan of Treatment Not on file Care Teams Package Delivery Room Service Runner Relationship Specialty Start Date End Date Unknown, Provider, PCP - General 03/27/11
--- OUTSIDE RECORDS SUMMARY | 2022-02-11 16:55 | XMS_ITS | Encounter Summary ---
:1965 Author Organization [facility] Address [address] [place] [address] Care Team Providers Name Role Phone Unknown, Provider Primary Care Provider Encounter Details Date Type Department Care Team Description 03/23/2018 Historical Results [facility] Jen Lezama, Only [facility] [place] us CORRECTIONAL GUARD [address] [phone] [place] [address] Social History Tobacco Use Types Packs/Day Years Used Date Never Assessed Sex Assigned at Date Recorded Not on file documented as of this encounter Plan of Treatment Not on filedocumented as of this encounter Procedures Procedure Name Priority Date/Time Associated Diagnosis Comme nts MICROALBUMIN, URINE Routine 03/23/2018 10:15 Resu lts for this EDT procedure are i n the results section. URINE Routine 03/23/2018 10:15 Results for this [id number] EDT procedur e are in NE RATIO (ACR) the results section. documented in this encounter Results MICROALBUMIN, URINE (03/23/2018 10:15 EDT) Albumin, Urine <0.06 <1.7 mg/dL [facility] Lab Urine Albumin TNPComment: Unable ug/mg [facility] to Creatinine Ratio to calculate ug/mg [facility] Crea result. Creatinine, Urine 169.90 mg/dL [facility] Specimen Performing Organization Address City/State/ZIP Code Phon e Number [facility] [address] [place], [place] [id number] [place] [address] LAB ALBUMIN, URINE (03/23/2018 10:15 EDT) Albumin, Urine <0.06 <1.7 mg/dL [facility] Lab Urine Albumin TNPComment: Unable ug/mg [facility] to Creatinine Ratio to calculate ug/mg [facility] Crea result. Creatinine, Urine 169.90 mg/dL [facility] Specimen Performing Organization Address City/State/ZIP Code Phon e Number [facility] [address] LAB documented in this encounter Visit Diagnoses Not on filedocumented in this encounter Care Teams Sanitary Engineering Teacher Relationship Specialty Start Date End Date Unknown, Provider, PCP - General 03/27/11 documented as of this encounter
--- OUTSIDE RECORDS SUMMARY | 2022-02-11 16:55 | XMS_ITS | Encounter Summary ---
:1965 [place] [address] Care Team Providers Name Role Phone Beth Golden MD Primary Care Provider Reason for Visit Reason Comments Medication Refill Encounter Details Date Type Department Care Team Description 10/13/2013 Refill Endocrinology at [facility] Raj Yancey MD [facility] [place] [address] ENDOCRINOLOGY DEPT. [phone] [place] [address] (Wo rk) Social History Tobacco Use Types [...] filedocumented in this encounter Care Teams Senior Staff Accountant Relationship Specialty Start Date End Date Beth Golden MD PCP - General 06/25/10 08/09/14 [address] [place], [place] [id number] documented as of this encounter
--- OUTSIDE RECORDS SUMMARY | 2022-02-11 16:55 | XMS_ITS | Encounter Summary ---
:1965 Author Organization [facility] Address [address] [place] [address] Care Team Providers Name Role Phone Sejal Davis APRN Primary Care Provider Encounter Details Date Type Department Care Team Description 04/20/2019 Ancillary Procedure Radiology at [facility] Annamarie Jennings [address] [place] [address] [address] [phone] NEUROSURGERY[place] [address] Social History Tobacco Use Types [...] Associated Diagnosis Comme nts FILM LIBRARY Routine 04/20/2019 12:00 AM Results for this STORAGE ONLY MR EDT procedure ar e in SPINE the results section. documented in this encounter Results Film Library- Storage Only MR Spine (04/20/2019 12:00 AM EDT) Specimen (Source) Anatomical Location Collection Method / Collectio n Time Received Time / Laterality Volume Narrative RAD - 05/03/2019 4:12 PM EDT This exam is auto-finalizing. It's purpo se is for storage only. Annamarie Jennings MD IMG FILM LIBRARY ORDERABLES Performing Organization Address City/State/ZIP Code Phon e Number [place], [place] documented in this encounter Visit Diagnoses Not on filedocumented in this encounter Care Teams Water Attendant Relationship Specialty Start Date End Date Sejal Davis APRN PCP - General 08/10/14 05/30/19 [address] [place] [address] documented as of this encounter
--- OUTSIDE RECORDS SUMMARY | 2022-02-11 16:55 | XMS_ITS | Encounter Summary ---
:1965 Author Organization [facility] [place] [address] Care Team Providers Name Role Phone None [...] Expiration Date Visits Requ ested Visits Authorized [id number] 1 1 Encounter Details Date Type Department Care Team Description 06/02/2019 Anesthesia Event Operating Room Doris Cleaning, CONTRACT LOADER [address] [place] [address] Lionel Gilliland, CONTRACT LOADER [address] [place] [address] [address] [place] [address] Anesthesia Record Procedure Summary Procedure Name Responsible Anesthesia Start Anesthesia Stop Anesthesiologist Time Time ARTHRODESIS, POST. Nehemias Vickers CRNA 06/02/19 1335 06/02 1616 LUMBAR, SINGLE INTERSPACE (VU 22.09) (N/A Spine Lumbar) Events Date Time Event Comment 06/02/2019 1308 1335 AN Verify 1335 Start 1337 An Start Data 1341 An Induction 1344 An Intubation 1345 Anesthesia Ready 1611 Extubation/LMA Out 1611 an stop data 1615 Recovery or ICU Handoff Patient care was transferred to the destination unit staff after review of the patient's medica l history, current anesthetic/surgi sangita status and plan, according to the Provider Handoff Checklist. 1616 Stop Name Total Midazolam 2 mg fentaNYL 100 mcg IV Lidocaine 50 mg Propofol 200 mg Rocuronium 50 mg Dexamethasone 10 mg ePHEDrine 10 mg ceFAZolin 2 g Lactated Ringers 1,000 mL Agents Name O2 Air N2O Sevoflurane (et) Blood No blood administrations on file. Lines, Drains, and Airways Type Details Placement Removal Incision 06/02/19; 1355; lumbar 06/02/19 1355 by Alli, spine; vertical Brielle Jc, RN PIV 06/02/19; 1216; median 06/02/19 1216 by Jay, 06/03/19 1735 by cubital vein (antecubital TESHA Guy, TESHA Morelos), left; [id number] catheter system; 20 gauge; distraction, tolerated well; 06/03/19; 1735 ETT Mask Ventilation: Easy (1); 06/02/19 1344 by Jaja stahl, 06/02/19 1611 by ETT Type: Cuffed, Oral; ETT CARRIE Alan Matthew D, CARRIE Size: 7 mm; Mac Blade: 3; Notes: Asleep, Pre-O2, Stylette; Attempts: 1; Laryngoscopy Grade: 1; ETT Placement Verified By: Auscultation, Capnometry, Visual; Secured at Teeth: 22 cm; Inserted by: CARRIE Brown PIV 06/02/19; 1354; metacarpal 06/02/19 1354 by Derek or, 06/03/19 1735 by vein (top of hand), left; CARRIE Alan Abigail G, RN [id number] catheter system; 20 gauge; CARRIE Brown; metacarpal vein (top of hand), left; 06/03/19; 1732 documented in this encounter Social History Tobacco Use Types Packs/Day Years [...] on file documented as of this encounter OR Notes Anesthesia Postprocedure Evaluation - Nehemias Vickers CRNA - 06/02/2019 4:17 PM EDT Department of Anesthesiology Post-procedure Note Patient: Karoline Moseley Procedure Summary Date: 06/02/19 Room / Location: [facility] OR MAIN OR Anesthesia Start: 1335 Anesthesia Stop: 1616 Procedures: @ARTHRODESIS, POST. LUMBAR, SINGLE INTERSPACE (WRVU 22.09) (N/A Spine Lumbar) POSTERIOR SPINAL NON-SEGMENTAL INST.(ONE SPACE) (WRVU 12.52) (N/A Spine Lumbar) INSERTION INTERBODY BIOMECH DEV TO INTERVEBRAL DISC SPACE, EA INTERSPACE (WRVU 4.25) (N/A Spine Lumbar) AUTOGRAFT FOR SPINE SURGERY ONLY, SAME INCISION (WRVU *) (N/A Spine Lumbar) MODIFIER MEDTRONIC - SOLERA (N/A Spine Lumbar) MODIFIER K2 MEDICAL - MOJAVE (N/A Spine Lumbar) MODIFIER MEDTRONIC - NAVIGATION / STEALTH (N/A Spine Lumbar) Diagnosis: (STENOSIS WITH CLAUDICATION) Surgeon: Annamarie Jennings MD Responsible Provider: Nehemias Vickers CRNA Anesthesia Type: general ASA Status: 3 All Anesthesia Providers: CARRIE Independent: Nehemias Vickers CRNA; Lionel Brown CRNA Vitals Value Taken Time BP Temp Pulse Resp SpO2 Pain Level Patient Location: PACU Level of Consciousness: Conscious but Sleepy Pain Management: Satisfactory Analgesia PONV: None Cardiovascular Status: At Baseline Respiratory Status: Supplemental O2 (NC or FM) Postoperative Fluid Status: Intravascular EUvolemia Possible Anesthetic Complications: NONE apparent at time of evaluation Final Primary Anesthesia Type: General (The anesthetic type performed was the same as planned.) Comments: vss report and care to RN Anesthesia Preprocedure Evaluation - Lionel Brown CRNA - 06/02/2019 1:08 PM EDT Pre-Anesthesia Evaluation for: Karoline Moseley a 54 y.o. female. Procedure(s): @ARTHRODESIS, POST. LUMBAR, SINGLE INTERSPACE (WRVU 22.09) POSTERIOR SPINAL NON-SEGMENTAL INST.(ONE SPACE) (WRVU 12.52) INSERTION INTERBODY BIOMECH DEV TO INTERVEBRAL DISC SPACE, EA INTERSPACE (WRVU 4.25) AUTOGRAFT FOR SPINE SURGERY ONLY, SAME INCISION (WRVU *) MODIFIER MEDTRONIC - SOLERA MODIFIER K2 MEDICAL - MOJAVE MODIFIER MEDTRONIC - NAVIGATION / STEALTH Patient Active Problem List Diagnosis ??? Hyperuricemia ??? Vitamin D deficiency with chronic fatigue and fibromyalgia ??? Hypothyroidism, acquired, autoimmune ??? Diabetes mellitus type II peripheral neuropathy -well controlled on metformin 1000 mg bid and Lyrica 75 mg tid -07/11: A1c 6.6% (was 6.4% before)->6.7% (11/10)->6.2 (02/14/10)...on higher dose of metformin (11/14/09) 08/12/10: A1c 6.3% ??? PCOS (polycystic ovarian syndrome) -oily skin, acne, hirsutism, off BCPs 6 months 11/14/09: normal DHEAS 94, testosterone 11, free Testos 1.1, cortisol 7.0, ACTH 14 ??? Pseudoclaudication syndrome ??? Asthma ex-tobacco use ??? Fibromyalgia depression ??? HTN (hypertension) high TG, obesity, metabolic syndrome 09/11/08: TG 215, TC 185, LDL 77, HDL 67 ??? IBS (irritable bowel syndrome) food intolerance ??? 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 02/14/10: TSH 2.36->3.05 (06/25/10)-> 2.65 (08/12/10) Past Medical History: Diagnosis Date ??? Asthma ALLERGY AMD ILLNESS INDUCED ??? Autoimmune disorder 1971 ??? Bowel disease IBS ??? CPAP (continuous positive airway pressure) dependence NO LONGER USES FEELS SHE IS RESOLVED SINCE WEIGHT LOSS 05/31/19 ??? Depression ??? Diabetes ??? Endometriosis ??? Fibromyalgia ??? High blood pressure ??? HTN (hypertension) ??? Hypothyroid 08/03/2003 ??? Hypothyroidism, acquired, autoimmune 02/21/2011 ??? IBS (irritable bowel syndrome) ??? Lyme disease 1988 ??? Mental health problem DEPRESSION, PTSD, SEXUALLY AND PHYSICAL ABUSE ??? Obstructive sleep apnea ??? JAD (obstructive sleep apnea) ??? PCOS (polycystic ovarian syndrome) ??? Rupture of bowel 2017 HEALED WITH MEDICAL TREATMENT ??? Type II or unspecified type diabetes mellitus with neurological manifestations, not stated as uncontrolled(250.60) 02/21/2011 controlled with diet, metformin Past Surgical History: Procedure Laterality Date ??? BREAST REDUCTION SURGERY 2003 ??? CARPAL TUNNEL RELEASE [facility] Procedure Date: Jan 2010 ??? CHOLECYSTECTOMY, LAPAROSCOPIC ??? OVARY REMOVAL L-sided; for cyst, endometriosis & pain ??? PELVIC LAPAROSCOPY for endometriosis; 1985 & 2005 ??? PRO COLONOSCOPY, BIOPSY 02/14/2011 COLONOSCOPY FLEXIBLE, WITH BX performed by Ryanne ZARATE at [facility] ENDOSCOPY ??? PRO COLONOSCOPY, REMV LESN, SNARE 02/14/2011 COLONOSCOPY, POLYPECTOMY, REMOVAL LESION BY SNARE performed by Ryanne ZARATE at [facility] ENDOSCOPY ??? TONSILLECTOMY ??? TUBAL LIGATION 2002 Social History Tobacco Use ??? Smoking status: Former Smoker Packs/day: 1.50 Years: 10.00 Pack years: 15.00 Types: Cigarettes Last attempt to quit: 02/11/1986 Years since quittin.3 ??? Smokeless tobacco: Never Used Substance Use Topics ??? Alcohol use: No Comment: 1-2 year Social History Substance and Sexual Activity Drug Use Not Currently Allergies Allergen Reactions ??? Dairy Aid [Lactase] Anaphylaxis INCREASED JOINT PAIN, INCREADED DIARRHEA ??? Levemir [Insulin Detemir] FLU SYMPTOMS, HEADACHES, INABILITY TO WALK ??? Metformin FLU SYMPTOMS, HEADACHES, INABILITY TO WORK ??? Wasp Venom Anaphylaxis HORNETS, BREATHING DIFFICULTY ??? [place] Other (See Comments) Pain, IBS, DEPENDS ON IMMUNE STATUS ??? Egg Nausea And Vomiting SOMETIMES CAN RENATE, DEPENDING ON STATUS OF IMMUNE SYSTEM ??? Wheat Other (See Comments) Pain, IBS SYMPTOMS ??? Lisinopril Other (See Comments) MASSIVE HEADACHE ??? Other [Unclassified Drug] MULTIPLE FOOD INTOLERANCES SECONDARY TO AUTOIMMUNE SYSTEM PROBLEMS ALSO INTOLERANCES TO SOAPS, PERFUMES ETC Medications: MAR and/or home medications have been reviewed. Physical Exam: Most Recent Vitals: 06/02/19 1150 BP: 141/79 Pulse: 76 Resp: 18 Temp: 36.2 ??C (97.2 ??F) SpO2: 99% Body mass index is 37.77 kg/m??. Weight: 103 kg (227 lb) Airway Assessment: Mallampati: II TM distance: <3 FB Neck ROM: full Cardiovascular Assessment: Rhythm: regular Rate: normal cardiovascular exam normal Pulmonary Assessment: breath sounds clear to auscultation pulmonary exam normal Dental Assessment: - normal exam Misc Assessment: Patient is wearing No contact(s). IV access: Peripheral line Anesthesia Plan: ASA 3 general, with a(n) intravenous induction Region - Other Informed Consent: Anesthetic plan and risks discussed with patient. PAT Clinic Note documented in this encounter Plan of Treatment Not on filedocumented as of this encounter Visit Diagnoses Not on filedocumented in this encounter Administered Medications Inactive Administered Medications - up to 3 most recent administrations Medication Order MAR Action Action Date Dose Rate Site ceFAZolin (Ancef) injection Given 06/02/2019 1:45 PM EDT 2 g PRN, Starting on Bonny 06/02/19 at 1345, Until Bonny 06/02/19 at 1616, Anesthesia Intra-op, Routine dexamethasone (DECADRON) injection Given 06/02/2019 1:41 PM EDT 10 mg PRN, Starting on Bonny 06/02/19 at 1341, Until Bonny 06/02/19 at 1616, Anesthesia Intra-op, Routine ePHEDrine injection Given 06/02/2019 2:17 PM EDT 10 mg PRN, Starting on Bonny 06/02/19 at 1417, Until Bonny 06/02/19 at 1616, Anesthesia Intra-op, Routine fentaNYL 50 mcg/mL multi-dose injection Given 06/02/2019 3:25 PM EDT 50 mcg PRN, Starting on Bonny 06/02/19 at 1341, Until Bonny 06/02/19 at 1616, Anesthesia Intra-op, Routine Given 06/02/2019 1:41 PM EDT 50 mcg lactated ringers infusion New Bag 06/02/2019 2:50 PM EDT CONTINUOUS PRN, Starting on Bonny 06/02/19 at 1335, Until Bonny 06/02/19 at 1616, Anesthesia Intra-op New Bag 06/02/2019 1:35 PM EDT lidocaine (PF) (XYLOCAINE) 100 mg/5 mL (2 %) Given 9 1:41 PM EDT 50 mg injection PRN, Starting on Bonny 06/02/19 at 1341, Until Bonny 06/02/19 at 1616, Anesthesia Intra-op, Routine midazolam (PF) (VERSED) multi-dose injec tion Given 06/02/2019 1:35 PM EDT 2 mg PRN, Starting on Bonny 06/02/19 at 1335, Until Bonny 06/02/19 at 1616, Anesthesia Intra-op, Routine propofol (DIPRIVAN) 10 mg/mL bolus injection Given 1:41 PM EDT 200 mg (Anesthesia) PRN, Starting on Bonny 06/02/19 at 1341, Until Bonny 06/02/19 at 1616, Anesthesia Intra-op rocuronium (ZEMURON) injection Given 06/02/2019 1:41 PM EDT 50 mg PRN, Starting on Bonny 06/02/19 at 1341, Until Bonny 06/02/19 at 1616, Anesthesia Intra-op, Routine documented in this encounter Care Teams Thrill Performer Relationship Specialty Start Date End Date None PCP - General 05/31/19 02/17/21 None documented as of this encounter
--- OUTSIDE RECORDS SUMMARY | 2022-02-11 16:55 | XMS_ITS | Encounter Summary ---
:1965 Author Organization [facility] [place] [address] Care Team Providers Name Role Phone Sejla Davis APRN Primary Care Provider Reason for Visit Reason Onset Date Comments Medication Refill 08/22/2015 Encounter Details Date Type Department Care Team Description 08/22/2015 Refill Endocrinology at [facility] Raj Yancey MD [facility] [place] [address] ENDOCRINOLOGY DEPT. [phone] [place] [id number] (Wo rk) Social History Tobacco Use Types [...] on filedocumented in this encounter Care Teams Systems Support Engineer Relationship Specialty Start Date End Date Sejal Davis APRN PCP - General 08/10/14 05/30/19 [address] [id number] [address] documented as of this encounter
--- OUTSIDE RECORDS SUMMARY | 2022-02-11 16:55 | XMS_ITS | Encounter Summary ---
:1965 Author Organization [facility] Address [address] [place] [address] Care Team Providers Name Role Phone Corinne Golden MD Primary Care Provider Reason for Visit Reason Comments Hypothyroidism Diabetes Encounter Details Date Type Department Care Team Description 09/19/2013 Office Visit Endocrinology at [facility] Elaine Alves, Unspecified hypothyroidism; [facility] Raj Burroughs MD Hyperuricemia; Drive [facility] Unspecified vitamin D defici ency; [place] [address] CENTER Type II or unspecified type diabetes jarvis litus without mention of complication, not stated as uncontrolled [phone] ENDOCRINOLOGY DEPT. [place], [place] [address] Social History Tobacco Use Types Packs/Day Years [...] Sign Reading Time Taken Comments Blood Pressure 146/91 09/19/2013 1:24 PM EST Pulse 80 09/19/2013 1:24 PM EST Temperature - - Respiratory Rate - - Oxygen Saturation - - Inhaled Oxygen - - Concentration Weight 129.7 kg (286 lb) 09/19/2013 1:24 PM with shoes ( refused EST to remove shoes) Height 165.1 cm (5' 5) 09/19/2013 1:24 PM EST Body Mass Index 47.59 09/19/2013 1:24 PM EST documented in this encounter Progress Notes Raj Alves MD - 09/19/2013 1:43 PM EST Endocrine Clinic Name: Karoline Moseley : 1965 PCP: CORINNE GOLDEN MD Provided by: Raj Alves MD, PhD, FACE Date: 09/19/2013 Reason for visit: Endocrine visit for the [...] fatigue and fibromyalgia 268.9 Karoline Moseley is doing well during the interim, started to feel better after she used baking soda 1teaspoon tid for urine alkalinization of her hyperuricemia. Still having fibromyalgia as well as neuropathy with electrical pain in her ext but felt better after she used baking soda tid. She noted more pain when she tried to reduce from tid to qd and will plan to increase baking soda to tid again soon. She noted better mood with less pain overall. She could not tolerate lots of medications even a lowered dose of metformin, Lyrica, allopurinol, estradiol, so she stopped all meds except for LT4 137 mcg qd, vitamin D 50,000 iu weekly and MVI (plus pain med p.r.n). Her weight has been stable (down 1 lb since last March) and not using amphetamine any more which isgood for her. BP is now better at 146/91 (was high 159/100 last visit in March). No palpitations, CP, SOB, GI issues, changes of skin or hairs and no heat or cold intolerance. No DOWD or visual changes.Still having no periods and her mood is better overall. ROS: Please see HPI, all others negative [...] to Visit Medication Sig Dispense Refill ??? hydroCODone-acetaminophen (VICODIN) 5-500 mg per tablet Take 1 tablet by mouth every 6 hours as needed. ??? NEBULIZER ACCESSORIES (NEBULIZER MISC) by [facility]Non-Drug; Combo Route) route. ??? MULTIVITAMIN ORAL Take by mouth. ??? OXYcodone 10 mg Tab Take 10 mg by mouth every 4 hours. ??? levothyroxine (LEVOTHROID) 137 mcg tablet Take 137 mcg by mouth daily. 90 tablet 4 ??? traMADol (ULTRAM) 50 mg tablet Take 50 mg by mouth every 6 hours as needed. ??? ergocalciferol (VITAMIN D) 50,000 unit capsule Take 1 capsule by mouth once a week. 13 capsule 4 ??? [DISCONTINUED] dextroamphetamine-amphetamine (ADDERALL) 10 mg tablet Take 1 tablet by mouth daily. 30 tablet 0 ??? allopurinol (ZYLOPRIM) 100 mg tablet Take 1 tablet by mouth daily. 90 tablet 4 ??? ALBUTEROL INHL Inhale into the lungs as needed. Allergies Allergen Reactions ??? Callicoon Other (See Comments) pain ??? Wheat Other (See Comments) Pain History Social History ??? Marital Status: Spouse Name: N/A Number of Children: N/A ??? Years of Education: N/A Social History Main Topics ??? Smoking status: Former Smoker -- 1.5 packs/day for 10 years Types: Cigarettes Quit date: 02/11/1986 ??? Smokeless tobacco: Never Used ??? Alcohol Use: No Comment: 1-2 year ??? Drug Use: 7 per week Special: Pain Pills (oxycontin, oxycodone, morphine, etc) ??? Sexually Active: Not Currently -- Male partner(s) Control/ Protection: Surgical, Abstinence Comment: Last sexual encounter years ago Other Topics Concern ??? None Social History Narrative ??? None FAMILY HISTORY Family History Problem Relation Age of Onset ??? Colorectal Cancer Mother 58 of colon ca ??? Bipolar Disorder Mother Physical exam BP 146/91 Pulse 80 Ht 165.1 cm (5' 5) Wt 129.729 kg (286 lb) BMI 47.59 kg/m2 Appearance: Obese, pleasant, NAD, here with her daughter HEENT: PERRLA, EOMI, no lid lag or exophthalmos Neck: supple, no goiter or lymphadenopathy Chest: CTA bilaterally, no wheeze or crackles Heart: normal S1, S2, no murmur Abd: benign, ND, NT Ext: normal skin texture and temperature no pitting edema Neuro: no weakness, normal reflexes Assessment: Reasonable control of hypothyroid due to Adam's thyroiditis on LT4 replacement with good TSH 1.13 last March and her weight has been stable over the past 6 months without taking any wt loss medication but diet and additional baking soda 1tsp tid for urine alkalinization for hyperuricemia (which seems to help her body aches and depressed mood from fibromyalgia and neuropathy). She also has PCOS,mild diabetes type 2 with metabolic syndrome (obesity, HTN, high TG and high uric acid) but lately could not tolerate metformin any more even at a low dose and had to quit it during the interim causinghigher A1c at 7.0% last March (pending for labs today). She has improvement of vitamin D deficiency after taking vitamin-D 50,000 iu weekly replacement. She is still having no periods and stated that she had severe post- hemorrhage after her 2nd delivery in 2002 but had normal breast feeding for 6 mo. Initial labs at our clinic on 11/14/09 showed normal cortisol, ACTH, FT4, PRL, FSH without evidence of hypopituitarism and lab last March showed that she is getting into stacey- menopause with higher FSH at 27.7 and low estradiol at 21. Plan: 1. Medication: Pt will cont to take LT4 137 mcg qd and will check TSH today To cont vitamin D 50,000 iu weekly to keep the level in mid range Info on possible side effects and how to take the medication properly was discussed at visit today. To continue all other medications, low fat/controlled car and low uric diet & exercise as tolerated to keep weight down or at least stable. 2. Lab: Already checked lab today and will let pt know all test results soon for TSH, 25-vitamin D, A1c, uric acid, and BMP). 3. RTC: Next visit in 6 months [...] care. Raj Alves MD, PhD, FACE CC: CORINNE GOLDEN MD documented in this encounter Miscellaneous Notes Addendum Note - Haleigh Ramírez - 09/19/2013 2:55 PM EST Addended by: HALEIGH RAMÍREZ on: 09/19/2013 02:55 PM Modules accepted: Orders documented in this encounter Plan of Treatment Not on filedocumented as of this encounter Procedures Procedure Name Priority Date/Time Associated Diagnosis Comme nts VITAMIN D, 25-HYDROXY Routine 09/19/2013 3:00 Unspecified kareem min D Results for this PM EST deficiency procedure are i n the results section. URIC ACID Routine 09/19/2013 3:00 Hyperuricemia Results for this PM EST procedure are i n the results section. TSH STAT 09/19/2013 3:00 Unspecified Results for this PM EST hypothyroidism procedure are in the results section. HEMOGLOBIN A1C Routine 09/19/2013 3:00 Type II or unspecified Results for this PM EST type diabetes mellitus proce dure are in without mention of the resul ts complication, not section. stated as uncontrolled COMPREHENSIVE STAT 09/19/2013 3:00 Results for this METABOLIC PANEL PM EST procedure ar e in (NON-FASTING) the results section. documented in this encounter Results (ABNORMAL) Comprehensive metabolic panel (non-fasting) (09/19/2013 3:00 PM EST) P athologist Signature Glucose Lvl 237 (H) 60 - 199 CERNER mg/dL MILLENNIUM Comment: Diabetes: >=200 mg/dL plus symp toms BUN 13 8 - 18 mg/dL CERNER MILLENNIUM Creatinine 1.06 0.70 - 1.20 mg/dL CERNER MILL ENNIUM Comment: Please note that the pediatric reference intervals supplied above were not validated at [facility]. Results from pediatri c patients should be interpreted in conjunction to the patient's age, height and muscle mass. Sodium 143 135 - 145 mmol/L CERNER JEFF NIUM Potassium 3.6 3.5 - 5.0 mmol/L CERNER JEFF NIUM Comment: Please note: ??Patients with WBC >100,00 0 may have falsely elevated Potassium levels. ??For accurate Potassium quantif ication in these patients send serum separator tube (gold top) for subsequent determinations. ??Contact the Clinical Chemistry Laboratory if there are any qu estions. Chloride 103 98 - 107 mmol/L CERNER MILLENN IUM CO2 29 22 - 31 mmol/L CERNER MILLENNI UM Anion Gap 11 5 - 15 mmol/L CERNER MILLENNIU M Calcium 9.5 8.5 - 10.5 mg/dL CERNER JEFF NIUM Total Protein 7.4 6.4 - 8.3 gm/dL CERNER MIL LENNIUM Albumin 4.1 3.2 - 5.2 gm/dL CERNER MILLENN IUM AST 30 0 - 30 unit/L CERNER MILLENNIU M ALT 32 (H) 0 - 30 unit/L CERNER MILLENNIU M Alk Phos 95 40 - 104 unit/L CERNER MILLENN IUM Total Bilirubin 0.7 0.2 - 1.3 mg/dL CERNER M ILLENNIUM Bili, Direct 0.1 0.0 - 0.3 mg/dL CERNER MILL ENNIUM Estimated GFR 55 (L) >=60 CERNER MILLENNIU M Comment: This [...] the following links into your internet browser. http://www.nkdep.nih.gov/lab-evaluation. shtml http://www.kidney.org/professionals/ Specimen Anatomical Collection Method Collection Time Receive d Time (Source) Location / / Volume Laterality Blood specimen 09/19/2013 3:00 PM 014 3:12 (specimen) EST PM EST Resulting Agency Comment Spec In Lab Raj Alves MD CHEMISTRY ORDERABLES Performing Organization Address City/State/Z[place] [address] [facility] [employer] (ABNORMAL) Hemoglobin A1c (09/19/2013 3:00 PM EST) Analysis Performed At [facility] Time Signature Hemoglobin A1C 6.9 (H) <=5.6 % [facility] [employer] Comment: As of 2013 the methodology for Hem oglobin A1c testing has changed. This change is accompanied by a new interpret javier statement and flags. Please review the new interpretive statement and conta ct Dr. Taylor or Dr. Long with questions. Reference Range: 4.3 ? 5.6% 5.7 ? 6.4% - Increased Risk of Developing Diabetes Mellitus 6.5% - Consistent with diagnosis of Diab etes Mellitus In the absence of hyperglycemia (i.e. pl asma glucose > 200 mg/dL) or classic symptoms of hyperglycemia a repeat measu rement of HbA1c should be performed on a separate sample to confirm the diagnos is. Diagnosis and Classification of Diabetes Mellitus, Diabetes Care 2013; 36: Suppl. 1, S67-74 Est Avg Gluc 151 mg/dL [facility] [employer] Comment: eAG equivalents for HbA1c percentages: HbA1c(%) ?eAG(mg/dL) 6.0 ?126 6.5 ?140 7.0 ?154 7.5 ?169 8.0 ?183 8.5 ?197 9.0 ?212 9.5 ?226 10.0 ? 240 Limitations: The eAG calculation has not been validated on women, individuals below 18 years old and above 70 years old, and individuals with hemoglobinopathies. Additional resources are available on [facility] ADA website: ??http://professional.diabetes.org/gluc osecalculator.aspx Bret RIVER, Heike Jeffries, Promise R, et al. ??Tr anslating the A1C assay into estimated average glucose values. ??Diabetes Care 2008:31(8):4541-2420. Specimen Anatomical Collection Method Collection Time Receive d Time (Source) Location / / Volume Laterality Blood specimen 09/19/2013 3:00 PM 014 3:12 (specimen) EST PM EST Resulting Agency Comment Spec In Lab Raj Alves MD CHEMISTRY ORDERABLES Performing Organization Address City/State/[place] [address] [facility] ([facility]NORMAL) Uric acid (09/19/2013 3:00 PM EST) P athologist Signature Uric Acid 8.3 (H) 2.5 - 6.5 CERNER mg/dL [facility] Specimen Anatomical Collection Method Collection Time Receive d Time (Source) Location / / Volume Laterality Blood specimen 09/19/2013 3:00 PM 014 3:12 (specimen) EST PM EST Resulting Agency Comment Spec In Lab Raj Alves MD CHEMISTRY ORDERABLES Performing Organization Address City/State/ZIP [place] [address] [facility] VIT D Total Evaluation (09/19/2013 3:00 PM EST) athologist Signature 25-OH Vit D 45 30 - 100 CERNER Total ng/mL [facility] Comment: Deficient <10 ng/mL Insufficient 10 to 29 ng/mL Sufficient 30 to 100 ng/mL Potential Intoxication >100 ng/mL According to the US National Osteoporosi s Foundation, Vitamin D concentrations >30 ng/mL are sufficient to protect bone health. ??The National Kidney Foundation has similarly stated that pat ients with Vitamin D concentrations <30ng/mL should be considered to be insu fficient or deficient. http://www.kidney.org/professionals/KDOQ I/guidelines_bone/Guide7.htm http://www.nof.org/professionals/clinica l-guidelines The IDS iSYS Vitamin D Immunoassay detec ts both 25-OH Vitamin D2 and 25-OH Vitamin D3, but only a total Vitamin D c oncentration is reported. Specimen Anatomical Collection Method Collection Time Receive d Time (Source) Location / / Volume Laterality Blood specimen 09/19/2013 3:00 PM 014 3:12 (specimen) EST PM EST Resulting Agency Comment Spec In Lab Raj Alves MD CHEMISTRY ORDERABLES Performing Organization Address City/[facility]/ZIP Code Phon e Number [facility] [address] [facility] TSH (09/19/2013 3:00 PM EST) athologist Signature TSH 3.11 0.27 - 4.20 CERNER mcIU/mL [facility] Specimen Anatomical Collection Method Collection Time Receive d Time (Source) Location / / Volume Laterality Blood specimen 09/19/2013 3:00 PM 014 3:12 (specimen) EST PM EST Resulting Agency Comment Spec In Lab Raj Alves MD CHEMISTRY ORDERABLES Performing Organization Address City/[facility]/ZIP [place] [address] [facility] documented in this encounter Visit Diagnoses Diagnosis Unspecified hypothyroidism Hyperuricemia Other abnormal blood chemistry Unspecified vitamin D deficiency Type II or unspecified type diabetes jarvis litus without mention of complication, not stated as uncontrolled documented in this encounter Care Teams Clinical Informatics Spec Relationship Specialty Start Date End Date Corinne Golden MD PCP - General 06/25/10 08/09/14 [address] [place] [address] documented as of this encounter
--- OUTSIDE RECORDS SUMMARY | 2022-02-11 16:55 | XMS_ITS | Encounter Summary ---
:1965 Author Organization [facility] [place] [address] Care Team Providers Name Role Phone None Primary Care Provider Unavailable Encounter Details Date Type Department Care Team Description 05/31/2019 External Results Pre-Admission Testing at [facility] [address] [facility] [place] [address] Social History Tobacco Use Types Packs/Day [...] Name Priority Date/Time Associated Diagnosis Comme nts LAB SCAN Routine 05/25/2019 Results for thi s procedure are in the resu lts section. ECG SCAN Routine 05/25/2019 Results for thi s procedure are in the resu lts section. documented in this encounter Results Scan Doc: Lab (05/25/2019) Narrative This result has an attachment that is no t available. Historical Provider MD FERRARI MGR SCAN EXT ORDR/RSLT Scan Doc: ECG (05/25/2019) Narrative This result has an attachment that is no t available. Historical Provider MD FERRARI MGR SCAN EXT ORDR/RSLT documented in this encounter Visit Diagnoses Not on filedocumented in this encounter Care Teams Fly Winder Relationship Specialty Start Date End Date None PCP - General 05/31/19 02/17/21 None documented as of this encounter
--- OUTSIDE RECORDS SUMMARY | 2022-02-11 16:55 | XMS_ITS | Clinical Summary ---
:1965 Author Organization [facility] [place] [address] Care Team Providers Name Role Phone Anusha Taylor APRN Primary Care Provider Allergies Active Allergy Reactions Severity Noted Date Comments [place] Other (See Comments) Medium Pain, I BS, DEPENDS ON IMMUNE STATUS Lactase Anaphylaxis High 05/31/2019 INCREASED JOINT PAIN, INCREADED DIARR HEA Egg Nausea And Vomiting Medium 05/25/2019 SOMETIME S CAN RENATE, DEPENDING ON ST ATUS OF IMMUNE SYSTEM Insulin Detemir High 05/25/2019 FLU SYMPTOMS , HEADACHES, INABILITY TO WA LK Lisinopril Other (See Comments) 05/31/2019 MASSIVE HEADACHE Metformin High 05/31/2019 FLU SYMPTOMS, H EADACHES, INABILITY TO WO RK Unclassified Drug 05/31/2019 MULTIPLE F OOD INTOLERANCES SECONDARY TO AU TOIMMUNE SYSTEM PROBLEMS ALSO INTOLERANC ES TO SOAPS, PERFUMES ETC Wasp Venom Anaphylaxis High 05/25/2019 HORNETS, BREATH ING DIFFICULTY Wheat Other (See Comments) Medium 02/10/2011 Pain, I BS SYMPTOMS Medications Medication Sig Dispensed Refills Start Date End Date Status ALBUTEROL INHL Inhale 1 ampule 0 02/11/2011 Active into the lungs every 4 hours as needed (WHEEZING). traMADol (ULTRAM) 50 mg Take 50 mg by 0 Active tablet mouth every 6 hours as needed. MULTIVITAMIN ORAL Take 1 tablet by 0 Active mouth daily. montelukast (SINGULAIR) Take 10 mg by 0 02/19/2015 Active 10 mg mouth nightly. TabletIndications: PT Indications: PT TAKES PRN ONLY TAKES PRN ONLY furosemide (LASIX) 20 Take 1 tablet by 180 tablet 3 08/22/2015 Active mg Tablet mouth 2 times daily. Additional Information Patient not taking. Reported on 12/24/2015 atenolol (TENORMIN) 25 mg Take by mouth. 0 Active Tablet EPINEPHrine 0.3 mg/0.3 mL EpiPen 0.3 MG/0.3ML EDEN 0 Active Auto-Injector Active nystatin (MYCOSTATIN) Indications: PT TAKES 0 Active CreamIndications: PT TAKES PRN PRN lancets (FREESTYLE LANCETS) 28 FreeStyle Lancets MISC 0 Active gauge Misc Active ibuprofen (ADVIL;MOTRIN) 800 Take 1 tablet by mouth 0 05/10/2019 Active mg Tablet 3 times daily as needed for Pain. levothyroxine (SYNTHROID) 137 Take 1 tablet by mouth 0 01/27/2019 Active mcg Tablet daily. cholecalciferol, Vitamin D3, TAKE 1 CAPSULE BY MOUTH 2 05/28/2019 Active 50,000 unit Capsule ONCE A WEEK albuterol 90 mcg/actuation HFA Inhale 2 puffs into the 0 Active Aerosol Inhaler lungs every 4 hours as needed for Wheezing. Use with spacer cyclobenzaprine (FLEXERIL) 10 Take 0.5 tablets by 20 tablet 0 06/03/2019 Active mg Tablet mouth 3 times daily as needed for Muscle spasms. 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 02/14/10: TSH 2.36->3.05 (06/25/10)-> 2.6 5 (08/12/10) Asthma Overview: ex-tobacco use Diabetes mellitus type II Overview: peripheral neuropathy -well controlled on metformin 1000 mg bi d and Lyrica 75 mg tid -07/11: A1c 6.6% (was 6.4% before)->6.7% (11/10)->6.2 (02/14/10)...on higher dose of metformin (11/14/09) 08/12/10: A1c 6.3% Fibromyalgia Overview: depression HTN (hypertension) Overview: high TG, obesity, metabolic syndrome 09/11/08: TG 215, TC 185, LDL 77, HDL 67 IBS (irritable bowel syndrome) Overview: food intolerance PCOS (polycystic ovarian syndrome) Overview: -oily skin, acne, hirsutism, off BCPs 6 months 11/14/09: normal DHEAS 94, testosterone 1 1, free Testos 1.1, cortisol 7.0, ACTH 14 Resolved Problems Problem Noted Date Resolved Date Type II or unspecified type diabetes mellitus with 1 09/24/2012 neurological manifestations, not stated as uncontrolled(250.60) Diabetes mellitus 02/11/2011 04/10/2011 Vitamin D deficiency, borderline 11/01/2009 013 Overview: ;) 25vitamin D = 32 (nl 30-80) Family History Medical History Relation Comments Bipolar Disorder Mother Colorectal Cancer Mother of colon ca Relation Status Comments Mother Social History Tobacco Use Types Packs/Day Years [...] Assigned at Date Recorded Not on file Last Filed Vital Signs Vital Sign Reading Time Taken Comments Blood Pressure 118/70 06/03/2019 12:48 PM EDT Pulse 91 06/03/2019 12:48 PM EDT Temperature 37.2 ??C (99 ??F) 06/03/2019 12:48 PM EDT Respiratory Rate 18 06/03/2019 12:48 PM EDT Oxygen Saturation 82% 06/03/2019 12:48 PM pt.placed on NC @ 1 EDT lpm; RN Jenny Adv ised Inhaled Oxygen - - Concentration Weight 103 kg (227 lb) 06/02/2019 6:10 PM EDT Height 165 cm (5' 4.96) 06/02/2019 6:10 PM EDT Body Mass Index 37.82 06/02/2019 6:10 PM EDT Plan of Treatment Health Maintenance Due Date Last Done Comments Covid-19 Vaccine (#1) 1969 Pneumococcal Vaccine: At-Risk 1970 5-64yrs (1 - PCV) DM Opthalmology Exam 1974 HIV screen 1982 Hepatitis C Screening 1982 Tdap adult 1983 Tetanus vaccine 1983 HPV test 1994 PAP Smear 1994 Breast Cancer Share Decision 2004 Needed DM Urine Microalbumin yearly 09/24/2013 09/24/2012 Breast Cancer screening 2014 Zoster vaccine (1 of 2) 2014 DM Creatinine yearly 08/28/2015 08/28/2014, 09/19/2013, 09/24/2012, Additional history exists Colonoscopy 02/15/2016 02/14/2011, 02/14/2011, 02/14/2011 DM Hemoglobin A1c 03/25/2016 12/24/2015, 03/12/2015, 08/28/2014, Additional history exists Lipid Screening 09/24/2017 09/24/2012 Influenza (Flu) vaccine (1 of 1 - 04/03/2022 Influenza standard series) Medical Devices Implanted Type Area Superintendent [employer] Device Shelf Model / Identifier Expiration Serial / Lot Date [employer]ak Titanium Ns 4.75 [facility] ([id number]) (Autoreq) - [id number] IMPLAN TS N/A: [employer] [facility] [id number] / Implanted: Qty: 1 on 06/02/2019 by Annamarie Jennings MD at [facility] Spine [facility] - [employer] / Lumbar Insurance Payer Benefit Plan / Subscriber ID Effective Dates Phone Addre ss Type Group [facility] [id number] 2018-Prese [phone] [address] [place] [address] MEDICAID OR MEDICAID [place] [id number] 2019-Prese [phone] [address] [place] [address] Advance Directives Documents on File Type Date Recorded Patient Product Line Manager Explanati on Advance Directives and Living 10/01/2010 4:20 PM Will Advance Directives and Living 10/01/2010 4:20 PM Will Latest Code Status on File Code Status Date Activated Date Inactivated Comments Full Code 06/02/2019 1:08 PM 06/03/2019 7:50 PM Does patient have capacity to make decision: Yes Care Teams Instructional Aide Relationship Specialty Start Date End Date Anusha Taylor, PATIENT AMBASSADOR PCP - General Family Medicine 02/18/21 [address] [place] [address]
--- OUTSIDE RECORDS SUMMARY | 2022-02-11 16:55 | XMS_ITS | Encounter Summary ---
:1965 Author Organization [facility] Address [address] [place] [address] Care Team Providers Name Role Phone Unavailable Primary Care Provider Unavailable Encounter Details Date Type Department Care Team Description 02/26/2006 Results Only [facility] - Bethany Clarke MD Maple conversion [address] [place] [address] [place] [address] Social History Tobacco Use Types Packs/Day Years Used Date Never Assessed Sex Assigned at Date Recorded Not on file documented as of this encounter Plan of Treatment Not on filedocumented as of this encounter Procedures Procedure Name Priority Date/Time Associated Diagnosis Comme nts SURGICAL PATHOLOGY Routine 02/26/2006 0:00 EDT Re sults for this procedure are i n the results section. documented in this encounter Results SURGICAL PATHOLOGY (02/26/2006 0:00 EDT) Pathology Report: SURGICAL PATHOLOGY REPORT ARTHUR MARTINEZ Reports generated via electronic interface contain jennifer ginal data; LAB however they are lacking the format of the original re port. Caution should be taken when reading/interpreting unfo rmatted reports. Name: ? KAROLINE MOSELEY ? Accession #: ? [id number] ? : ? 1965 (Age: 40) ??F ? Collect Date: ? 02/26/2006 ? Location: ? [facility] ? Receive Date: ? 006 ? Provider: BILL CLARKE MD Copy to: TAY PIPER LEAD PASTOR ? Final Pathologic Diagnosis: A. ?Fallopian tube and ovary, left, salpi dupont-oophorectomy: 1. ?Hemorrhagic corpus luteum cyst. 2. ?Endometriosis cyst. 3. ?Fallopian tube with no specific patho logic features. B. ?Ovarian cyst, right, excision: ? 1. ?? Endometriosis cyst. Document reviewed and electronically signed by: Francisco Myers MD Report ??Date: 03/03/2006 08:28 By the signature above, the attending physician certif ies that he/she has personally conducted a gross and/or microscopic examin ation of the described specimens and rendered or confirmed the above diagnosi s. Specimen(s) Received: A. ?Lt ovary (#1) B. ?Rt ovarian cyst (#2) Clinical History: ? Persistent lt ovarian mass, occasional rt lower quad pain Gross Description: ? Received in formalin labelled Dr petty and left ovary is a cystic left ovary weighing 34.7 grams. ? ?The cystic ovary measures 6.9 x 4.0 x 3.8 cm. ??There is an attached cyst included in the prev ious measurement measuring 4.5 x 2.0 x 2.0 cm. ??In addition there is an attach ed portion of fallopian tube measuring 3.0 cm in length with a diam eter of 0.3 cm. ??The specimen is serially sectioned and the cut surface reveals a dark red hemorrhagic cys t (diameter 2.5 cm) located in the portio of ovary directly attached to th e fallopian tube. ??In addition, the previously james cribed secondary cyst (not attached to the fallopian tube) shows a dark brown fluid and a diameter of 3.0 c m. ??Clay Machine Operator sections are submitted in five cassettes with cassette s (A1) and (A2) representing the cystic ovar y attached to the fall, (A3) longitudinal sections, (A4) and (A5) representing the attached cyst without f allopian tube. Received in formalin sarah d Drown and right ovarian cyst are two fragments of soft tissue measuring 1.8 x 1.0 x 1.2 cm and 0.8 x 0.7 x 0.3 cm. ??The specimen is serially section ed and submitted entirely (B1-3) in three cassettes with cassettes (B2) and (B3) representing the largest fragment. ??(Dr. Jeffrey)/[facility] End of Report Specimen Performing Organization Address City/State/ZIP Code Phon e Number [facility] [address] [place] [address] SERVICES [facility] [address] [place] [address] documented in this encounter Visit Diagnoses Not on filedocumented in this encounter
--- OUTSIDE RECORDS SUMMARY | 2022-02-11 16:55 | XMS_ITS | Encounter Summary ---
:1965 Author Organization [facility] Address [address] [place] [address] Care Team Providers Name Role Phone Unavailable Primary Care Provider Unavailable Encounter Details Date Type Department Care Team Description 12/28/2002 Results Only [facility] - Fernie Schuler MD conversion [address] [place] [id number] Social History Tobacco Use Types Packs/Day Years Used Date Never Assessed Sex Assigned at Date Recorded Not on file documented as of this encounter Plan of Treatment Not on filedocumented as of this encounter Procedures Procedure Name Priority Date/Time Associated Diagnosis Comme nts SURGICAL PATHOLOGY Routine 12/28/2002 0:00 EDT Re sults for this procedure are i n the results section. documented in this encounter Results SURGICAL PATHOLOGY (12/28/2002 0:00 EDT) Pathology Report: SURGICAL PATHOLOGY REPORT GIBSON A JUAN Reports generated via electronic interface contain jennifer ginal data; LAB however they are lacking the format of the original re port. Caution should be taken when reading/interpreting unfo rmatted reports. Name: ? KAROLINE MOSELEY ? Accession #: ? [id number] ? : ? 1965 (Age: 37) ??F ? Collect Date: ? 12/28/2002 ? Location: ? [facility] ? Receive Date: ? 003 ? Provider: FERNIE MARTINO MD Copy to: TAY QUIÑONEZ MD ? Final Pathologic Diagnosis: A. ?Fallopian tube, left, segmental excis ion: 1. ?Complete cross section identified. B. ?Fallopian tube, right, segmental exci jozef: 1. ?Complete cross section identified. ?? See comment. Comment: ? Deeper levels have been examined on specimen B. ??(Dr. Myers)/[facility] Document reviewed and electronically signed by: Francisco Myers MD Report ??Date: 01/03/2003 17:08 By the signature above, the attending physician certif ies that he/she has personally conducted a gross and/or microscopic examin ation of the described specimens and rendered or confirmed the above diagnosi s. Specimen(s) Received: A. ?L tube (#1) B. ?R tube (#2) Clinical History: ? Desires sterilization Gross Description: ? Received in formalin labelled Drown and left fallopian tube is a israel-pink, tubular, 1.1 cm in length, 0.5 cm in diameter soft tissue surfaced by a israel, glistening serosa. ?? Upon sectioning, the cut surfaces are israel-white with a central pinpoint lumen. ??Two medical collections representative s ections are submitted as (A). Received in formalin sarah d Drown and right fallopian tube is a israel-pink, tubular, 0.7 cm in length, 0.3 cm in diameter soft tis félix surfaced by a israel, glistening serosa. ??Upon sectioning, the cut surfaces are israel-white with a central pinpoint lumen. ??Tw o medical collections representative sections are submitted as (B). ??(Alena Elizondo)/[facility] End of Report Specimen Performing Organization Address City/State/ZIP Code Phon e Number [facility] [address] [place] [address] [facility] [address] [place] [address] documented in this encounter Visit Diagnoses Not on filedocumented in this encounter
--- OUTSIDE RECORDS SUMMARY | 2022-02-11 16:55 | XMS_ITS | Encounter Summary ---
:1965 Author Organization [facility] [place] [address] Care Team Providers Name Role Phone Sejal Davis APRN Primary Care Provider Reason for Visit Reason Onset Date Comments Prior Authorization 12/28/2015 Encounter Details Date Type Department Care Team Description 12/28/2015 Telephone Endocrinology at [facility] Ekta [place] [id number] Social History Tobacco Use Types Packs/Day [...] this encounter Miscellaneous Notes Telephone Encounter - Ekta Mcfarland - 12/28/2015 4:17 PM EDT Medication Prior Authorization [facility] Medication name/dose/directions: JANUVIA 100MG 1X DAY Rationale for request: T2DM Health plan: [employer] Authorizing access services representative name: EKTA Faxed to health plan on: 12/28/15 Health plan decision: APPROVED Quantity approved: Authorization number: Start date: 12/28/15 End date: 08/02/99 Patient notified? YES Pharmacy notified? YES documented in this encounter Plan of Treatment Not on filedocumented as of this encounter Visit Diagnoses Not on filedocumented in this encounter Care Teams Patient Portal Concierge Relationship Specialty Start Date End Date Sejal Davis APRN PCP - General 08/10/14 05/30/19 [address] [place] [address] documented as of this encounter
--- OUTSIDE RECORDS SUMMARY | 2022-02-11 16:55 | XMS_ITS | Encounter Summary ---
:1965 Author Organization [facility] [place] [place] [address] Care Team Providers Name Role Phone None Primary Care Provider Unavailable Encounter Details Date Type Department Care Team Description 08/30/2019 Ancillary Procedure Radiology XRay at [facility], Low back pain, unspecified back pain laterality, unspecified chronicity, unspecified whether sciatica present; the Multi-Specialty MD Annamarie S/P lumbar fusion Clinic at [address] [phone] Social History Tobacco Use Types Packs/Day Years [...] Comme nts XR LUMBAR SPINE 2 Routine 08/30/2019 10:24 AM Low back pain, R esults for this OR 3 VIEWS EST unspecified back procedure a re in pain laterality, the results unspecified section. chronicity, unspecified whether sciatica present S/P lumbar fusion documented in this encounter Results XR Lumbar Spine 2 Or 3 Views (Generic) (08/30/2019 10:24 AM EST) Anatomical Region Laterality Modality L-spine N/A Digital Radiography Specimen (Source) Anatomical Location Collection Method / Collectio n Time Received Time / Laterality Volume Impressions 08/30/2019 10:36 AM EST No evidence of hardware complication. No dynamic instability. Thank you for letting us participate in the care of this patient. For questions regarding this report, please contact e number below. ? Electronically signed by: Leo Rodriguez On License Of [facility] ([phone]), at 08/30/2019 10:36 AM Narrative 08/30/2019 10:36 AM EST EXAMINATION: XR LUMBAR SPINE 2 OR 3 VIEWS (GENERIC) CLINICAL HISTORY: low back pain, s/p lum bar fusion, w/ flex ext. TECHNIQUE: 3 views of the lumbar spine COMPARISON: Lumbar spine radiographs 07/08/2019 FINDINGS: Status post posterior decompression with transpedicular nan and screw fixation at L4-L5. There is a millimeter of L2 on L3 and L3 on L4 retrolisthesis. This orientation is maintained between neutra l, flexion, and extension imaging. No new abnormal alignment is elicited. No s uspicious lucency adjacent to the hardware components. Surgical clips are noted in the upper abdomen. Procedure Note Doug Miner MD - 08/30/2019Formattin g of this note might be different from the original. EXAMINATION: XR LUMBAR SPINE 2 OR 3 VIEW S (GENERIC) CLINICAL HISTORY: low back pain, s/p lum bar fusion, w/ flex ext. TECHNIQUE: 3 views of the lumbar spine COMPARISON: Lumbar spine radiographs 07/08/2019 FINDINGS: Status post posterior decompression with transpedicular nan and screw fixation at L4-L5. There is a millimeter of L2 on L3 and L3 on L4 retrolisthesis. This orientation is maintained between neutra l, flexion, and extension imaging. No new abnormal alignment is elicited. No s uspicious lucency adjacent to the hardware components. Surgical clips are noted in the upper abdomen. IMPRESSION No evidence of hardware complication. No dynamic instability. Thank you for letting us participate in the care of this patient. For questions regarding this report, please contact th e number below. Electronically signed by: Leo Rodriguez On License Of [facility] ([phone]), at 08/30/2019 10:36 AM Annamarie Jennings MD IMG DX ORDERABLES documented in this encounter Visit Diagnoses Diagnosis Low back pain, unspecified back pain lat erality, unspecified chronicity, unspecified whether sciatica present S/P lumbar fusion Arthrodesis status documented in this encounter Care Teams Order Processing Specialist Relationship Specialty Start Date End Date None PCP - General 05/31/19 02/17/21 None documented as of this encounter
--- OUTSIDE RECORDS SUMMARY | 2022-02-11 16:56 | XMS_ITS | Encounter Summary ---
:1965 Author Organization [facility] [place] [address] Care Team Providers Name Role Phone Beth Golden MD Primary Care Provider Reason for Visit Reason Comments Adam's Thyroiditis Diabetes Encounter Details Date Type Department Care Team Description 09/24/2012 Office Visit Endocrinology at [facility] Elaine Alves, PERICO neuro manif type II; [facility] Raj Burroughs MD Unspecified hypothyroidism; [facility] Fibromyalgia; [place] [address] [place] [address] Unspecified vitamin D deficiency; [phone] ENDOCRINOLOGY Fatigue; DEPT. Hyperuricemia; [place] [address] 6 Irregular periods; [phone] Arthralgia (Work) Social History Tobacco Use Types Packs/Day Years [...] Sign Reading Time Taken Comments Blood Pressure 135/90 09/24/2012 1:53 PM EST Pulse 76 09/24/2012 1:53 PM EST Temperature - - Respiratory Rate - - Oxygen Saturation - - Inhaled Oxygen Concentration - - Weight 125.9 kg (277 lb 9.6 oz) 09/24/2012 1:53 PM EST Height - - Body Mass Index 46.2 04/10/2011 9:02 AM EDT documented in this encounter Patient Instructions Patient InstructionsRaj Alves MD - 09/24/2012 2:40 PM EST Assessment: Reasonable control of hypothyroid (since age 39) due to Adam's thyroiditis on LT4 112-125 mcg qd with TSH 1.08-3.05 range over the past 2 years. She also treated for PCOS and mild diabetes type IIwith metabolic syndrome (obesity, HTN, high TG and high uric acid) on metformin 500-1000 mg bid withexcellent A1c 6.2- 6.3% range before. She had improvement of vitamin D deficiency on OTC vitamin-D replacement. Target TSH 0.3-2.5 range for her weight issue. Her brother has severe celiac disease. She still has peripheral neuropathy issue and will check labs and follow A1c. She missed her periods and had to use progesterone (D1-D10) but still has no periods and will check hormonal test today for her. She feels very fatigue and remember having severe post- hemorrhage after 2nd delivery in 2002 but then had normal breast feeding for 6 mo and initial labs at our clinic on 11/14/09 showed normal cortisol, ACTH without evidence of hypopituitarism. She has concern about Adam's thyroiditis withassociated autoimmune conditions including neuropathy but will make sure that her DM, B12, etc are under normal range first. Ideally she needs to increase metformin dose back to at least 1,500 mg/day for her PCOS and 2000 mg/day for DM Plan: 1. Medication: To cont LT4 125 mcg qd for hypothyroid To resume metforminER 1,500-2,000 mg/day as tolerated for her PCOS and mild diabetes To cont OTC-vitamin D 2,000 iu daily and will make sure her vitamin D is in mid range for her fibromyalgia To continue all other medications,low fat/low carb diet & exercise as tolerated to keep weight down further. 2. Lab: Already checked lab today as above for B12, vitaminD, uric, A1c, CMP, TSH, FSH, PRL (amenorrhea), ESR & hsCRP (fibro), lipids and annual urine microalbumin/Cr ratio 3. RTC: Next visit in 6 months. will check A1c and TSH at the time (Quick draw lab before visit withus on the same day). documented in this encounter Progress Notes Raj Alves MD - 09/24/2012 5:51 PM EST Addended by: RAJ ALVES on: 09/24/2012 05:51 PM Modules accepted: Orders Raj Alves MD - 09/24/2012 4:58 PM EST Addended by: RAJ ALVES on: 09/24/2012 04:58 PM Modules accepted: Orders Raj Alves MD - 09/24/2012 2:01 PM EST Endocrine Clinic Name: [facility] : 1965 PCP: Beth Golden MD Provided by: Raj Alves MD, PhD, FACE Date : 09/24/12 Reason for visit: Endocrine follow-up with the following problem list: ACTIVE PROBLEM LIST 1. 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 02/14/10: TSH 2.36->3.05 (06/25/10)-> 2.65 (08/12/10)->1.08 (07/14) 2. PCOS-oily skin, acne, hirsutism, off BCPs 6 months [Onset: Unknown] 11/14/09: normal DHEAS 94, testosterone 11, free Testos 1.1, cortisol 7.0, ACTH 14 3. Diabetes type II, peripheral neuropathy [Onset: Unknown] -well controlled on metformin 1000 mg bid and Lyrica 75 mg tid -07/11: A1c 6.6% (was 6.4% before)->6.7% (11/10)->6.2 (02/14/10)...on higher dose of metformin (11/14/09) 08/12/10: A1c 6.3% 4. HTN, high TG, obesity, metabolic syndrome [Onset: Unknown] 09/11/08: TG 215, TC 185, LDL 77, HDL 67 5. Borderline vitamin D deficiency [Onset: Nov 2009] ;) 25vitamin D = 32 (nl 30-80) Karoline Moseley is doing ok during the interim but had lots of aches and pain from fibromyalgia as well as neuropathy pain with electrical pain in her ext. She has been taking a lowered dose of metformin 500 mg qd or bid during the interim (supposed to take 1845-9545 mg/day for her PCOS and mild diabetes). She takes LT4 125 mcg qd with good TSH in 07/14. Her weight has been increasing from 261 to 277 lbs. No palpitations, CP, SOB, GI issues, changes of skin or hairs and no heat or cold intolerance. Some tension DOWD but no visual changes.Lots of back pain, knee pain, muscle pain even while at rest. No swelling in LEs. She noted focal seizure activity with Rt facial droop and shaking ext, already had EEG and no need to take anti-Sz med and was told thatit was her neuropathy. She feels very fatigue and will recheck hormonal profile for her today. She mentioned severe post- hemorrhage after 2nd delivery in 2002 but had normal breast feeding for 6mo and initial labs at our clinic on 11/14/09 showed normal cortisol, ACTH without evidence of hypopit uitarism. Sne concerned about Adam's thyroiditis with associated autoimmune conditions including neuropathy but will make sure that her DM, B12, etc are under normal range first. Ideally she needsto increase metformin dose back to at least 1,500 mg/day for her PCOS and 2000 mg/day for DM neuropathy. ROS: Please see HPI, all others negative Patient Active Problem List Diagnoses Code ??? Asthma 493.90 ??? Vitamin D deficiency, borderline 268.9 ??? Diabetes mellitus type II 250.00 ??? Fibromyalgia 729.1 ??? HTN (hypertension) 401.9 ??? Hypothyroid 244.9 ??? IBS (irritable bowel syndrome) 564.1 ??? PCOS (polycystic ovarian syndrome) 256.4 ??? Hypothyroidism, acquired, autoimmune 244.8 ??? DM neuro manif type II 250.60 Current Outpatient Prescriptions on File Prior to Visit Medication Sig Dispense Refill ??? ALBUTEROL INHL Inhale into the lungs as needed. ??? montelukast (SINGULAIR) 10 mg tablet Take 10 mg by mouth daily. ??? levothyroxine (SYNTHROID) 125 mcg tablet 125 MCG = 1 Tablet(s), PO, Once daily ??? nabumetone (RELAFEN) 500 mg tablet Take 500 mg by mouth 2 times daily. ??? sertraline (ZOLOFT) 100 mg tablet Take 200 mg by mouth daily. Allergies Allergen Reactions ??? [place] Other (See Comments) pain ??? Bee Pollen ??? Wheat Other (See Comments) Pain History Social History ??? Marital Status: Spouse Name: N/A Number of Children: N/A ??? Years of Education: N/A Social History Main Topics ??? Smoking status: Former Smoker -- 1.5 packs/day for 10 years Types: Cigarettes Quit date: 02/11/1986 ??? Smokeless tobacco: Never Used ??? Alcohol Use: No 1-2 year ??? Drug Use: 7 per week Special: Pain Pills (oxycontin, oxycodone, morphine, etc) ??? Sexually Active: Not Currently -- Male partner(s) Control/ Protection: Surgical, Abstinence Last sexual encounter years ago Other Topics Concern ??? None Social History Narrative ??? None FAMILY HISTORY Family History Problem Relation Age of Onset ??? Colon Cancer Mother 58 of colon ca ??? Bipolar Disorder Mother Physical exam BP 135/90 Pulse 76 Wt 125.919 kg (277 lb 9.6 oz) Appearance: Obese, pleasant, NAD, here with her daughter HEENT: PERRLA, EOMI, no lid lag or exophthalmos Neck: supple, no goiter or lymphadenopathy Ext: normal skin texture and temperature no pitting edema Neuro: no weakness, normal reflexes Assessment: Reasonable control of hypothyroid (since age 39) due to Adam's thyroiditis on LT4 112-125 mcg qd with TSH 1.08-3.05 range over the past 2 years. She also treated for PCOS and mild diabetes type IIwith metabolic syndrome (obesity, HTN, high TG and high uric acid) on metformin 500-1000 mg bid withexcellent A1c 6.2- 6.3% range before. She had improvement of vitamin D deficiency on OTC vitamin-D replacement. Target TSH 0.3-2.5 range for her weight issue. Her brother has severe celiac disease. She still has peripheral neuropathy issue and will check labs and follow A1c. She missed her periods and had to use progesterone (D1-D10) but still has no periods and will check hormonal test today for her. She feels very fatigue and remember having severe post- hemorrhage after 2nd delivery in 2002 but then had normal breast feeding for 6 mo and initial labs at our clinic on 11/14/09 showed normal cortisol, ACTH without evidence of hypopituitarism. She has concern about Adam's thyroiditis withassociated autoimmune conditions including neuropathy but will make sure that her DM, B12, etc are under normal range first. Ideally she needs to increase metformin dose back to at least 1,500 mg/day for her PCOS and 2000 mg/day for DM Plan: 1. Medication: To cont LT4 125 mcg qd for hypothyroid To resume metforminER 1,500-2,000 mg/day as tolerated for her PCOS and mild diabetes To cont OTC-vitamin D 2,000 iu daily and will make sure her vitamin D is in mid range for her fibromyalgia To continue all other medications,low fat/low carb diet & exercise as tolerated to keep weight down further. 2. Lab: Already checked lab today as above for B12, vitaminD, uric, A1c, CMP, TSH, FSH, PRL (amenorrhea), ESR & hsCRP (fibro), lipids and annual urine microalbumin/Cr ratio 3. RTC: Next visit in 6 months. will check A1c and TSH at the time (Quick draw lab before visit withus on the same day). We have reviewed our plan outlined above with the patient and patient verbalized understanding. All questions were answered and most of the time was spent on counseling about medication adjustment, thediagnostic and therapeutic decisions, and coordination of care. Raj Alves MD, PhD, FACE CC: Beth Golden MD documented in this encounter Plan of Treatment Not on filedocumented as of this encounter Procedures Procedure Name Priority Date/Time Associated Diagnosis Comme nts U ALBUMIN/CRE RATIO Routine 09/24/2012 3:07 DM neuro manif typ e II Results for this PM EST procedure are i n the results section. VITAMIN D, 25-HYDROXY Routine 09/24/2012 3:04 Unspecified kareem min D Results for this PM EST deficiency procedure are i n the results section. PROLACTIN Routine 09/24/2012 3:04 Irregular periods Results for this PM EST procedure are i n the results section. ACTH Routine 09/24/2012 3:04 Unspecified Results for this PM EST hypothyroidism procedure are in Fibromyalgia the results Fatigue section. SEDIMENTATION RATE Routine 09/24/2012 3:04 Fibromyalgia Results for this PM EST Arthralgia procedure are i n the results section. CRP, CARDIAC RISK (HS Routine 09/24/2012 3:04 Fibromyalg ia Results for this CRP) PM EST Arthralgia procedure are i n the results section. URIC ACID Routine 09/24/2012 3:04 Hyperuricemia Results for this PM EST procedure are i n the results section. TSH Routine 09/24/2012 3:04 Unspecified Results for this PM EST hypothyroidism procedure are in the results section. HEMOGLOBIN A1C Routine 09/24/2012 3:04 DM neuro manif type II Results for this PM EST procedure are i n the results section. FOLLICLE STIMULATING Routine 09/24/2012 3:04 Irregular periods Results for this HORMONE PM EST procedure are i n the results section. VITAMIN B12 Routine 09/24/2012 3:04 DM neuro manif t ype II Results for this PM EST Fatigue procedure are i n the results section. CORTISOL Routine 09/24/2012 3:04 Unspecified Results for this PM EST hypothyroidism procedure are in Fibromyalgia the results Fatigue section. LIPID PANEL (REFLEX Routine 09/24/2012 3:04 DM neuro manif typ e II Results for this DIRECT LDL) PM EST procedure are i n the results section. COMPREHENSIVE Routine 09/24/2012 3:04 DM neuro manif t ype II Results for this METABOLIC PANEL PM EST Unspecified procedure ar e in (NON-FASTING) hypothyroidism the results Fibromyalgia section. Unspecified vitamin D deficiency documented in this encounter Results Microalbumin, urine, random (09/24/2012 3:07 PM EST) P athologist Signature U Creatinine 165 mg/dL CERNER MILLENNIUM U Albumin Conc, <3.0 mg/L CERNER Random MILLENNIUM Alb/Cr Ratio, <2 mcg/mg Cr CERNER Random MILLENNIUM Comment: Reference Range* Random collection (mcg/mg creatinine) Normal ?<30 Microalbuminuria ?? 30 - 300 Clinical Albuminuria ?? >300 *[place] [employer] Association. Diabetic Nephropathy. Diabetes Care 1997;(Suppl 1):S24-S27 Exercise within 24 hour, infection, fe isaiah, CHF, marked hyperglycemia, and marked hypertension may elevate urinary albumin excretion over baseline values. Specimen Anatomical Collection Method Collection Time Receive d Time (Source) Location / / Volume Laterality Urine specimen 09/24/2012 3:07 PM 013 3:11 (specimen) EST PM EST Resulting Agency Comment Spec In Lab Raj Alves MD URINE ORDERABLES Performing Organization Address City/State/[place] [address] CERNER MILLENNIUM High Sensitivity CRP (09/24/2012 3:04 PM EST) P athologist Signature CRP High Sens 22.6 mg/L CERNER MILLENNIUM Comment: Interpretations: 1) For cardiac risk assessment, two valu es (fasting or nonfasting sample acceptable) taken at least 2 weeks apart , should be averaged to provide a more reliable estimate of marker level. ??Thi s laboratory uses the recommendations from the AHA/CDC Scientific Statement fo r interpretations of future risks of cardiovascular events: ? <1.0 mg/L: low risk 1.0 - 3.0 mg/L: moderate risk >3.0 mg/L: high risk groups for future c ardiovascular events 2) The general reference range of appare ntly healthy individuals using this test is <5.0 mg/L (derived from the test package insert) A few words of caution: For cardiac asse ssment, when a value >10 mg/L is encountered, there should be a search fo r an acute inflammatory condition or infection (in patients with acute inflam mation, the concentration can increase to >500 mg/L). ??The >10 mg/L should be discarded if such a situation exists, since the risk for coronary heart diseas e cannot be provided, and a repeat specimen, taken at least two weeks after resolution of the acute inflammatory condition, may allow for appraisal of co ronary risk information. Please note that significantly decreased CRP values may be obtained from samples taken from patients who have bee n treated with carboxypenicillins. References: 1. Matilde ESCALANTE et. al. ??AHA/CDC Scientif ic Statement: Markers of Inflammation and Cardiovascular Disease. ??Circulatio n 2003; 107:499-511 2. Lotus PM. ??Clinical applications of C-reactive protein for cardiovascular disease detection and prevention. ??Circ ulation 2003; 107:363-369 Specimen Anatomical Collection Method Collection Time Receive d Time (Source) Location / / Volume Laterality Blood specimen 09/24/2012 3:04 PM 013 3:08 (specimen) EST PM EST Resulting Agency Comment Spec In Lab Raj Alves MD CHEMISTRY ORDERABLES Performing Organization Address City/[facility] Phon e Number [address] [facility] Sedimentation rate (09/24/2012 3:04 PM EST) P athologist Signature Sed Rate 19 0 - 20 CERNER mm/hr MILLENNIUM Specimen Anatomical Collection Method Collection Time Receive d Time (Source) Location / / Volume Laterality Blood specimen 09/24/2012 3:04 PM 013 3:08 (specimen) EST PM EST Resulting Agency Comment Spec In Lab Raj Alves MD HEMATOLOGY ORDERABLES Performing Organization Address City/[facility] Phon e Number [address] [facility] MILLENNIUM Follicle Stimulating Hormone (09/24/2012 3:04 PM EST) P athologist Signature FSH 4.8 mlU/ML CERNER MILLENNIUM Comment: Reference Ranges: Females: Follicular: ? 3.5-12.5 mIU/mL Ovulation: ?4.7-21.5 mIU/mL Luteal: ? 1.7-7.7 mIU/mL Postmenopausal: 25.8-134.8 mIU/mL Specimen Anatomical Collection Method Collection Time Receive d Time (Source) Location / / Volume Laterality Blood specimen 09/24/2012 3:04 PM 013 3:08 (specimen) EST PM EST Resulting Agency Comment Spec In Lab Raj Alves MD CHEMISTRY ORDERABLES Performing Organization Address City/State/ZIP Code Phon e Number [address] CERNER MILLENNIUM Prolactin (09/24/2012 3:04 PM EST) P athologist Signature Prolactin 10.3 4.8 - 23.3 CERNER ng/mL MILLENNIUM Specimen Anatomical Collection Method Collection Time Receive d Time (Source) Location / / Volume Laterality Blood specimen 09/24/2012 3:04 PM 013 3:08 (specimen) EST PM EST Resulting Agency Comment Spec In Lab Raj Alves MD CHEMISTRY ORDERABLES Performing Organization Address City/[facility]/ZIP Code Phon e Number [address] CERNER MILLENNIUM (ABNORMAL) Lipid panel (fasting) (09/24/2012 3:04 PM EST) P athologist Signature Chol, Total 187 <=199 mg/dL CERNER MILLENNIUM Comment: Recommendations of the NCEP Adult Treatm ent Panel for the following risk cutoff thresholds for the [place] populatio n: Desirable: <200 mg/dL Borderline High: 200-239 mg/dL High: > or = 240 mg/dL Triglycerides 241 (H) <=149 mg/dL CERNER MILLENN IUM Comment: Reference Range: Normal triglycerides: ??<150 mg/dL Borderline high: ??150-199 mg/dL High: ??200-499 mg/dL Very high: ??>cy=890 mg/dL KAREN 2001; 285(19):[phone] HDL 58 >=40 mg/dL CERNER MILLENNIUM Comment: Reference range: ??Low HDL: ?? < 40 mg/dL ??Normal: ?40-60 mg/dL ??Desirable: > 60 mg/dL KAREN 2001; 285(19):[phone] LDL Cholesterol 81 <=99 mg/dL CHRISTINA ARAUZ Comment: Reference range: ?? Optimal: ?<100 mg/dL ?? Near Optimal/Above Optimal: ?? 100-1 29 mg/dL ?? Borderline high: ?130-159 mg/dL ?? High: ? 160-189 mg/dL ?? Very high: ?>cp=106 mg/dL KAREN 2001: 285(19):[phone] Chol/HDL Ratio 3.2 ratio CHRISTINA ALEXANDER UM Comment: A Cholesterol to HDL ratio below 4:1 is desirable. ??Studies suggest that increased CAD risk occurs at ratios abov e 5 for females and above 6 for men. ? [place] [employer] Association ??(htt p://www.americanheart.org) ? Yissel Int Med, 1994; 121:641 ? AM J Med, 1998; 105(1A):48S Specimen Anatomical Collection Method Collection Time Receive d Time (Source) Location / / Volume Laterality Blood specimen 09/24/2012 3:04 PM 013 3:08 (specimen) EST PM EST Resulting Agency Comment Spec In Lab Raj Alves MD CHEMISTRY ORDERABLES Performing Organization Address City/State/ZIP [place] [address] CHRISTINA MONTES (ABNORMAL) Uric acid (09/24/2012 3:04 PM EST) P athologist Signature Uric Acid 8.2 (H) 2.5 - 6.5 CERNER mg/dL CHANENNIUM Specimen Anatomical Collection Method Collection Time Receive d Time (Source) Location / / Volume Laterality Blood specimen 09/24/2012 3:04 PM 013 3:08 (specimen) EST PM EST Resulting Agency Comment Spec In Lab Raj Alves MD CHEMISTRY ORDERABLES Performing Organization Address [facility] [place] [address] CERNER MILLENNIUM Vitamin B12 (09/24/2012 3:04 PM EST) athologist Signature Vitamin B-12 661 207 - 974 CERNER pg/mL MILLENNIUM Specimen Anatomical Collection Method Collection Time Receive d Time (Source) Location / / Volume Laterality Blood specimen 09/24/2012 3:04 PM 013 3:08 (specimen) EST PM EST Resulting Agency Comment Spec In Lab Raj Alves MD CHEMISTRY ORDERABLES Performing Organization Address [facility] [place] [address] CERNER MILLENNIUM ACTH (09/24/2012 3:04 PM EST) athologist Signature ACTH 20 6 - 50 CERNER pg/mL MILLENNIUM Comment: Reference range applies only to specimen s collected between 7-10am. Test Performed by Janet Romero, [facility], [address] [place] [address] 2014 08 Jw Traore M.D., Ph.D., Director of Laboratories , [facility] [id number] Specimen Anatomical Collection Method Collection Time Receive d Time (Source) Location / / Volume Laterality Blood specimen 09/24/2012 3:04 PM 013 3:43 (specimen) EST PM EST Resulting Agency Comment Spec In Lab Raj Alves MD CHEMISTRY ORDERABLES Performing Organization Address City/[facility] [place] [address] CERNER MILLENNIUM Cortisol (09/24/2012 3:04 PM EST) athologist Signature Cortisol 5.6 mcg/dL CERNER MILLENNIUM Comment: Reference ranges: ??AM (7-10am): ??6.2-19.4 mcg/dL ??PM (4-8pm): ??2.3-12.3 mcg/dL Specimen Anatomical Collection Method Collection Time Receive d Time (Source) Location / / Volume Laterality Blood specimen 09/24/2012 3:04 PM 013 3:08 (specimen) EST PM EST Resulting Agency Comment Spec In Lab Raj Alves MD CHEMISTRY ORDERABLES Performing Organization Address City/State/ZIP Code Phon e Number [place] [phone] CERNER MILLENNIUM Comprehensive metabolic panel (non-fasting) (09/24/2012 3:04 PM EST) P athologist Signature Glucose Lvl 96 60 - 199 CERNER mg/dL MILLENNIUM Comment: Diabetes: >=200 mg/dL plus symp toms BUN 12 8 - 18 mg/dL CERNER MILLENNIUM Creatinine 0.78 0.70 - 1.20 mg/dL CERNER MILL ENNIUM Comment: Please note that the pediatric reference intervals supplied above were not validated at [facility]. Results from pediatri c patients should be interpreted in conjunction to the patient's age, height and muscle mass. Sodium 139 135 - 145 mmol/L CERNER JEFF NIUM Potassium 4.1 3.5 - 5.0 mmol/L CERNER JEFF NIUM Comment: Please note: ??Patients with WBC >100,00 0 may have falsely elevated Potassium levels. ??For accurate Potassium quantif ication in these patients send serum separator tube (gold top) for subsequent determinations. ??Contact the Clinical Chemistry Laboratory if there are any qu estions. Chloride 104 98 - 107 mmol/L CERNER MILLENN IUM CO2 26 22 - 31 mmol/L CERNER MILLENNI UM Anion Gap 9 5 - 15 mmol/L CERNER MILLENNIU M Calcium 9.3 8.5 - 10.5 mg/dL CERNER JEFF NIUM Total Protein 7.8 6.4 - 8.3 gm/dL CERNER MIL LENNIUM Albumin 4.2 3.2 - 5.2 gm/dL CERNER MILLENN IUM AST 24 0 - 30 unit/L CERNER MILLENNIU M ALT 19 0 - 30 unit/L CERNER MILLENNIU M Alk Phos 98 40 - 104 unit/L CERNER MILLENN IUM Total Bilirubin 0.6 0.2 - 1.3 mg/dL CERNER M ILLENNIUM Bili, Direct Not Perf 0.0 - 0.3 mg/dL CERNER MILL ENNIUM Comment: Specimen lipemic or turbid in a ppearance, unsuitable for analysis. Estimated GFR >60 >=60 CERNER MILLENNIU M Comment: The National Kidney Disease Education Pr ogram (NKDEP) has recommended all laboratories report estimated GFR (eGFR) along with plasma creatinine measurements to assist you with recognit ion of early kidney disease. Caveats: ??Plasma creatinine should be a t steady-state (unchanged within the past week). For patient s multiply eGFR by 1.2. The MDRD equation was developed using patients be tween the ages of 18 and 70 years. ?? The MDRD equation has not been validated for patients < 18 years of age and should not be used to assess renal function in the pediatric population. ??The MDRD eGFR equation will also overestimate the true GFR of patients above the age of 70. ??This overestimation is variable bu t increases with age. At present, NKDEP does NOT recommend usi ng the MDRD equation for drug dosing purposes and pharmacists should continue to use their current dosing methods. In addition, numerical eGFR values great er than 60 ml/min/1.73 square meters should be treated as > 60, and not an ex act number due to greater inaccuracies at these higher values. Per NKDEP, they classify normal renal function as any GFR >60ml/min/1.73 square meters; chronic kidney disease wh en GFR <60, and renal failure when GFR <15. ??This calculation may not be valid for patients with atypical muscle mass (very lean or obese), acute renal failur e, and in patients with diabetic kidney disease. References: http://nkdep.nih.gov/resources/NKDEP_Sug gestn4Labs_0606_508.pdf http://www.kidney.org/professionals/kls/ pdf/faq_gfr.pdf Luigi K, Jackelin NA, Yolette AK, Jose R TS, Alin AD, Lieske ABHISHEK. Relative performance of the MDRD and CKD-EPI equa tions for estimating glomerular filtration rate among patients with vari ed clinical presentations. Clin J Am Soc Nephrol;6:1963-72. Specimen Anatomical Collection Method Collection Time Receive d Time (Source) Location / / Volume Laterality Blood specimen 09/24/2012 3:04 PM 013 3:08 (specimen) EST PM EST Resulting Agency Comment Spec In Lab Raj Alves MD CHEMISTRY ORDERABLES Performing Organization Address City/[facility]/[place] [address] [facility]NORMAL) VIT D Total Evaluation (09/24/2012 3:04 PM EST) athologist Signature 25-OH Vit D 29 (L) 30 - 100 CERNER Total ng/mL [facility] Comment: Deficient <10 ng/mL Insufficient 10 [...] Location / / Volume Laterality Blood specimen 09/24/2012 3:04 PM 013 3:08 (specimen) EST PM EST Resulting Agency Comment Spec In Lab Raj Alves MD CHEMISTRY ORDERABLES Performing Organization Address City/[facility]/[place] [address] [facility] TSH (09/24/2012 3:04 PM EST) P athologist Signature TSH 3.11 0.27 - 4.20 CERNER mcIU/mL MILLENNIUM Specimen Anatomical Collection Method Collection Time Receive d Time (Source) Location / / Volume Laterality Blood specimen 09/24/2012 3:04 PM 013 3:08 (specimen) EST PM EST Resulting Agency Comment Spec In Lab Raj Alves MD CHEMISTRY ORDERABLES Performing Organization Address City/State/ZIP Code Phon e Number [place] [phone] CERNER MILLENNIUM (ABNORMAL) Hemoglobin A1c (09/24/2012 3:04 PM EST) Analysis Performed At Patho logist Time Signature Hemoglobin A1C 6.6 (H) 4.3 - 6.1 CERNER % MILLENNIUM Est Avg Gluc 143 mg/dL CERNER MILLENNIUM Comment: eAG equivalents for HbA1c percentages: HbA1c(%) ?eAG(mg/dL) 6.0 ?126 6.5 ?140 7.0 ?154 7.5 ?169 8.0 ?183 8.5 ?197 9.0 ?212 9.5 ?226 10.0 ? 240 Limitations: The eAG calculation has not been validated on women, individuals below 18 years old and above 70 years old, and individuals with hemoglobinopathies. Additional resources are available on ADA website: ??http://professional.diabetes.org/gluc osecalculator.aspx Reference: Bret RIVER, Heike Jeffries, Promise R, et al. ??Tr anslating the A1C assay into estimated average glucose values. ??Diabetes Care 2008:31(8):3904-1656. 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
--- OUTSIDE RECORDS SUMMARY | 2022-02-11 16:56 | XMS_ITS | Encounter Summary ---
:1965 Author Organization [facility] Address [facility] [place] [address] Care Team Providers Name Role Phone Beth Golden MD Primary Care Provider Encounter Details Date Type Department Care Team Description 04/09/2011 Abstract Obstetrics and Kandy Zurita, Asthma ; Gynecology at [facility] aerospace control and warning systems mellitus type II; [facility] Fibromyal delmer; Drive HTN (hypertension); [place] [address] Hypothyroid; [phone] IBS (irritable bowel syndrome); PCOS (polycysti c ovarian syndrome) Social History Tobacco Use Types Packs/Day Years Used Date Former Smoker Cigarettes 1.5 Quit: 02/11/19 86 Alcohol Use Standard Drinks/Week Comments No 0 [...] as of this encounter Visit Diagnoses Diagnosis Asthma Unspecified asthma Diabetes mellitus type II Type II or unspecified type diabetes jarvis litus without mention of complication, not stated as uncontrolled Fibromyalgia Mylagia and myositis, unspecified HTN (hypertension) Unspecified essential hypertension Hypothyroid Unspecified hypothyroidism IBS (irritable bowel syndrome) Irritable bowel syndrome PCOS (polycystic ovarian syndrome) Polycystic ovaries documented in this encounter Care Teams Fire Suppression Captain Relationship Specialty Start Date End Date Beth Golden MD PCP - General 06/25/10 08/09/14 [address] [place] [address] documented as of this encounter
--- OUTSIDE RECORDS SUMMARY | 2022-02-11 16:56 | XMS_ITS | Encounter Summary ---
:1965 Author Organization [facility] [place] [address] Care Team Providers Name Role Phone Sejal [place] SARAH Primary Care Provider Encounter Details Date Type Department Care Team Description 08/04/2007 Interpretation Only Radiology at [facility] Ce nter None [address] [place] [address] [place] [address] Social History Tobacco Use Types Packs/Day Years Used Date Never Assessed Sex Assigned at Date Recorded Not on file documented as of this encounter Plan of Treatment Not on filedocumented as of this encounter Procedures Procedure Name Priority Date/Time Associated Diagnosis Comme nts MRI BRAIN AND Routine 08/04/2007 3:27 PM Results for this CERVICAL SPINE FOR EST procedure are in MS the results section. documented in this encounter Results MRI BRAIN AND CERVICAL SPINE FOR MS (08/04/2007 3:27 PM EST) Anatomical Region Laterality Modality Other Specimen (Source) Anatomical Collection Method Collection Time Re ceived Time Location / / Volume Laterality 08/04/2007 3:27 PM EST Narrative 08/04/2007 3:27 PM EST APD Historical Result Principal Residential Treatment Counselor: ??JOVAN ??CARLOS A MEDELLIN MR BRAIN AND MR OF THE CERVICAL SPINE: At 1.5 Tamara, multiplanar imaging was ob tained through the brain and the cervical spine. ?? Images were obtained both prior to and a fter intravenous gadolinium administration. This study is performed for fatigue and paresthesias. MR BRAIN: The brain parenchyma is unremarkable in morphology and in signal intensity. ??No areas of aberrant increased signal intensity are identified to suggest the presence of inflammatory process, demyelinating disease, or neoplasm. ??Th ere is no suggestion of intracranial hemorrhage. ?? Incidental note is made of moderate suarez sinusitis, involving primarily the maxillary sinuses, but to a lesser extent, the sphenoid sinus as well. ??No abnormalities are identified after intravenous gadolinium administration. MR CERVICAL SPINE: The vertebral bodies are normally aligne d. ??They are unremarkable in height and in signal intensity. ??Disc space height and signa l intensity is unremarkable. ??There is a broad-based disc herniation, mild, present at the C6-7 disc space lev el. ??There is no associated central or foraminal stenosis. ??The remainder of the disc sp aces is normal. ??The spinal cord is normal in caliber and in signal intensity. ??The spinal cord is normal i n caliber and in signal intensity. ??No abnormality is identified after intravenous gadolinium administration. IMPRESSION: 1. ??Normal brain MR. 2. ??Small, but broad-based central disc herniation at C6-7. ??There is no resultant in central or foraminal spinal stenosis. 3. ??Otherwise unremarkable MR of the ce rvical spine. 1208 Procedure Note Unknown - 01/31/2019Formatting of this n ote might be different from the original. APD Historical Result Principal Residential Treatment Counselor: JOVAN ACOSTA MR BRAIN AND MR OF THE CERVICAL SPINE: At 1.5 Tamara, multiplanar imaging was ob tained through the brain and the cervical spine. Images were obtained both prior to and a fter intravenous gadolinium administration. This study is performed for fatigue and paresthesias. MR BRAIN: The brain parenchyma is unremarkable in morphology and in signal intensity. No areas of aberrant increased signal intensity are identified to suggest the presence of inflammatory process, demyelinating disease, or neoplasm. Ther e is no suggestion of intracranial hemorrhage. Incidental note is made of moderate suarez sinusitis, involving primarily the maxillary sinuses, but to a lesser extent, the sphenoid sinus as well. No a bnormalities are identified after intravenous gadolinium administration. MR CERVICAL SPINE: The vertebral bodies are normally aligne d. They are unremarkable in height and in signal intensity. Disc space height and signal intensity is unremarkable. There is a broad-based disc herniation, mild, present at the C6-7 disc space lev el. There is no associated central or foraminal stenosis. The remainder of the disc spac es is normal. The spinal cord is normal in caliber and in signal intensity. The spinal cord is normal in caliber and in signal intensity. No abnormality is identified after intravenous gadolinium administration. IMPRESSION: 1. Normal brain MR. 2. Small, but broad-based central disc h erniation at C6-7. There is no resultant in central or foraminal spinal stenosis. 3. Otherwise unremarkable MR of the cerv ical spine. 1208 Unknown PACS IMAGES documented in this encounter Visit Diagnoses Not on filedocumented in this encounter Care Teams Shirt Ironer Relationship Specialty Start Date End Date Sejal [place] APRN PCP - General 08/10/14 05/30/19 [address] [place] [address] documented as of this encounter
--- OUTSIDE RECORDS SUMMARY | 2022-02-11 16:56 | XMS_ITS | Encounter Summary ---
:1965 Author Organization [facility] Address [place] [id number] Care Team Providers Name Role Phone Beth Golden MD Primary Care Provider Reason for Visit Reason Onset Date Comments Labs Only 02/19/2011 Encounter Details Date Type Department Care Team Description 02/19/2011 Telephone Endocrinology at [facility] Raj Yancey, Labs Only [facility] [place] [address] [facility] [phone] END[address] [place] [address] (Wo rk) Social History Tobacco Use Types [...] this encounter Miscellaneous Notes Telephone Encounter - Raj Alves MD - 02/21/2011 6:31 PM EDT lab documented in this encounter Plan of Treatment Not on filedocumented as of this encounter Visit Diagnoses Diagnosis Type II or unspecified type diabetes jarvis litus without mention of complication, not stated as uncontrolled - Primary documented in this encounter Care Teams Press Operator [employer] Relationship Specialty Start Date End Date Beth Golden MD PCP - General 06/25/10 08/09/14 [address] [place] [address] documented as of this encounter
--- OUTSIDE RECORDS SUMMARY | 2022-02-11 16:56 | XMS_ITS | Encounter Summary ---
:1965 Author Organization [facility] Address [address] [address] Care Team Providers Name Role Phone Beth Golden MD Primary Care Provider Reason for Visit Reason Onset Date Comments Diarrhea 10/12/2012 due to higher dose o f metformin Encounter Details Date Type Department Care Team Description 10/12/2012 Telephone Endocrinology at [facility] C Raj Alves Diarrhea (due to [facility] D demarcus [place] [address] [facility] metformin) [phone] [place] [id number] Social History Tobacco Use Types Packs/Day Years [...] Telephone Encounter - Raj Alves MD - 10/12/2012 3:22 PM EDT Note to PCP (Beth Golden) and Sejal [place] NEGATIVE CUTTER at [facility]. There is no need to add another DM med yet as she has good A1c 6.6% on only low dose metformin and it's ok to stay on the low dose metformin to avoid GI side effects. Pt tolerated 500-1000 mg/day ok before the visit with me on 09/24/12 (but not >1000 mg/day). Thanks for your note dated on 10/11/12, Sejal. Pt asked me to help complete the disability form in addition to PCP's note which I did help with this after her recent visit on 09/24/12 (but usually it's hard for us to eval for disability as I only saw her once a year with prior visit on 08/12/10 before she showed up on 09/24/12 and then sent me the disability form for me to complete after she left the visit). I would not complete the form next time... I just called her directly today and told her that we would not add or switch to another DM med unless her A1c is rising >7%. Sulfonyluria e.g. glipizide or glyburide will cause low BG and wt gain, and other new meds like Januvia will be too costly and may not be covered per her health insurance plan (it's not indicated yet either with this A1c in 6% range). Please see details in my phone note to pt today. RAJ ALVES MD Telephone Encounter - Raj Alves MD - 10/12/2012 3:05 PM EDT I got a letter from pt's PCP (Sejal [place] NP) stating that pt's having diarrhea and abdominal pain after she tried to increase metformin from 500 mg bid to 1500 mg/day. I called pt and she stated that she also had aches and pain and swelling in LEs, does not think thatit's only side effect of metformin and already discussed this with PCP. Rec: 1. Ok to hold metformin while having GI issues. 2. When she feels better, ok to resume low dose metformin 500 mg qd and then titrate back as tolerated to her previous dose of 500 mg bid. (This will be her maximal dose that she could tolerate and will not increase the dose further) 3. Since her A1c is good at 6.6% on low dose metformin, there is no need to add another DM agent yet. We may start another DM med if her A1c is rising >7% as sulfonyluria will cause side effects ofhypoglycemia and wt gain that we want to avoid in her case of pre-DM and borderline DM. 4. To use LT4 daily as instructed for hypothyroid and recheck lab for A1c, TSH, uric and 25vitD as arranged in 3 months. 5. Will see her on 03/21/13 as scheduled or to shift her appointment to earlier date if needed. RAJ ALVES MD documented in this encounter Plan of Treatment Not on filedocumented as of this encounter Visit Diagnoses Not on filedocumented in this encounter Care Teams Checkout Supervisor Relationship Specialty Start Date End Date Beth Golden MD PCP - General 06/25/10 08/09/14 [address] [place] [address] documented as of this encounter
--- OUTSIDE RECORDS SUMMARY | 2022-02-11 16:56 | XMS_ITS | Encounter Summary ---
:1965 Author Organization [facility] [place] [address] Care Team Providers Name Role Phone Beth Golden MD Primary Care Provider Reason for Visit Reason Comments Diarrhea Encounter Details Date Type Department Care Team Description 02/11/2011 Office Visit Gastroenterology at [facility] Antwan Palma MD Hematochezia; [facility] D demarcus [facility] IBS (irritable bowel syndrom e) [place] [address]ENTER [phone] [place] [address] Social History Tobacco Use Types Packs/Day Years Used Date Former Smoker Cigarettes 1.5 Quit: 02/11/19 86 Alcohol Use Standard Drinks/Week Comments Not Asked 0 (1 standard drink = 0.6 oz pure alcoho l) Sex Assigned at Date Recorded Not on file documented as of this encounter Last Filed Vital Signs Vital Sign Reading Time Taken Comments Blood Pressure 140/90 02/11/2011 8:40 AM EDT Pulse - - Temperature - - Respiratory Rate - - Oxygen Saturation - - Inhaled Oxygen Concentration - - Weight 116.9 kg (257 lb 12.8 oz) 02/11/2011 8:40 AM EDT Height 165.1 cm (5' 5) 02/11/2011 8:40 AM EDT Body Mass Index 42.9 02/11/2011 8:40 AM EDT documented in this encounter Patient Instructions Patient InstructionsAntwan Palma MD - 02/11/2011 9:32 AM EDT Likely IBS, suggested by her clinical presentation. Red flag symptoms include rectal bleeding and wt loss. Discussed need to repeat colo (rectal bleeding, FHx of CRC), at which time we may also take some bx from her large intestine to exclude the very low likelihood of microscopic colitis. In addition, I suggest to decrease metformin to 500mg bid to see whether the current high dose contributes to her irregular BH/loose stools. All of the above were discussed with the pt. documented in this encounter Progress Notes Antwan Palma MD - 02/11/2011 9:15 AM EDT NEW GASTROENTEROLOGY EVALUATION Reason for referral: Chief Complaint Patient presents with ??? Diarrhea PCP:BETH GOLDEN MD Referring Physician: Sejal [place] NP HPI: Karoline Moseley is a 45 y.o. female who is referred by Sejal [place] for evaluation of diarrhea. I have been sick for a long time, I have diarrhea, this morning I was constipation, I feel better when I have diarrhea, I am less swalen, I have pain on this side (right), and sometimes on this side (left)..theophylline worst is the fibromyalgia pain and fatigue. When I have constipation I have a lotof pain, I am backed up. I then get tired, can't stay awake, getting nausea, had a spell with nausea. Then I have diarrhea and I get raw inside. I have indigestion, if I don't eat I feel better. I am allergic to a lot of different food, causing belching and burping. Same as in my mother, she could only have shakes with vitamins. I have heartburn, but I think it is only stress. She also mentions her stressful life situation, alternating with describing her symptoms. Pt in tears when discussing her multitude of problems. Difficult to understand what her main GI related symptoms are. It seems that her irregular bowel habits are the most bothersome for her. I asked her if there was one thing she wished would be improved with respect to her GI symptoms it is her irregular bowel habits. She reports that she lost 30lbs of wt, on the other hand she says that her max wt was about 15lbs over her current wt, and also that she tries to lose wt. She dose report some rectal bleeding, which she thinks may be related to her hemorrhoids and perhaps associated with increased bowel frequency. If she has diarrhea, there is some urgency, but no incontinence. Again, no po intake improves her symptoms. Diarrhea does not seem to be a/w certain type of food. She has had repeated blood tests, including for celiac disease, which were unrevealing. TSH has beennormal. EGD and Mccaulley 6 yrs ago were normal. Review of Systems: Constitutional: reports 30lbs wt loss over past yr HEENT: no visual changes, sometimes choking on saliva Cardio: no chest pain Resp: recent pneumonia, chronic cough Hem/Lymph: no new lumps or bumps on body GI: see HPI : no dysuria Integumentary: no new rashes Musculoskeletal: chronin joint and mucular pain (FM) Neuro: numbness in fingers, feet (not new) Past Medical History: 1. DM II, on meds 2. JAD 3. Asthma 4. H/o IBS 5. Fibromyalgia 6. Depression 7. Chronic fatigue 8. PCO 9. S/p cholecystectomy age 21 10. Breast reduction surgery 2003 Medications: Current outpatient prescriptions ordered prior to encounter Medication Sig Dispense Refill ??? fexofenadine (ALLERGY RELIEF, FEXOFENADINE,) 180 mg tablet Take 180 mg by mouth daily. ??? sertraline (ZOLOFT) 100 mg tablet Take 100 mg by mouth daily. ??? levothyroxine (SYNTHROID) 125 mcg tablet 125 MCG = 1 Tablet(s), PO, Once daily ??? metFORMIN (GLUCOPHAGE) 1,000 mg tablet 1000 MG = 1 Tablet(s), PO, Twice daily Social History: 2 children, one with h/o organic brain disorder Former smoker quit 1983 ETOH, rarely Takes care of her daughter 23/02 Family History: M of CRC age 59, diagnosed ~58. Digestive problems in her family (no h/o IBD) Physical Exam: Last value Range last 12 hrs Temperature Heart Rate Blood Pressure BP: 140/90 mmHg BP: (140)/(90) Respiratory Rate Resp: -- SpO2 SpO2: -- 257lbs Body mass index is 42.90 kg/(m^2). GEN: Obese, in tears, NAD. Cooperative. SKIN: No focal lesions noted HEENT: anicteric, moist mucous membranes without lesions or erythema, NECK: No thyromegaly, no LAD CV: RRR without murmurs LUNG: CTA bilat without wheezing or rhonchi ABD: Nondistended, normal active bowel sounds, nontender, liver at below costal margin, no splenomegaly RECTAL: deferred EXT: No cyanosis, no LE edema NEURO: AAOx3, no gross sensorimotor deficits Prior Tests: Nl labs in 11/2010 (CBC, lytes, BUN/Cr, LFTs, TSH) EGD and Mccaulley 2004, By report nl Impression/Plan: 45 y.o. female with multitude of GI related symptoms. Most prominent problem seems to be her irregular bowel habit in association with abdominal complaints and likely also associated with stressful social/family factors. She does meet criteria for IBS. The only two concerning issues are wt loss and rectal bleeding. With respect to wt loss, I suggest to continue her wt and understand whether this is subjective and not volentary (there is some doubt that she lost wt as a result of her sx's). With respect to her rectal bleeding, she should have a colonoscopy especially in light of her FHx of CRC. Although the colo will also evaluated for signs of inflammation, this seems unlikely. The other DDx to consider for her diarrhea component of IBS is possible association with Metformin, which is known to cause loose bowels/diarrhea. If these attempts and the colo be negative/unrevealing, I suggest to minimize any additional testing, and consider that she has IBS. With respect to treatment, this needs to focus on dietary adjustment (which I realize will be difficult). We discussed to aim at regularity in her eating habits to achieve more regular BH, with a balanced diet and regular meals. Most likely a bland diet will be tolerated best first (low fiber), addingin addition food (fiber, carbs). Nutiritional consult may help. I understand that she has been seen by a Psychiatrist, which I think is a good idea to support her through her emotional challenges. We discussed all of the above in details and the pt agrees with the plan. I spent 45 minutes total with the patient, with 25 minutes of the time spent [id number] in discussing her diagnosis and reviewing options for treatment. Subjective: Patient ID: Karoline Moseley is a 45 y.o. female. HPI Review of Systems Objective: Physical Exam Assessment and Plan: No problem-specific visit notes found for this encounter. documented in this encounter Plan of Treatment Scheduled Orders Name Type Priority Associated Diagnoses Order S chedule HM Colonoscopy GI Routine Hematochezia Ordered: 01/31 documented as of this encounter Visit Diagnoses Diagnosis Hematochezia Blood in stool IBS (irritable bowel syndrome) Irritable bowel syndrome documented in this encounter Care Teams Site Operations Manager Relationship Specialty Start Date End Date Beth Golden MD PCP - General 06/25/10 08/09/[address] [place] [id number] documented as of this encounter
--- OUTSIDE RECORDS SUMMARY | 2022-02-11 16:56 | XMS_ITS | Encounter Summary ---
:1965 Author Organization [facility] [place] [address] Care Team Providers Name Role Phone Beth Golden MD Primary Care Provider Encounter Details Date Type Department Care Team Description 08/12/2010 Office Visit Endocrinology at [facility] Raj Yancey, [facility] [place] [phone] [facility] [phone] ENDOCRINOLOGY DE PT. [place] [id number] (Wo rk) Social History Tobacco Use Types Packs/Day Years Used Date Never Assessed Sex Assigned at Date Recorded Not on file documented as of this encounter Plan of Treatment Not on filedocumented as of this encounter Visit Diagnoses Not on filedocumented in this encounter Care Teams Tapper Supervisor Relationship Specialty Start Date End Date Beth Golden MD PCP - General 06/25/10 08/09/14 [address] [facility] [id number] documented as of this encounter
--- OUTSIDE RECORDS SUMMARY | 2022-02-11 16:56 | XMS_ITS | Encounter Summary ---
:1965 Author Organization [facility] [place] [address] Care Team Providers Name Role Phone Beth Golden MD Primary Care Provider Reason for Visit Reason Onset Date Comments Other 09/27/2012 Encounter Details Date Type Department Care Team Description 09/27/2012 Telephone Endocrinology at [facility] [place] [address] Social History Tobacco Use Types Packs/Day [...] Telephone Encounter - Tomasa Santos LPN - 09/27/2012 9:46 AM EST Returning call to pharmacist Osorio asking for clarification on metformin dose Per 09/24/12 note Karoline Moseley is doing ok during the interim but had lots of aches and pain from fibromyalgia as well as neuropathy pain with electrical pain in her ext. She has been taking a lowered dose of metformin 500 mg qd or bid during the interim (supposed to take 2995-1524 mg/day for her PCOS and mild diabetes). 1. Medication: To cont LT4 125 mcg qd for hypothyroid To resume metforminER 1,500-2,000 mg/day as tolerated for her PCOS and mild diabetes Per request from pharmacist Osorio kincaid Rx to be done as Rx he has is for Metformin er 500 mg two per day 8245-5696 mg as tolerated documented in this encounter Plan of Treatment Not on filedocumented as of this encounter Visit Diagnoses Not on filedocumented in this encounter Care Teams Latin Dance Instructor Relationship Specialty Start Date End Date Beth Golden MD PCP - General 06/25/10 08/09/14 [address] [place] [address] documented as of this encounter
--- OUTSIDE RECORDS SUMMARY | 2022-02-11 16:56 | XMS_ITS | Encounter Summary ---
:1965 Author Organization [facility] [place] [address] Care Team Providers Name Role Phone Beth Golden MD Primary Care Provider Reason for Visit Reason Onset Date Comments Advice Only 05/02/2013 Encounter Details Date Type Department Care Team Description 05/02/2013 Telephone Endocrinology at [facility] Tomasa Santos [place] [address] Social History Tobacco Use Types Packs/Day [...] Telephone Encounter - Tomasa Santos LPN - 05/09/2013 8:04 AM EDT Karoline Moseley - 1:03 PM ','<<< Less Detail Raj Alves MD Sent: ThuMay 06, 2013 7:30 PM To: Tomasa Santos LPN Message If she has access to internet, then to [employer] for drug info first or we can mail drug info out to her. No need to try it as I thought she wants to lose wt. Ok to see PCP directly as she mentioned earlier to work up for her fatigue or low energy issue. Thanks. RAJ ALVES MD Called patient at which time above message was read to her. Patient agrees with plan of care and will call back should she decide that she wants to start Qysma. Telephone Encounter - Tomasa Santos LPN - 05/06/2013 12:03 PM EDT Called patient at which time message from Dr Alves was read to her. Patient asking will this medication will give me more energy as that is more the problem then weight loss. Per patient concerned about new medication as she frequently has reactions to medications. Is asking how this medication works and what side effects could be. Telephone Encounter - Tomasa Santos LPN - 05/06/2013 9:48 AM EDT Called patient. No answer message left on home v/m to return my call to discuss new medication that Dr Alves is going to prescribe for weight loss. Telephone Encounter - Raj Alves MD - 05/05/2013 4:03 PM EDT Ok to try medium dose of Qysma 11.25-69 mg then as she already used amphetamine 10 mg qd. Thanks forthe info. RAJ ALVES MD Telephone Encounter - Tomasa Santos LPN - 05/05/2013 1:20 PM EDT Called [facility] outpatient pharmacy. straight amphetamine is no longer available as combination medication. Per Dr Alves qysmia to be prescribed. Forward to Dr Alves as this medication comes in 4 strengths Phentermine-topiramate 3.75-23 mg 7.5-46 mg 11.25-69 mg 11.25-92 mg Telephone Encounter - Raj Alves MD - 05/04/2013 5:17 PM EDT I thought we ordered amphetamine 10 mg qd to help wt loss (not adderal-please see copy of phone notebelow). Ok to switch and may increase amphetamine from 10 to 20-25mg (max 25 mg) if tolerated (without palpitation or anxiety). To recheck lab for A1c and TSH (was 1.13-3.11 range) as we may need to use a certain DM med to help her lose wt if it's from her DM (e.g. Byetta or victoza) instead but I'll have to see her in person to discuss the alternatives (will wait for A1c result first, last A1c was up from 6.6 to 7.0%). ThanksRAJ ALVES MD (Returning call to patient Dr Alves was going to fax prescription for amphetamine 10 mg but thepharmacy never got it. Patient was told that Dr Alves is away I will need to ask D.O.C. If he iswilling to redo Rx to [facility]. Forward to Dr Diez). Telephone Encounter - Tomasa Santos LPN - 05/02/2013 1:03 PM EDT Patient calls is taking Adderall 10 mg daily to help with weight loss and to improve energy. Per patient she has had no improvement in energy and is asking for dose increase. Also per patient her PCP is willing to take over the prescribing of this medication if Dr Alves will send her a note as to how high a dose Dr Alves would want patient to take. Patient knows that Dr Alves is away until 05/04/13. documented in this encounter Plan of Treatment Not on filedocumented as of this encounter Visit Diagnoses Not on filedocumented in this encounter Care Teams Catering Attendant Relationship Specialty Start Date End Date Beth Golden MD PCP - General 06/25/10 08/09/14 [address] [place] [address] documented as of this encounter
--- OUTSIDE RECORDS SUMMARY | 2022-02-11 16:56 | XMS_ITS | Encounter Summary ---
:1965 Author Organization [facility] Address [address] [place] [address] Care Team Providers Name Role Phone Beth Golden MD Primary Care Provider Encounter Details Date Type Department Care Team Description 02/14/2011 Surgery [place] [place] [facility] Ryanne Zarate, COLONOSCOPY FLEXIBLE, [facility] Leo tracy MD WITH BX (WRVU 3.66) [place] [address] [facility] [phone] GASTROENTEROLOGY DEPT. [place], [place] [address] Social History Tobacco Use Types [...] Sign Reading Time Taken Comments Blood Pressure 143/90 02/14/2011 4:37 PM EDT Pulse 88 02/14/2011 4:37 PM EDT Temperature 36.6 ??C (97.9 ??F) 02/14/2011 3:16 PM EDT Respiratory Rate 20 02/14/2011 4:37 PM EDT Oxygen Saturation 95% 02/14/2011 4:44 PM EDT Inhaled Oxygen Concentration - - Weight - - Height - - Body Mass Index - - documented in this encounter Discharge Instructions Discharge InstructionsMayelin Palumbo RN - 02/14/2011 5:01 PM EDT Thursday-Thursday Clinic [phone] 8a-5p Same Day Endo [phone] 7a-8p Otherwise contact [phone] and ask to speak to the forensic nurse farm demonstrator Patient InstructionsRyanne Zarate MD - 02/14/2011 3:27 PM EDT Please see Recommendations in the Provation procedure report which is documented in the procedural note in E-DH. AttachmentsThe following attachments cannot be sent through Care Everywhere. COLONOSCOPY: WHAT TO EXPECT AT HOME (FINNISH)COLON POLYPS: AFTER YOUR VISIT (FINNISH)documented in this encounter Medications at Time of Discharge Medication Sig Dispensed Refills Start Date End Date ALBUTEROL INHL Inhale 1 ampule 0 02/11/2011 into the lungs every 4 hours as needed (WHEEZING). nabumetone (RELAFEN) 500 Take 500 mg by 0 03/21/2013 mg tablet mouth 2 times daily. montelukast (SINGULAIR) 10 Take 10 mg by mouth 0 02/11/2011 03/21/2013 mg tablet daily. fexofenadine (ALLERGY Take 180 mg by 0 04/10/2011 RELIEF, FEXOFENADINE,) 180 mouth daily. mg tablet sertraline (ZOLOFT) 100 mg Take 200 mg by 0 05/04/2013 tablet mouth daily. levothyroxine (SYNTHROID) 125 MCG = 1 0 1 09/24/2012 125 mcg tablet Tablet(s), PO, Once daily metFORMIN (GLUCOPHAGE) 1000 MG = 1 0 08/12/2010 0 09/24/2012 1,000 mg tablet Tablet(s), PO, Twice daily documented as of this encounter Progress Notes Reddy Dangelo RN - 02/14/2011 2:00 PM EDT C/O headache and feeling shaky. Asked to have her blood sugar checked to make sure it wasn't low. Blood sugar is 114 per glucometer. Reassurance given. She has no other request documented in this encounter H&P Notes Ryanne Zarate MD - 02/14/2011 3:25 PM EDT 45 yo with long history of intestinal complaints. No significant changes since consultaton with Dr. Palma. PMH, Meds, allergies reviewed. A/P Proceed with colonoscopy. Risk explained and consent signed. documented in this encounter Miscellaneous Notes Miscellaneous - Provider, Scanning - 02/14/2011 9:54 PM EDT OR Attestation - Ryanne Zarate MD - 02/14/2011 3:27 PM EDT As the attending physician, I personally performed the entire procedure. Op Note - Ryanne Zarate MD - 02/14/2011 3:27 PM EDT Please see the Provation procedure report in the Procedures tab in eDH. Miscellaneous - Provider, Scanning - 02/14/2011 3:19 PM EDT documented in this encounter Plan of Treatment Not on filedocumented as of this encounter Procedures Procedure Name Priority Date/Time Associated Comments Diagnosis SURGICAL PATHOLOGY Routine 02/14/2011 5:48 PM Res ults for this REPORT EDT procedure are i n the results section. COLONOSCOPY, 02/14/2011 3:37 PM RECTAL BLEEDING POLYPECTOMY, REMOVAL EDT LESION BY SNARE (WRVU 4.67) COLONOSCOPY FLEXIBLE, 02/14/2011 3:37 PM RECTAL BLEEDI NG WITH BX (WRVU 3.66) EDT POCT GLUCOSE Routine 02/14/2011 3:26 PM Results f or this EDT procedure are i n the results section. COLONOSCOPY Routine 02/14/2011 3:20 PM Results f or this EDT procedure are i n the results section. POCT GLUCOSE Routine 02/14/2011 1:57 PM Results f or this EDT procedure are i n the results section. documented in this encounter Results SURGICAL PATHOLOGY REPORT (02/14/2011 5:48 PM EDT) [facility] gist Method Time Signature Surgical CERNER Pathology ? [facility] Report ? Provider: ?? Ryanne ZARATE ?Pt. Name: ?? KAROLINE MOSELEY ? Acc #: ?[id number] ? Pt. ? Col Date: ?? 1 ? /Sex: ?1965,(45 years),Female ? Rec Date: ?? 02/14/2011 ? LOC: ?4T ? SURGICAL PATHOLOGY ? ---Pathologic Diagnosis--- ? Endoscopic biopsy - ? A - Random colon: ? Colonic mucosa within normal limits. ? B - Polyp sigmoid: ? Tubular adenoma. ? 02/18/11 ? XL ? 02/18/11 Verified by: ? Marysol Garcia MD ? Pathologist ? (Electronic Si gnature) ? The attending pathologist whose signature appears o n this report has ? reviewed all diagnostic slides and has edited the jose luis ss and/or ? microscopic portion of the report in rendering the fi nal pathologic ? diagnosis. ? ---Microscopic Description--- ? Slides reviewed, microscopic description not recorded . ? ---Gross Description--- ? A - Labeled/Fixative: Random mucosal biopsies - colon , formalin. ? Qty/Size/Weight: ?Multiple fragments, ranging from 0.2 cm to 0.3 cm ? in greatest dimensio n. ? Tissue Description: ?? Soft, israel tissues. ? Sections/Processing: ??(T2) ? B - Labeled/Fixative: Polyp sigmoid, formalin. ? Qty/Size/Weight: ?Two, 0.4 and 0.7 cm in great est dimension. ? Tissue Description: ?? Irregular, polypoid port ions of israel-yellow and ? israel-pink soft tissue s. ? Sections/Processing: ??(T1) ??bjm/EJR ? ---Clinical Information--- ? Specimen Submitted: ? A - Random mucosal biopsies-colon ? B - Polyp sigmoid ? Clinical History/Diagnosis: ? 45 YO with abdominal pain, diarrhea and hematochezia Specimen (Source) Anatomical Collection Method Collection Time Re ceived Time Location / / Volume Laterality 02/14/2011 5:48 PM EDT L Minor Zarate MD PATHOLOGY/CYTOLOGY ORDERABLE S Performing Organization Address City/State/[place] [address] [facility] USE ONLY (02/14/2011 3:26 PM EDT) athologist Signature POC Glucose 125 60 - 199 CERNER mg/dL [facility] Comment: Supplemental ranges: <110 mg/dL before meals <200 mg/dL all other times of the day Specimen Anatomical Collection Method Collection Time Receive d Time (Source) Location / / Volume Laterality Blood specimen 02/14/2011 3:26 PM 011 3:26 (specimen) EDT PM EDT L Minor Zarate MD POINT OF CARE TEST ORDERABLE S Performing Organization Address City/State/[place] [address] CHRISTINA [facility] COLONOSCOPY (02/14/2011 3:20 PM EDT) Component Value Ref Test Analysis Performed At [facility] Range Method Time Signature COLONOSCOPY [facility] Endoscopy Patient Name: Karoline Moseley ? Procedure Date: 02/14/2011 03:20:59 PM ? Date of : 1965 ? Age: 45 ? Procedure: ? Colonoscopy Indications: ? Hematochezia Providers: ? Ryanne Zarate MD, Sejal Travis Must y, ? RN, Nehemias Alonzo, Technici an Referring MD: ?Sejal Davis MD Medicines: ? Midazolam 5 mg IV, Fentanyl 200 ? micrograms IV, Diphenhydramin e 50 mg ? IV Complications: ? No immediate complications Procedure: ? Pre-Anesthesia Assessment: ? - Prior to the procedure, a H istory ? and Physical was performed, a nd ? patient medications and aller gies ? were reviewed. The patient is ? competent. The risks and bene fits of ? the procedure and the sedatio n ? options and risks were discus sed with ? the patient. All questions we re ? answered and informed consent was ? obtained. Patient identificat ion and ? proposed procedure were verif ied by ? the physician in the pre-proc edure ? area in the endoscopy suite. Mental ? Status Examination: alert and ? oriented. Airway Examination: normal ? oropharyngeal airway and neck ? mobility. Respiratory Examina tion: ? clear to auscultation. CV ? Examination: normal. ASA Grad e ? Assessment: II - A patient wi th mild ? systemic disease. After revie wing the ? risks and benefits, the patie nt was ? deemed in satisfactory condit ion to ? undergo the procedure. The an esthesia ? plan was to use moderate jessi tion / ? analgesia (conscious sedation ). ? Immediately prior to administ ration ? of medications, the patient w as ? re-assessed for adequacy to r eceive ? sedatives. The heart rate, ? respiratory rate, oxygen satu rations, ? blood pressure, adequacy of p ulmonary ? ventilation, and response to care ? were monitored throughout the ? procedure. The physical statu s of the ? patient was re-assessed after the ? procedure. ? The procedure, indications, b enefits, ? risks and alternatives were e xplained ? to the patient. Specifically ? discussed were potential ? complications including, but not ? limited to, bleeding, perfora tion, ? infection, missing a cancer, and ? adverse medication reactions. The ? patient was placed in the lef t ? lateral decubitus position, a nd a ? digital rectal exam was perfo rmed. ? The Colonoscope was inserted in the ? anus and under direct visuali zation, ? advanced to the terminal ileu m, with ? identification of the appendi ceal ? orifice and IC valve. Careful ? inspection was made as the ? colonoscope was withdrawn. Th e ? colonoscopy was performed wit hout ? difficulty. The patient fahad ated the ? procedure well. The quality o f the ? bowel preparation was good. ? Findings: ? The perianal and digital rectal examinations were ? normal. Multiple small-mouthed diverticula were found ? in the sigmoid colon. A sessile polyp was found in ? the sigmoid colon. The polyp was 5 mm in size. The ? polyp was removed with a cold biopsy forceps. ? Resection and retrieval were complete. Two hemostatic ? clips were successfully placed over the polypectomy ? site for persistent bleeding. There was no bleeding ? at the end of the procedure. The terminal ileum ? appeared normal. External and internal hemorrhoids ? were found during retroflexion and were medium-sized. ? Multiple biopsies were obtained with cold forceps for ? evaluation of microscopic colitis. ? Impression: ?- Diverticulosis sigmoid colon. ? - One 5 mm, non-bleeding poly p in the ? sigmoid colon. Resected and r etrieved. ? - The examined portion of the ileum ? was normal. ? - External and internal hemor rhoids. Recommendation: ?- Await pathology. ? - Follow-up per Dr. Palma. ? L Minor Zarate MD Signed Date: 02/14/2011 04:56:07 PM Number of Addenda: 0 Note initiated on 02/14/2011 03:20:59 PM Specimen (Source) Anatomical Collection Method Collection Time Re ceived Time Location / / Volume Laterality 02/14/2011 3:20 PM EDT Unknown GENERAL SURGICAL ORDERABLES Performing Organization Address City/State/ZIP Code Phon e Number [facility] POCT GLUCOSE LAB USE ONLY (02/14/2011 1:57 PM EDT) athologist Signature POC Glucose 114 60 - 199 [facility]ER mg/dL [facility] Comment: Supplemental ranges: <110 mg/dL before meals <200 mg/dL all other times of the day Specimen Anatomical Collection Method Collection Time Receive d Time (Source) Location / / Volume Laterality Blood specimen 02/14/2011 1:57 PM 011 1:57 (specimen) EDT PM EDT L Minor Zarate MD POINT OF CARE TEST ORDERABLE S Performing Organization Address City/State/[place] [address] [facility] documented in this encounter Visit Diagnoses Not on filedocumented in this encounter Administered Medications Inactive Administered Medications - up to 3 most recent administrations Medication Order MAR Action Action Date Dose Rate Site diphenhydrAMINE (BENADRYL) Given 02/14/2011 3:41 PM EDT 50 mg Right Arm injection ONCE PRN, 1 dose, Starting on Thu02/14/11 at 1541, Until Thu02/14/11 at 1541, Itching, Intra-Operative (Intra-Procedure), Routine fentaNYL 50mcg/mL injection Given 02/14/2011 3:41 PM EDT 100 mcg Right Arm ONCE PRN, 1 dose, Starting on Thu02/14/11 at 1541, Until Thu02/14/11 at 1541, Pain, Intra-Operative (Intra-Procedure), Routine fentaNYL 50mcg/mL injection Given 02/14/2011 3:53 PM EDT 50 mcg Intravenous, ONCE PRN, 1 dose, Starting on Thu02/14/11 at 1553, Until Thu02/14/11 at 1553, Pain, Intra-Operative (Intra-Procedure), Routine fentaNYL 50mcg/mL injection Given 02/14/2011 4:05 PM EDT 50 mcg Intravenous, ONCE PRN, 1 dose, Starting on Thu02/14/11 at 1605, Until Thu02/14/11 at 1605, Pain, Intra-Operative (Intra-Procedure), Routine midazolam (VERSED) injection Given 02/14/2011 3:41 PM EDT 2 mg Right Arm ONCE PRN, 1 dose, Starting on Thu02/14/11 at 1541, Until Thu02/14/11 at 1541, Sleep, Intra-Operative (Intra-Procedure), Routine midazolam (VERSED) injection Given 02/14/2011 3:54 PM EDT 1 mg Intravenous, ONCE PRN, 1 dose, Starting on Thu02/14/11 at 1554, Until Thu02/14/11 at 1554, Sleep, Intra-Operative (Intra-Procedure), Routine midazolam (VERSED) injection Given 02/14/2011 4:06 PM EDT 1 mg Intravenous, ONCE PRN, 1 dose, Starting on Thu02/14/11 at 1606, Until Thu02/14/11 at 1606, Sleep, Intra-Operative (Intra-Procedure), Routine midazolam (VERSED) injection Given 02/14/2011 3:57 PM EDT 1 mg Intravenous, ONCE PRN, 1 dose, Starting on Thu02/14/11 at 1557, Until Thu02/14/11 at 1557, Sleep, Intra-Operative (Intra-Procedure), Routine documented in this encounter Active and Recently Administered Medications Times are shown in EDT. PRN Medication Order 02/12/2011 02/13/2011 02/14/2011 diphenhydrAMINE (BENADRYL) injection (COMPLETED) 1541 (Given - Provider: Sejal Cox RN) ONCE PRN, 1 dose, Starting Thu02/14/11 a t 1541, Until Thu02/14/11 at 1541, Itching, Intra-Operative (Intra-Procedure), Routine fentaNYL 50mcg/mL injection (COMPLETED) 1541 (Given - Provider: Sejal Cox RN) ONCE PRN, 1 dose, Starting Thu02/14/11 a t 1541, Until Thu02/14/11 at 1541, Pain, Intra-Operative (Intra-Procedure), Routine fentaNYL 50mcg/mL injection (COMPLETED) 1553 (Given - Provider: Sejal Cox RN) Intravenous, ONCE PRN, 1 dose, Starting Thu02/14/11 at 1553, Until Thu02/14/11 at 1553, Pain, Intra-Operative (Intra-Procedure), Routine fentaNYL 50mcg/mL injection (COMPLETED) 1605 (Given - Provider: Sejal Cox RN) Intravenous, ONCE PRN, 1 dose, Starting Thu02/14/11 at 1605, Until Thu02/14/11 at 1605, Pain, Intra-Operative (Intra-Procedure), Routine midazolam (VERSED) injection (COMPLETED) 1541 (Given - Provider: Sejal Cxo RN) ONCE PRN, 1 dose, Starting Thu02/14/11 a t 1541, Until Thu02/14/11 at 1541, Sleep, Intra-Operative (Intra-Procedure), Routine midazolam (VERSED) injection (COMPLETED) 1554 (Given - Provider: Sejal Cox RN) Intravenous, ONCE PRN, 1 dose, Starting Thu02/14/11 at 1554, Until Thu02/14/11 at 1554, Sleep, Intra-Operative (Intra-Procedure), Routine midazolam (VERSED) injection (COMPLETED) 1606 (Given - Provider: Sejal Cox RN) Intravenous, ONCE PRN, 1 dose, Starting Thu02/14/11 at 1606, Until Thu02/14/11 at 1606, Sleep, Intra-Operative (Intra-Procedure), Routine midazolam (VERSED) injection (COMPLETED) 1557 (Given - Provider: Sejal Cox RN) Intravenous, ONCE PRN, 1 dose, Starting Thu02/14/11 at 1557, Until Thu02/14/11 at 1557, Sleep, Intra-Operative (Intra-Procedure), Routine documented in this encounter Care Teams Propeller Driven Airplane Mechanic Relationship Specialty Start Date End Date Beth Golden MD PCP - General 06/25/10 08/09/14 [address] [place] [address] documented as of this encounter
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
--- OUTSIDE RECORDS SUMMARY | 2022-02-11 16:56 | XMS_ITS | Encounter Summary ---
:1965 Author Organization [place] [address] Care Team Providers Name Role Phone Beth Golden MD Primary Care Provider Encounter Details Date Type Department Care Team Description 02/10/2011 Abstract [place] [facility] [place] [address] Social History Tobacco Use Types Packs/Day Years Used Date Never Assessed Sex Assigned at Date Recorded Not on file documented as of this encounter Plan of Treatment Not on filedocumented as of this encounter Visit Diagnoses Not on filedocumented in this encounter Care Teams Tax Expert Relationship Specialty Start Date End Date Beth Golden MD PCP - General 06/25/10 08/09/14 [address] [place] [address] documented as of this encounter
--- OUTSIDE RECORDS SUMMARY | 2022-02-11 16:56 | XMS_ITS | Encounter Summary ---
:1965 [place] [address] Care Team Providers Name Role Phone Beth Golden MD Primary Care Provider Encounter Details Date Type Department Care Team Description 08/12/2010 Orders Only Lab [facility] [place] [address] ENDOCRINOLOGY DEPT. [phone] [place], [place] [address] (Wo rk) Social History Tobacco Use Types Packs/Day Years Used Date Never Assessed Sex Assigned at Date Recorded Not on file documented as of this encounter Plan of Treatment Not on filedocumented as of this encounter Procedures Procedure Name Priority Date/Time Associated Comments Diagnosis TSH MARINO 08/12/2010 11:48 AM Results for this EST procedure are i n the results section. HEMOGLOBIN A1C MARINO 08/12/2010 11:48 AM Result s for this EST procedure are i n the results section. BASIC METABOLIC MARINO 08/12/2010 11:48 AM Resul ts for this PANEL (NON-FASTING) EST procedur e are in the results section. documented in this encounter Results TSH (08/12/2010 11:48 AM EST) P athologist Signature TSH 2.65 0.27 - 4.20 CERNER mcIU/mL MILLENNIUM Comment: Cord Blood Reference Range: ??0. 35 23.00 uIU/mL Specimen Anatomical Collection Method Collection Time Receive d Time (Source) Location / / Volume Laterality Blood specimen 08/12/2010 11:48 1 (specimen) AM EST 11:56 AM EST Raj Alves MD CHEMISTRY ORDERABLES Performing Organization Address City/State/[place] [address] CERNER MILLENNIUM (ABNORMAL) BASIC METABOLIC PANEL (NON-FASTING) (08/12/2010 11:48 AM EST) P athologist Signature Glucose Lvl 121 <=199 mg/dL CERNER MILLENNIUM Comment: Diabetes: >=200 mg/dL plus symp toms BUN 12 8 - 18 mg/dL CERNER MILLENNIUM Creatinine 1.08 0.70 - 1.20 mg/dL CERNER MILL ENNIUM Sodium 143 135 - 145 mmol/L CERNER [...] - 107 mmol/L CERNER MILLENN IUM CO2 25 22 - 31 mmol/L CERNER MILLENNI UM Anion Gap 15 5 - 15 mmol/L CERNER MILLENNIU M Calcium 9.8 8.5 - 10.5 mg/dL CERNER JEFF NIUM Estimated GFR 55 (L) >=60 CERNER MILLENNIU M Comment: The National Kidney Disease Education Pr ogram (NKDEP) has recommended all laboratories report estimated GFR (eGFR) along with plasma creatinine measurements to assist you with recognit ion of early kidney disease. Caveats: ??Plasma creatinine should be a t steady-state (unchanged within the past week). ??Patient age > = 18 years, and for Americans multiply eGFR by 1.2. At present, NKDEP does NOT recommend usi [...] kidney disease. References: http://nkdep.nih.gov/resources/NKDEP_Sug gestn4Labs_0606_508.pdf http://www.kidney.org/professionals/kls/ pdf/faq_gfr.pdf Specimen Anatomical Collection Method Collection Time Receive d Time (Source) Location / / Volume Laterality Blood specimen 08/12/2010 11:48 1 (specimen) AM EST 11:56 AM EST Raj Alves MD CHEMISTRY ORDERABLES Performing Organization Address City/State/[place] [address] CERNER MILLENNIUM (ABNORMAL) HEMOGLOBIN A1C (08/12/2010 11:48 AM EST) Analysis Performed At Patho logist Time Signature Hemoglobin A1C 6.3 (H) 4.3 - 6.1 CERNER % MILLENNIUM Est Avg Gluc 134 mg/dL CERNER MILLENNIUM Comment: eAG equivalents for [...] website: ??http://professional.diabetes.org/gluc osecalculator.aspx Reference: Bret RIVER, Heike J, Promise R, et al. ??Tr anslating the A1C assay into estimated average glucose values. ??Diabetes Care 2008:31(8):5410-2425. Specimen Anatomical Collection Method Collection Time Receive d Time (Source) Location / / Volume Laterality Blood specimen 08/12/2010 11:48 1 (specimen) AM EST 11:56 AM EST Raj Alves MD CHEMISTRY ORDERABLES Performing Organization Address City/State/[place] [address] [facility] documented in this encounter Visit Diagnoses Not on filedocumented in this encounter Care Teams Stock Feeder Relationship Specialty Start Date End Date Beth Golden MD PCP - General 06/25/10 08/09/14 [address] [place] [address] documented as of this encounter
--- OUTSIDE RECORDS SUMMARY | 2022-02-11 16:56 | XMS_ITS | Encounter Summary ---
:1965 Author Organization [facility] [place] [address] Care Team Providers Name Role Phone Beth Golden MD Primary Care Provider Encounter Details Date Type Department Care Team Description 02/14/2011 Hospital En[place] [facility] [place]ne Zarate, [facility] [place] [address] [facility] [phone] [facility] [place], [place] [address] Social History Tobacco Use Types [...] - 02/14/2011 5:01 PM EDT Thursday-Thursday Clinic [phone] 8a-5p Same Day Endo [phone] 7a-8p Otherwise contact [phone] and ask to speak to the gyroscopic engineering technician continuous washer operator Patient InstructionsRyanne Zarate MD - 02/14/2011 3:27 PM EDT Please see Recommendations in the Provation procedure report which is documented in the procedural note in E-DH. AttachmentsThe following attachments cannot be sent through Care Everywhere. COLONOSCOPY: WHAT TO EXPECT AT HOME (UPPER SORBIAN)COLON POLYPS: AFTER YOUR VISIT (UPPER SORBIAN)documented in this encounter Medications at Time of [...] SURGICAL PATHOLOGY REPORT (02/14/2011 5:48 PM EDT) [facility] Method Time Signature Surgical CERNER Pathology ? [facility] Report ? Provider: ?? Ryanne ZARATE ?Pt. Name: ?? KAROLINE MOSELEY ? Acc #: ?[id number] ? Pt. ? Col Date: ?? 1 [...] Organization Address City/State/ZIP Code Phon e Number [place] [phone] [facility] POCT GLUCOSE LAB USE ONLY (02/14/2011 3:26 PM EDT) athologist Signature POC Glucose 125 60 - 199 [facility] mg/dL [facility] Comment: Supplemental ranges: <110 mg/dL before meals <200 mg/dL all other times of the day Specimen Anatomical Collection Method Collection Time Receive d Time (Source) Location / / Volume Laterality Blood specimen 02/14/2011 3:26 PM 011 3:26 (specimen) EDT PM EDT L Minor Zarate MD POINT OF CARE TEST ORDERABLE S Performing Organization Address City/State/ZIP [facility] [place] [place] [address] CERNER MILLENNIUM COLONOSCOPY (02/14/2011 3:20 PM EDT) Component Value Ref Test Analysis Performed At [facility] Range Method Time Signature COLONOSCOPY [facility] Endoscopy Patient Name: Karoline Moseley ? [...] Th e ? colonoscopy was performed wit preethi ? difficulty. The patient fahad ated the [...] LAB USE ONLY (02/14/2011 1:57 PM EDT) P athologist Signature POC Glucose 114 60 - 199 CERNER mg/dL [facility] Comment: Supplemental ranges: <110 mg/dL before meals <200 mg/dL all other times of the day Specimen Anatomical Collection Method Collection Time Receive d Time (Source) Location / / Volume Laterality Blood specimen 02/14/2011 1:57 PM 011 1:57 (specimen) EDT PM EDT L Minor Zarate MD POINT OF CARE TEST ORDERABLE S Performing Organization Address City/State/ZIP Code Phon e Number [place] [phone] CERNER MILLENNIUM documented in this encounter Visit Diagnoses Not on filedocumented in this encounter Active and Recently Administered [...] Routine documented in this encounter Care Teams Inventory Technician Relationship Specialty Start Date End Date Beth Golden MD PCP - General 06/25/10 08/09/14 [address] [place] [address] documented as of this encounter
--- OUTSIDE RECORDS SUMMARY | 2022-02-11 16:56 | XMS_ITS | Encounter Summary ---
:1965 [place] [address] Care Team Providers Name Role Phone Beth Golden MD Primary Care Provider Reason for Visit Reason Onset Date Comments Medication Refill 03/31/2013 Encounter Details Date Type Department Care Team Description 03/31/2013 Refill Endocrinology at [facility] Juan Carlos Curtis MD [facility] [place] [address] ENDOCRINOLOGY DEPT [phone] [place] [address] (Wo rk) Social History Tobacco Use Types [...] on filedocumented in this encounter Care Teams Telehealth Director Relationship Specialty Start Date End Date Beth Golden MD PCP - General 06/25/10 08/09/14 [address] [place] [address] documented as of this encounter
--- OUTSIDE RECORDS SUMMARY | 2022-02-11 16:56 | XMS_ITS | Encounter Summary ---
:1965 Author Organization [facility] [place] [address] Care Team Providers Name Role Phone Corinne Golden MD Primary Care Provider Reason for Referral Consultation (Routine) - Closed Specialty Diagnoses / Procedures Referred By Contact Refer red To Contact Rheumatology Diagnoses Hyperuricemia Arthritis Fibromyalgia Raj Alves, [facility] Rheumatology 5c MD [facility] [place] [address] [place] [address] Referral ID Status Reason Start Date Expiration Date Visits V isits Requested Authorized [id number] Closed Consult, 03/22/2013 09/18/2013 1 1 Test & Treat Reason for Visit Reason Comments Diabetes Thyroid Problem Encounter Details Date Type Department Care Team Description 03/21/2013 Office Visit Endocrinology at [facility] Elaine Alves, Unspecified hypothyroidism ( Primary Dx); [facility] Raj Burroughs MD Unspecified vitamin D deficiency; [facility] Type II or unspecified type diabetes mellitus without mention of complication, not stated as uncontrolled; [place] [address] Hyperuricemia; [phone] ENDOCRINOLOGY Irregular stacey ods; DEPT. Arthritis; [place], [place] Fibromyalgia [address] Social History Tobacco Use Types Packs/Day Years [...] Sign Reading Time Taken Comments Blood Pressure 159/100 03/21/2013 1:13 PM EDT Pulse 70 03/21/2013 1:13 PM EDT Temperature - - Respiratory Rate - - Oxygen Saturation - - Inhaled Oxygen Concentration - - Weight 130.2 kg (287 lb) 03/21/2013 1:13 PM EDT Height - - Body Mass Index 47.76 04/10/2011 9:02 AM EDT documented in this encounter Patient Instructions Patient InstructionsRaj Alves MD - 03/21/2013 2:07 PM EDT Plan: 1. Medication: Pt will start taking amphetamine 10 mg qd to help her lose wt and boost up her energy To take LT4 137 mcg qd To cont vitamin D 50,000 iu weekly and will her know if we need to adjust the dose to keep the level in mid range To stop progesterone Day 1-10 as it may contribute to wt gain and depressed mood and she already stopped estrogen long ago. This progesterone was prescribed by EQUITY DIRECTOR in [place]. Info on possible side effects and how to take the medication properly was discussed at visit today. To continue all other medications, low fat/controlled carb diet & exercise as tolerated to keepweight stable. 2. Lab: Already checked lab today and will let pt know all test results soon for TSH, 25-vitamin D, A1c, estradiol, Progesterone, FSH, uric acid, ESR. HsCRP and ANTONIA. 3. RTC: Next visit in 9 months or earlier if needed. Will check TSH and 25- vitamin D at the time (Quick draw lab before visit with us on the same day). documented in this encounter Progress Notes Raj Alves MD - 03/21/2013 1:55 PM EDT Endocrine Clinic Name: Karoline Moseley : 1965 PCP: CORINNE GOLDEN MD Provided by: Raj Alves MD, PhD, FACE Date: 03/21/2013 Reason for visit: Endocrine visit for the [...] deficiency with chronic fatigue and fibromyalgia 268.9 ACTIVE PROBLEM LIST 1. 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 02/14/10: TSH 2.36->3.05 (06/25/10)-> 2.65 (08/12/10)->1.08 (07/14)-> 3.11 (09/24/12)-> 1.13 (03/21/13) 2. PCOS-oily skin, acne, hirsutism, on BCPs=> changed to progesterone alone per EQUITY DIRECTOR & having irregular periods 11/14/09: normal DHEAS 94, testosterone 11, free Testos 1.1, cortisol 7.0, ACTH 14 03/21/13: FSH 27.7, estradiol 21, progesterone 0.38 3. Diabetes type II, peripheral neuropathy [Onset: Unknown] -well controlled and used to take metformin 1000 mg bid and Lyrica 75 mg tid but then quit due to side effects -07/11: A1c 6.6% (was 6.4% before)->6.7% (11/10)->6.2 (02/14/10)...on higher dose of metformin (11/14/09) 08/12/10: A1c 6.3%-> 6.6% (09/15)-> 7.0% (after she quit metformin due to side effects) 4. HTN, high TG, obesity, metabolic syndrome [Onset: Unknown] 09/11/08: TG 215, TC 185, LDL 77, HDL 67 09/24/12:TG 241, TC 187, LDL 81, HDL 58 5. Mild vitamin D deficiency [Onset: Nov 2009] 11/14/09: 25vitamin D 32 => 29 (09/24/12) (nl 30-80) then resumed vitamin D 50,000 iu weekly 03/21/13: 25vitamin D 44 6. Chronic fatigue, fibromyalgia and hyperuricemia (8.2-> 9.1 - could not tolerate allopurinol) Karoline Moseley was in tear today as she could not move with lots of aches and pain from fibromyalgiaas well as neuropathy with electrical pain in her ext. She could not tolerate lots of medications even a lowered dose of metformin, Lyrica, allopurinol for her hyperuricemia, estradiol (so she simply takes progesterone only day 1-10 of the cycles wit irregular periods). Also gained wt 10 lbs since last visit in 09/15 and unable to stand for more than 15 mins, mainly sitting at home all day but had to change position often due to aches and pain. She also brought a form from [facility] for me to complete again (did this for her at last visit on 09/24/12 but she stated that she needs the update one again). I instructed her that this should be done by PCP next time as it should involve both physical and mental health as well as assessing her disability on how long she can sit, stand, work, lift, etc. I'll help complete the form for her today as she really desparated and really needs help. ROS: Please see HPI, all others negative [...] Prescriptions on File Prior to Visit Medication Status Sig Dispense Refill ??? traMADol (ULTRAM) 50 mg tablet Active Take 50 mg by mouth every 6 hours as needed. ??? ergocalciferol (VITAMIN D) 50,000 unit capsule Active Take 1 capsule by mouth once a week. 13 capsule 4 ??? ALBUTEROL INHL Active Inhale into the lungs as needed. ??? metFORMIN (GLUCOPHAGE-XR) 500 mg 24 hr tablet Discontinued 1,500-2,000 mg daily as tolerated. 360 tablet 4 ??? allopurinol (ZYLOPRIM) 100 mg tablet Active Take 1 tablet by mouth daily. 90 tablet 4 ??? nabumetone (RELAFEN) 500 mg tablet Discontinued Take 500 mg by mouth 2 times daily. ??? montelukast (SINGULAIR) 10 mg tablet Discontinued Take 10 mg by mouth daily. ??? sertraline (ZOLOFT) 100 mg tablet Active Take 200 mg by mouth daily. Allergies Allergen Reactions ??? [place] Other (See Comments) pain ??? Bee Pollen [...] ??? Bipolar Disorder Mother Physical exam BP 159/100 Pulse 70 Wt 130.182 kg (287 lb) Appearance: Obese, pleasant, NAD but looks depressed in tear all the time with her physical disability and wt gain (not suicidal) HEENT: PERRLA, EOMI, no lid lag or exophthalmos Neck: supple, no goiter or lymphadenopathy Abd: obese, benign, ND, NT Ext: normal skin texture and temperature no pitting edema Neuro: general weakness, non-focal. Recent Results (from the past 24 hour(s)) VIT D TOTAL EVALUATION Component Value Range 25-OH Vit D Total 44 30 - 100 ng/mL TSH Component Value Range TSH 1.13 0.27 - 4.20 mcIU/mL HEMOGLOBIN A1C Component Value Range Hemoglobin A1C 7.0 (*) 4.3 - 6.1 % Est Avg Gluc 154 URIC ACID Component Value Range Uric Acid 9.1 (*) 2.5 - 6.5 mg/dL ESTRADIOL Component Value Range Estradiol 21 PROGESTERONE Component Value Range Progesterone 0.38 FOLLICLE STIMULATING HORMONE Component Value Range FSH 27.7 SEDIMENTATION RATE Component Value Range Sed Rate 19 0 - 20 mm/hr HIGH SENSITIVITY CRP Component Value Range CRP High Sens 25.3 Assessment: Reasonable control of hypothyroid due to Adam's thyroiditis on LT4 replacement with good TSH 1.13 but still having wt gain and extreme fatigue with lots of aches and pain which she contributes to fibromyalgia and neuropathy. She has concern about Adam's thyroiditis with associated autoimmuneconditions including neuropathy and may need to see phlebotomy instructor for her high uric and fibromyalgia directly. She also has PCOS, mild diabetes type 2 with metabolic syndrome (obesity, HTN, high TG and high uricacid) but lately could not tolerate metformin any more even at a low dose and had to quit it during the interim causing higher A1c at 7.0% with lots of neuropathy, aches and pain. She now had improvement of vitamin D deficiency after taking vitamin-D 50,000 iu weekly replacement. She has irregular periods and had to use progesterone (D1-D10) only and could not tolerate estradiol under care with her PB/PAPER FINAL INSPECTOR. Progesterone may cause wt gain and fluid retention, and will rec her to try to quit it and seeif she feels better including her mood. She feels very fatigue, could not move around much at all and could stand only for 1/4 hour at a time. She stated that she had severe post- hemorrhage after her 2nd delivery in 2002 but still hadnormal breast feeding for 6 mo. Initial labs at our clinic on 11/14/09 showed normal cortisol, ACTH, FT4, PRL, FSH without evidence of hypopituitarism and lab today showed that she is getting into stacey-menopause with higher FSH and low estradiol. She admitted that she takes caffeine tablet to help keepher awake and have energy. Plan: 1. Medication: Pt will try a low dose amphetamine 10 mg qd to help her lose wt and boost up her energy and to stop caffeine tablets for now while using the medication To take LT4 137 mcg qd To cont vitamin D 50,000 iu weekly to keep the level in mid range To stop progesterone Day 1-10 for now (given by EQUITY DIRECTOR in [place], [place] but pt could not tolerate estradiol part so she simply took only progesterone) as it may contribute to wt gain and depressed mood. She stated that she already stopped estrogen long ago. Info on possible side effects and how to take the medication properly was discussed at visit today. To continue all other medications, low fat/controlled car and low uric diet & exercise as tolerated to keep weight down or at least stable. 2. Lab: Already checked lab today as above after her visit today and will let pt know all test results soon(for TSH, 25-vitamin D, A1c, estradiol, Progesterone, FSH, uric acid, ESR. HsCRP and ANTONIA). 3. RTC: Next visit in 6 months or in spring. Will check TSH, A1c, uric and 25- vitamin D at the time (Quick draw lab before visit with us on the same day). 4. I helped complete the form for [facility] today. 5. Also refer her to see phlebotomy instructor for her hyperuricemia and severe fibromyalgia We have reviewed our plan outlined above with the patient and patient verbalized understanding. All questions were answered and most of the time was spent on counseling about medication adjustment, thediagnostic and therapeutic decisions, and coordination of care. Raj Alves MD, PhD, FACE CC: CORINNE GOLDEN MD documented in this encounter Miscellaneous Notes Addendum Note - Raj Alves MD - 03/22/2013 1:10 AM EDT Addended by: RAJ ALVES on: 03/22/2013 01:10 AM Modules accepted: Level of Service documented in this encounter Plan of Treatment Scheduled Referrals Name Type Priority Associated Order Schedule Diagnoses Referral to Outpatient Referral Routine Hyperuricemi a Ordered: Rheumatology Arthritis 03/22/2013 Fibromyalgia documented as of this encounter Procedures Procedure Name Priority Date/Time Associated Comments Diagnosis VITAMIN D, 25-HYDROXY Routine 03/21/2013 2:30 PM Unspecified Results for this EDT hypothyroidism procedure are in Unspecified vitamin the resu lts D deficiency section. Type II or unspecified type diabetes mellitus without mention of complication, not stated as uncontrolled Hyperuricemia PROGESTERONE Routine 03/21/2013 2:30 PM Unspecified Results f or this EDT hypothyroidism procedure are in Unspecified vitamin the resu lts D deficiency section. Type II or unspecified type diabetes mellitus without mention of complication, not stated as uncontrolled Hyperuricemia Irregular periods ESTRADIOL Routine 03/21/2013 2:30 PM Unspecified Results f or this EDT hypothyroidism procedure are in Unspecified vitamin the resu lts D deficiency section. Type II or unspecified type diabetes mellitus without mention of complication, not stated as uncontrolled Hyperuricemia Irregular periods SEDIMENTATION RATE Routine 03/21/2013 2:30 PM Arthritis Res ults for this EDT procedure are i n the results section. CRP, CARDIAC RISK (HS Routine 03/21/2013 2:30 PM Arthritis Results for this CRP) EDT procedure are i n the results section. ANTONIA Routine 03/21/2013 2:30 PM Arthritis Results f or this EDT procedure are i n the results section. URIC ACID Routine 03/21/2013 2:30 PM Unspecified Results f or this EDT hypothyroidism procedure are in Unspecified vitamin the resu lts D deficiency section. Type II or unspecified type diabetes mellitus without mention of complication, not stated as uncontrolled Hyperuricemia TSH Routine 03/21/2013 2:30 PM Unspecified Results f or this EDT hypothyroidism procedure are in Unspecified vitamin the resu lts D deficiency section. Type II or unspecified type diabetes mellitus without mention of complication, not stated as uncontrolled Hyperuricemia HEMOGLOBIN A1C Routine 03/21/2013 2:30 PM Unspecified Results for this EDT hypothyroidism procedure are in Unspecified vitamin the resu lts D deficiency section. Type II or unspecified type diabetes mellitus without mention of complication, not stated as uncontrolled Hyperuricemia FOLLICLE STIMULATING Routine 03/21/2013 2:30 PM Unspecified R esults for this HORMONE EDT hypothyroidism procedure are in Unspecified vitamin the resu lts D deficiency section. Type II or unspecified type diabetes mellitus without mention of complication, not stated as uncontrolled Hyperuricemia Irregular periods documented in this encounter Results (ABNORMAL) Hemoglobin A1c (09/19/2013 3:00 PM EST) Analysis Performed At [facility] Time Signature Hemoglobin A1C 6.9 (H) <=5.6 % [facility] Comment: As of 2013 the methodology for [...] Mellitus, Diabetes Care 2013; 36: Suppl. 1, T77-50 Est Avg Gluc 151 mg/dL [facility] Comment: eAG equivalents for HbA1c percentages: HbA1c(%) ?eAG(mg/dL) 6.0 ?126 6.5 ?140 7.0 ?154 7.5 ?169 8.0 ?183 8.5 ?197 9.0 ?212 9.5 ?226 10.0 ? 240 Limitations: The eAG calculation has not been validated on women, individuals below 18 years old and above 70 years old, and individuals with hemoglobinopathies. Additional resources are available on [facility] ADA website: ??http://professional.diabetes.org/gluc osecalculator.aspx Bret RIVER, Heike Jeffries, Promise R, et al. ??Tr anslating the A1C assay into estimated average glucose values. ??Diabetes Care 2008:31(8):7010-2050. Specimen Anatomical Collection Method Collection Time Receive d Time (Source) Location / / Volume Laterality Blood specimen 09/19/2013 3:00 PM 014 3:12 (specimen) EST PM EST Resulting Agency Comment Spec In Lab Raj Alves MD CHEMISTRY ORDERABLES Performing Organization Address City/[facility]/[place] [address] CERNER MILLENNIUM (ABNORMAL) Uric acid (09/19/2013 3:00 PM EST) P athologist Signature Uric Acid 8.3 (H) 2.5 - 6.5 CERNER mg/dL [facility] Specimen Anatomical Collection Method Collection Time Receive d Time (Source) Location / / Volume Laterality Blood specimen 09/19/2013 3:00 PM 014 3:12 (specimen) EST PM EST Resulting Agency Comment Spec In Lab Raj Alves MD CHEMISTRY ORDERABLES Performing Organization Address City/[facility] [place] [address] CERNER MILLENNIUM VIT D Total Evaluation (09/19/2013 3:00 PM EST) P athologist Signature 25-OH Vit D 45 30 - 100 CERNER Total ng/mL [facility] Comment: Deficient <10 ng/mL Insufficient 10 to [...] Performing Organization Address City/[facility]/[place] [address] [facility] TSH (09/19/2013 3:00 PM EST) P athologist Signature TSH 3.11 0.27 - 4.20 CERNER mcIU/mL [facility] Specimen Anatomical Collection Method Collection Time Receive d Time (Source) Location / / Volume Laterality Blood specimen 09/19/2013 3:00 PM 014 3:12 (specimen) EST PM EST Resulting Agency Comment Spec In Lab Raj Alves MD CHEMISTRY ORDERABLES Performing Organization Address City/[facility]/[place] [address] [facility] MILLENNIUM ANTONIA (03/21/2013 2:30 PM EDT) P athologist Signature ANTONIA Neg Neg CERNER MILLENNIUM Specimen Anatomical Collection Method Collection Time Receive d Time (Source) Location / / Volume Laterality Blood specimen 03/21/2013 2:30 PM 013 8:11 (specimen) EDT AM EDT Resulting Agency Comment Spec In Lab Raj Alves MD IMMUNOLOGY ORDERABLES Performing Organization Address City/[facility]/[place] [address] CERNER MILLENNIUM High Sensitivity CRP (03/21/2013 2:30 PM EDT) P athologist Signature CRP High Sens 25.3 mg/L CERNER MILLENNIUM Comment: Interpretations: 1) For accurate cardiac risk assessment, the average of 2 values >2 weeks apart should be obtained (ref 1&2). A value >1 0 mg/L indicates an inflammatory condition, concentrations >10 mg/L shoul d not be used for cardiac risk assessment. ?<1.0 mg/L: low risk ?1.0 - 3.0 mg/L: moderate risk ?>3.0 mg/L: high risk groups for fu ture cardiovascular events 2) The general reference range of appare ntly healthy individuals using this test is <5.0 mg/L (derived from the test package insert) References: 1. Matilde ESCALANTE et. al. ??AHA/CDC Scientif ic Statement: Markers of Inflammation and Cardiovascular Disease. ??Circulatio n 2003; 107:499-511 2. Ridker PM. ??Clinical applications of C-reactive protein for cardiovascular disease detection and prevention. ??Circ ulation 2003; 107:363-369 Specimen Anatomical Collection Method Collection Time Receive d Time (Source) Location / / Volume Laterality Blood specimen 03/21/2013 2:30 PM 013 2:34 (specimen) EDT PM EDT Resulting Agency Comment Spec In Lab Raj Alves MD CHEMISTRY ORDERABLES Performing Organization Address City/[facility]/ZIP Code [place] [address] CERNER MILLENNIUM Sedimentation rate (03/21/2013 2:30 PM EDT) athologist Signature Sed Rate 19 0 - 20 CERNER mm/hr MILLENNIUM Specimen Anatomical Collection Method Collection Time Receive d Time (Source) Location / / Volume Laterality Blood specimen 03/21/2013 2:30 PM 013 2:34 (specimen) EDT PM EDT Resulting Agency Comment Spec In Lab Raj Alves MD HEMATOLOGY ORDERABLES Performing Organization Address City/State/ZIP Code Phon e Number [address] [facility] Follicle Stimulating Hormone (03/21/2013 2:30 PM EDT) athologist Signature FSH 27.7 mlU/ML [facility] Comment: Reference Ranges: Females: Follicular: ? 3.5-12.5 mIU/mL Ovulation: ?4.7-21.5 mIU/mL Luteal: ? 1.7-7.7 mIU/mL Postmenopausal: 25.8-134.8 mIU/mL Specimen Anatomical Collection Method Collection Time Receive d Time (Source) Location / / Volume Laterality Blood specimen 03/21/2013 2:30 PM 013 2:34 (specimen) EDT PM EDT Resulting Agency Comment Spec In Lab Raj Alves MD CHEMISTRY ORDERABLES Performing Organization Address [facility] e [address] [facility] Progesterone (03/21/2013 2:30 PM EDT) athologist Signature Progesterone 0.38 ng/mL [facility] Comment: Reference Ranges: Non- Females: ?? Follicular: ? 0.16-1.40 ng/mL ?? Luteal: ? 1.90-18.80 ng/mL ?? Postmenopause: ??0.00-1.40 ng/mL Females: ?? First trimester: ?? 7.20-43.00 ng/mL ?? Second trimester: ??21.00-108.00 ng/ mL ?? Third trimester: ?? 53.00-293.00 ng/ mL Specimen Anatomical Collection Method Collection Time Receive d Time (Source) Location / / Volume Laterality Blood specimen 03/21/2013 2:30 PM 013 2:34 (specimen) EDT PM EDT Resulting Agency Comment Spec In Lab Rja Alves MD CHEMISTRY ORDERABLES Performing Organization Address [facility] [place] [address] [facility] [address] [facility] Estradiol (03/21/2013 2:30 PM EDT) P athologist Signature Estradiol 21 pg/mL [facility] Comment: Reference ranges: Males: ?? 1-10 years: <5 to 20 pg/mL ?? Adult: ? 0 to 45 pg/mL Females: ?? 1-10 years ??6 to 27 pg/mL Non- females: ?Follicular: ??0-178 pg/mL ?Ovulation: ??48-388 pg/mL ?Luteal: ??31-247 pg/mL ?Postmenopausal: ??0-46 pg /mL females: ?1st trimester: ??38-3175 pg/mL ?2nd trimester: ??678-1663 3 pg/mL ?3rd trimester: ??43-94183 pg/mL Specimen Anatomical Collection Method Collection Time Receive d Time (Source) Location / / Volume Laterality Blood specimen 03/21/2013 2:30 PM 013 2:34 (specimen) EDT PM EDT Resulting Agency Comment Spec In Lab Raj Alves MD CHEMISTRY ORDERABLES Performing Organization Address City/State/[place] [address] [facility] [address] [facility] Uric acid (03/21/2013 2:30 PM EDT) athologist Signature Uric Acid 9.1 (H) 2.5 - 6.5 CERNER mg/dL [facility] Specimen Anatomical Collection Method Collection Time Receive d Time (Source) Location / / Volume Laterality Blood specimen 03/21/2013 2:30 PM 013 2:34 (specimen) EDT PM EDT Resulting Agency Comment Spec In Lab Raj Alves MD CHEMISTRY ORDERABLES Performing Organization Address City/State/ZIP Code [place] [address] CHRISTINA MONTES (ABNORMAL) Hemoglobin A1c (03/21/2013 2:30 PM EDT) Analysis Performed At [facility] Time Signature Hemoglobin A1C 7.0 (H) 4.3 - 6.1 [facility] % M[facility] Comment: The [place] Diabetes Association (ADA) has stated that HbA1c values >or= 6.5% are consistent with the diagnosis of shalonda betes mellitus. In the absence of hyperglycemia (i.e. plasma glucose > 200 mg/dL) or classic symptoms of hyperglycemia a repeat measurement of Hb A1c should be performed on a separate sample to confirm the diagnosis. The ADA also considers an HbA1c value be tween 5.7% and 6.4% to be consistent with an increased risk of diabetes (pred iabetes). Patients with an HbA1c value in this range should be counseled about their increased risk of progressing to diabetes. Reference: Position Statement: Standards of Medical Care in Diabetes 2013. Diabetes Care 2013:36;suppl 1:S11 -S66. Est Avg Gluc 154 mg/dL [facility] Comment: eAG equivalents for HbA1c percentages: HbA1c(%) ?eAG(mg/dL) 6.0 ?126 6.5 ?140 7.0 ?154 7.5 ?169 8.0 ?183 8.5 ?197 9.0 ?212 9.5 ?226 10.0 ? 240 Limitations: The eAG calculation has not been validated on women, individuals below 18 years old and above 70 years old, and individuals with hemoglobinopathies. Additional resources are available on e ADA website: ??http://professional.diabetes.org/gluc osecalculator.aspx Bret RIVER, Heike J, Promise R, et al. ??Tr anslating the A1C assay into estimated average glucose values. ??Diabetes Care 2008:31(8):4482-0369. Specimen Anatomical Collection Method Collection Time Receive d Time (Source) Location / / Volume Laterality Blood specimen 03/21/2013 2:30 PM 013 2:34 (specimen) EDT PM EDT Resulting Agency Comment Spec In Lab Raj Alves MD CHEMISTRY ORDERABLES Performing Organization Address City/[facility] Code Phon e Number [address] [facility] TSH (03/21/2013 2:30 PM EDT) P athologist Signature TSH 1.13 0.27 - 4.20 CERNER mcIU/mL [facility] Specimen Anatomical Collection Method Collection Time Receive d Time (Source) Location / / Volume Laterality Blood specimen 03/21/2013 2:30 PM 013 2:34 (specimen) EDT PM EDT Resulting Agency Comment Spec In Lab Raj Alves MD CHEMISTRY ORDERABLES Performing Organization Address City/[facility] Code Phon e Number [address] [facility] Total Evaluation (03/21/2013 2:30 PM EDT) P athologist Signature 25-OH Vit D 44 30 - 100 CERNER Total ng/mL [facility] Comment: Deficient <10 ng/mL Insufficient 10 to [...] Location / / Volume Laterality Blood specimen 03/21/2013 2:30 PM 013 2:34 (specimen) EDT PM EDT Resulting Agency Comment Spec In Lab Raj Alves MD CHEMISTRY ORDERABLES Performing Organization Address City/State/[place] [address] [facility] documented in this encounter Visit Diagnoses Diagnosis Unspecified hypothyroidism - Primary Unspecified vitamin D deficiency Type II or unspecified type diabetes jarvis litus without mention of complication, not stated as uncontrolled Hyperuricemia Other abnormal blood chemistry Irregular periods Irregular menstrual cycle Arthritis Arthropathy, unspecified, site unspecifi ed Fibromyalgia Mylagia and myositis, unspecified documented in this encounter Care Teams Scientific Software Developer Relationship Specialty Start Date End Date Corinne Golden MD PCP - General 06/25/10 08/09/14 [address] [place] [address] documented as of this encounter
--- OUTSIDE RECORDS SUMMARY | 2022-02-11 16:56 | XMS_ITS | Encounter Summary ---
:1965 Author Organization [facility] Address [facility] [place] [address] Care Team Providers Name Role Phone Beth Golden MD Primary Care Provider Encounter Details Date Type Department Care Team Description 09/24/2012 Telephone Endocrinology at [facility] Raj Yancey, [facility] [place] [address] [facility] [phone] ENDOCRINOLOGY DE [place] [place] [phone] (Wo rk) Social History Tobacco Use Types [...] Telephone Encounter - Raj Alves MD - 09/24/2012 4:59 PM EST Left phone message for pt today that partial lab results after the visit showed higher uric at 8.2 and TSH 3.11. A1c 6.6%. Rec: - efaxed script for allopurinol 100 mg qd and increase LT4 from 125 to 137 mcg qd today. This will help her fatigue with lots of aches and pain especially around her knees. Her PCP can help titrate the dose further as needed - will send her lab report next week when all test results are available. RAJ ALVES MD documented in this encounter Plan of Treatment Not on filedocumented as of this encounter Visit Diagnoses Not on filedocumented in this encounter Care Teams Hide Stretcher Hand Relationship Specialty Start Date End Date Beth Golden MD PCP - General 06/25/10 08/09/14 [address] [place] [address] documented as of this encounter
--- OUTSIDE RECORDS SUMMARY | 2022-02-11 16:56 | XMS_ITS | Encounter Summary ---
:1965 Author Organization [facility] [place] [address] Care Team Providers Name Role Phone Beth Golden MD Primary Care Provider Reason for Visit Reason Onset Date Comments Advice Only 03/30/2013 Encounter Details Date Type Department Care Team Description 03/30/2013 Telephone Endocrinology at [facility] C Tomasa Santos [place] [phone] Social History Tobacco Use Types Packs/Day [...] Telephone Encounter - Tomasa Santos LPN - 03/31/2013 8:55 AM EDT Karoline Moseley - 3:16 PM ','<<< Less Detail Ziggy Diez MD Sent: ThuMarch 30, 2013 4:18 PM To: Tomasa Santos LPN Message Yes, send me rx and I will sign. Per pharmacist at [facility] Rx as it Class CII needs to be hard copy. Rx mailed directly to pharmacy. Called patient at which time she was told that Rx was mailed to [facility]. Telephone Encounter - Tomasa Santos LPN - 03/30/2013 3:16 PM EDT Returning call to patient Dr Alves was going to fax prescription for amphetamine 10 mg but the pharmacy never got it. Patient was told that Dr Alves is away I will need to ask D.O.C. If he is willing to redo Rx to [facility]. Forward to Dr Diez documented in this encounter Plan of Treatment Not on filedocumented as of this encounter Visit Diagnoses Not on filedocumented in this encounter Care Teams Copy Lathe Tender Relationship Specialty Start Date End Date Beth Golden MD PCP - General 06/25/10 08/09/14 [address] [place] [address] documented as of this encounter
[2022-02-11 17:07] LABS: FREE T4 1.07 ng/dL (0.76-1.46)
[2022-02-13 05:32] LABS: Vitamin D 25 Total 44.1 ng/mL (30-100)
== END 2022-02-11 16:52 | disposition home or self-care (01) ==
LOC: NCHCN 16:51
PROVIDERS: PCP Nurse Practitioner Family; Visit Provider Nurse Practitioner Family
DX: E03.9 Hypothyroidism, unspecified (principal); E11.65 Type 2 diabetes mellitus with hyperglycemia; E55.9 Vitamin D deficiency, unspecified
CPT/HCPCS: 80048; 82306; 83721; 83718; 84439; 84443

== ENCOUNTER → 2022-02-20 14:19 | Outpatient (BNVA) | payer OTHER, MEDICAID, SELFPAY | PROVIDERS: PCP Nurse Practitioner Family; Referring Provider Nurse Practitioner Family; Visit Provider Student in an Organized Health Care Education/Training Program | DX: W19.XXXA Unspecified fall, initial encounter (principal); R29.6 Repeated falls; S69.91XA Unspecified injury of right wrist, hand and finger(s), initial encounter | CPT/HCPCS: 99213 ==

== ENCOUNTER 2022-02-21 08:12 | Outpatient (CLI) | payer OTHER, MEDICAID, SELFPAY ==
--- NOTE | 2022-02-20 14:15 | DI.RAD_ITS ---
Exam(s) XR WRIST RT COMPLETE EXAM: XR WRIST RT COMPLETE CLINICAL HISTORY: right wrist injury. TECHNIQUE: 2D digital imaging was performed. COMPARISON: No exams were available for comparison FINDINGS: 3 views No evidence of fracture nor dislocation. No significant ulnar variance. Scapholunate distance is no rmal. IMPRESSION: No fracture evident. DATA REPOSITORY: RADIATION DOSE DELIVERED:
--- OUTSIDE RECORDS SUMMARY | 2022-02-22 08:14 | XMS_ITS | Encounter Summary ---
:1965 Author Organization [facility] Address [address] [place] [address] Care Team Providers Name Role Phone Unavailable Primary Care Provider Unavailable Encounter Details Date Type Department Care Team Description 02/26/2006 Results Only [facility] - Bethany Clarke MD Maple conversion [address] [place] [address] [place] [address] Social History Tobacco Use Types Packs/Day Years [...] ? KAROLINE MOSELEY ? Accession #: ? [id number] ? : ? 1965 (Age: 40) ??F ? Collect Date: ? 02/26/2006 ? Location: ? [facility] ? Receive Date: ? 006 ? Provider: BILL CLARKE MD Copy to: TAY PIPER ELECTRIC METER INSTALLER HELPER ? Final Pathologic Diagnosis: A. ?Fallopian tube [...] and a diameter of 3.0 c m. ??Brim Buster sections are submitted in five cassettes with [...] and (B3) representing the largest fragment. ??(Dr. Jeffrey)/[facility] End of Report Specimen Performing Organization Address City/State/ZIP Code Phon e Number [facility]ORY [address] [place] [address] SERVICES [facility] [address] [place] [address] documented in this encounter Visit Diagnoses Not on filedocumented in this encounter
--- OUTSIDE RECORDS SUMMARY | 2022-02-22 08:14 | XMS_ITS | Encounter Summary ---
:1965 Author Organization [facility] [place] [address] Care Team Providers Name Role Phone None [...] Expiration Date Visits Requ ested Visits Authorized [id number] 1 1 Encounter Details Date Type Department Care Team Description 06/02/2019 Anesthesia Event Operating Room Doris Cleaning, MEDICAL LAB SPECIALIST [address] [place] [address] Lionel Gilliland, MEDICAL LAB SPECIALIST [address] [place] [address] [address] [place] [address] Anesthesia Record Procedure Summary Procedure Name [...] vein (antecubital TESHA Guy, TESHA Morelos), left; cwnk-arx-fawshp catheter system; 20 gauge; distraction, tolerated well; [...] hand), left; CARRIE Alan Abigail G, RN fdks-pdu-cmvomk catheter system; 20 gauge; CARRIE Brown; metacarpal vein (top of hand), left; 06/03/19; 1736 documented in this encounter Social History Tobacco [...] WITH BX performed by Ryanne ZARATE at [facility] ENDOSCOPY ??? PRO COLONOSCOPY, REMV LESN, SNARE 02/14/2011 COLONOSCOPY, POLYPECTOMY, REMOVAL LESION BY SNARE performed by Ryanne ZARATE at [facility] ENDOS[facility] ??? TONSILLECTOMY ??? TUBAL LIGATION 2002 [...] Wasp Venom Anaphylaxis HORNETS, BREATHING DIFFICULTY ??? Plato Other (See Comments) Pain, IBS, DEPENDS ON [...] Routine documented in this encounter Care Teams Heating And Refrigeration Inspector Relationship Specialty Start Date End Date None PCP - General 05/31/19 02/17/21 None documented as of this encounter
--- OUTSIDE RECORDS SUMMARY | 2022-02-22 08:14 | XMS_ITS | Encounter Summary ---
:1965 Author Organization [facility] Address [address] [place] [address] Care Team Providers Name Role Phone Unavailable Primary Care Provider Unavailable Encounter Details Date Type Department Care Team Description 02/27/2004 Results Only [facility] - Fernie Schuler MD conversion [address] [place] [address] Social History Tobacco Use Types Packs/Day Years [...] KAROLINE MOSELEY ? Accession #: ? [id number] : ? 1965 (Age: 38) ??F ?Collect [...] Organization Address City/State/ZIP Code Phon e Number [facility]ORATORY [address] [place] [address] SERVICES [facility] [address] [place] [address] documented in this encounter Visit Diagnoses Not on filedocumented in this encounter
--- OUTSIDE RECORDS SUMMARY | 2022-02-22 08:14 | XMS_ITS | Encounter Summary ---
:1965 Author Organization [facility] Address [address] [place] [address] Care Team Providers Name Role Phone Unavailable Primary Care Provider Unavailable Encounter Details Date Type Department Care Team Description 12/28/2002 Results Only [facility] - Fernie Schuler MD conversion [address] [place] [address] Social History Tobacco Use Types Packs/Day Years [...] ? KAROLINE MOSELEY ? Accession #: ? [id number] ? : ? 1965 (Age: 37) ??F [...] have been examined on specimen B. ??(Dr. Myers)/[facility] Document reviewed and electronically signed by: Francisco [...] israel-white with a central pinpoint lumen. ??Two loss prevention representative s ections are submitted as (A). Received in formalin sarah d Drown and right fallopian tube is a israel-pink, tubular, 0.7 cm in length, 0.3 cm in diameter soft tis félix surfaced by a israel, glistening serosa. ??Upon sectioning, the cut surfaces are israel-white with a central pinpoint lumen. ??Tw o loss prevention representative sections are submitted as (B). ??(Alena Elizondo)/[facility] End of Report Specimen Performing Organization Address City/State/ZIP Code Phon e Number [facility]ORATORY [address] [place] [address] SERVICES [facility] [address] [place] [address] documented in this encounter Visit Diagnoses Not on filedocumented in this encounter
--- OUTSIDE RECORDS SUMMARY | 2022-02-22 08:14 | XMS_ITS | Encounter Summary ---
:[address] [facility] Address [address] [place] [address] Care Team Providers Name Role Phone Unknown, Provider Primary Care Provider Encounter Details Date Type Department Care Team Description 03/23/2018 Historical Results [facility] - Jen Lezama, Only [facility] [place] us SLOOP CAPTAIN [address] [phone] [place] [address] Social History Tobacco Use Types Packs/Day Years [...] URINE Routine 03/23/2018 10:15 Results for this [id number] EDT procedur e are in NE RATIO (ACR) the results section. documented in this encounter Results MICROALBUMIN, URINE (03/23/2018 10:15 EDT) Albumin, Urine <0.06 <1.7 mg/dL [facility] Lab Urine Albumin TNPComment: Unable ug/mg [facility] to Creatinine Ratio to calculate ug/mg [facility] Crea result. Creatinine, Urine 169.90 mg/dL [facility] Specimen Performing Organization Address City/State/ZIP Code Phon e Number [facility] [address] [place], [place] [id number] [place] [address] LAB ALBUMIN, URINE (03/23/2018 10:15 EDT) Albumin, Urine <0.06 <1.7 mg/dL [facility] Lab Urine Albumin TNPComment: Unable ug/mg [facility] to Creatinine Ratio to calculate ug/mg [facility] Crea result. Creatinine, Urine 169.90 mg/dL [facility] Specimen Performing Organization Address City/State/ZIP Code Phon e Number [facility] [address] LAB documented in this encounter Visit Diagnoses Not on filedocumented in this encounter Care Teams Improvement Specialist Relationship Specialty Start Date End Date Unknown, Provider, PCP - General 03/27/11 documented as of this encounter
--- OUTSIDE RECORDS SUMMARY | 2022-02-22 08:14 | XMS_ITS | Encounter Summary ---
:1965 Author Organization [facility] Address [address] [place] [address] Care Team Providers Name Role Phone Unavailable Primary Care Provider Unavailable Encounter Details Date Type Department Care Team Description 08/28/2006 Results Only [facility] - Florina Roberto od, Consuelo Doll, HOG SAWYER conversion [address] [place] [phone] (Wo rk) Social History Tobacco Use Types [...] Date : ? 08/31/2006 Provider: ?CONSUELO MCDONALD HOG SAWYER Copy to: ? Specimen/Source: ? ThinPrep Pap Test, Cervix/Endocervix, processed on [employer] ThinPrep Imaging System, with manual evaluation Last [...] Organization Address City/State/ZIP Code Phon e Number [facility]ORY [address] [place] [address] SERVICES [facility] [address] [place] [address] documented in this encounter Visit Diagnoses Not on filedocumented in this encounter
--- OUTSIDE RECORDS SUMMARY | 2022-02-22 08:14 | XMS_ITS | Encounter Summary ---
:1965 Author Organization [facility] Address [address] [place] [address] Care Team Providers Name Role Phone None [...] Expiration Date Visits Requ ested Visits Authorized [id number] 1 1 Encounter Details Date Type Department Care Team Description 06/02/2019 - Hospital Encounter Med Surg Unit at [facility], Spina l stenosis, 06/03/2019 CAROLA Rivers MD lumbar region, with [address] neurogenic [place], [place] claudication [phone] NEUROSURGERY- [phone] [place] [address] Social History Tobacco Use Types Packs/Day Years [...] six weeks after surgery with a Physician???s Events Associate at the surgeon???s office. You will have [...] to stop taking it. ??? Only take htzn-zfc-ffmxatd or prescription medicine for pain, discomfort or [...] If you have any questions, please call [facility] Neurology and Neurosurgery at [phone], during business hours of Thursday through Thursday from 8:00 a.m. until 4:00 p.m. In case of emergency duringnon-business hours, please call the same main number and follow the prompts to page the neurosurgeonon call. SMOKING CESSATION INFORMATION: ??? SD QUITLINE: ??? NE QUITLINE: ??? [email or web address] If you smoke, stop now! Smoking may impede healing. MAKE SURE YOU: ??? Understand these instructions. ??? Will seek medical care if you are feeling poor, or get worse. ??? Will call the surgeon???s office with any questions or concerns at : [phone] The above information has been presented or demonstrated. I/we have had the opportunity to ask questions. I/we fully understand the instructions given. I/we have received a copy of this form. AttachmentsThe following attachments cannot be sent through Care Everywhere. Lumbar Laminectomy: Post-op (Pakistani)Post-op Infection (Pakistani)documented in this encounter Medications at Time of [...] Jennings MD - 06/02/2019 1:40 PM EDT [facility] [place] [address] Patient Name: Karoline Moseley : [id number] MR#: [id number] Case Date: 06/02/2019 Case Scheduled Time: 1329 Surgeon: Surgeon(s) and Role: * Annamarie Jennings MD - Primary * Jennifer Jack PA - Physician Events Associate Preoperative diagnosis: STENOSIS WITH CLAUDICATION Postoperative diagnosis: [...] and was partially reduced. A 9 mm Ford Posterior Lumbar Interbody Fusion Device was placed [...] the disc space through a funnel. The Ford Posterior Lumbar Interbody Fusion Device is then [...] at the end of the procedure. The accounts receivable assistant, Jennifer Jack (), worked under my direction for the duration of the operativesession. The anesthesiologists' assistant adequately prepped the operative site and maintained the best possible exposure of anatomy incident to the procedure. (Please see the Surgical Encounter Summary for any Implant and Specimen details pertinent to this patient.) () Jennifer Jack worked under my direction for the duration of the operative session. The anesthesiologists' assistant adequately prepped the operative site and [...] TEST ORDERABLE S Performing Organization Address City/State/ZIP [facility] Phon e Number [facility] [address] [place], [place] [address] XR Fluoro No Rad <1Hr - OR Use (06/02/2019 3:58 PM EDT) Specimen (Source) Anatomical Location Collection Method / Collectio n Time Received Time / Laterality Volume Narrative RAD - 06/02/2019 4:00 PM EDT This exam is auto-finalizing. No interpr etation was done. Annamarie Jennings MD IMG FLUORO ORDERABLES Performing Organization Address [facility] Phon e Number RAD RAD [place], [place] XR O-Arm No Rad <1Hr - [...] e number below. ? Electronically signed by: DIANA Belcher [facility] ([phone]), at 06/02/2019 4:17 PM Narrative 06/02/2019 4:17 [...] For questions regarding this report, please contact [facility] number below. Annamarie Jennings MD IMG FLUORO [...] TESHA) 12.5-25 mcg, Intravenous, EVERY 5 MIN WA N, Starting Bonny 06/02/19 at 1625, Until [...] 5 mg (CANCELED) 2223 (Given - Provider: Sejla Rebollar, TESHA) 0031 (Given - Provider: Sejal [...]
Routine documented in this encounter Care Teams Service Member Relationship Specialty Start Date End Date None PCP - General 05/31/19 02/17/21 None documented as of this encounter
--- OUTSIDE RECORDS SUMMARY | 2022-02-22 08:14 | XMS_ITS | Encounter Summary ---
:1965 Author Organization [facility] Address [address] [place] [address] Care Team Providers Name Role Phone Unavailable Primary Care Provider Unavailable Encounter Details Date Type Department Care Team Description 06/05/2005 Results Only [facility] - Teja Lowe MD conversion [address] [place] [phone] Social History Tobacco Use Types Packs/Day Years Used Date Never Assessed Sex Assigned at Date Recorded Not on file documented as of this encounter Plan of Treatment Not on filedocumented as of this encounter Procedures Procedure Name Priority Date/Time Associated Diagnosis Comme [facility] SURGICAL PATHOLOGY Routine 06/05/2005 0:00 EST Re [...] ? KAROLINE MOSELEY ? Accession #: ? [id number] ? : ? 1965 (Age: 40) ??F ? Collect Date: ? 06/05/2005 ? Location: ? [facility] ? Receive Date: ? 005 ? Provider: JERE MUNOZ MD Copy to: TAY PIPER CIGAR BANDER ? Final Pathologic Diagnosis: ? Stomach, body, [...] 0.2 cm. Submitted intact in one cassette. ??/[facility] End of Report Specimen Performing Organization Address City/State/ZIP Code Phon e Number [facility] [address] [place] [address] SERVICES [facility] [address] [place] [address] documented in this encounter Visit Diagnoses Not on filedocumented in this encounter
--- OUTSIDE RECORDS SUMMARY | 2022-02-22 08:14 | XMS_ITS | Clinical Summary ---
:1965 Author Organization [facility] Address [address] [place] [address] Care Team Providers Name Role Phone Unknown, Provider Primary Care Provider Social History Tobacco Use Types Packs/Day Years Used Date Never Assessed Sex Assigned at Date Recorded Not on file Plan of Treatment Not on file Care Teams Kitchen Helper Relationship Specialty Start Date End Date Unknown, Provider, PCP - General 03/27/11
--- OUTSIDE RECORDS SUMMARY | 2022-02-22 08:14 | XMS_ITS | Encounter Summary ---
:1965 Author Organization [facility] [place] [address] Care Team Providers Name Role Phone None Primary Care Provider Unavailable Encounter Details Date Type Department Care Team Description 08/30/2019 Ancillary Procedure Radiology XRay at [facility], Low back pain, unspecified back pain laterality, unspecified chronicity, unspecified whether sciatica present; the Multi-Specialty MD Annamarie S/P lumbar fusion Clinic at [address] [phone] Social History Tobacco Use Types Packs/Day Years [...] please contact e number below. ? Narrative 08/30/2019 10:36 AM EST EXAMINATION: XR [...] report, please contact th e number below. Annamarie Jennings MD IMG DX ORDERABLES documented in this encounter Visit Diagnoses Diagnosis Low back pain, unspecified back pain lat erality, unspecified chronicity, unspecified whether sciatica present S/P lumbar fusion Arthrodesis status documented in this encounter Care Teams Food Operations Manager Relationship Specialty Start Date End Date None PCP - General 05/31/19 02/17/21 None documented as of this encounter
--- OUTSIDE RECORDS SUMMARY | 2022-02-22 08:14 | XMS_ITS | Encounter Summary ---
:1965 Author Organization [facility] Address [address] [place] [address] Care Team Providers Name Role Phone Unknown, Provider Primary Care Provider Encounter Details Date Type Department Care Team Description 11/01/2018 Results Only [facility] Anusha Peralta NP [phone] [address] [place] [address] (Wo rk) Social History Tobacco Use Types [...] (11/01/2018 0:00 EDT) Pathology Report: CYTOPATHOLOGY REPORT [facility] Reports generated via electronic interface contain jennifer ginal data; SERVICES however they are lacking the format of the original re port. Caution should be taken when reading/interpreting unfo rmatted reports. Name: ? KAROLINE MOSELEY ? Accession #: ? [id number] ? : ? 1965 (Age: 53 ) ??F ?Collect Date: ? 2018 ? Location: ? [facility] ? Receive Date: ? 9 ? Provider: ANUSHA PERALTA TESTING ANALYST Copy to: ? Final Report SPECIMEN ADEQUACY [...] types 16,18,31,3 3,35, 39,45,51,52,56,58,59,66, and 68 by buckler and lacer media eduardo amplification. Comments Document reviewed and electronically signed by: ? System Interface ? Report date: 11/09/2018 By the signature above, the attending physician certif ies that he/she has personally conducted a gross and/or microscopic examin ation of the described specimens and rendered or confirmed the above diagnosi s. End of Report Specimen Performing Organization Address City/State/ZIP Code Phon e Number [facility] [address] [place] [address] SERVICES documented in this encounter Visit Diagnoses Not on filedocumented in this encounter Care Teams Curb Attendant Relationship Specialty Start Date End Date Unknown, Provider, PCP - General 03/27/11 documented as of this encounter
--- OUTSIDE RECORDS SUMMARY | 2022-02-22 08:14 | XMS_ITS | Encounter Summary ---
:1965 Author Organization [facility] [place] [address] Care Team Providers Name Role Phone None Primary Care Provider Unavailable Encounter Details Date Type Department Care Team Description 05/31/2019 External Results Pre-Admission Testing at [facility] [address] [place] [address] Social History Tobacco Use Types Packs/Day [...] on filedocumented in this encounter Care Teams President Sales And Marketing Relationship Specialty Start Date End Date None PCP - General 05/31/19 02/17/21 None documented as of this encounter
--- OUTSIDE RECORDS SUMMARY | 2022-02-22 08:14 | XMS_ITS | Encounter Summary ---
:1965 Author Organization [facility] Address [address] [place] [address] Care Team Providers Name Role Phone None Primary Care Provider Unavailable Encounter Details Date Type Department Care Team Description 05/25/2020 Ancillary Procedure Radiology at [facility] Annamarie Jennings [address] [place] [address] [address] [phone] NEUROSURGERY-[place], [place] [address] Social History Tobacco Use Types [...] City/State/ZIP Code Phon e Number RAD [facility] [place], [place] documented in this encounter Visit Diagnoses Not on filedocumented in this encounter Care Teams Production Team Member Relationship Specialty Start Date End Date None PCP - General 05/31/19 02/17/21 None documented as of this encounter
--- OUTSIDE RECORDS SUMMARY | 2022-02-22 08:14 | XMS_ITS | Clinical Summary ---
:1965 Author Organization [facility] [place] [address] [place] [address] Care Team Providers Name Role Phone Anusha Taylor APRN Primary Care Provider Allergies Active Allergy Reactions Severity Noted Date Comments Manteno Other (See Comments) Medium Pain, I BS, [...] standard series) Medical Devices Implanted Type Area Retail Business Manager Device Shelf Model / Identifier Expiration Serial / Lot Date Burak Titanium Ns 4.75 [facility] ([id number]) (Autoreq) - [id number] IMPLAN TS N/A: [employer] [facility] [id number] / Implanted: Qty: 1 on 06/02/2019 by Annamarie Jennings MD at [facility] Spine [facility] - [employer] / Lumbar Insurance Payer Benefit Plan / Subscriber ID Effective Dates Phone Addre ss Type Group [facility] [id number] 2018-Prese [phone] [address] [place] [address] [place] [id number] 2019-Prese [phone] [address] [place] [address] Advance Directives Documents on File Type Date Recorded Patient Certified Orthotic Fitter Explanati on Advance Directives and Living 10/01/2010 4:20 PM Will Advance Directives and Living 10/01/2010 4:20 PM Will Latest Code Status on File Code Status Date Activated Date Inactivated Comments Full Code 06/02/2019 1:08 PM 06/03/2019 7:50 PM Does patient have capacity to make decision: Yes Care Teams Agent Telegrapher Relationship Specialty Start Date End Date Anusha Taylor, PRINCIPAL MECHANICAL ENGINEER PCP - General Family Medicine 02/18/21 [address] [place] [address]
--- OUTSIDE RECORDS SUMMARY | 2022-02-22 08:14 | XMS_ITS | Encounter Summary ---
:1965 Author Organization [facility] Address [address] [place] [address] Care Team Providers Name Role Phone Unavailable Primary Care Provider Unavailable Encounter Details Date Type Department Care Team Description 12/31/2001 Results Only [facility] - Sejal Solorzano, [place] conversion [facility] [address] [place] [address] [place], [place] [id number] [phone] Social History Tobacco Use Types Packs/Day Years [...] AB vial Result Negative for HPV [facility] types 16, 18, 31, 33, 35, 39, 45, 51, 52, 56, 58, 59, and 68. Report Status Final [facility] [id number] Specimen Performing Organization Address City/State/ZIP Code Phon e Number [facility] [address] [place] [address] SERVICES [facility] [address] [place] [address] CYTOPATHOLOGY (12/31/2001 0:00 EDT) Pathology Report: CYTOPATHOLOGY REPORT [facility] Reports generated via electronic interface contain jennifer ginal data; however they are lacking the format of the original re port. Caution should be taken when reading/interpreting unfo rmatted reports. Name: ? KAROLINE MOSELEY ? Accession #: ? [id number] : ? 1965 (Age: 36) ??F ?Collect Date: ? 12/03 Location: ? [facility] ? Receive Date : ? 01/04/2002 Provider: ?SEJAL PIPER MAINTENANCE TEAM LEADER Copy to: ? Specimen/Source: ?ThinPrep Pap Test, [...] Organization Address City/State/ZIP Code Phon e Number [facility] [address] [place] [address] SERVICES [facility] [address] [place] [address] documented in this encounter Visit Diagnoses Not on filedocumented in this encounter
--- OUTSIDE RECORDS SUMMARY | 2022-02-22 08:14 | XMS_ITS | Encounter Summary ---
:1965 Author Organization [facility] [place] [address] Care Team Providers Name Role Phone None [...] Expiration Date Visits Requ ested Visits Authorized [id number] 1 1 Encounter Details Date Type Department Care Team Description 06/02/2019 Surgery Operating Room Annamarie [facility] RTHRODESIS, POST. Govea Day MD Silvestre LUMBAR, SINGLE 10 Yar[facility] G[facility] Day 10 [facility] [facility]OVE[facility] DAY INTERSPACE (WRVU 22.09) [place] [address] NEUROSURGERY-UVN N [place], [place] [address] Social History Tobacco Use Types [...] six weeks after surgery with a Physician???s Card Seller at the surgeon???s office. You will have [...] to stop taking it. ??? Only take clrn-oyi-fnmyeco or prescription medicine for pain, discomfort or [...] If you have any questions, please call [facility] at [phone], during business hours of Thursday through Thursday from 8:00 a.m. until 4:00 p.m. In case of emergency duringnon-business hours, please call the same main number and follow the prompts to page the neurosurgeonon call. SMOKING CESSATION INFORMATION: ??? [place] QUITLINE: ??? [place] QUITLINE: ??? [email or web address] If you smoke, stop now! Smoking may impede healing. MAKE SURE YOU: ??? Understand these instructions. ??? Will seek medical care if you are feeling poor, or get worse. ??? Will call the surgeon???s office with any questions or concerns at : [phone] The above information has been presented or demonstrated. I/we have had the opportunity to ask questions. I/we fully understand the instructions given. I/we have received a copy of this form. AttachmentsThe following attachments cannot be sent through Care Everywhere. Lumbar Laminectomy: Post-op (Qatari)Post-op Infection (Qatari)documented in this encounter Medications at Time of [...] Jennings MD - 06/02/2019 1:40 PM EDT [facility] [place] [address] Patient Name: Karoline Moseley : [id number] MR#: [id number] Case Date: 06/02/2019 Case Scheduled Time: 1329 Surgeon: Surgeon(s) and Role: * Annamarie Jennings MD - Primary * Jennifer Jack PA - Physician Card Seller Preoperative diagnosis: STENOSIS WITH CLAUDICATION Postoperative diagnosis: [...] and was partially reduced. A 9 mm Ector Posterior Lumbar Interbody Fusion Device was placed [...] the disc space through a funnel. The Ector Posterior Lumbar Interbody Fusion Device is then [...] at the end of the procedure. The cardiovascular surgical tech, Jennifer Jack (), worked under my direction for the duration of the operativesession. The wardrobe assistant adequately prepped the operative site and maintained the best possible exposure of anatomy incident to the procedure. (Please see the Surgical Encounter Summary for any Implant and Specimen details pertinent to this patient.) () Jennifer Jack worked under my direction for the duration of the operative session. The wardrobe assistant adequately prepped the operative site and [...] CARE TEST ORDERABLE S Performing Organization Address City/[facility]/ZIP [facility] Phon e Number [facility] [address] [place], [place] [address] XR Fluoro No Rad <1Hr - OR Use (06/02/2019 3:58 PM EDT) Specimen (Source) Anatomical Location Collection Method / Collectio n Time Received Time / Laterality Volume Narrative RAD - 06/02/2019 4:00 PM EDT This exam is auto-finalizing. No interpr etation was done. Annamarie Jennings MD IMG FLUORO ORDERABLES Performing Organization Address [facility] Phon e Number RAD [place], [place] XR O-Arm No Rad <1Hr - [...] Electronically signed by: David Napoles [facility] ([phone]), at 06/02/2019 4:17 PM Narrative 06/02/2019 4:17 [...] For questions regarding this report, please contact [facility] number below. Electronically signed by: DIANA Belcher [facility] ([phone]), at 06/02/2019 4:17 PM Annamarie Jennings MD [...] RN) 12.5-25 mcg, Intravenous, EVERY 5 MIN NM N, Starting Bonny 06/02/19 at 1625, Until [...]
Routine documented in this encounter Care Teams Destination Sign Repairer Relationship Specialty Start Date End Date None PCP - General 05/31/19 02/17/21 None documented as of this encounter
--- OUTSIDE RECORDS SUMMARY | 2022-02-22 08:14 | XMS_ITS | Encounter Summary ---
:1965 Author Organization [facility] [place] [address] Care Team Providers Name Role Phone None [...] Expiration Date Visits Requ ested Visits Authorized [id number] 1 1 Encounter Details Date Type Department Care Team Description 06/02/2019 Ancillary Procedure Radiology Xray at [facility] [place] [address] Social History Tobacco Use Types Packs/Day [...] Organization Address City/State/ZIP Code Phon e Number [place], [place] XR O-Arm No Rad <1Hr - [...] this report, please contact e number below. Electronically signed by: DIANA Belcher [facility] ([phone]), at 06/02/2019 4:17 PM Annamarie Jennings MD IMG FLUORO ORDERABLES documented in this encounter Visit Diagnoses Not on filedocumented in this encounter Care Teams Director Hair Relationship Specialty Start Date End Date None PCP - General 05/31/19 02/17/21 None documented as of this encounter
--- OUTSIDE RECORDS SUMMARY | 2022-02-22 08:14 | XMS_ITS | Encounter Summary ---
:1965 Author Organization [facility] [place] [address] Care Team Providers Name Role Phone None Primary Care Provider Unavailable Encounter Details Date Type Department Care Team Description 05/31/2019 Telephone Pre-Admission Sam fontanez [place] [place] [address] Social History Tobacco Use Types Packs/Day [...] on filedocumented in this encounter Care Teams Funeral Assistant Relationship Specialty Start Date End Date None PCP - General 05/31/19 02/17/21 None documented as of this encounter
--- OUTSIDE RECORDS SUMMARY | 2022-02-22 08:14 | XMS_ITS | Encounter Summary ---
:1965 Author Organization [facility] [place] [address] Care Team Providers Name Role Phone None Primary Care Provider Unavailable Encounter Details Date Type Department Care Team Description 07/08/2019 Ancillary Procedure Radiology XRay at [facility], S/P lumbar spinal the Multi-Specialty MD An[facility] at [address] [phone] Social History Tobacco Use Types Packs/Day Years [...] status documented in this encounter Care Teams Assessment Technician Relationship Specialty Start Date End Date None PCP - General 05/31/19 02/17/21 None documented as of this encounter
--- OUTSIDE RECORDS SUMMARY | 2022-02-22 08:14 | XMS_ITS | Encounter Summary ---
:1965 Author Organization [facility] Address [address] [place] [address] Care Team Providers Name Role Phone Unavailable Primary Care Provider Unavailable Encounter Details Date Type Department Care Team Description 03/24/2011 Results Only [facility] Medardo Jenkins MD Laboratory Services - [address],[facility] [address] [place] [phone] (Wo rk) Social History Tobacco Use Types [...] ? KAROLINE MOSELEY ? Accession #: ? [id number] ? : ? 1965 (Age: 46) ??F [...] and electr onically signed by: ? Sandy [place], [place]( CP) ? Report Date: ??08/30/ 2011 08:39 ? End of Report ? Specimen Performing Organization Address City/State/ZIP Code Phon e Number [facility] [address] [place] [address] SERVICES [facility] [address] [place] [address] SURGICAL PATHOLOGY (03/24/2011 0:00 EDT) Pathology Report: SURGICAL PATHOLOGY REPORT ? [facility] Reports generated via electr Wise Data.Media interface contain original data; ? LAB however they are lacking the format of the original report. ? Caution should be taken when reading/interpreting unformatted reports. ? Name: ? DROWN, KAROLINE ? Accession #: ? [id number] ? : ? 1965 (Age: 46) ??F ? Collec t Date: ? 03/24/2011 ? Location: ? [facility] ? R eceive Date: ? 03/24/2011 ? Provider: GAILYN B SEBAS MD ? Copy to: TAY G TANEY TALENT ACQUISITION OPERATIONS MANAGER ? Final Pathologic Diagnosis: ? Endometrium, biopsy: ? 1. ??Fragments of proliferat javier endometrium with disordered growth pattern. ?- Negative fo r cytologic atypia. ? 2. ?? Tubal metaplasi a. ? Document reviewed and electr onically signed by: ? EH WOLF MD ? Report ??Date: 03/28/2011 11 [...] Organization Address City/State/ZIP Code Phon e Number [facility] [address] [place] [address] SERVICES [facility] [address] [place] [address] documented in this encounter Visit Diagnoses Not on filedocumented in this encounter
--- OUTSIDE RECORDS SUMMARY | 2022-02-22 08:15 | XMS_ITS | Encounter Summary ---
:1965 [place] [address] Care Team Providers Name Role Phone Sejal Davis APRN Primary Care Provider Reason for Visit Reason Comments Medication Refill Encounter Details Date Type Department Care Team Description 11/03/2014 Refill Endocrinology at [facility] Raj Yancey MD [facility] [place] [address] ENDOCRINOLOGY DEPT. [phone] [place] [address] (Wo rk) Social History Tobacco Use Types [...] on filedocumented in this encounter Care Teams Knowledge Engineer Relationship Specialty Start Date End Date Sejal Davis APRN PCP - General 08/10/14 05/30/19 [address] [place] [address] documented as of this encounter
--- OUTSIDE RECORDS SUMMARY | 2022-02-22 08:15 | XMS_ITS | Encounter Summary ---
:1965 Author Organization [facility] Address [facility] [place] [address] Care Team Providers Name Role Phone Beth Golden MD Primary Care Provider Encounter Details Date Type Department Care Team Description 04/09/2011 Abstract Obstetrics and Kandy Zurita, Asthma ; Gynecology at [facility] online merchant mellitus type II; [facility] Fibromyal delmer; Drive HTN (hypertension); [place] [address] Hypothyroid; [phone] IBS (irritable bowel syndrome); PCOS (polycysti c [...] ovaries documented in this encounter Care Teams Gun Numberer Relationship Specialty Start Date End Date Beth Golden MD PCP - General 06/25/10 08/09/14 [address] [place] [address] documented as of this encounter
--- OUTSIDE RECORDS SUMMARY | 2022-02-22 08:15 | XMS_ITS | Encounter Summary ---
:1965 [place] [address] Care Team Providers Name Role Phone Beth Golden MD Primary Care Provider Reason for Visit Reason Comments Medication Refill Encounter Details Date Type Department Care Team Description 10/13/[address] [facility] Raj Yancey MD [facility] [place] [address] ENDOCRINOLOGY DEPT. [phone] [place] [address] (Wo rk) Social History Tobacco Use Types [...] on filedocumented in this encounter Care Teams Data Warehousing Specialist Relationship Specialty Start Date End Date Beth Golden MD PCP - General 06/25/10 08/09/14 [address] [place], [place] [id number] documented as of this encounter
--- OUTSIDE RECORDS SUMMARY | 2022-02-22 08:15 | XMS_ITS | Encounter Summary ---
:1965 Author Organization [facility] Address [address] [place] [address] Care Team Providers Name Role Phone Corinne Golden MD Primary Care Provider Reason for Visit Reason Comments Hypothyroidism Diabetes Encounter Details Date Type Department Care Team Description 09/19/2013 Office Visit Endocrinology at [facility] Elaine Alves, Unspecified hypothyroidism; [facility] Raj Burroughs MD Hyperuricemia; Drive [facility] Unspecified vitamin D defici ency; [place] [address] CENTER Type II or unspecified type diabetes jarivs litus without mention of complication, not stated as uncontrolled [phone] ENDOCRINOLOGY DEPT. [place], [place] [address] Social History Tobacco Use Types [...] needed. ??? NEBULIZER ACCESSORIES (NEBULIZER MISC) by [facility]Non-Drug; Combo Route) route. ??? MULTIVITAMIN ORAL Take [...] lungs as needed. Allergies Allergen Reactions ??? Beaver Other (See Comments) pain ??? Wheat Other [...] intervals supplied above were not validated at [facility]. Results from pediatri c patients should be [...] Organization Address City/State/[place] [address] [facility] [place] (ABNORMAL) Hemoglobin A1c (09/19/2013 3:00 PM EST) Analysis Performed At [facility] Time Signature Hemoglobin A1C 6.9 (H) <=5.6 % [facility] [place] Comment: As of 2013 the methodology for [...] 1, S67-74 Est Avg Gluc 151 mg/dL [facility] [place] Comment: eAG equivalents for HbA1c percentages: HbA1c(%) ?eAG(mg/dL) 6.0 ?126 6.5 ?140 7.0 ?154 7.5 ?169 8.0 ?183 8.5 ?197 9.0 ?212 9.5 ?226 10.0 ? 240 Limitations: The eAG calculation has not been validated on women, individuals below 18 years old and above 70 years old, and individuals with hemoglobinopathies. Additional resources are available on [facility] ADA website: ??http://professional.diabetes.org/gluc osecalculator.aspx Bret RIVER, Heike Jeffries, Promise R, et al. ??Tr anslating the A1C assay into estimated average glucose values. ??Diabetes Care 2008:31(8):0194-4481. Specimen Anatomical Collection Method Collection Time Receive d Time (Source) Location / / Volume Laterality Blood specimen 09/19/2013 3:00 PM 014 3:12 (specimen) EST PM EST Resulting Agency Comment Spec In Lab Raj Alves MD CHEMISTRY ORDERABLES Performing Organization Address City/State/[place] [address] [facility] (ABNORMAL) Uric acid (09/19/2013 3:00 PM EST) P athologist Signature Uric Acid 8.3 (H) 2.5 - 6.5 [facility] mg/dL [facility] Specimen Anatomical Collection Method Collection Time Receive d Time (Source) Location / / Volume Laterality Blood specimen 09/19/2013 3:00 PM 014 3:12 (specimen) EST PM EST Resulting Agency Comment Spec In Lab Raj Alves MD CHEMISTRY ORDERABLES Performing Organization Address City/State/[place] [address] [facility] VIT D Total Evaluation (09/19/2013 3:00 PM EST) athologist Signature 25-OH Vit D 45 30 - 100 [facility] Total ng/mL [facility] Comment: Deficient <10 ng/mL Insufficient 10 [...] Alves MD CHEMISTRY ORDERABLES Performing Organization Address City/[facility]/ZIP Code Phon e Number [facility] [address] [facility] TSH (09/19/2013 3:00 PM EST) athologist Signature TSH 3.11 0.27 - 4.20 [facility]ER mcIU/mL [facility] Specimen Anatomical Collection Method Collection Time Receive d Time (Source) Location / / Volume Laterality Blood specimen 09/19/2013 3:00 PM 014 3:12 (specimen) EST PM EST Resulting Agency Comment Spec In Lab Raj Alves MD CHEMISTRY ORDERABLES Performing Organization Address City/[facility]/[place] [address] [facility] documented in this encounter Visit Diagnoses Diagnosis Unspecified hypothyroidism Hyperuricemia Other abnormal blood chemistry Unspecified vitamin D deficiency Type II or unspecified type diabetes jarvis litus without mention of complication, not stated as uncontrolled documented in this encounter Care Teams Pocket Marker Relationship Specialty Start Date End Date Corinne Golden MD PCP - General 06/25/10 08/09/14 [address] [place] [address] documented as of this encounter
--- OUTSIDE RECORDS SUMMARY | 2022-02-22 08:15 | XMS_ITS | Encounter Summary ---
:1965 [place] [address] Care Team Providers Name Role Phone Sejal Davis APRN Primary Care Provider Reason for Visit Reason Comments Medication Refill Encounter Details Date Type Department Care Team Description 08/11/2015 Refill Endocrinology at [facility] Raj Yanecy MD [facility] [place] [place] [address] ENDOCRINOLOGY DEPT. [phone] [place] [address] (Wo rk) Social History Tobacco Use Types [...] on filedocumented in this encounter Care Teams Parking Line Painter Relationship Specialty Start Date End Date Sejal Davis APRN PCP - General 08/10/14 05/30/19 [address] [place] [address] documented as of this encounter
--- OUTSIDE RECORDS SUMMARY | 2022-02-22 08:15 | XMS_ITS | Encounter Summary ---
:1965 Author Organization [facility] [place] [address] Care Team Providers Name Role Phone Beth Golden MD Primary Care Provider Reason for Visit Reason Onset Date Comments Medication Refill 05/05/2013 Encounter Details Date Type Department Care Team Description 05/05/2013 Refill Endocrinology at [facility] Raj Yancey MD [facility] [place] [address] ENDOCRINOLOGY DEPT. [phone] [place] [address] (Wo rk) Social History Tobacco Use Types [...] filedocumented in this encounter Care Teams Senior Analytic Consultant Relationship Specialty Start Date End Date Beth Golden MD PCP - General 06/25/10 08/09/14 [address] [place] [address] documented as of this encounter
--- OUTSIDE RECORDS SUMMARY | 2022-02-22 08:15 | XMS_ITS | Encounter Summary ---
:1965 Author Organization [place] [address] Care Team Providers Name Role Phone Beth Golden MD Primary Care Provider Encounter Details Date Type Department Care Team Description 02/14/2011 Hospital Encounter [place]ology [place] [facility] [place]ne Zarate, [facility] [place] [address] [facility] [phone] [facility] [place], [place] [address] Social History Tobacco Use Types [...] - 02/14/2011 5:01 PM EDT Thursday-Thursday Clinic [phone] 8a-5p Same Day Endo [phone] 7a-8p Otherwise contact [phone] and ask to speak to the supervisor of guidance and testing online media buyer Patient InstructionsRyanne Zarate MD - 02/14/2011 3:27 PM EDT Please see Recommendations in the Provation procedure report which is documented in the procedural note in E-DH. AttachmentsThe following attachments cannot be sent through Care Everywhere. COLONOSCOPY: WHAT TO EXPECT AT HOME (GREEK)COLON POLYPS: AFTER YOUR VISIT (GREEK)documented in this encounter Medications at Time of [...] SURGICAL PATHOLOGY REPORT (02/14/2011 5:48 PM EDT) [facility] Method Time Signature Surgical CERNER Pathology ? [facility] Report ? Provider: ?? Ryanne ZARATE ?Pt. Name: ?? KAROLINE MOSELEY ? Acc #: ?[id number] ? Pt. ? Col Date: ?? 1 [...] Organization Address City/State/ZIP Code Phon e Number [place] [phone] [facility] POCT GLUCOSE LAB USE ONLY (02/14/2011 3:26 PM EDT) athologist Signature POC Glucose 125 60 - 199 [facility] mg/dL [facility] Comment: Supplemental ranges: <110 mg/dL before meals <200 mg/dL all other times of the day Specimen Anatomical Collection Method Collection Time Receive d Time (Source) Location / / Volume Laterality Blood specimen 02/14/2011 3:26 PM 011 3:26 (specimen) EDT PM EDT L Minor Zarate MD POINT OF CARE TEST ORDERABLE S Performing Organization Address City/State/ZIP [place] [address] CERNER MILLENNIUM COLONOSCOPY (02/14/2011 3:20 PM EDT) Component Value Ref Test Analysis Performed At [facility] Range Method Time Signature COLONOSCOPY [facility] PROVATION Endoscopy Patient Name: Karoline Moseley ? [...] Glucose 114 60 - 199 CERNER mg/dL [facility] Comment: Supplemental ranges: <110 mg/dL before meals <200 mg/dL all other times of the day Specimen Anatomical Collection Method Collection Time Receive d Time (Source) Location / / Volume Laterality Blood specimen 02/14/2011 1:57 PM 011 1:57 (specimen) EDT PM EDT L Minor Zarate MD POINT OF CARE TEST ORDERABLE S Performing Organization Address City/State/ZIP Code Phon e Number [place] [phone] CERNER MILLENNIUM documented in [...] Routine documented in this encounter Care Teams Flamer Sealer Relationship Specialty Start Date End Date Beth Golden MD PCP - General 06/25/10 08/09/14 [address] [place] [address] documented as of this encounter
--- OUTSIDE RECORDS SUMMARY | 2022-02-22 08:15 | XMS_ITS | Encounter Summary ---
:1965 Author Organization [facility] Address [address] [place] [address] Care Team Providers Name Role Phone LimestoneSejal APRN Primary Care Provider Encounter Details Date Type Department Care Team Description 12/24/2015 Office Visit Endocrinology at [facility] Elaine Alves, Type 2 diabetes, controlled, with neuropathy; [facility] Raj Burroughs MD Hypothyroidism, unspecified type; [facility] Vitamin D deficiency; [place] [address] CENTER Hyperuricemia [phone] [place] [address] Social History Tobacco Use Types Packs/Day Years [...] documented in this encounter Progress Notes Raj Alvse MD - 12/24/2015 10:49 AM EDT Endocrine [...] 8.2 (H) 2.5 - 6.5 mg/dL Karoline Moseley [...] prior to visit. Allergies Allergen Reactions ??? [facility] Other (See Comments) pain ??? Wheat Other [...] Vit D 29 (L) 30 - 100 [facility] Total ng/mL [facility] LABORATORY Comment: Deficient <10 ng/mL Insufficient 10 to 29 ng/mL Sufficient 30 to 100 ng/mL Potential Intoxication >100 ng/mL According to the US National Osteoporosi s Foundation, Vitamin D concentrations >30 ng/mL are sufficient to protect bone health. ??The National Kidney Foundation has similarly stated that pat ients with Vitamin D concentrations <30ng/mL should be considered to be insu fficient or deficient. http://Luxtech/DHnatlkidneyfoundat ion http://Luxtech/DHMCVitD The IDS i[employer] Vitamin D Immunoassay detec [...] Alves MD CHEMISTRY ORDERABLES Performing Organization Address City/[facility]/ZIP [place] [address] (ABNORMAL) Uric acid (12/24/2015 9:49 AM EDT) P athologist Signature Uric Acid 8.2 (H) 2.5 - 6.5 [facility] [place] mg/dL [facility] LABORATORY Specimen Anatomical Collection Method Collection Time Receive d Time (Source) Location / / Volume Laterality Blood specimen 12/24/2015 9:49 AM 016 9:54 (specimen) EDT AM EDT Resulting Agency Comment Spec In Lab Raj Alves MD CHEMISTRY ORDERABLES Performing Organization Address City/State/ZIP Code Phon e Number [address] TSH (12/24/2015 9:49 AM EDT) P athologist Signature TSH 1.11 0.27 - 4.20 [facility] [place] mcIU/mL [facility] LABORATORY Specimen Anatomical Collection Method Collection Time Receive d Time (Source) Location / / Volume Laterality Blood specimen 12/24/2015 9:49 AM 016 9:54 (specimen) EDT AM EDT Resulting Agency Comment Spec In Lab Raj Alves MD CHEMISTRY ORDERABLES Performing Organization Address City/State/[place] [address] (ABNORMAL) Hemoglobin A1c (12/24/2015 9:49 AM EDT) Analysis Performed At Patho logist Time Signature Hemoglobin A1C 8.3 (H) 4.3 - 5.6 [facility] LABORATORY Comment: Reference Range: 4.3 - 5.6% [...] Mellitus, Diabetes Care 2013; 36: Suppl. 1, S67-72 Est Avg Gluc 192 mg/dL [facility] LABORATORY Comment: eAG equivalents for HbA1c percentages: HbA1c(%) ?eAG(mg/dL) 6.0 ?126 6.5 ?140 7.0 ?154 7.5 ?169 8.0 ?183 8.5 ?197 9.0 ?212 9.5 ?226 10.0 ? 240 Limitations: The eAG calculation has not been validated on women, individuals below 18 years old and above 70 years old, and individuals with hemoglobinopathies. Additional resources are available on e ADA website: http://Luxtech/DHMCadacalc Bret RIVER, Heike J, Promise R, et al. ??Tr anslating the A1C assay into estimated average glucose values. ??Diabetes Care 2008:31(8):6843-6648. Specimen Anatomical Collection Method Collection Time Receive d Time (Source) Location / / Volume Laterality Blood specimen 12/24/2015 9:49 AM 016 9:54 (specimen) EDT AM EDT Resulting Agency Comment Spec In Lab Raj Alves MD CHEMISTRY ORDERABLES Performing Organization Address City/State/Z[place] [address] documented in this encounter Visit Diagnoses Diagnosis Type 2 diabetes, controlled, with neurop athy Type II or unspecified type diabetes jarvis litus with neurological manifestations, not stated as uncontrolled Hypothyroidism, unspecified type Vitamin D deficiency Unspecified vitamin D deficiency Hyperuricemia Other abnormal blood chemistry documented in this encounter Care Teams Color Room Attendant Relationship Specialty Start Date End Date Sejal Piper APRN PCP - General 08/10/14 05/30/19 [address] [place] [address] documented as of this encounter
--- OUTSIDE RECORDS SUMMARY | 2022-02-22 08:15 | XMS_ITS | Encounter Summary ---
:1965 Author Organization [facility] Address [facility] [place] [address] Care Team Providers Name Role Phone Beth Golden MD Primary Care Provider Encounter Details Date Type Department Care Team Description 02/14/2011 Surgery Gastroenterology at [facility] Ryanne Zarate, COLONOSCOPY FLEXIBLE, [facility] Leo tracy MD WITH BX (WRVU 3.66) [place] [address] [facility] [phone] GASTROENTEROLOGY DEPT. [place], [place] [address] Social History Tobacco Use Types [...] - 02/14/2011 5:01 PM EDT Thursday-Thursday Clinic [phone] 8a-5p Same Day Endo [phone] 7a-8p Otherwise contact [phone] and ask to speak to the technical sales representative electronics engineer Patient InstructionsRyanne Zarate MD - 02/14/2011 3:27 PM EDT Please see Recommendations in the Provation procedure report which is documented in the procedural note in E-DH. AttachmentsThe following attachments cannot be sent through Care Everywhere. COLONOSCOPY: WHAT TO EXPECT AT HOME (KENYAN)COLON POLYPS: AFTER YOUR VISIT (KENYAN)documented in this encounter Medications at Time of [...] SURGICAL PATHOLOGY REPORT (02/14/2011 5:48 PM EDT) [facility] gist Method Time Signature Surgical CERNER Pathology ? [facility] Report ? Provider: ?? Ryanne ZARATE ?Pt. Name: ?? KAROLINE MOSELEY ? Acc #: ?[id number] ? Pt. ? Col Date: ?? 1 [...] Organization Address City/State/[place] [address] [facility] POCT GLUCOSE LAB USE ONLY (02/14/2011 [...] Organization Address City/State/[place] [address] CHRISTINA MILLENNIUM COLONOSCOPY (02/14/2011 3:20 PM EDT) Component Value Ref Test Analysis Performed At [facility] Range Method Time Signature COLONOSCOPY [facility] PROVATION Endoscopy Patient Name: Karoline Moseley [...] Glucose 114 60 - 199 CERNER mg/dL [facility] Comment: Supplemental ranges: <110 mg/dL before meals <200 mg/dL all other times of the day Specimen Anatomical Collection Method Collection Time Receive d Time (Source) Location / / Volume Laterality Blood specimen 02/14/2011 1:57 PM 011 1:57 (specimen) EDT PM EDT L Minor Zarate MD POINT OF CARE TEST ORDERABLE S Performing Organization Address City/State/[place] [address] [facility] documented in this encounter Visit Diagnoses Not [...] 50mcg/mL injection (COMPLETED) 1605 (Given - Provider: Sejla Cox RN) Intravenous, ONCE PRN, 1 dose, [...] Routine documented in this encounter Care Teams Court Bailiff Or Sheriff Relationship Specialty Start Date End Date Beth Golden MD PCP - General 06/25/10 08/09/14 [address] [place] [address] documented as of this encounter
--- OUTSIDE RECORDS SUMMARY | 2022-02-22 08:15 | XMS_ITS | Encounter Summary ---
:1965 Author Organization [facility] [place] [address] Care Team Providers Name Role Phone Sejal Davis SARAH Primary Care Provider Encounter Details Date Type Department Care Team Description 08/04/2007 Interpretation Only Radiology at [facility] Ce nter None [address] [place] [address] [place] [address] Social History Tobacco Use Types Packs/Day [...] 3:27 PM EST APD Historical Result Principal Telephone Operator: ??JOVAN ??CARLOS A MEDELLIN MR BRAIN AND [...] from the original. APD Historical Result Principal Telephone Operator: JOVAN ACOSTA MR BRAIN AND MR OF [...] on filedocumented in this encounter Care Teams Jackscrew Worker Relationship Specialty Start Date End Date Sejal Davis APRN PCP - General 08/10/14 05/30/19 [address] [place] [address] documented as of this encounter
--- OUTSIDE RECORDS SUMMARY | 2022-02-22 08:15 | XMS_ITS | Encounter Summary ---
:1965 Author Organization [facility] [place] [address] Care Team Providers Name Role Phone Sejal Davis APRN Primary Care Provider Reason for Visit Reason Onset Date Comments Medication Refill 08/22/2015 Encounter Details Date Type Department Care Team Description 08/22/2015 Refill Endocrinology at [facility] Raj Yancey MD [facility] [place] [address] ENDOCRINOLOGY DEPT. [phone] [place] [address] (Wo rk) Social History Tobacco Use Types [...] on filedocumented in this encounter Care Teams Hobbing Machine Operator Relationship Specialty Start Date End Date Sejal Davis APRN PCP - General 08/10/14 05/30/19 [address] [place] [address] documented as of this encounter
--- OUTSIDE RECORDS SUMMARY | 2022-02-22 08:15 | XMS_ITS | Encounter Summary ---
:1965 Author Organization [facility] [place] [address] Care Team Providers Name Role Phone Beth Golden MD Primary Care Provider Reason for Visit Reason Onset Date Comments Advice Only 03/30/2013 Encounter Details Date Type Department Care Team Description 03/30/2013 Telephone Endocrinology at [facility] C Tomasa [place] [address] Social History Tobacco Use Types Packs/Day [...] and I will sign. Per pharmacist at [facility] Rx as it Class CII needs to be hard copy. Rx mailed directly to pharmacy. Called patient at which time she was told that Rx was mailed to [facility]. Telephone Encounter - Tomasa Santos LPN - 03/30/2013 3:16 PM EDT Returning call to patient Dr Alves was going to fax prescription for amphetamine 10 mg but the pharmacy never got it. Patient was told that Dr Alves is away I will need to ask D.O.C. If he is willing to redo Rx to [facility]. Forward to Dr Diez documented in this encounter Plan of Treatment Not on filedocumented as of this encounter Visit Diagnoses Not on filedocumented in this encounter Care Teams Extrusion Press Adjuster Relationship Specialty Start Date End Date Beth Golden MD PCP - General 06/25/10 08/09/14 [address] [place] [address] documented as of this encounter
--- OUTSIDE RECORDS SUMMARY | 2022-02-22 08:15 | XMS_ITS | Encounter Summary ---
:1965 Author Organization [facility] [place] [address] Care Team Providers Name Role Phone Sejal Davis Katerina SMITH Primary Care Provider Reason for Visit Reason Onset Date Comments Medication Refill 08/17/2015 Encounter Details Date Type Department Care Team Description 08/17/2015 Refill Endocrinology at [facility] Raj Yancey MD [facility] [address] ENDOCRINOLOGY DEPT. [phone] [place] [address] (Wo rk) Social History Tobacco Use Types [...] Telephone Encounter - Tomasa Santos LPN - 08/17/2015 12:48 PM EST Per patient Rx for 90 day supply needed. documented in this encounter Plan of Treatment Not on filedocumented as of this encounter Visit Diagnoses Not on filedocumented in this encounter Care Teams Truck Greaser Relationship Specialty Start Date End Date Sejal Davis APRN PCP - General 08/10/14 05/30/19 [address] [place] [address] documented as of this encounter
--- OUTSIDE RECORDS SUMMARY | 2022-02-22 08:15 | XMS_ITS | Encounter Summary ---
:1965 Author Organization [facility] [place] [address] Care Team Providers Name Role Phone Beth Golden MD Primary Care Provider Reason for Visit Reason Onset Date Comments Advice Only 05/02/2013 Encounter Details Date Type Department Care Team Description 05/02/2013 Telephone Endocrinology at [facility] C Tomasa [place] [address] Social History Tobacco Use Types Packs/Day [...] she has access to internet, then to [employer] for drug info first or we can [...] LPN - 05/05/2013 1:20 PM EDT Called [facility] outpatient pharmacy. straight amphetamine is no longer [...] If he iswilling to redo Rx to [facility]. Forward to Dr Diez). Telephone Encounter [...] on filedocumented in this encounter Care Teams Roastmaster Relationship Specialty Start Date End Date Beth Golden MD PCP - General 06/25/10 08/09/14 [address] [place] [address] documented as of this encounter
--- OUTSIDE RECORDS SUMMARY | 2022-02-22 08:15 | XMS_ITS | Encounter Summary ---
:1965 Author Organization [facility] [place] [address] Care Team Providers Name Role Phone Beth Golden MD Primary Care Provider Reason for Visit Reason Onset Date Comments Other 09/27/2012 Encounter Details Date Type Department Care Team Description 09/27/2012 Telephone Endocrinology at [facility] [place] [address] Social History Tobacco Use Types Packs/Day [...] bid during the interim (supposed to take 4198-9923 mg/day for her PCOS and mild diabetes). 1. Medication: To cont LT4 125 mcg qd for hypothyroid To resume metforminER 1,500-2,000 mg/day as tolerated for her PCOS and mild diabetes Per request from pharmacist Osorio kincaid Rx to be done as Rx he has is for Metformin er 500 mg two per day 9981-3425 mg as tolerated documented in this encounter Plan of Treatment Not on filedocumented as of this encounter Visit Diagnoses Not on filedocumented in this encounter Care Teams Shot Hole Driller Relationship Specialty Start Date End Date Beth Golden MD PCP - General 06/25/10 08/09/14 [address] [place] [address] documented as of this encounter
--- OUTSIDE RECORDS SUMMARY | 2022-02-22 08:15 | XMS_ITS | Encounter Summary ---
:1965 Author Organization [facility] [place] [address] Care Team Providers Name Role Phone Beth Golden MD Primary Care Provider Reason for Visit Reason Onset Date Comments Medication Refill 09/27/2012 Encounter Details Date Type Department Care Team Description 09/27/2012 Refill Endocrinology at [facility] Raj Yancey MD [facility] [place] [address] ENDOCRINOLOGY DEPT. [phone] [place] [address] (Wo rk) Social History Tobacco Use Types [...] on filedocumented in this encounter Care Teams Crane Oiler Relationship Specialty Start Date End Date Beth Golden MD PCP - General 06/25/10 08/09/14 [address] [place] [address] documented as of this encounter
--- OUTSIDE RECORDS SUMMARY | 2022-02-22 08:15 | XMS_ITS | Encounter Summary ---
:1965 Author Organization [facility] Address [facility] [address] [place] [address] Care Team Providers Name Role Phone Beth Golden MD Primary Care Provider Encounter Details Date Type Department Care Team Description 09/24/2012 Telephone Endocrinology at [facility] Raj Yancey, [facility] [place] [address] [facility] [phone] [place] [address] (Wo rk) Social History Tobacco Use Types [...] filedocumented in this encounter Care Teams Truck Cleaner Relationship Specialty Start Date End Date Beth Golden MD PCP - General 06/25/10 08/09/14 [address] [place] [address] documented as of this encounter
--- OUTSIDE RECORDS SUMMARY | 2022-02-22 08:15 | XMS_ITS | Encounter Summary ---
:1965 Author Organization [facility] [place] [address] Care Team Providers Name Role Phone Corinne Golden MD Primary Care Provider Reason for Referral Consultation (Routine) - Closed Specialty Diagnoses / Procedures Referred By Contact Refer red To Contact Rheumatology Diagnoses Hyperuricemia Arthritis Fibromyalgia Raj Alves, [facility] [place] [facility] 5c MD [facility] [place] [address] [place] [address] Referral ID Status Reason Start Date Expiration Date Visits V isits Requested Authorized [id number] Closed Consult, 03/22/2013 09/18/2013 1 1 Test & Treat Reason for Visit Reason Comments Diabetes Thyroid Problem Encounter Details Date Type Department Care Team Description 03/21/2013 Office Visit Endocrinology at [facility] Elaine Alves, Unspecified hypothyroidism ( Primary Dx); [facility] Raj Burroughs MD Unspecified vitamin D deficiency; [facility] Type II or unspecified type diabetes mellitus without mention of complication, not stated as uncontrolled; [place] [address] CENTER Hyperuricemia; [phone] ENDOCRINOLOGY Irregular stacey ods; DEPT. Arthritis; [place], [place] Fibromyalgia [id number] Social History Tobacco Use Types Packs/Day Years [...] long ago. This progesterone was prescribed by CRM DEVELOPER in [place], [place]. Info on possible side effects and [...] on BCPs=> changed to progesterone alone per CRM DEVELOPER & having irregular periods 11/14/09: normal DHEAS [...] by mouth daily. Allergies Allergen Reactions ??? [place] Other (See Comments) pain ??? Bee Pollen [...] including neuropathy and may need to see wood technologist for her high uric and fibromyalgia directly. [...] not tolerate estradiol under care with her PB/SLIDING JOINT MAKER. Progesterone may cause wt gain and fluid [...] progesterone Day 1-10 for now (given by CRM DEVELOPER in [place], [place] but pt could not tolerate estradiol [...] today. 5. Also refer her to see wood technologist for her hyperuricemia and severe fibromyalgia We [...] (09/19/2013 3:00 PM EST) Analysis Performed At [facility] Time Signature Hemoglobin A1C 6.9 (H) <=5.6 % [facility] Comment: As of 2013 the methodology for [...] Mellitus, Diabetes Care 2013; 36: Suppl. 1, V07-75 Est Avg Gluc 151 mg/dL [facility] Comment: eAG equivalents for HbA1c percentages: HbA1c(%) ?eAG(mg/dL) 6.0 ?126 6.5 ?140 7.0 ?154 7.5 ?169 8.0 ?183 8.5 ?197 9.0 ?212 9.5 ?226 10.0 ? 240 Limitations: The eAG calculation has not been validated on women, individuals below 18 years old and above 70 years old, and individuals with hemoglobinopathies. Additional resources are available on [facility] ADA website: ??http://professional.diabetes.org/gluc osecalculator.aspx Bret RIVER, Heike Jeffries, Promise R, et al. ??Tr anslating the A1C assay into estimated average glucose values. ??Diabetes Care 2008:31(8):2438-3827. Specimen Anatomical Collection Method Collection Time Receive d Time (Source) Location / / Volume Laterality Blood specimen 09/19/2013 3:00 PM 014 3:12 (specimen) EST PM EST Resulting Agency Comment Spec In Lab Raj Alves MD CHEMISTRY ORDERABLES Performing Organization Address City/[facility]/[place] [address] CERNER MILLENNIUM (ABNORMAL) Uric acid (09/19/2013 3:00 PM EST) P athologist Signature Uric Acid 8.3 (H) 2.5 - 6.5 CERNER mg/dL [facility] Specimen Anatomical Collection Method Collection Time Receive d Time (Source) Location / / Volume Laterality Blood specimen 09/19/2013 3:00 PM 014 3:12 (specimen) EST PM EST Resulting Agency Comment Spec In Lab Raj Alves MD CHEMISTRY ORDERABLES Performing Organization Address City/[facility] [place] [address] CERNER MILLENNIUM VIT D Total Evaluation (09/19/2013 3:00 PM EST) P athologist Signature 25-OH Vit D 45 30 - 100 CERNER Total ng/mL [facility] Comment: Deficient <10 ng/mL Insufficient 10 [...] Performing Organization Address City/[facility]/[place] [address] [facility] TSH (09/19/2013 3:00 PM EST) P athologist Signature TSH 3.11 0.27 - 4.20 CERNER mcIU/mL [facility] Specimen Anatomical Collection Method Collection Time Receive d Time (Source) Location / / Volume Laterality Blood specimen 09/19/2013 3:00 PM 014 3:12 (specimen) EST PM EST Resulting Agency Comment Spec In Lab Raj Alves MD CHEMISTRY ORDERABLES Performing Organization Address City/[facility]/[place] [address] [facility] MILLENNIUM ANTONIA (03/21/2013 2:30 PM EDT) P athologist Signature ANTONIA Neg Neg CERNER MILLENNIUM Specimen Anatomical Collection Method Collection Time Receive d Time (Source) Location / / Volume Laterality Blood specimen 03/21/2013 2:30 PM 013 8:11 (specimen) EDT AM EDT Resulting Agency Comment Spec In Lab Raj Alves MD IMMUNOLOGY ORDERABLES Performing Organization Address City/[facility]/[place] [address] CERNER MILLENNIUM High Sensitivity [...] Performing Organization Address City/[facility]/ZIP [place] [address] CERNER MILLENNIUM Sedimentation rate [...] Organization Address City/State/ZIP Code Phon e Number [address] [facility] Follicle Stimulating Hormone (03/21/2013 2:30 PM EDT) athologist Signature FSH 27.7 mlU/ML [facility] Comment: Reference Ranges: Females: Follicular: ? 3.5-12.5 mIU/mL Ovulation: ?4.7-21.5 mIU/mL Luteal: ? 1.7-7.7 mIU/mL Postmenopausal: 25.8-134.8 mIU/mL Specimen Anatomical Collection Method Collection Time Receive d Time (Source) Location / / Volume Laterality Blood specimen 03/21/2013 2:30 PM 013 2:34 (specimen) EDT PM EDT Resulting Agency Comment Spec In Lab Raj Alves MD CHEMISTRY ORDERABLES Performing Organization Address [facility] e [address] [facility] Progesterone (03/21/2013 2:30 PM EDT) athologist Signature Progesterone 0.38 ng/mL [facility] Comment: Reference Ranges: Non- Females: ?? Follicular: [...] Alves MD CHEMISTRY ORDERABLES Performing Organization Address [facility] [place] [address] [facility] [address] [facility] Estradiol (03/21/2013 2:30 PM EDT) P athologist Signature Estradiol 21 pg/mL [facility] Comment: Reference ranges: Males: ?? 1-10 years: <5 to 20 pg/mL ?? Adult: ? 0 to 45 pg/mL Females: ?? 1-10 years ??6 to 27 pg/mL Non- females: ?Follicular: ??0-178 pg/mL ?Ovulation: ??48-388 pg/mL ?Luteal: ??31-247 pg/mL ?Postmenopausal: ??0-46 pg /mL females: ?1st trimester: ??38-3175 pg/mL ?2nd trimester: ??678-1663 3 pg/mL ?3rd trimester: ??43-61913 pg/mL Specimen Anatomical Collection Method Collection Time Receive d Time (Source) Location / / Volume Laterality Blood specimen 03/21/2013 2:30 PM 013 2:34 (specimen) EDT PM EDT Resulting Agency Comment Spec In Lab Raj Alves MD CHEMISTRY ORDERABLES Performing Organization Address City/State/[place] [address] [facility] [address] [facility] (ABNORMAL) Uric acid (03/21/2013 2:30 PM EDT) athologist Signature Uric Acid 9.1 (H) 2.5 - 6.5 CERNER mg/dL [facility] Specimen Anatomical Collection Method Collection Time Receive d Time (Source) Location / / Volume Laterality Blood specimen 03/21/2013 2:30 PM 013 2:34 (specimen) EDT PM EDT Resulting Agency Comment Spec In Lab Raj Alves MD CHEMISTRY ORDERABLES Performing Organization Address City/State/[place]IP [place] [address] CHRISTINA MONTES (ABNORMAL) Hemoglobin A1c (03/21/2013 2:30 PM EDT) Analysis Performed At [facility] Time Signature Hemoglobin A1C 7.0 (H) 4.3 - 6.1 [facility] % MILLENNIUM Comment: The [place] Diabetes Association (ADA) has stated that HbA1c [...] 1:S11 -S66. Est Avg Gluc 154 mg/dL [facility] Comment: eAG equivalents for HbA1c percentages: HbA1c(%) [...] into estimated average glucose values. ??Diabetes Care 2008:31(8):3852-2147. Specimen Anatomical Collection Method Collection Time Receive d Time (Source) Location / / Volume Laterality Blood specimen 03/21/2013 2:30 PM 013 2:34 (specimen) EDT PM EDT Resulting Agency Comment Spec In Lab Raj Alves MD CHEMISTRY ORDERABLES Performing Organization Address City/[facility] Code Phon e Number [address] [facility] TSH (03/21/2013 2:30 PM EDT) P athologist Signature TSH 1.13 0.27 - 4.20 CERNER mcIU/mL [facility] Specimen Anatomical Collection Method Collection Time Receive d Time (Source) Location / / Volume Laterality Blood specimen 03/21/2013 2:30 PM 013 2:34 (specimen) EDT PM EDT Resulting Agency Comment Spec In Lab Raj Alves MD CHEMISTRY ORDERABLES Performing Organization Address City/[facility] Code Phon e Number [address] [facility] VIT D Total Evaluation (03/21/2013 2:30 PM EDT) P athologist Signature 25-OH Vit D 44 30 - 100 CERNER Total ng/mL [facility] Comment: Deficient <10 ng/mL Insufficient 10 [...] Organization Address City/State/ZIP [place] [address] [facility] documented in this encounter Visit Diagnoses Diagnosis Unspecified hypothyroidism - Primary Unspecified vitamin D deficiency Type II or unspecified type diabetes jarvis litus without mention of complication, not stated as uncontrolled Hyperuricemia Other abnormal blood chemistry Irregular periods Irregular menstrual cycle Arthritis Arthropathy, unspecified, site unspecifi ed Fibromyalgia Mylagia and myositis, unspecified documented in this encounter Care Teams Auto Inspection Specialist Relationship Specialty Start Date End Date Corinne Golden MD PCP - General 06/25/10 08/09/14 [address] [place] [address] documented as of this encounter
--- OUTSIDE RECORDS SUMMARY | 2022-02-22 08:15 | XMS_ITS | Encounter Summary ---
:1965 Author Organization [facility] [place] [address] Care Team Providers Name Role Phone Beth Golden MD Primary Care Provider Reason for Visit Reason Comments Adam's Thyroiditis Diabetes Encounter Details Date Type Department Care Team Description 09/24/2012 Office Visit Endocrinology at [facility] Elaine Alves, PER[place] neuro manif type II; [facility] Raj Burroughs MD Unspecified hypothyroidism; [facility] Fibromyalgia; [place] [address] [place] [address] Unspecified vitamin D deficiency; [phone] ENDOCRINOLOGY Fatigue; DEPT. Hyperuricemia; [place] [id number] 6 Irregular periods; [phone] Arthralgia (Work) Social History Tobacco Use Types [...] bid during the interim (supposed to take 3446-5342 mg/day for her PCOS and mild diabetes). [...] by mouth daily. Allergies Allergen Reactions ??? [place] Other (See Comments) pain ??? Bee Pollen [...] 30 - 300 Clinical Albuminuria ?? >300 *[place] Diabetes Association. Diabetic Nephropathy. Diabetes Care 1997;(Suppl [...] Organization Address City/State/[place] [address] CERNER MILLENNIUM High Sensitivity [...] Alves MD CHEMISTRY ORDERABLES Performing Organization Address City/[facility] Phon e Number [address] [facility] Sedimentation rate (09/24/2012 3:04 PM EST) P athologist Signature Sed Rate 19 0 - 20 CERNER mm/hr MILLENNIUM Specimen Anatomical Collection Method Collection Time Receive d Time (Source) Location / / Volume Laterality Blood specimen 09/24/2012 3:04 PM 013 3:08 (specimen) EST PM EST Resulting Agency Comment Spec In Lab Raj Alves MD HEMATOLOGY ORDERABLES Performing Organization Address City/[facility] Phon e Number [address] [facility] MILLENNIUM Follicle Stimulating Hormone (09/24/2012 3:04 PM [...] Organization Address City/State/ZIP Code Phon e Number [address] CERNER MILLENNIUM Prolactin (09/24/2012 3:04 PM EST) P athologist Signature Prolactin 10.3 4.8 - 23.3 CERNER ng/mL MILLENNIUM Specimen Anatomical Collection Method Collection Time Receive d Time (Source) Location / / Volume Laterality Blood specimen 09/24/2012 3:04 PM 013 3:08 (specimen) EST PM EST Resulting Agency Comment Spec In Lab Raj Alves MD CHEMISTRY ORDERABLES Performing Organization Address City/[facility]/ZIP Code Phon e Number [address] CERNER MILLENNIUM (ABNORMAL) Lipid panel (fasting) (09/24/2012 3:04 PM EST) P athologist Signature Chol, Total 187 <=199 mg/dL CERNER MILLENNIUM Comment: Recommendations of the NCEP Adult Treatm ent Panel for the following risk cutoff thresholds for the [place] populatio n: Desirable: <200 mg/dL Borderline High: 200-239 mg/dL High: > or = 240 mg/dL Triglycerides 241 (H) <=149 mg/dL CERNER MILLENN IUM Comment: Reference Range: Normal triglycerides: ??<150 mg/dL Borderline high: ??150-199 mg/dL High: ??200-499 mg/dL Very high: ??>gq=482 mg/dL KAREN 2001; 285(19):7914-6148 HDL 58 >=40 mg/dL CERNER MILLENNIUM Comment: Reference range: ??Low HDL: ?? < 40 mg/dL ??Normal: ?40-60 mg/dL ??Desirable: > 60 mg/dL KAREN 2001; 285(19):4780-1470 LDL Cholesterol 81 <=99 mg/dL CHRISTINA ARAUZ Comment: Reference range: ?? Optimal: ?<100 mg/dL ?? Near Optimal/Above Optimal: ?? 100-1 29 mg/dL ?? Borderline high: ?130-159 mg/dL ?? High: ? 160-189 mg/dL ?? Very high: ?>fv=899 mg/dL KAREN 2001: 285(19):1225-9433 Chol/HDL Ratio 3.2 ratio CHRISTINA ALEXANDER UM Comment: A Cholesterol to HDL ratio below 4:1 is desirable. ??Studies suggest that increased CAD risk occurs at ratios abov e 5 for females and above 6 for men. ? [place] Heart Association ??(htt p://www.americanheart.org) ? Yissel Int Med, 1994; 121:641 ? AM J Med, 1998; 105(1A):48S Specimen Anatomical Collection Method Collection Time Receive d Time (Source) Location / / Volume Laterality Blood specimen 09/24/2012 3:04 PM 013 3:08 (specimen) EST PM EST Resulting Agency Comment Spec In Lab Raj Alves MD CHEMISTRY ORDERABLES Performing Organization Address City/State/[place]IP [place] [address] CHRISTINA MONTES (ABNORMAL) Uric [...] Alves MD CHEMISTRY ORDERABLES Performing Organization Address [facility] [place] [address] CERNER MILLENNIUM Vitamin B12 (09/24/2012 3:04 PM EST) athologist Signature Vitamin B-12 661 207 - 974 CERNER pg/mL MILLENNIUM Specimen Anatomical Collection Method Collection Time Receive d Time (Source) Location / / Volume Laterality Blood specimen 09/24/2012 3:04 PM 013 3:08 (specimen) EST PM EST Resulting Agency Comment Spec In Lab Raj Alves MD CHEMISTRY ORDERABLES Performing Organization Address [facility] [place] [address] CERNER MILLENNIUM ACTH (09/24/2012 3:04 PM EST) athologist Signature ACTH 20 6 - 50 CERNER pg/mL MILLENNIUM Comment: Reference range applies only to specimen s collected between 7-10am. Test Performed by Janet Romero, [facility], [address] [place] [address] 2014 08 Jw Traore M.D., Ph.D., Director of Laboratories , [facility] [id number] Specimen Anatomical Collection Method Collection Time Receive d Time (Source) Location / / Volume Laterality Blood specimen 09/24/2012 3:04 PM 013 3:43 (specimen) EST PM EST Resulting Agency Comment Spec In Lab Raj Alves MD CHEMISTRY ORDERABLES Performing Organization Address City/[facility] [place] [address] CERNER MILLENNIUM Cortisol (09/24/2012 [...] Organization Address City/State/ZIP Code Phon e Number [place] [phone] CERNER MILLENNIUM Comprehensive metabolic panel (non-fasting) (09/24/2012 3:04 PM EST) P athologist Signature Glucose Lvl 96 60 - 199 CERNER mg/dL MILLENNIUM Comment: Diabetes: >=200 mg/dL plus symp toms BUN 12 8 - 18 mg/dL CERNER MILLENNIUM Creatinine 0.78 0.70 - 1.20 mg/dL CERNER MILL ENNIUM Comment: Please note that the pediatric reference intervals supplied above were not validated at [facility]. Results from pediatri c patients should be [...] Alves MD CHEMISTRY ORDERABLES Performing Organization Address City/[facility]/[place] [address] [facility] (ABNORMAL) VIT D Total Evaluation (09/24/2012 3:04 PM EST) athologist Signature 25-OH Vit D 29 (L) 30 - 100 CERNER Total ng/mL [facility] Comment: Deficient <10 ng/mL Insufficient 10 to [...] Alves MD CHEMISTRY ORDERABLES Performing Organization Address City/[facility]/[place] [address] [facility] MILLENNIUM TSH (09/24/2012 3:04 PM EST) P athologist Signature TSH 3.11 0.27 - 4.20 CERNER mcIU/mL MILLENNIUM Specimen Anatomical Collection Method Collection Time Receive d Time (Source) Location / / Volume Laterality Blood specimen 09/24/2012 3:04 PM 013 3:08 (specimen) EST PM EST Resulting Agency Comment Spec In Lab Raj Alves MD CHEMISTRY ORDERABLES Performing Organization Address City/State/ZIP Code Phon e Number [place] [phone] CERNER MILLENNIUM (ABNORMAL) Hemoglobin [...] into estimated average glucose values. ??Diabetes Care 2008:31(8):0075-2331. Specimen Anatomical Collection Method Collection Time Receive d Time (Source) Location / / Volume Laterality Blood specimen 09/24/2012 3:04 PM 013 3:08 (specimen) EST PM EST Resulting Agency Comment Spec In Lab Raj Alves MD CHEMISTRY ORDERABLES Performing Organization Address City/State/ZIP Code Phon e Number [place] [phone] [facility] documented in this encounter Visit [...] unspecified documented in this encounter Care Teams Ese Teacher Relationship Specialty Start Date End Date Beth Golden MD PCP - General 06/25/10 08/09/14 [address] [place] [address] documented as of this encounter
--- OUTSIDE RECORDS SUMMARY | 2022-02-22 08:15 | XMS_ITS | Encounter Summary ---
:1965 Author Organization [facility] [place] [address] Care Team Providers Name Role Phone Sejal Piper Katerina SMITH Primary Care Provider Reason for Visit Reason Comments Hypothyroidism Encounter Details Date Type Department Care Team Description 03/12/2015 Office Visit Endocrinology at [facility] Elaine Alves, Osteopenia; [facility] Raj Burroughs MD Other abnormal glucose; Drive [facility] Unspecified [place] [address] [place] [address] END[address] DEPT[address] 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 ??? NEBULIZER ACCESSORIES (NEBULIZER MISC) by [facility].(Non-Drug; Combo Route) route. ??? OXYcodone 10 mg Tab Take 10 mg by mouth every 4 hours. ??? allopurinol (ZYLOPRIM) 100 mg tablet Take 1 tablet by mouth daily. 90 tablet 4 ??? ALBUTEROL INHL Inhale into the lungs as needed. No current facility-administered medications on file prior to visit. Allergies Allergen Reactions ??? [place] Other (See Comments) pain ??? Wheat Other [...] Organization Address City/State/ZIP Code Phon e Number [place] [phone] CERNER MILLENNIUM VIT D Total Evaluation (03/12/2015 10:42 AM EDT) P athologist Signature 25-OH Vit D 50 30 - 100 CERNER Total ng/mL [facility] Comment: Deficient <10 ng/mL Insufficient 10 to 29 ng/mL Sufficient 30 to 100 ng/mL Potential Intoxication >100 ng/mL According to the US National Osteoporosi s Foundation, Vitamin D concentrations >30 ng/mL are sufficient to protect bone health. ??The National Kidney Foundation has similarly stated that pat ients with Vitamin D concentrations <30ng/mL should be considered to be insu fficient or deficient. http://BoxCat/DHMCnatlkidneyfoundat ion http://BoxCat/DHMCVitD The [employer] i[employer] Vitamin D Immunoassay detec [...] Organization Address City/State/ZIP Code Phon e Number [address] [facility] TSH (03/12/2015 10:42 AM EDT) athologist Signature TSH 0.49 0.27 - 4.20 CERNER mcIU/mL [facility] Specimen Anatomical Collection Method Collection Time Receive d Time (Source) Location / / Volume Laterality Blood specimen 03/12/2015 10:42 5 (specimen) AM EDT 10:49 AM EDT Resulting Agency Comment Spec In Lab Raj Alves MD CHEMISTRY ORDERABLES Performing Organization Address City/[facility]/ZIP Code Phon e Number [address] [facility] (ABNORMAL) Hemoglobin A1c (03/12/2015 10:42 AM EDT) [...] with hemoglobinopathies. Additional resources are available on [facility] ADA website: http://Bondsy.Castlerock REO/DHMCadacalc Bret RIVER, Heike J, Promise R, et al. ??Tr anslating the A1C assay into estimated average glucose values. ??Diabetes Care 2008:31(8):1846-1105. Specimen Anatomical Collection Method Collection Time Receive d Time (Source) Location / / Volume Laterality Blood specimen 03/12/2015 10:42 5 (specimen) AM EDT 10:49 AM EDT Resulting Agency Comment Spec In Lab Raj Alves MD CHEMISTRY ORDERABLES Performing Organization Address City/State/[place] [address] [facility] documented in this encounter Visit Diagnoses Diagnosis Osteopenia Disorder of bone and cartilage, unspecif ied Other abnormal glucose Unspecified vitamin D deficiency documented in this encounter Care Teams Eeo Officer Relationship Specialty Start Date End Date Sejal Piper, SARAH PCP - General 08/10/14 05/30/19 [address] [place] [address] documented as of this encounter
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
--- OUTSIDE RECORDS SUMMARY | 2022-02-22 08:15 | XMS_ITS | Encounter Summary ---
:1965 Author Organization [facility] [place] [address] Care Team Providers Name Role Phone Izabela Piperbarney Borges APRN Primary Care Provider Reason for Visit Reason Comments Hypothyroidism Encounter Details Date Type Department Care Team Description 08/28/2014 Office Visit Endocrinology at [facility] Elaine Alves, Osteopenia; [facility] Raj Burroughs MD Other abnormal glucose; Drive [facility] Unspecified [place] [address] [place] [address] [address]PT[address] [place] [address] Social History Tobacco Use Types Packs/Day Years [...] deficiency with chronic fatigue and fibromyalgia 268.9 Kraoline Moseley is not doing well during the [...] needed. ??? NEBULIZER ACCESSORIES (NEBULIZER MISC) by [facility].(Non-Drug; Combo Route) route. ??? MULTIVITAMIN ORAL Take [...] prior to visit. Allergies Allergen Reactions ??? Linneus Other (See Comments) pain ??? Wheat Other [...] 9.9 (H) 2.5 - 6.5 CERNER mg/dL [facility] Specimen Anatomical Collection Method Collection Time Receive d Time (Source) Location / / Volume Laterality Blood specimen 03/12/2015 10:42 5 (specimen) AM EDT 10:49 AM EDT Resulting Agency Comment Spec In Lab Raj Alves MD CHEMISTRY ORDERABLES Performing Organization Address City/State/ZIP Code Phon e Number [address] CERNER MILLENNIUM VIT D Total Evaluation (03/12/2015 10:42 AM EDT) P athologist Signature 25-OH Vit D 50 30 - 100 CERNER Total ng/mL [facility] Comment: Deficient <10 ng/mL Insufficient 10 to 29 ng/mL Sufficient 30 to 100 ng/mL Potential Intoxication >100 ng/mL According to the US National Osteoporosi s Foundation, Vitamin D concentrations >30 ng/mL are sufficient to protect bone health. ??The National Kidney Foundation has similarly stated that pat ients with Vitamin D concentrations <30ng/mL should be considered to be insu fficient or deficient. http://Applitools/DHMCnatlkidneyfoundat ion http://Applitools/DHMCVitD The IDS iSYS Vitamin D Immunoassay detec [...] Alves MD CHEMISTRY ORDERABLES Performing Organization Address City/[facility]/ZIP Code Phon e Number [address] CERNER MILLENNIUM TSH (03/12/2015 10:42 AM EDT) P athologist Signature TSH 0.49 0.27 - 4.20 CERNER mcIU/mL [facility] Specimen Anatomical Collection Method Collection Time Receive d Time (Source) Location / / Volume Laterality Blood specimen 03/12/2015 10:42 5 (specimen) AM EDT 10:49 AM EDT Resulting Agency Comment Spec In Lab Raj Alves MD CHEMISTRY ORDERABLES Performing Organization Address City/State/ZIP Code Phon e Number [address] [facility] (ABNORMAL) Hemoglobin A1c (03/12/2015 10:42 AM EDT) Analysis Performed At [facility] Time Signature Hemoglobin A1C 7.4 (H) 4.3 - 5.6 [facility] Comment: Reference Range: 4.3 - 5.6% 5.7 [...] 1, S67-74 Est Avg Gluc 166 mg/dL [facility] Comment: eAG equivalents for HbA1c percentages: HbA1c(%) ?eAG(mg/dL) 6.0 ?126 6.5 ?140 7.0 ?154 7.5 ?169 8.0 ?183 8.5 ?197 9.0 ?212 9.5 ?226 10.0 ? 240 Limitations: The eAG calculation has not been validated on women, individuals below 18 years old and above 70 years old, and individuals with hemoglobinopathies. Additional resources are available on e [employer] website: http://[employer].AllPeers/DHMCadacalc Bret RIVER, Heike J, Promise R, et al. ??Tr anslating the A1C assay into estimated average glucose values. ??Diabetes Care 2008:31(8):4839-7250. Specimen Anatomical Collection Method Collection Time Receive d Time (Source) Location / / Volume Laterality Blood specimen 03/12/2015 10:42 5 (specimen) AM EDT 10:49 AM EDT Resulting Agency Comment Spec In Lab Raj Alves MD CHEMISTRY ORDERABLES Performing Organization Address City/State/ZIP Code Phon e Number [place] [id number] CERNER MILLENNIUM (ABNORMAL) Basic [...] intervals supplied above were not validated at [facility]. Results from pediatri c [...] the following links into your internet browser. http://Applitools/DHnkdep http://Applit[employer]/DHMCnkf Specimen Anatomical Collection Method Collection Time Receive d Time (Source) Location / / Volume Laterality Blood specimen 08/28/2014 10:40 5 (specimen) AM EST 10:57 AM EST Resulting Agency Comment Spec In Lab Raj Alves MD CHEMISTRY ORDERABLES Performing Organization Address City/[facility]/ZIP Code Phon e Number [address] CERNER MILLENNIUM (ABNORMAL) Uric acid (08/28/2014 10:40 AM EST) P athologist Signature Uric Acid 9.1 (H) 2.5 - 6.5 CERNER mg/dL [facility] Specimen Anatomical Collection Method Collection Time Receive d Time (Source) Location / / Volume Laterality Blood specimen 08/28/2014 10:40 5 (specimen) AM EST 10:57 AM EST Resulting Agency Comment Spec In Lab Raj Alves MD CHEMISTRY ORDERABLES Performing Organization Address City/[facility]/ZIP Code Phon e Number [address] CERNER MILLENNIUM VIT D Total Evaluation (08/28/2014 10:40 AM EST) P athologist Signature 25-OH Vit D 48 30 - 100 CERNER Total ng/mL [facility] Comment: Deficient <10 ng/mL Insufficient 10 to 29 ng/mL Sufficient 30 to 100 ng/mL Potential Intoxication >100 ng/mL According to the US National Osteoporosi s Foundation, Vitamin D concentrations >30 ng/mL are sufficient to protect bone health. ??The National Kidney Foundation has similarly stated that pat ients with Vitamin D concentrations <30ng/mL should be considered to be insu fficient or deficient. http://Applitools/DHMCnatlkidneyfoundat ion http://Applitools/DHMCVitD The IDS iSYS Vitamin D Immunoassay detec [...] Alves MD CHEMISTRY ORDERABLES Performing Organization Address City/[facility]/ZIP Code Phon e Number [address] [facility] TSH (08/28/2014 10:40 AM EST) P athologist Signature TSH 0.52 0.27 - 4.20 [facility] mcIU/mL [facility] Specimen Anatomical Collection Method Collection Time Receive d Time (Source) Location / / Volume Laterality Blood specimen 08/28/2014 10:40 5 (specimen) AM EST 10:57 AM EST Resulting Agency Comment Spec In Lab Raj Alves MD CHEMISTRY ORDERABLES Performing Organization Address City/[facility]/ZIP Code Phon e Number [address] [facility] (ABNORMAL) Hemoglobin A1c (08/28/2014 10:40 AM EST) Analysis Performed At Patho logist Time Signature Hemoglobin A1C 7.3 (H) <=5.6 % [facility] Comment: Reference Range: 4.3 - 5.6% [...] 1, S67-74 Est Avg Gluc 163 mg/dL [facility] Comment: eAG equivalents for HbA1c percentages: HbA1c(%) ?eAG(mg/dL) 6.0 ?126 6.5 ?140 7.0 ?154 7.5 ?169 8.0 ?183 8.5 ?197 9.0 ?212 9.5 ?226 10.0 ? 240 Limitations: The eAG calculation has not been validated on women, individuals below 18 years old and above 70 years old, and individuals with hemoglobinopathies. Additional resources are available on [facility] website: http://Applitools/Blue Gold Foodsadacalc Bret RIVER, Heike J, Promise R, et al. ??Tr anslating the A1C assay into estimated average glucose values. ??Diabetes Care 2008:31(8):2798-0432. Specimen Anatomical Collection Method Collection Time Receive d Time (Source) Location / / Volume Laterality Blood specimen 08/28/2014 10:40 5 (specimen) AM EST 10:57 AM EST Resulting Agency Comment Spec In Lab Raj Alves MD CHEMISTRY ORDERABLES Performing Organization Address City/State/[place] [address] [facility] documented in this encounter Visit Diagnoses Diagnosis Osteopenia Disorder of bone and cartilage, unspecif ied Other abnormal glucose Unspecified vitamin D deficiency documented in this encounter Care Teams Dynamometer Tester Engine Relationship Specialty Start Date End Date Sejal Piper APRN PCP - General 08/10/14 05/30/19 [address] [place] [address] documented as of this encounter
--- OUTSIDE RECORDS SUMMARY | 2022-02-22 08:15 | XMS_ITS | Encounter Summary ---
:1965 Author Organization [facility] Address [facility] [place] [address] Care Team Providers Name Role Phone Beth Golden MD Primary Care Provider Reason for Visit Reason Onset Date Comments Diarrhea 10/12/2012 due to higher dose o f metformin Encounter Details Date Type Department Care Team Description 10/12/2012 Telephone Endocrinology at [facility] C Raj Alves Diarrhea ([facility] to [facility] demarcus Burrough[place] [address] [facility] metformin) [phone] END[address]PT[address] [place] [id number] Social History Tobacco Use Types Packs/Day Years [...] to PCP (Beth Golden) and Sejal Davis CLINICAL PSYCHIATRIST at [facility]. There is no need to add another [...] on filedocumented in this encounter Care Teams Hand Turner Relationship Specialty Start Date End Date Beth Golden MD PCP - General 06/25/10 08/09/14 [address] [place] [address] documented as of this encounter
--- OUTSIDE RECORDS SUMMARY | 2022-02-22 08:15 | XMS_ITS | Encounter Summary ---
:1965 [place] [address] Care Team Providers Name Role Phone Beth Golden MD Primary Care Provider Encounter Details Date Type Department Care Team Description 08/12/2010 Orders Only Lab [facility] [place] [address] ENDOCRINOLOGY DEPT. [phone] [place], [place] [address] (Wo rk) Social History Tobacco [...] Organization Address City/State/[place] [address] CERNER MILLENNIUM (ABNORMAL) BASIC [...] Organization Address City/State/[place] [address] CERNER MILLENNIUM (ABNORMAL) HEMOGLOBIN [...] into estimated average glucose values. ??Diabetes Care 2008:31(8):3617-3142. Specimen Anatomical Collection Method Collection Time Receive d Time (Source) Location / / Volume Laterality Blood specimen 08/12/2010 11:48 1 (specimen) AM EST 11:56 AM EST Raj Alves MD CHEMISTRY ORDERABLES Performing Organization Address City/State/[place] [address] [facility] documented in this encounter Visit Diagnoses Not on filedocumented in this encounter Care Teams Quality Specialist Relationship Specialty Start Date End Date Beth Golden MD PCP - General 06/25/10 08/09/14 [address] [place] [address] documented as of this encounter
--- OUTSIDE RECORDS SUMMARY | 2022-02-22 08:15 | XMS_ITS | Encounter Summary ---
:1965 Author Organization [facility] Address [facility] [place] [address] Care Team Providers Name Role Phone Beth Golden MD Primary Care Provider Reason for Referral Physical Therapy (Routine) - Complete - Unable to Contact Patient Specialty Diagnoses / Procedures Referred By Contact Refer red To Contact Physical Therapy Diagnoses Urinary incontinence Fecal incontinence Pelvic pain in female Bienvenido Dawson MD [facility] OBSTETRICS & [facility] [place] [address] [place] [address] Referral ID Status Reason Start Expiration Visits Visits Date Date Requested Authorized [id number] Complete - Evaluate and 04/10/2011 10/07/2011 1 1 Unable to Treat Contact Patient Reason for Visit Reason Comments Urinary Incontinence Encounter Details Date Type Department Care Team Description 04/10/2011 Office Visit Obstetrics and Bienvenido Dawson, Urinary i ncontinence (Primary Dx); Gynecology at [facility] Fecal incontinence; [facility] Pel margarito pain in female [facility] [place] [place] OBST[facility]ICS & [address] GYNECOLOGY [phone] [place], [place] [address] Social History Tobacco Use Types [...] Female Pelvic Medicine and Reconstructive Surgery @ [facility] Patient Name: Karoline Moseley Patient Primary Care [...] empty her bowels. 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 Colonoscopy, remv lesn, snare 02/14/2011 COLONOSCOPY, POLYPECTOMY, REMOVAL LESION BY SNARE performed by Ryanne ZARATE at [facility] ??? Tonsillectomy ??? Pelvic laparoscopy [...] colon cancer. No history of breast or CLAMP CARRIER OPERATOR cancer in her immediate family. Goals for [...] test (empty supine): negative External Genitalia: Vulva, Polson's and Bartholin glands normal, urethra without tenderness [...] urine dipstick (04/10/2011) athologist Signature POC Sp [place] 1.002 - 1.030 POC pH, UA 5.0 [...] organs documented in this encounter Care Teams Secondary Special Education Teacher Relationship Specialty Start Date End Date Beth Golden MD PCP - General 06/25/10 08/09/14 [address] [place] [address] documented as of this encounter
--- OUTSIDE RECORDS SUMMARY | 2022-02-22 08:15 | XMS_ITS | Encounter Summary ---
:1965 Author Organization [place] [address] Care Team Providers Name Role Phone Beth Golden MD Primary Care Provider Encounter Details Date Type Department Care Team Description 02/10/2011 Abstract Gastroenterology at [facility] [place] [address] Social History Tobacco Use Types Packs/Day Years Used Date Never Assessed Sex Assigned at Date Recorded Not on file documented as of this encounter Plan of Treatment Not on filedocumented as of this encounter Visit Diagnoses Not on filedocumented in this encounter Care Teams Zone Manager Relationship Specialty Start Date End Date Beth Golden MD PCP - General 06/25/10 08/09/14 [address] [place] [address] documented as of this encounter
--- OUTSIDE RECORDS SUMMARY | 2022-02-22 08:15 | XMS_ITS | Encounter Summary ---
:1965 Author Organization [facility] Address [facility] [place] [address] Care Team Providers Name Role Phone Beth Golden MD Primary Care Provider Encounter Details Date Type Department Care Team Description 03/16/2014 Orders Only Endocrinology at [facility] Elaine Alves, Osteopenia; [facility] Leo Burroughs MD Other abnormal glucose; [place], [place] [phone] [facility] Unspecified vitamin D defici ency [phone] [place] ENDOCRINOLOGY DEPT. [place], [place] [address] Social History Tobacco Use Types [...] filedocumented as of this encounter Results (ABNORMAL) Uric acid (08/28/2014 10:40 AM EST) P athologist Signature Uric Acid 9.1 (H) 2.5 - 6.5 CERNER mg/dL [facility] Specimen Anatomical Collection Method Collection Time Receive d Time (Source) Location / / Volume Laterality Blood specimen 08/28/2014 10:40 5 (specimen) AM EST 10:57 AM EST Resulting Agency Comment Spec In Lab Raj Alves MD CHEMISTRY ORDERABLES Performing Organization Address City/State/ZIP Code Phon e Number [place] [id number] H[address]ITAL [address] CERNER MILLENNIUM (ABNORMAL) Basic [...] intervals supplied above were not validated at [facility]. Results from pediatri [...] the following links into your internet browser. http://InboxQ/DHnkdep http://InboxQ/DHMCnkf Specimen Anatomical Collection Method Collection Time Receive d Time (Source) Location / / Volume Laterality Blood specimen 08/28/2014 10:40 5 (specimen) AM EST 10:57 AM EST Resulting Agency Comment Spec In Lab Raj Alves MD CHEMISTRY ORDERABLES Performing Organization Address City/[facility] Phon e Number [address] [facility] VIT D Total Evaluation (08/28/2014 10:40 AM EST) athologist Signature 25-OH Vit D 48 30 - 100 CERNER Total ng/mL [facility] Comment: Deficient <10 ng/mL Insufficient 10 to 29 ng/mL Sufficient 30 to 100 ng/mL Potential Intoxication >100 ng/mL According to the US National Osteoporosi s Foundation, Vitamin D concentrations >30 ng/mL are sufficient to protect bone health. ??The National Kidney Foundation has similarly stated that pat ients with Vitamin D concentrations <30ng/mL should be considered to be insu fficient or deficient. http://InboxQ/DHMCnatlkidneyfoundat ion http://InboxQ/DHMCVitD The IDS i[employer] Vitamin D Immunoassay detec [...] Alves MD CHEMISTRY ORDERABLES Performing Organization Address City/[facility] [place] [address] [facility] M[facility] TSH (08/28/2014 10:40 AM EST) P athologist Signature TSH 0.52 0.27 - 4.20 CERNER mcIU/mL [facility] Specimen Anatomical Collection Method Collection Time Receive d Time (Source) Location / / Volume Laterality Blood specimen 08/28/2014 10:40 5 (specimen) AM EST 10:57 AM EST Resulting Agency Comment Spec In Lab Raj Alves MD CHEMISTRY ORDERABLES Performing Organization Address City/State/Z[place] [address] [facility] ([facility]NORMAL) Hemoglobin A1c (08/28/2014 10:40 AM EST) Analysis Performed At [facility] Time Signature Hemoglobin A1C 7.3 (H) <=5.6 % [facility] Comment: Reference Range: 4.3 - 5.6% 5.7 [...] 1, S67-74 Est Avg Gluc 163 mg/dL [facility] Comment: eAG equivalents for HbA1c percentages: HbA1c(%) ?eAG(mg/dL) 6.0 ?126 6.5 ?140 7.0 ?154 7.5 ?169 8.0 ?183 8.5 ?197 9.0 ?212 9.5 ?226 10.0 ? 240 Limitations: The eAG calculation has not been validated on women, individuals below 18 years old and above 70 years old, and individuals with hemoglobinopathies. Additional resources are available on [facility] website: http://InboxQ/[facility] OKLA[facility] CITYadacalc Bret RIVER, Heike J, Promise R, et al. ??Tr anslating the A1C assay into estimated average glucose values. ??Diabetes Care 2008:31(8):0287-9964. Specimen Anatomical Collection Method Collection Time Receive d Time (Source) Location / / Volume Laterality Blood specimen 08/28/2014 10:40 5 (specimen) AM EST 10:57 AM EST Resulting Agency Comment Spec In Lab Raj Alves MD CHEMISTRY ORDERABLES Performing Organization Address City/State/ZIP [place] [address] [facility] documented in this encounter Visit Diagnoses Diagnosis Osteopenia Disorder of bone and cartilage, unspecif ied Other abnormal glucose Unspecified vitamin D deficiency documented in this encounter Care Teams Meter And Regulator Shop Supervisor Relationship Specialty Start Date End Date Beth Golden MD PCP - General 06/25/10 08/09/14 [address] [place] [address] documented as of this encounter
--- OUTSIDE RECORDS SUMMARY | 2022-02-22 08:15 | XMS_ITS | Encounter Summary ---
:1965 Author Organization [facility] [place] [address] Care Team Providers Name Role Phone Sejal Davis APRN Primary Care Provider Encounter Details Date Type Department Care Team Description 12/24/2015 Laboratory Lab 3L Edyta Type 2 diabetes , controlled, with neuropathy; Appointment [facility] Hypothyro idism, unspecified type; [facility] Vitamin D deficiency; [facility] [place] [address] Social History Tobacco Use Types Packs/Day Years [...] Vit D 29 (L) 30 - 100 [facility] Total ng/mL [facility] Comment: Deficient <10 ng/mL Insufficient 10 to 29 ng/mL Sufficient 30 to 100 ng/mL Potential Intoxication >100 ng/mL According to the [place] National Osteoporosi s Foundation, Vitamin D concentrations >30 ng/mL are sufficient to protect bone health. ??The National Kidney Foundation has similarly stated that pat ients with Vitamin D concentrations <30ng/mL should be considered to be insu fficient or deficient. http://Koemei/DHnatlkidneyfoundat ion http://Koemei/DHMCVitD [employer] Vitamin D Immunoassay detec [...] Organization Address City/State/[place] [address] (ABNORMAL) Uric acid (12/24/2015 9:49 AM EDT) P athologist Signature Uric Acid 8.2 (H) 2.5 - 6.5 [facility] mg/dL [facility] Specimen Anatomical Collection Method Collection Time Receive d Time (Source) Location / / Volume Laterality Blood specimen 12/24/2015 9:49 AM 016 9:54 (specimen) EDT AM EDT Resulting Agency Comment Spec In Lab Raj Alves MD CHEMISTRY ORDERABLES Performing Organization Address City/[facility]/ZIP Code Phon e Number [address] TSH (12/24/2015 9:49 AM EDT) P athologist Signature TSH 1.11 0.27 - 4.20 [facility] mcIU/mL [facility] Specimen Anatomical Collection Method Collection Time Receive d Time (Source) Location / / Volume Laterality Blood specimen 12/24/2015 9:49 AM 016 9:54 (specimen) EDT AM EDT Resulting Agency Comment Spec In Lab Raj Alves MD CHEMISTRY ORDERABLES Performing Organization Address City/[facility]/[place] [address] (ABNORMAL) Hemoglobin A1c (12/24/2015 9:49 AM EDT) Analysis Performed At Patho logist Time Signature Hemoglobin A1C 8.3 (H) 4.3 - 5.6 [facility] Comment: Reference Range: 4.3 - [...] Mellitus, Diabetes Care 2013; 36: Suppl. 1, S67-58 Est Avg Gluc 192 mg/dL [facility] [...] with hemoglobinopathies. Additional resources are available on [place] website: http://Koemei/Fireworkadacalc Bret RIVER, Heike J, Promise R, et al. ??Tr anslating the A1C assay into estimated average glucose values. ??Diabetes Care 2008:31(8):5853-7887. Specimen Anatomical Collection Method Collection Time Receive d Time (Source) Location / / Volume Laterality Blood specimen 12/24/2015 9:49 AM 016 9:54 (specimen) EDT AM EDT Resulting Agency Comment Spec In Lab Raj Alves MD CHEMISTRY ORDERABLES Performing Organization Address City/State/[place] [address] documented in this encounter Visit Diagnoses Diagnosis Type 2 diabetes, controlled, with neurop athy Type II or unspecified type diabetes jarvis litus with neurological manifestations, not stated as uncontrolled Hypothyroidism, unspecified type Vitamin D deficiency Unspecified vitamin D deficiency Hyperuricemia Other abnormal blood chemistry documented in this encounter Care Teams Ios Developer Relationship Specialty Start Date End Date Sejal Davis APRN PCP - General 08/10/14 05/30/19 [address] [place] [address] documented as of this encounter
--- OUTSIDE RECORDS SUMMARY | 2022-02-22 08:15 | XMS_ITS | Encounter Summary ---
:1965 Author Organization [facility] Address [place] [id number] Care Team Providers Name Role Phone Beth Golden MD Primary Care Provider Reason for Visit Reason Onset Date Comments Labs Only 02/19/2011 Encounter Details Date Type Department Care Team Description 02/19/2011 Telephone Endocrinology at [facility] Raj Yancey, Labs Only [facility] [place] [address] [facility] [phone] END[address] [place] [phone] (Wo rk) Social History Tobacco Use Types [...] encounter Miscellaneous Notes Telephone Encounter - Raj Alvse MD - 02/21/2011 6:31 PM EDT lab documented in this encounter Plan of Treatment Not on filedocumented as of this encounter Visit Diagnoses Diagnosis Type II or unspecified type diabetes jarvis litus without mention of complication, not stated as uncontrolled - Primary documented in this encounter Care Teams Goldsmith Apprentice Relationship Specialty Start Date End Date Beth Golden MD PCP - General 06/25/10 08/09/14 [address] [place] [address] documented as of this encounter
--- OUTSIDE RECORDS SUMMARY | 2022-02-22 08:15 | XMS_ITS | Encounter Summary ---
:1965 Author Organization [facility] [place] [address] Care Team Providers Name Role Phone Sejal Davis APRN Primary Care Provider Encounter Details Date Type Department Care Team Description 03/13/2015 Telephone Endocrinology at [facility] [place] [address] Social History Tobacco Use Types Packs/Day Years [...] on filedocumented in this encounter Care Teams Knit Goods Cutter Hand Relationship Specialty Start Date End Date Sejal Davis APRN PCP - General 08/10/14 05/30/19 [address] [place] [address] documented as of this encounter
--- OUTSIDE RECORDS SUMMARY | 2022-02-22 08:15 | XMS_ITS | Encounter Summary ---
:1965 Author Organization [facility] [place] [address] Care Team Providers Name Role Phone Beth Golden MD Primary Care Provider Reason for Visit Reason Comments Diarrhea Encounter Details Date Type Department Care Team Description 02/11/2011 Office Visit Gastroenterology at [facility] Antwan Palma MD Hematochezia; [facility] D demarcus [facility] IBS (irritable bowel syndrom e) [place] [address] CENTER [phone] [place] [address] Social History Tobacco Use Types Packs/Day Years [...] were unrevealing. TSH has beennormal. EGD and [place] 6 yrs ago were normal. Review of [...] (CBC, lytes, BUN/Cr, LFTs, TSH) EGD and [place] 2004, By report nl Impression/Plan: 45 y.o. [...] with 25 minutes of the time spent [id number] in discussing her diagnosis and reviewing options [...] syndrome documented in this encounter Care Teams Mixer Helper Relationship Specialty Start Date End Date Beth Golden MD PCP - General 06/25/10 08/09/[address] [place] [id number] documented as of this encounter
--- OUTSIDE RECORDS SUMMARY | 2022-02-22 08:15 | XMS_ITS | Encounter Summary ---
:1965 Author Organization [facility] [place] [address] Care Team Providers Name Role Phone Sejal Davis APRN Primary Care Provider Reason for Visit Reason Onset Date Comments Prior Authorization 12/28/2015 Encounter Details Date Type Department Care Team Description 12/28/2015 Telephone Endocrinology at [facility] Ekta [place] [address] Social History Tobacco Use Types Packs/Day [...] request: T2DM Health plan: [employer] Authorizing employment program representative name: EKTA Faxed to health plan on: 12/28/15 Health plan decision: APPROVED Quantity approved: Authorization number: Start date: 12/28/15 End date: 08/02/99 Patient notified? YES Pharmacy notified? YES documented in this encounter Plan of Treatment Not on filedocumented as of this encounter Visit Diagnoses Not on filedocumented in this encounter Care Teams Entry Level Marketing Assistant Relationship Specialty Start Date End Date Sejal Davis APRN PCP - General 08/10/14 05/30/19 [address] [place] [address] documented as of this encounter
== END 2022-02-21 08:13 | disposition home or self-care (01) ==
LOC: DIORS 02-22 08:12
PROVIDERS: PCP Nurse Practitioner Family; Visit Provider Student in an Organized Health Care Education/Training Program
DX: S69.81XA Other specified injuries of right wrist, hand and finger(s), initial encounter; X58.XXXA Exposure to other specified factors, initial encounter
CPT/HCPCS: 73110

== ENCOUNTER 2022-06-16 15:23 | Outpatient (REF) | payer OTHER, MEDICAID, SELFPAY ==
[2022-06-16 17:21] LABS: Hemoglobin A1C 9.4 % (<5.7)
[2022-06-16 17:29] LABS: FREE T4 0.79 ng/dL (0.76-1.46); TSH 15.01 uIU/mL (0.36-3.74)
[2022-06-18 10:43] LABS: Lyme Ab w Rflx to Lyme Confirm Negative (Negative)
[2022-06-21 00:34] LABS: Anaplasma phagocytophilum Negative (Negative); B. miyamotoi PCR Negative (Negative); Babesia divergens/MO-1 Negative (Negative); Babesia duncani Negative (Negative); Babesia microti Negative (Negative); Ehrlichia chaffeensis Negative (Negative); Ehrlichia ewingii/canis Negative (Negative); Ehrlichia muris eauclairensis Negative (Negative)
== END 2022-06-16 15:24 | disposition home or self-care (01) ==
LOC: NCHCN 15:23
PROVIDERS: PCP Nurse Practitioner Family; Visit Provider Nurse Practitioner Family
DX: E11.65 Type 2 diabetes mellitus with hyperglycemia (principal); E03.9 Hypothyroidism, unspecified; F32.9 Major depressive disorder, single episode, unspecified; M25.531 Pain in right wrist; W57.XXXA Bitten or stung by nonvenomous insect and other nonvenomous arthropods, initial encounter
CPT/HCPCS: 87798; 83036; 84439; 84443; 86618

== ENCOUNTER 2023-04-28 17:26 | Outpatient (REF) | payer OTHER, MEDICAID, SELFPAY ==
[2023-04-28 16:09] LABS: Anion Gap 9.5 mmol/L (3-11); BUN 20 mg/dL (7-18); CO2 26.5 mmol/L (21.0-32.0); Calcium 9.6 mg/dL (8.5-10.1); Calculated LDL 153 mg/dL (<100); Chloride 98 mmol/L (98-107); Cholesterol 285 mg/dL (<200); Glucose 295 mg/dL (74-106); HDL Cholesterol 58 mg/dL (40-60); Hemoglobin A1C 12.7 % (<5.7); Potassium 4.7 mmol/L (3.5-5.1); Sodium 134 mmol/L (136-145); TSH 12.71 uIU/mL (0.36-3.74); Triglyceride 374 mg/dL (<150)
[2023-04-28 16:35] LABS: FREE T4 0.84 ng/dL (0.76-1.46)
== END 2023-04-28 17:27 | disposition home or self-care (01) ==
LOC: NCHCN 17:26
PROVIDERS: PCP Nurse Practitioner Family; Visit Provider Nurse Practitioner Family
DX: E11.65 Type 2 diabetes mellitus with hyperglycemia (principal); I10 Essential (primary) hypertension; E03.9 Hypothyroidism, unspecified
CPT/HCPCS: 80048; 80061; 83036; 84439; 84443

== ENCOUNTER 2023-08-24 16:25 | Outpatient (REF) | payer OTHER, MEDICAID, SELFPAY ==
[2023-08-24 16:15] LABS: Anion Gap 11.4 mmol/L (3-11); BUN 16 mg/dL (7-18); CO2 24.6 mmol/L (21.0-32.0); CREATININE 1.1 mg/dL (0.55-1.02); Calcium 9.2 mg/dL (8.5-10.1); Chloride 99 mmol/L (98-107); Estimated GFR 57.88 (mL/min/1.73m2); FREE T4 0.72 ng/dL (0.76-1.46); Glucose 354 mg/dL (74-106); Potassium 4.4 mmol/L (3.5-5.1); Sodium 135 mmol/L (136-145)
[2023-08-24 17:08] LABS: Hemoglobin A1C > 13.0 % (<5.7)
== END 2023-08-24 16:26 | disposition home or self-care (01) ==
LOC: NCHCN 16:25
PROVIDERS: PCP Nurse Practitioner Family; Visit Provider Nurse Practitioner Family
DX: I10 Essential (primary) hypertension (principal); E03.9 Hypothyroidism, unspecified; E11.65 Type 2 diabetes mellitus with hyperglycemia
CPT/HCPCS: 80048; 83036; 84439; 84443

== ENCOUNTER 2023-11-02 20:25 | Outpatient (REF) | payer OTHER, MEDICAID, SELFPAY ==
[2023-11-02 16:37] LABS: HCT 46.6 % (36.0-46.0); HGB 15.3 g/dL (11.2-15.7); MCH 28.3 pg (27.0-33.0); MCHC 32.8 % (32.0-36.0); MCV 86 fL (80-95); MPV 11.7 fL (8.0-11.0); Platelet Count 237 10^3/uL (130-400); RDW 13.8 % (11.7-14.6); RDW-SD 43.8 fL; WBC 8.22 10^3/uL (4.4-10.8)
[2023-11-02 16:52] LABS: ALT 34 U/L (14-59); AST 23 U/L (15-37); Albumin 3.6 g/dL (3.4-5.0); Alkaline Phosphatase 139 U/L (46-116); Anion Gap 6.8 mmol/L (3-11); BUN 10 mg/dL (7-18); Bilirubin, Total 0.8 mg/dL (0.2-1.0); CO2 26.2 mmol/L (21.0-32.0); CREATININE 0.9 mg/dL (0.55-1.02); Calcium 9.2 mg/dL (8.5-10.1); Chloride 103 mmol/L (98-107); Estimated GFR 73.64 (mL/min/1.73m2); Glucose 289 mg/dL (74-106); Potassium 4.7 mmol/L (3.5-5.1); Sodium 136 mmol/L (136-145); Total Protein 7.5 g/dL (6.4-8.2)
== END 2023-11-02 20:26 | disposition home or self-care (01) ==
LOC: NCHCN 20:25
PROVIDERS: PCP Nurse Practitioner Family; Visit Provider Nurse Practitioner Family
DX: R10.31 Right lower quadrant pain (principal); R82.998 Other abnormal findings in urine; R73.09 Other abnormal glucose
CPT/HCPCS: 80053; 85027; 87086

== ENCOUNTER → 2023-11-19 01:48 | Outpatient (CLI) | payer OTHER, MEDICAID, SELFPAY ==
--- NOTE | 2023-11-19 | DI.MRI_ITS ---
Exam(s) MR LUMBAR SPINE WO EXAM: MR LUMBAR SPINE WO CLINICAL HISTORY: M54.50 Low back pain, unspecified. TECHNIQUE: Multiplanar multisequence MRI of the Lumbar spine was performed. COMPARISON: MR MR LUMBAR SPINE WO from 04/20/[address] ABDOMEN PELVIS WO from 11/02/2023 FINDINGS: Bones: The last intervertebral disc space is designated the L5/S1 level for the numbering purpose of this examination. The vertebral body heights are well maintained. Alignment is satisfactory. There are hemangioma or fatty rest seen in the T11 and L2 vertebral bodies. Degenerative endplate signal c hanges are seen at L3-4, L4-5 and L5-S1. There is artifact from postsurgical changes with posterior s jessica rods and pedicle screws at L4-L5. There is also an intervertebral cage at L4-L5. Cord: The conus tip ends at the L1 level. It is of normal size and signal intensity. T12-L1: No disc herniations or bulges are present. No central spinal canal or neural foraminal stenos is. L1-2: No disc herniations or bulges are present. No central spinal canal or neural foraminal stenosis . L2-3: There is a small right paracentral disc herniation. No central spinal canal or neural foramina l stenosis. L3-4: No disc herniations or bulges are present. No central spinal canal or neural foraminal stenosis . L4-5: Evaluation of this level is limited due to the hardware artifact. No significant central spina l canal stenosis is seen. There does appear to be mild narrowing of the neural foramen bilaterally. L5-S1: There is a diffuse disc bulge. There are degenerative changes of the facets. No significant central spinal canal stenosis is seen. There is mild bilateral neural foraminal stenosis. Soft tissues: The visualized SI joints and sacrum are well maintained. The paraspinal soft tissues ar e unremarkable. IMPRESSION: 1. Postsurgical changes at L4-L5 with posterior spinal rods and pedicle screws and an intervertebral cage at L4-L5. 2. Degenerative changes at L5-S1 causing mild bilateral neural foraminal stenosis. 3. Small right paracentral disc herniation at L2-L3. No central spinal canal or neural foraminal angelia nosis results. 4. There does appear to be mild narrowing of the neural foramen bilaterally at L4-L5. DATA REPOSITORY:
== END ==
PROVIDERS: PCP Nurse Practitioner Family; Visit Provider Nurse Practitioner Family
DX: M54.50 Low back pain, unspecified (principal); M43.26 Fusion of spine, lumbar region; M48.061 Spinal stenosis, lumbar region without neurogenic claudication; M51.26 Other intervertebral disc displacement, lumbar region
CPT/HCPCS: 72148

== ENCOUNTER 2023-12-25 02:32 | Outpatient (CLI) | payer OTHER, MEDICAID, SELFPAY ==
[2023-12-25 10:39] LABS: Hemoglobin A1C 12.6 % (<5.7)
[2023-12-25 10:40] LABS: FREE T4 1.27 ng/dL (0.76-1.46); Magnesium 1.8 mg/dL (1.8-2.4); TSH 0.63 uIU/Ml (0.36-3.74)
[2023-12-25 18:16] LABS: Rheumatoid Factor <8.6 IU/mL (<12.0)
[2023-12-28 14:44] LABS: Ro60 Ab, IgG <7.0 CU (<20.0); SS-A/Ro, IgG <2.3 CU (<20.0); SS-B (La) Ab, IgG <3.3 CU (<20.0)
== END 2023-12-25 02:33 | disposition home or self-care (01) ==
LOC: LBO 02:33
PROVIDERS: PCP Nurse Practitioner Family; Visit Provider Nurse Practitioner Family
DX: R10.9 Unspecified abdominal pain (principal)
CPT/HCPCS: 36415; 83036; 83735; 84439; 84443; 86235; 86431

== ENCOUNTER 2024-01-27 13:43 | Outpatient (CLI) | payer OTHER, MEDICAID, SELFPAY ==
[2024-01-27 12:59] LABS: Abs Immature Grans 0.03 10^3/uL (0.0-0.06); Absolute Basophil Count 0.07 10^3/uL (0.0-0.2); Absolute Eosinophil Count 0.43 10^3/uL (0.0-0.7); Absolute Lymphocyte Count 2.28 10^3/uL (1.2-3.4); Absolute Monocyte Count 0.48 10^3/uL (0.1-0.8); Absolute Neutrophil Count 4.46 10^3/uL (1.2-6.7); Basophils % 0.9 %; Eosinophils % 5.5 %; HCT 45.4 % (36.0-46.0); HGB 15.4 g/dL (11.2-15.7); Immature Grans % 0.4 %; Lymphocytes % 29.4 %; MCH 29.1 pg (27.0-33.0); MCHC 33.9 % (32.0-36.0); MCV 86 fL (80-95); MPV 11.3 fL (8.0-11.0); Monocytes % 6.2 %; Neutrophils % 57.6 %; Platelet Count 240 10^3/uL (130-400); RDW 13.4 % (11.7-14.6); RDW-SD 42.2 fL; WBC 7.75 10^3/uL (4.4-10.8)
[2024-01-27 13:38] LABS: C-Reactive Protein 0.97 mg/dL (<or=0.5)
[2024-01-28 14:34] LABS: ANA Interpretation Negative (Negative)
[2024-02-01 15:05] LABS: Specimen Type Peripheral blood
[2024-02-02 18:16] LABS: Creatinine, Random Ur 101 mg/dL (16 - 326); N-Methylhistamine, Random Ur 78 mcg/g Cr (30-200)
[2024-02-05 17:41] LABS: 2,3-Dinor-11B-ProstaglandinF2a 768 pg/mg Cr (<1802); Creatinine, Random Ur 101 mg/dL (16 - 326)
[2024-02-09 16:37] LABS: Creatinine, Random Ur 106 mg/dL (16 - 326); Leukotriene E4, Random Ur 173 pg/mg Cr (<=104)
== END 2024-01-27 13:44 | disposition home or self-care (01) ==
LOC: LBO 13:43
PROVIDERS: PCP Nurse Practitioner Family; Visit Provider Allergy & Immunology
DX: R19.7 Diarrhea, unspecified (principal); G89.4 Chronic pain syndrome
CPT/HCPCS: 36415; 81273; 82542; 82570; 83520; 84150; 85025; 86038; 86140

== ENCOUNTER 2024-02-01 10:02 | Outpatient (REF) | payer OTHER, MEDICAID, SELFPAY ==
[2024-02-05 14:06] LABS: Creatinine Concentration,24hrU 78 mg/dL; Creatinine, 24hr U 1482 mg/24 h (603 - 1783); N-Methylhistamine, 24hr 64 mcg/g Cr (30-200); Urine Volume 1900 mL
[2024-02-08 16:22] LABS: Creatinine Conc, 24hr Ur 81 mg/dL; Creatinine, 24 hr Ur 1539 mg/24 h (603 - 1783); Leukotriene E4, Ur 225 pg/mg Cr (<=104); Urine Volume 1900 mL
[2024-02-08 17:35] LABS: 2,3-Dinor 11B-ProstaglandinF2a 804 pg/mg Cr (<1802); Creatinine Conc, 24hr Ur 78 mg/dL; Creatinine, 24hr, Ur 1482 mg/24 h (603 - 1783); Urine Volume 1900 mL
== END 2024-02-01 10:03 | disposition home or self-care (01) ==
LOC: LBN 10:02
PROVIDERS: PCP Nurse Practitioner Family; Visit Provider Allergy & Immunology
DX: R19.7 Diarrhea, unspecified (principal); G89.4 Chronic pain syndrome
CPT/HCPCS: 82542; 82570; 84150; 81050

== ENCOUNTER 2024-03-24 16:11 | Outpatient (CLI) | payer OTHER, MEDICAID, SELFPAY ==
--- NOTE | 2024-03-24 13:22 | DI.RAD_ITS ---
Exam(s) XR FOOT LT COMPLETE EXAM: XR FOOT LT COMPLETE CLINICAL HISTORY: INJURY OF L FOOT, S99.922A. TECHNIQUE: 2D digital imaging was performed. Three views. COMPARISON: CR XR FOOT LT COMPLETE from 01/14/2021 FINDINGS: BONES: No acute fracture is present. No bony destructive lesion is seen. Heel spurs. JOINTS: No dislocation present. Mild degenerative changes at tarsal metatarsal joints. SOFT TISSUE: Normal. IMPRESSION: No acute abnormality. DATA REPOSITORY: RADIATION DOSE DELIVERED:
== END 2024-03-24 16:31 ==
LOC: DI 16:11
PROVIDERS: PCP Nurse Practitioner Family; Visit Provider Nurse Practitioner Family
DX: S99.922A Unspecified injury of left foot, initial encounter (principal); X58.XXXA Exposure to other specified factors, initial encounter
CPT/HCPCS: 73630

== ENCOUNTER 2025-04-14 16:39 | Outpatient (REF) | payer OTHER, MEDICAID, SELFPAY ==
[2025-04-14 16:33] LABS: COMMENT (LAB VIEW ONLY) 54.37 mg/dL; Microalb ug/mg Crea 19.5 ug/mg Cr
== END 2025-04-14 16:40 | disposition home or self-care (01) ==
LOC: NCHCN 16:39
PROVIDERS: PCP Nurse Practitioner Family; Visit Provider Nurse Practitioner Family
DX: E11.65 Type 2 diabetes mellitus with hyperglycemia (principal)
CPT/HCPCS: 82043; 82570